=== PATIENT | male | born 1940 | race Caucasian/White ===

== ENCOUNTER → 2017-10-01 08:02 | Outpatient (CLI) | payer MEDICARE, OTHER, SELFPAY ==
[2017-10-01 10:07] LABS: Hematocrit 43.1 % (40-54); Hemoglobin 14.3 g/dl (13.0-16.5); Mean Corp Hgb Conc 33.2 g/gl (32-36); Mean Corpuscular Hgb 30.2 pg (27.0-32.0); Mean Corpuscular Volume 91.1 fL (80-94); Mean Platelet Vol. 10.5 fl (6.2-12.0); Platelet Count 207 K/mm3 (150-450); RBC Distribution Width CV 13.4 % (11.6-14.6); RBC Distribution Width SD 43.9 fl (35.1-43.9); Red Blood Count 4.73 M/mm3 (4.6-6.2); White Blood Count 3.9 K/mm3 (4.4-11.0)
[2017-10-01 10:09] LABS: Scan Indicated on CBC? Y/N NO
[2017-10-01 10:32] LABS: Anion Gap 8 (5-15); BUN 12 mg/dL (7-18); BUN/Creat Ratio 12.7 RATIO (10-20); Chloride 110 mmol/L (98-107); Cholesterol 112 mg/dL (200); Creatinine, Serum 0.94 mg/dL (0.70-1.30); EST Glomerular Filtration Rate 82 mL/min (>60); Est Glom Filt Rate - Afr Amer 99 mL/min (>60); Glucose 97 mg/dL (74-106); High Density Lipoprotein 28 mg/dL; Sodium Level 144 mmol/L (136-145); Triglycerides 112 mg/dL; Very Low Density Lipoprotein 22 mg/dL (5-40)
== END ==
PROVIDERS: Family Provider Family Medicine; PCP Family Medicine; Visit Provider Family Medicine
DX: I10 Essential (primary) hypertension (principal); E78.00 Pure hypercholesterolemia, unspecified
CPT/HCPCS: 36415; 80048; 80061; 85027

== ENCOUNTER 2017-11-27 11:06 | Inpatient (IN) | payer MEDICARE, OTHER, SELFPAY ==
[2017-11-27] VITALS (9 sets, daily range): BP systolic 128–163; BP diastolic 58–75; PULSE 54–63; RESP 16–18; TEMP -7.7–36.8; O2SAT 92–98; BMI 31.2; BMI 30.5
--- NOTE | 2017-11-27 11:10 | NURSING ---
NO OLD EKGS
--- NOTE | 2017-11-27 11:24 | RAD_ITS ---
STUDY: X-RAY CHEST REASON FOR EXAM: Male, 77 years old. Chest pain TECHNIQUE: Single AP portable view of the chest. COMPARISON: 10/12/2013 FINDINGS: Cardiac monitoring leads overlie the chest. The lungs are clear and expanded. There is no demonstrated pleural abnormality. There is moderate cardiac enlargement. Postoperative changes are seen from prior coronary artery bypass graft. Normal mediastinum and yamile. Normal visualized pulmonary arteries. There is atherosclerotic calcification of the aortic arch with tortuosity. There are diffuse degenerative changes of the visualized thoracic spine. Normal visualized ribs, clavicles, and shoulders. There is no demonstrated abnormality of the visualized soft tissue structures of the upper abdomen. RAD/Chest 1 View (Portable) IMPRESSION: Moderate cardiomegaly. No focal consolidation in the lungs. Previous coronary artery bypass graft. Electronically Signed: Morales Allen DO at 12:05 EDT Tel , Service support ,
--- NOTE | 2017-11-27 11:24 | EKG12_ITS ---
Test Reason : CP Blood Pressure : / mmHG Vent. Rate : 061 BPM Atrial Rate : 061 BPM P-R Int : 206 ms QRS Dur : 114 ms QT Int : 416 ms P-R-T Axes : 006 -30 037 degrees QTc Int : 418 ms Normal sinus rhythm Left axis deviation Possible LAFB Abnormal ECG Confirmed by DIANA OVIEDO, MARIALUISA ([id number]), electronic news gathering editor GILBERTO CHESTER ([id number]) on 11/30/2017 12:55:18 PM Referred By: Confirmed By:MARIALUISA ORTIZ MD
[2017-11-27] MEDS: Aspirin 81 MG TAB.CHEW 324 MG PO (11:34)
[2017-11-27 11:36] LABS: Absolute Lymphocyte Count 0.89 X10^3/ul (0.83-4.51); Absolute Neutrophil Count 4.9 X10^3/uL (2.0-7.7); Basophil# 0.01 X10^3/uL; Basophil% 0.1 % (0-1); Eosinophil# 0.18 X10^3/uL; Eosinophils% 2.7 % (0-5); Hematocrit 45.8 % (40-54); Hemoglobin 15.1 g/dl (13.0-16.5); Lymphocyte # 0.89 X10^3/ul (4.0); Lymphocyte % 13.3 % (19-41); Mean Corpuscular Hgb 29.6 pg (27.0-32.0); Mean Corpuscular Volume 89.8 fL (80-94); Mean Platelet Vol. 9.9 fl (6.2-12.0); Monocyte# 0.72 X10^3/uL; Monocyte% 10.8 % (0-10); Neutrophil # 4.85 X10^3/uL (2.7-7.7); Neutrophil % 72.7 % (47-70); POSITIVE COUNT NO; POSITIVE DIFFERENTIAL NO; POSITIVE MORPHOLOGY NO; Platelet Count 240 K/mm3 (150-450); RBC Distribution Width CV 13.3 % (11.6-14.6); RBC Distribution Width SD 43.3 fl (35.1-43.9); White Blood Count 6.7 K/mm3 (4.4-11.0)
[2017-11-27] MEDS: Acetaminophen 500 MG Tablet 1000 MG PO (11:36)
[2017-11-27 11:54] LABS: Anion Gap 5 (5-15); BUN 17 mg/dL (7-18); BUN/Creat Ratio 14.2 RATIO (10-20); Calcium,Total 8.8 mg/dL (8.5-10.1); Chloride 103 mmol/L (98-107); EST Glomerular Filtration Rate 62 mL/min (>60); Est Glom Filt Rate - Afr Amer 75 mL/min (>60); Glucose 91 mg/dL (74-106); Potassium 4.2 mmol/L (3.5-5.1); Sodium Level 137 mmol/L (136-145)
--- NOTE | 2017-11-27 12:23 | NURSING ---
DR GRIJALVA FOR DR HO
--- NOTE | 2017-11-27 12:25 | HP.PCM_ITS ---
Problem List (1) Hyperlipidemia Status: Chronic Qualifiers: Hyperlipidemia type: unspecified Qualified Code(s): E78.5 - Hyperlipidemia , unspecified (2) Hypertension Status: Chronic Qualifiers: Hypertension type: essential hypertension Qualified Code(s): I10 - Essential (primary) hypertension (3) Atherosclerotic heart disease of [place] coronary artery without angina pectoris Status: Chronic Qualifiers: [place] vs. transplanted heart: [place] heart Qualified Code(s): I25.10 - Atherosclerotic heart disease of [place] coronary artery without angina pectoris (4) Left ventricular hypertrophy Status: Chronic (5) Carotid stenosis, asymptomatic Status: Chronic (6) Chest pain Status: Acute Qualifiers: Chest pain type: unspecified Qualified Code(s): R07.9 - Chest pain, unspecified History of Present Illness Date of Admission: 11/27/17 Chief Complaint: Chest pain - today The patient is a 77 year old M with PMHx of CAD s/p CABG in 2003, hypertension, hyperlipidemia, who follows with Dr. Leyva and has a stress test every 3 years. He comes in with complains of indigestion that feels like what he had in 2003. He had a similar presentation last Winter in [place] and work-up was apparently normal. He was exercising on his exercise bike and was 10 mins into the exercise when he had feeling of indigestion that came up to his throat. He denies dizziness, nausea, vomiting, SOB, orthopnea, PND. Vitals in the ED was stable. Labs are unremarkable. EKG shows no acute ST-T changes. His last stress test was in 2016. 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) Left ventricular hypertrophy (Chronic) Carotid stenosis, asymptomatic (Chronic) Medical History: Medical History (Last Reviewed 10/22/17 @ 15:57 by Joe Leyva MD) Hyperlipidemia (Chronic) E78.5 Hypertension (Chronic) I10 Old myocardial infarction (Chronic) I25.2 Atherosclerotic heart disease of [place] coronary artery without angina pectoris (Chronic) I25.10 Carotid bruit (Chronic) R09.89 Left ventricular hypertrophy (Chronic) I51.7 Carotid stenosis, asymptomatic (Chronic) I65.29 Fatigue R53.83 Shortness of breath R06.02 Allergies atorvastatin [From Lipitor] Adverse Reaction (Severe, Verified 11/27/17 11:14) Severe Myalgias simvastatin Adverse Reaction (Severe, Verified 11/27/17 11:14) Myalgias tamsulosin [From Flomax] Adverse Reaction (Severe, Verified 11/27/17 11:14) Dizziness, Lightheaded Home Medications: Ambulatory Orders Medication Instructions Recorded amlodipine 10 mg tablet 10 mg PO QHS 07/29/17 aspirin 81 mg tablet,delayed 81 mg PO QHS tab 07/29/17 release carvedilol 12.5 mg tablet 12.5 mg PO BID 07/29/17 omeprazole magnesium 20 mg 20 mg PO QDAY 07/29/17 tablet,delayed release rosuvastatin 20 mg tablet 20 mg PO QDAY 07/29/17 dorzolamide 2 % eye drops 1 drp OPHTHALMIC BID ml 10/22/17 hydrocortisone acetate 25 mg 25 mg RC BID 10/22/17 rectal suppository latanoprost 0.005 % eye drops 1 drp OPHTHALMIC QPM 10/22/17 multivitamin tablet 1 tab PO QAM 10/22/17 testosterone 1.62 % (20.25 mg/1.25 1 packet TOPICAL QDAY g 10/22/17 gram) transdermal gel packet Surgical History: Surgical History (Last Reviewed 10/22/17 @ 15:57 by Joe Leyva MD) Presence of aortocoronary bypass graft (Chronic) Z95.1 CABG in situ-left internal thoracic artery bypass LAD, SVG to 1st diagonal branch of LAD, PDA of RCA & sequential SVG to 2nd marginal branch of CXF & posterolateral branch of RCA 02/10; Surgical History: coronary bypass surgery Psychiatric History: No pertinent psych hx Lives: Spouse/ Significant Other Smoking Status: Former smoker Tobacco Use: Non-smoker Alcohol: Occasional - beer Drugs: None - *Family History Maternal Family History: Family History (Last Reviewed 10/22/17 @ 15:57 by Joe Leyva MD) Other CVA (cerebral vascular accident) History Items: - - Rheumatoid arthritis Paternal Family History: Family History (Last Reviewed 10/22/17 @ 15:57 by Joe Leyva MD) Other CVA (cerebral vascular accident) History Items: Heart Disease Review of Systems Constitutional: Denies: Anorexia, Chills, Fever, Malaise, Weakness, Weight Change Eyes: Denies: Blurred vision, Cataracts, Conjunctivae Inflammation, Pain, Redness HEENT: Denies: Difficulty Hearing, Difficulty Swallowing, Head Aches, Hearing Changes, Sinus Congestion, Sinus Drainage, Sore Throat Cardiovascular: Denies: Chest Pain, Claudication, Edema, Orthopnea, Palpitations , Paroxysmal Noc. Dyspnea Respiratory: Denies: Cough, Hemoptysis, Shortness of breath at rest, Shortness of breath upon exertion, Sputum production Gastrointestinal: Denies: Abdominal Pain, Hematemesis, Hematochezia, Nausea, Vomiting Genitourinary: Denies: Dysuria, Frequency Musculoskeletal: Denies: Joint Pain, Joint Tenderness Skin: Denies: Rash, Wounds Neurological: Denies: Numbness, Tingling, Focal weakness Psychiatric: Denies: Anxiety, Depression, Homicidal Ideations, Suicidal Ideations Hematologic/ Lymphatic: Denies: Easy Bruising, Easy Bleeding VTE Information - Inpt Only VTE Present on Admission: No VTE Pharm Prophylaxis ordered?: Yes Patient Problems: Active and Suspected Problems (Last Reviewed 10/22/17 @ 15:57 by Joe Leyva MD ) Chest pain (Acute) - Physical Exam General: Alert, Oriented x3, Cooperative, No apparent distress HEENT: Atraumatic, PERRLA, EOMI, Normocephalic Oral: Moist Mucosa Neck: Supple, No JVD, Negative Carotid Bruits Lungs: Clear to auscultation, Normal air movement Cardiovascular: Regular rate, Regular Rhythm, Normal S1, Normal S2, No murmurs Abdomen: Bowel Sounds Present, Soft, Non Tender, Non-Distended, No Hepato- splenomegaly Extremities: No edema Skin: No rashes Musculoskeletal: No Tenderness to Palpation of Joints or Extremities Lymphatic: No Cervical, Supraclavicular, or Inguinal Adenopathy Neurological: Cranial nerves II-XII grossly intact, Neuro grossly intact Psych/Mental Status: Normal Affect, Appropriate Vital Signs Temp Pulse Resp BP Pulse Ox 97.8 F 61 18 163/75 H 98 11/27/17 11:08 11/27/17 11:08 11/27/17 11:08 11/27/17 11:08 11/27/17 11:08 Oxygen Flow Rate (L/min) 2 Oxygen Delivery Method Nasal Cannula Weight: 90.5 kg Body Mass Index (BMI) 31.2 Laboratory Tests Past 24 Hrs 11/27/17 11/27/17 11:25 11:25 WBC 6.7 RBC 5.10 Hgb 15.1 Hct 45.8 MCV 89.8 MCH 29.6 MCHC 33.0 RDW 13.3 RDW Differential 43.3 Plt Count 240 MPV 9.9 Immature Gran % (Auto) 0.400 Neut % (Auto) 72.7 H Lymph % (Auto) 13.3 L [place] % (Auto) 10.8 H Eos % (Auto) 2.7 Baso % (Auto) 0.1 Absolute Neuts (auto) 4.9 Absolute Lymphs (auto) 0.89 Total Counted Not Reportable Sodium 137 Potassium 4.2 Chloride 103 Carbon Dioxide 29.0 Anion Gap 5 BUN 17 Creatinine 1.20 Estim Creat Clear Calc 48.20 Est GFR (MDRD) Af Amer 75 Est GFR (MDRD) Non-Af 62 BUN/Creatinine Ratio 14.2 Glucose 91 Calcium 8.8 Troponin I < 0.015 Assessment/Plan All Active Problems (Last Reviewed 10/22/17 @ 15:57 by Joe Leyva MD) Chest pain (Acute) 77 year old M with PMHx of CAD s/p CABG in 2003, hypertension, hyperlipidemia, comes in which complains of chest pain, described as indigestion, substernal, radiating to his neck. 1. Chest pain, atypical, concerning for angina, h/o CAD s/p CABG, worse with exercise, will need to r/o ACS Plan: Admit to PCU, monitor on telemetry, aspirin, nitro prn, continue on carvedilol, trend troponins 2. Hypertension, controlled, continue on amlodipine and carvedilol. 3. Hyperlipidemia, on Crestor 4. GERD, on omeprazole 5. DVT PPx - Lovenox Code Visit OBSV E&M: 09358 Initial observation care L3
--- NOTE | 2017-11-27 12:30 | NURSING ---
PCU BRYANT HO/RUDI
--- NOTE | 2017-11-27 12:40 | ED.DCSUM_ITS ---
- ER Visit Summary Date of Service: 11/27/17 Chief Complaint: Chest pain History of Present Illness: The patient is a 77 M who states that in 2003 he had an episode of indigestion which eventually led to him having a 5 vessel bypass surgery. Patient states he had been doing well until today. He does regular exercise either on a bike or treadmill. Given the rainy weather today he was on the treadmill when he developed that same indigestion feeling radiating to both of his jaws. He states that on the way to the hospital he felt like he may go out but eventually he got to the hospital and now feels better. He states he sees Dr. Leyva for cardiology and has a stress test approximately every 3 years. He states that his last stress test he believes was 2 years ago. He is on a baby aspirin a day. He does note he did have an episode of indigestion similar to this last winter while in [place] and he went to the hospital and had a negative cardiac enzyme test and opted to go home and not to be stressed. Physical Examination: Afebrile vital signs are stable Gen: Well-nourished well-developed Head: Normocephalic atraumatic Eyes: Perrl EOMI ENT: TMs clear no rhinorrhea moist mucous membranes Neck: Supple no lymphadenopathy no JVD nontender CVS: Regular rate rhythm no murmurs normal S1-S2 Respiratory: No distress clear to auscultation bilaterally chest nontender Abdomen: Soft nontender nondistended normal bowel sounds no masses Back: Nontender Extremity: Nontender no edema Skin: Normal color no rash Neuro: alert orientated ?3 CN II-XII intact normal strength sensation reflexes gait cerebellar Psych: Normal affect normal mood Test Results: Chest x-ray showed cardiomegaly. EKG sinus rhythm at a rate of 61. CBC and chemistries were negative. Initial troponin less than 0.015. ( This is not even a 1 hour troponin) Emergency Department Course and Treatment: Patient received full strength aspirin. He refused nitroglycerin stating that he is virtually symptom free. I spoke with Dr. Chaves as well as Dr. Mcnamara and plan is admission. Impression: 1. Chest pain This note was generated with Vionic dictation software. It may contain incorrect words, spelling, and punctuation that were not noted in review of the chart prior to signing ED Disposition - Plan for ED Patient: Chief Complaint: Chest Pain Referrals: Mamadou Genao MD [Primary Care Provider] -
--- NOTE | 2017-11-27 12:43 | NURSING ---
Buster notified patient may transfer to PCU.
--- NOTE | 2017-11-27 13:29 | EKG12_ITS ---
Test Reason : CP Blood Pressure : / mmHG Vent. Rate : 055 BPM Atrial Rate : 055 BPM P-R Int : 206 ms QRS Dur : 128 ms QT Int : 444 ms P-R-T Axes : 047 -29 015 degrees QTc Int : 424 ms Sinus bradycardia \ Leftward axis Poor R wave progression Left ventricular hypertrophy with QRS widening Abnormal ECG Confirmed by DIANA OVIEDO, MARIALUISA ([id number]), script editor GILBERTO CHESTER ([id number]) on 11/30/2017 2:30:59 PM Referred By: Confirmed By:MARIALUISA ORTIZ MD
[2017-11-27] MEDS: Psyllium 1 PACKET 2 PACKET PO (20:52)
[2017-11-27] MEDS: Dorzolamide 2% 10ml Bottle 1 DRP OPHTHALMIC (20:52)
[2017-11-27] MEDS: Carvedilol 12.5 MG Tablet PO (20:52)
[2017-11-27] MEDS: Latanoprost 0.005% 1 Bottle 1 DRP OPHTHALMIC (20:53)
[2017-11-28] VITALS (11 sets, daily range): BP systolic 112–143; BP diastolic 50–71; PULSE 59–68; RESP 14–16; TEMP 36.4–36.9; O2SAT 92–98
[2017-11-28 07:06] LABS: Anion Gap 8 (5-15); BUN 14 mg/dL (7-18); BUN/Creat Ratio 15.8 RATIO (10-20); Calcium,Total 8.7 mg/dL (8.5-10.1); Chloride 106 mmol/L (98-107); Cholesterol 111 mg/dL (200); Creatinine, Serum 0.89 mg/dL (0.70-1.30); EST Glomerular Filtration Rate 88 mL/min (>60); Est Glom Filt Rate - Afr Amer 107 mL/min (>60); Estimated Creatinine Clearance 64.99 ml/min; Glucose 93 mg/dL (74-106); High Density Lipoprotein 27 mg/dL; Potassium 3.8 mmol/L (3.5-5.1); Sodium Level 142 mmol/L (136-145); Triglycerides 184 mg/dL; Very Low Density Lipoprotein 37 mg/dL (5-40)
[2017-11-28] MEDS: Carvedilol 12.5 MG Tablet PO ×2 (08:39→20:06)
[2017-11-28] MEDS: Multivitamins,Therapeutic Tablet 1 TABLET PO (08:39)
[2017-11-28] MEDS: Rosuvastatin 20 MG Tablet PO (08:40)
[2017-11-28] MEDS: amLODIPine 10 MG Tablet PO (08:40)
[2017-11-28] MEDS: Dorzolamide 2% 10ml Bottle 1 DRP OPHTHALMIC ×2 (08:41→20:06)
[2017-11-28] MEDS: Pantoprazole Sodium 20 MG Tablet PO (08:41)
[2017-11-28] MEDS: Hydrocortisone 25 MG Suppository RECTAL (08:44)
--- NOTE | 2017-11-28 10:34 | PCM.CONS.C ---
Problem List (1) Chest pain Status: Acute Qualifiers: Chest pain type: unspecified Qualified Code(s): R07.9 - Chest pain, unspecified (2) Hyperlipidemia Status: Chronic Qualifiers: Hyperlipidemia type: unspecified Qualified Code(s): E78.5 - Hyperlipidemia, unspecified (3) Hypertension Status: Chronic Qualifiers: Hypertension type: essential hypertension Qualified Code(s): I10 - Essential (primary) hypertension (4) Old myocardial infarction Status: Chronic (5) Atherosclerotic heart disease of [place] coronary artery without angina pectoris Status: Chronic Qualifiers: [place] vs. transplanted heart: [place] heart Qualified Code(s): I25.10 - Atherosclerotic heart disease of [place] coronary artery without angina pectoris (6) Presence of aortocoronary bypass graft Status: Chronic Comment: CABG in situ-left internal thoracic artery bypass LAD, SVG to 1st diagonal branch of LAD, PDA of RCA & sequential SVG to 2nd marginal branch of CXF & posterolateral branch of RCA 02/10; (7) Left ventricular hypertrophy Status: Chronic Reason for Consult Date of Consultation: 11/28/17 Reason for Consultation: Recurrent chest pain, coronary artery disease status post bypass surgery, hypertension, hypercholesterolemia, History of Present Illness: The patient is a 77 year old M, patient of Dr. Leyva's, with a history of hypertension, hypercholesterolemia, nondiabetic, quit smoking at age 27, who presented in 2003 with indigestion while he was golfing. At that time his symptoms were described as chest heaviness in the middle of his chest described as a pressure as well and unrelieved with Mylanta. He sought medical attention at [facility] where he met Dr. Leyva. The patient had a left heart catheterization and was referred for multivessel bypass surgery. At that time he apparently had a three-vessel CABG the specifics of which I need to get out of the computer. He has never had a heart catheterization since that time. In 2006 the patient required hip replacement surgery and underwent this successfully. His last stress test was around 2 years ago which was felt to be negative. Patient spends several months per year down in [place] and had an episode of his recurrent indigestion, and did not undergo a repeat stress test. Patient was biking quite heavily the other day, and exercise on a treadmill regularly and was doing so yesterday while it was raining outside. He developed 6 out of 10 chest pressure radiating to his neck and jaw, similar to his previous indigestion which was his presenting symptom in 2003. When his symptoms did not relieve with rest he sought medical attention in the emergency room. He underwent a EKG which demonstrated normal sinus rhythm/sinus bradycardia, LVH by voltage. He did not receive a sublingual nitroglycerin, and his symptoms abated in the emergency room. He was admitted and ruled out for myocardial infarction with troponins negative ?3. His telemetry has been negative thus far overnight. He has had no further indigestion or chest pain. As a side note, the patient has very delicate internal hemorrhoids, and has frequent lower GI bleeding. With his 4 baby aspirins yesterday he had significant blood after his bowel movement this morning. He apparently has had cauterization with Dr. Spencer in the distant past. Dual antiplatelet therapy may be somewhat problematic. Past Medical History Allergies/Adverse Reactions: Allergies atorvastatin [From Lipitor] Adverse Reaction (Severe, Verified 11/27/17 11:14) Severe Myalgias simvastatin Adverse Reaction (Severe, Verified 11/27/17 11:14) Myalgias tamsulosin [From Flomax] Adverse Reaction (Severe, Verified 11/27/17 11:14) Dizziness, Lightheaded Home Medications: Ambulatory Orders Medication Instructions Recorded amlodipine 10 mg tablet 10 mg PO QHS 07/29/17 aspirin 81 mg tablet,delayed 81 mg PO QHS tab 07/29/17 release carvedilol 12.5 mg tablet 12.5 mg PO BID 07/29/17 omeprazole magnesium 20 mg 20 mg PO QDAY 07/29/17 tablet,delayed release rosuvastatin 20 mg tablet 20 mg PO QDAY 07/29/17 dorzolamide 2 % eye drops 1 drp OPHTHALMIC BID ml 10/22/17 hydrocortisone acetate 25 mg 25 mg RC BID 10/22/17 rectal suppository latanoprost 0.005 % eye drops 1 drp OPHTHALMIC QPM 10/22/17 multivitamin tablet 1 tab PO QAM 10/22/17 testosterone 1.62 % (20.25 mg/1.25 1 packet TOPICAL QDAY g 10/22/17 gram) transdermal gel packet Psyllium Husk (with Sugar) 6.8 gm PO QHS 11/27/17 [Metamucil Packet] Past Medical History (Chronic Problems): Chronic Problems (Last Reviewed 10/22/17 @ 15:57 by Joe Leyva MD) Hyperlipidemia (Chronic) Hypertension (Chronic) 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 (Chronic) Carotid bruit (Chronic) Presence of aortocoronary bypass graft (Chronic) CABG in situ-left internal thoracic artery bypass LAD, SVG to 1st diagonal branch of LAD, PDA of RCA & sequential SVG to 2nd marginal branch of CXF & posterolateral branch of RCA 02/10; 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) Left ventricular hypertrophy (Chronic) Carotid stenosis, asymptomatic (Chronic) Surgical History: coronary bypass surgery Psychiatric History: No pertinent psych hx - *Family History Maternal Family History: Family History (Last Reviewed 10/22/17 @ 15:57 by Joe Leyva MD) Other CVA (cerebral vascular accident) History Items: - - Rheumatoid arthritis Paternal Family History: Family History (Last Reviewed 10/22/17 @ 15:57 by Joe Leyva MD) Other CVA (cerebral vascular accident) History Items: Heart Disease Lives: Spouse/ Significant Other Smoking Status: Former smoker Tobacco Use: Non-smoker Alcohol: Occasional - beer Drugs: None Review of Systems - Review of Systems General: Denies: Fever, Night Sweats, Fatigue Cardiovascular: Reports: Chest Discomfort, Chest Discomfort with Exertion. Denies: Shortness of Breath, Orthopnea, PND, Peripheral Edema, Palpitations, Lightheadedness, Dizziness, Near Syncope, Syncope Respiratory: Denies: Cough, Sputum Production, Hemoptysis Gastrointestinal: Denies: Hematemesis, Hematochezia, Melena Genitourinary: Denies: Dysuria, Hematuria Skin: Denies: Rash Subjectve: Patient sitting in a chair, no acute distress. Objective: Vital Signs Temp Pulse Resp BP Pulse Ox 98.5 F 64 16 136/60 H 96 11/28/17 08:32 11/28/17 08:32 11/28/17 08:32 11/28/17 08:32 11/28/17 08:32 Oxygen Flow Rate (L/min) 2 Oxygen Delivery Method Room Air Weight: 194 lb 14.218 oz Body Mass Index (BMI) 30.5 Intake and Output for Last 24 Hours 11/26/17 11/27/17 11/28/17 23:59 23:59 23:59 Intake Total 240 / 240 Balance 240 / 240 General: Awake, Alert, Oriented x 3 HEENT: PERRL, EOMI, Sclera Non Icteric Neck: Supple, Good ROM, No Lymph Node Enlargement Lungs: Clear to auscultation Cardiovascular: Regular Rhythm, Normal S1, Normal S2, No Murmurs, No Rubs, No Gallops Vascular: No Carotid Bruits, Normal Femoral Pulses, Normal Radial Pulses, Normal Dorsalis Pedal Pulse, Normal Posterior Tibial Pulses Abdomen: Bowel Sounds Present, Soft, Non Tender, No HSM, No Organomegaly Extremities: No Cyanosis, No Clubbing, No edema Neurological: No Focal Motor or Sensory Deficit 11/27/17 15:10: Troponin I < 0.015 11/27/17 18:15: Troponin I < 0.015 11/28/17 06:04: Sodium 142, Potassium 3.8, Chloride 106, Carbon Dioxide 28.0, Anion Gap 8, BUN 14, Creatinine 0.89, Est GFR (MDRD) Af Amer 107, Est GFR (MDRD) Non-Af 88, BUN/Creatinine Ratio 15.8, Glucose 93, Calcium 8.7, Triglycerides 184, Cholesterol 111, LDL Cholesterol 47, VLDL Cholesterol 37, HDL Cholesterol 27 L Rhythm: Telemetry negative. EKG: As above ECHO: Pending Stress Test: Pending Cardiac Cath: PCI: CT Surgery: Holter monitor: EPS: PPM: CXR: Chest CT Scan: Assessment/Plan 1. Coronary artery disease: The patient presents with recurrent indigestion type midsternal chest pressure, radiating to his jaw and neck, similar to his initial presentation in 2003 prior to his bypass surgery. Patient has been on baby aspirin since then but is unable to tolerate higher doses due to lower GI bleeding and hemorrhoids which have been problematic over the years. His EKG shows no dynamic changes, his troponins are negative ?3, and I recommended that he continue baby aspirin, undergo a 2D echo with Doppler tomorrow morning, as well as a treadmill echocardiogram to assess for possible ischemia. 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 Patient quit smoking at age 27, and he is compliant with his medications. If the patient's stress echocardiogram is abnormal for ischemia either by symptoms, or wall motion and normalities, he will require a diagnostic coronary angiogram. The challenge will be as if he needs an angioplasty given his internal hemorrhoids and frequent bleeding, which may make dual antiplatelet therapy somewhat problematic. Patient may require a trial of dual antiplatelet therapy or at the very least a bare-metal stent to avoid long-term dual antiplatelet therapy. At some point he will require reassessment by his GI physician for possible hemorrhoidal cauterization if this is possible. 2. I have explained to the patient at length that we are unable to do a stress test today, and given his recurrent symptoms, and previous presentation in [place] which did not undergo a stress test, given the age of his grafts, I am very hesitant to send him home. Although he is frustrated with this outcome he is agreed to stay. 3. Hyperlipidemia: Recommend obtaining a fasting lipid profile. He is currently on Crestor. His LDL should be less than 70. 4. Thank you very much for the opportunity to participate in the cardiac care of your patient. Consultation time took place between 930 and 10 AM. Code Visit Inpatient E&M: 14120 Init Hosp L2
--- NOTE | 2017-11-28 10:43 | CON.PCM_ITS ---
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 transplanted heart: [place] heart Qualified Code(s): I25.10 - Atherosclerotic heart disease of [place] coronary artery without angina pectoris (6) Presence of aortocoronary bypass graft Status: Chronic Comment: CABG in situ-left internal thoracic artery bypass LAD , SVG to 1st diagonal branch of LAD, PDA of RCA & sequential SVG to 2nd marginal branch of CXF & posterolateral branch of RCA 02/10; (7) Left ventricular hypertrophy Status: Chronic Reason for Consult Date of Consultation: 11/28/17 Reason for Consultation: Recurrent chest pain, coronary artery disease status post bypass surgery, hypertension, hypercholesterolemia, History of Present Illness: The patient is a 77 year old M, patient of Dr. Leyva's, with a history of hypertension, hypercholesterolemia, nondiabetic, quit smoking at age 27, who presented in 2003 with indigestion while he was golfing. At that time his symptoms were described as chest heaviness in the middle of his chest described as a pressure as well and unrelieved with Mylanta. He sought medical attention at [facility] where he met Dr. Leyva. The patient had a left heart catheterization and was referred for multivessel bypass surgery. At that time he apparently had a three-vessel CABG the specifics of which I need to get out of the computer. He has never had a heart catheterization since that time. In 2006 the patient required hip replacement surgery and underwent this successfully. His last stress test was around 2 years ago which was felt to be negative. Patient spends several months per year down in [place] and had an episode of his recurrent indigestion, and did not undergo a repeat stress test. Patient was biking quite heavily the other day, and exercise on a treadmill regularly and was doing so yesterday while it was raining outside. He developed 6 out of 10 chest pressure radiating to his neck and jaw, similar to his previous indigestion which was his presenting symptom in 2003. When his symptoms did not relieve with rest he sought medical attention in the emergency room. He underwent a EKG which demonstrated normal sinus rhythm/sinus bradycardia, LVH by voltage. He did not receive a sublingual nitroglycerin, and his symptoms abated in the emergency room. He was admitted and ruled out for myocardial infarction with troponins negative ?3. His telemetry has been negative thus far overnight. He has had no further indigestion or chest pain. As a side note, the patient has very delicate internal hemorrhoids, and has frequent lower GI bleeding. With his 4 baby aspirins yesterday he had significant blood after his bowel movement this morning. He apparently has had cauterization with Dr. Spencer in the distant past. Dual antiplatelet therapy may be somewhat problematic. Past Medical History Allergies/Adverse Reactions: Allergies atorvastatin [From Lipitor] Adverse Reaction (Severe, Verified 11/27/17 11:14) Severe Myalgias simvastatin Adverse Reaction (Severe, Verified 11/27/17 11:14) Myalgias tamsulosin [From Flomax] Adverse Reaction (Severe, Verified 11/27/17 11:14) Dizziness, Lightheaded Home Medications: Ambulatory Orders Medication Instructions Recorded amlodipine 10 mg tablet 10 mg PO QHS 07/29/17 aspirin 81 mg tablet,delayed 81 mg PO QHS tab 07/29/17 release carvedilol 12.5 mg tablet 12.5 mg PO BID 07/29/17 omeprazole magnesium 20 mg 20 mg PO QDAY 07/29/17 tablet,delayed release rosuvastatin 20 mg tablet 20 mg PO QDAY 07/29/17 dorzolamide 2 % eye drops 1 drp OPHTHALMIC BID ml 10/22/17 hydrocortisone acetate 25 mg 25 mg RC BID 10/22/17 rectal suppository latanoprost 0.005 % eye drops 1 drp OPHTHALMIC QPM 10/22/17 multivitamin tablet 1 tab PO QAM 10/22/17 testosterone 1.62 % (20.25 mg/1.25 1 packet TOPICAL QDAY g 10/22/17 gram) transdermal gel packet Psyllium Husk (with Sugar) 6.8 gm PO QHS 11/27/17 [Metamucil Packet] Past Medical History (Chronic Problems): Chronic Problems (Last Reviewed 10/22/17 @ 15:57 by Joe Leyva MD) Hyperlipidemia (Chronic) Hypertension (Chronic) Old myocardial infarction (Chronic) Atherosclerotic heart disease of [place] coronary artery without angina pectoris (Chronic) Carotid bruit (Chronic) Presence of aortocoronary bypass graft (Chronic) CABG in situ-left internal thoracic artery bypass LAD, SVG to 1st diagonal branch of LAD, PDA of RCA & sequential SVG to 2nd marginal branch of CXF & posterolateral branch of RCA 02/10; 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) Left ventricular hypertrophy (Chronic) Carotid stenosis, asymptomatic (Chronic) Surgical History: coronary bypass surgery Psychiatric History: No pertinent psych hx - *Family History Maternal Family History: Family History (Last Reviewed 10/22/17 @ 15:57 by Joe Leyva MD) Other CVA (cerebral vascular accident) History Items: - - Rheumatoid arthritis Paternal Family History: Family History (Last Reviewed 10/22/17 @ 15:57 by Joe Leyva MD) Other CVA (cerebral vascular accident) History Items: Heart Disease Lives: Spouse/ Significant Other Smoking Status: Former smoker Tobacco Use: Non-smoker Alcohol: Occasional - beer Drugs: None Review of Systems - Review of Systems General: Denies: Fever, Night Sweats, Fatigue Cardiovascular: Reports: Chest Discomfort, Chest Discomfort with Exertion. Denies: Shortness of Breath, Orthopnea, PND, Peripheral Edema, Palpitations, Lightheadedness, Dizziness, Near Syncope, Syncope Respiratory: Denies: Cough, Sputum Production, Hemoptysis Gastrointestinal: Denies: Hematemesis, Hematochezia, Melena Genitourinary: Denies: Dysuria, Hematuria Skin: Denies: Rash Subjectve: Patient sitting in a chair, no acute distress. Objective: Vital Signs Temp Pulse Resp BP Pulse Ox 98.5 F 64 16 136/60 H 96 11/28/17 08:32 11/28/17 08:32 11/28/17 08:32 11/28/17 08:32 11/28/17 08:32 Oxygen Flow Rate (L/min) 2 Oxygen Delivery Method Room Air Weight: 194 lb 14.218 oz Body Mass Index (BMI) 30.5 Intake and Output for Last 24 Hours 11/26/17 11/27/17 11/28/17 23:59 23:59 23:59 Intake Total 240 / 240 Balance 240 / 240 General: Awake, Alert, Oriented x 3 HEENT: PERRL, EOMI, Sclera Non Icteric Neck: Supple, Good ROM, No Lymph Node Enlargement Lungs: Clear to auscultation Cardiovascular: Regular Rhythm, Normal S1, Normal S2, No Murmurs, No Rubs, No Gallops Vascular: No Carotid Bruits, Normal Femoral Pulses, Normal Radial Pulses, Normal Dorsalis Pedal Pulse, Normal Posterior Tibial Pulses Abdomen: Bowel Sounds Present, Soft, Non Tender, No HSM, No Organomegaly Extremities: No Cyanosis, No Clubbing, No edema Neurological: No Focal Motor or Sensory Deficit 11/27/17 15:10: Troponin I < 0.015 11/27/17 18:15: Troponin I < 0.015 11/28/17 06:04: Sodium 142, Potassium 3.8, Chloride 106, Carbon Dioxide 28.0, Anion Gap 8, BUN 14, Creatinine 0.89, Est GFR (MDRD) Af Amer 107, Est GFR (MDRD ) Non-Af 88, BUN/Creatinine Ratio 15.8, Glucose 93, Calcium 8.7, Triglycerides 184, Cholesterol 111, LDL Cholesterol 47, VLDL Cholesterol 37, HDL Cholesterol 27 L Rhythm: Telemetry negative. EKG: As above ECHO: Pending Stress Test: Pending Cardiac Cath: PCI: CT Surgery: Holter monitor: EPS: PPM: CXR: Chest CT Scan: Assessment/Plan 1. Coronary artery disease: The patient presents with recurrent indigestion type midsternal chest pressure, radiating to his jaw and neck, similar to his initial presentation in 2003 prior to his bypass surgery. Patient has been on baby aspirin since then but is unable to tolerate higher doses due to lower GI bleeding and hemorrhoids which have been problematic over the years. His EKG shows no dynamic changes, his troponins are negative ?3, and I recommended that he continue baby aspirin, undergo a 2D echo with Doppler tomorrow morning, as well as a treadmill echocardiogram to assess for possible ischemia. 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 Patient quit smoking at age 27, and he is compliant with his medications. If the patient's stress echocardiogram is abnormal for ischemia either by symptoms, or wall motion and normalities, he will require a diagnostic coronary angiogram. The challenge will be as if he needs an angioplasty given his internal hemorrhoids and frequent bleeding, which may make dual antiplatelet therapy somewhat problematic. Patient may require a trial of dual antiplatelet therapy or at the very least a bare-metal stent to avoid long-term dual antiplatelet therapy. At some point he will require reassessment by his GI physician for possible hemorrhoidal cauterization if this is possible. 2. I have explained to the patient at length that we are unable to do a stress test today, and given his recurrent symptoms, and previous presentation in [place] which did not undergo a stress test, given the age of his grafts, I am very hesitant to send him home. Although he is frustrated with this outcome he is agreed to stay. 3. Hyperlipidemia: Recommend obtaining a fasting lipid profile. He is currently on Crestor. His LDL should be less than 70. 4. Thank you very much for the opportunity to participate in the cardiac care of your patient. Consultation time took place between 930 and 10 AM. Code Visit Inpatient E&M: 19252 Init Hosp L2
--- NOTE | 2017-11-28 11:21 | PCM.PN.HOSP ---
Patient Problems: Active and Suspected Problems (Last Reviewed 10/22/17 @ 15:57 by Joe Leyva MD) Chest pain (Acute) Subjective: Patient was seen and examined. No acute events overnight. Denies any more chest pain. Vitals have been stable. Troponins have been negative. Objective: Physical Exam General: Alert, Oriented x3, Cooperative, No apparent distress HEENT: Atraumatic, PERRLA, EOMI, Normocephalic Oral: Moist Mucosa Neck: Supple, No JVD, Negative Carotid Bruits Lungs: Clear to auscultation, Normal air movement Cardiovascular: Regular rate, Regular Rhythm, Normal S1, Normal S2, No murmurs Abdomen: Bowel Sounds Present, Soft, Non Tender, Non-Distended, No Hepato-splenomegaly Extremities: No edema Skin: No rashes Musculoskeletal: No Tenderness to Palpation of Joints or Extremities Lymphatic: No Cervical, Supraclavicular, or Inguinal Adenopathy Neurological: Cranial nerves II-XII grossly intact, Neuro grossly intact Psych/Mental Status: Normal Affect, Appropriate Vitals/I&O's: Vital Signs Temp Pulse Resp BP Pulse Ox 98.5 F 64 16 136/60 H 96 11/28/17 08:32 11/28/17 08:32 11/28/17 08:32 11/28/17 08:32 11/28/17 08:32 Oxygen Flow Rate (L/min) 2 Oxygen Delivery Method Room Air Weight: 88.4 kg Body Mass Index (BMI) 30.5 Intake and Output for Last 24 Hours 11/26/17 11/27/17 11/28/17 23:59 23:59 23:59 Intake Total 240 / 240 Balance 240 / 240 Laboratory Results 11/27/17 15:10: Troponin I < 0.015 11/27/17 18:15: Troponin I < 0.015 11/28/17 06:04: Sodium 142, Potassium 3.8, Chloride 106, Carbon Dioxide 28.0, Anion Gap 8, BUN 14, Creatinine 0.89, Estim Creat Clear Calc 64.99, Est GFR (MDRD) Af Amer 107, Est GFR (MDRD) Non-Af 88, BUN/Creatinine Ratio 15.8, Glucose 93, Calcium 8.7, Triglycerides 184, Cholesterol 111, LDL Cholesterol 47, VLDL Cholesterol 37, HDL Cholesterol 27 L Current Medications Amlodipine Besylate (Norvasc) 10 mg PO DAILY [facility] Last Admin: 11/28/17 08:40 Dose: 10 mg Aspirin (Ecotrin) 81 mg PO DAILY@0800 [facility] Last Admin: 11/28/17 08:38 Dose: Not Given Carvedilol (Coreg) 12.5 mg PO BID [facility] Last Admin: 11/28/17 08:39 Dose: 12.5 mg Dorzolamide HCl (Trusopt) 1 drop OPHTHALMIC BID [facility] Last Admin: 11/28/17 08:41 Dose: 1 drop Hydrocortisone Acetate (Anusol Hc) 25 mg RECTAL BID [facility] Last Admin: 11/28/17 08:44 Dose: 25 mg Latanoprost (Xalatan Opthalmic) 1 drop OPHTHALMIC QPM [facility] Last Admin: 11/27/17 20:53 Dose: 1 drop Magnesium Hydroxide (Milk Of Magnesia) 30 ml PO DAILY PRN PRN Reason: Constipation Multivitamins (Multivitamin) 1 tablet PO DAILY@0800 [facility] Last Admin: 11/28/17 08:39 Dose: 1 tablet Pantoprazole Sodium (Protonix) 20 mg PO DAILY [facility] Last Admin: 11/28/17 08:41 Dose: 20 mg Psyllium Hydrophilic Mucilloid (Metamucil) 2 packet PO QHS [facility] Last Admin: 11/27/17 20:52 Dose: 2 packet Rosuvastatin Calcium (Crestor) 20 mg PO DAILY [facility] Last Admin: 11/28/17 08:40 Dose: 20 mg Sodium Chloride () 5 - 30 ml IV UD PRN PRN Reason: SALINE FLUSH Medical Necessity - Tobacco Use Smoking Status: Former smoker Tobacco Use: Non-smoker Assessment/Plan All Active Problems (Last Reviewed 10/22/17 @ 15:57 by Joe Leyva MD) Chest pain (Acute) 77 year old M with PMHx of CAD s/p CABG in 2003, hypertension, hyperlipidemia, comes in which complains of chest pain, described as indigestion, substernal, radiating to his neck. 1. Chest pain, atypical, concerning for angina, h/o CAD s/p CABG, no events on telemetry, troponins are negative, on aspirin, nitro prn, continue on carvedilol. 2. Hypertension, controlled, continue on amlodipine and carvedilol. 3. Hyperlipidemia, on Crestor 4. GERD, on omeprazole 5. DVT PPx - Lovenox Code Visit OBSV E&M: 24273 Subsequent observation care L3
[2017-11-28] MEDS: Psyllium 1 PACKET 2 PACKET PO (20:04)
[2017-11-28] MEDS: Latanoprost 0.005% 1 Bottle 1 DRP OPHTHALMIC (20:07)
[2017-11-29] VITALS (12 sets, daily range): BP systolic 103–138; BP diastolic 45–64; PULSE 55–73; RESP 14–18; TEMP 36.7–36.9; O2SAT 93–97
--- NOTE | 2017-11-29 05:00 | EKG12_ITS ---
Test Reason : AM EKG Blood Pressure : / mmHG Vent. Rate : 065 BPM Atrial Rate : 065 BPM P-R Int : 234 ms QRS Dur : 118 ms QT Int : 430 ms P-R-T Axes : 033 -34 024 degrees QTc Int : 447 ms Sinus rhythm with 1st degree A-V block Left axis deviation Left ventricular hypertrophy with QRS widening Inferior infarct , age undetermined , cannot be excluded Abnormal ECG Confirmed by DIANA OVIEDO, MARIALUISA ([id number]), news editor GILBERTO CHESTER ([id number]) on 11/30/2017 2:17:40 PM Referred By: WERNER Confirmed By:MARIALUISA ORTIZ MD
[2017-11-29 05:10] LABS: Hemoglobin 14.2 g/dl (13.0-16.5); Mean Corpuscular Hgb 29.8 pg (27.0-32.0); Mean Corpuscular Volume 90.3 fL (80-94); Mean Platelet Vol. 10.1 fl (6.2-12.0); Platelet Count 191 K/mm3 (150-450); RBC Distribution Width CV 13.2 % (11.6-14.6); RBC Distribution Width SD 43.2 fl (35.1-43.9); Red Blood Count 4.76 M/mm3 (4.6-6.2); White Blood Count 5.3 K/mm3 (4.4-11.0)
[2017-11-29 05:14] LABS: International Normalized Ratio 1.1; Prothrombin Time (Protime)PT. 14.3 SECONDS (11.7-14.9)
[2017-11-29 05:15] LABS: Partial Thromboplast Time 25.7 Seconds (24.1-36.2); Scan Indicated on CBC? Y/N NO
[2017-11-29 05:25] LABS: Anion Gap 10 (5-15); BUN 14 mg/dL (7-18); BUN/Creat Ratio 14.4 RATIO (10-20); Calcium,Total 8.6 mg/dL (8.5-10.1); Chloride 107 mmol/L (98-107); Creatinine, Serum 0.97 mg/dL (0.70-1.30); EST Glomerular Filtration Rate 79 mL/min (>60); Est Glom Filt Rate - Afr Amer 96 mL/min (>60); Estimated Creatinine Clearance 59.63 ml/min; Glucose 95 mg/dL (74-106); Potassium 3.8 mmol/L (3.5-5.1); Sodium Level 143 mmol/L (136-145)
[2017-11-29] MEDS: Aspirin E.C. 81 MG Tablet PO (06:44)
--- NOTE | 2017-11-29 07:00 | STEWCON_ITS ---
Reason For Study: S/P CABG Stress Results Protocol: Michael Protocol Maximum Predicted HR: 143 bpm Target HR: 122 bpm% Max imum Predicted HR: 91 % DurationHeart Rate Stage (mm:ss) (bpm) BPCom ment BASELINE 60 136/70 3CC DEFINITY STAGE 1 3:00 10 0 158/70 STAGE 2 3:00 11 8 180/82 STAGE 3 1:01 13 0 / 2CC DEFINITY RECOVERY 73 160/72 Stress Duration: 7:01 mm:ss Maximum Stress HR: 130 bpm Baseline Echocardiogram Findings Moderate global left ventricular systolic dysfunction. The estimated ejection fraction is 45 %. Stress Echo Wall motion Data Resting WMIntermediate WMStress WM Resting Wall Motion Posterior-Basal: Severely hypokinetic. Infero-Basal: Severely Hypokinetic. Mid-Posterior: Severely Hypokinetic. EKG Data The baseline ECG demonstrates normal sinus rhythm with at rate of _ beats per minute. The patient exercised according to the regular Michael protocol for a total duration of 7:01. The maximum heart rate attained was 131 beats per minute. This was 91% of maximum predicted heart rate. The patient exercised into stage 3 of the Michael protocol. During stress, there were no ST or T wave changes noted to suggest ischemia. No clinical angina was noted. Interpretation Summary The study was technically difficult. Contrast injection was performed. Moderate global left ventricular systolic dysfunction. The estimated baseline ejection fraction is 45 %. Normal, adequate, treadmill echocardiogram. Negative for ischemia by EKG criteria. Appropriate blood pressure response to exercise. Average exercise capacity for age. Rare PVC during exercise. One ventricular triplet during exercise. Patient had baseline moderate to severe inferior lateral hypokinesis which did not appreciably improve during exercise. All other llamas appear to contract normally during exercise. Decreased sensitivity due to poor echo windows requiring Definity agent. Test terminated due to dyspnea and attainment of target heart rate. Final LVEF of 55%. Ordering Physician: Mario Chaves Referring Physician: Mario Chaves MD Performed By: Floresita Le, TED, RVT
[2017-11-29] MEDS: 0.9% NaCl Peripheral Flush Adult/Peds IV (09:17)
[2017-11-29] MEDS: Carvedilol 12.5 MG Tablet PO ×2 (09:51→20:07)
[2017-11-29] MEDS: Dorzolamide 2% 10ml Bottle 1 DRP OPHTHALMIC ×2 (09:51→20:06)
[2017-11-29] MEDS: Multivitamins,Therapeutic Tablet 1 TABLET PO (09:51)
[2017-11-29] MEDS: Pantoprazole Sodium 20 MG Tablet PO (09:52)
[2017-11-29] MEDS: amLODIPine 10 MG Tablet PO (09:52)
[2017-11-29] MEDS: Rosuvastatin 20 MG Tablet PO (09:55)
[2017-11-29] MEDS: Hydrocortisone 25 MG Suppository RECTAL ×2 (11:08→20:07)
[2017-11-29] MEDS: Clopidogrel Bisulfate 300 MG Tablet PO (12:58)
--- NOTE | 2017-11-29 13:10 | PN.CARD_ITS ---
Subjectve: Patient doing well this morning. No further chest pain. Telemetry negative. Patient underwent walking stress test this morning had no anginal symptoms but has baseline inferior posterior hypokinesis with an overall ejection fraction around 45%. Patient had a ventricular triplet during recovery. No anginal symptoms. Objective: Vital Signs Temp Pulse Resp BP Pulse Ox 98.3 F 55 L 18 128/62 H 93 11/29/17 07:40 11/29/17 11:17 11/29/17 07:40 11/29/17 07:40 11/29/17 11:00 Oxygen Flow Rate (L/min) 2 Oxygen Delivery Method Room Air Weight: 194 lb 14.218 oz Body Mass Index (BMI) 30.5 Intake and Output for Last 24 Hours 11/27/17 11/28/17 11/29/17 23:59 23:59 23:59 Intake Total 240 / 240 1040 / 1040 240 / 240 Balance 240 / 240 1040 / 1040 240 / 240 General: Awake, Alert, Oriented x 3 HEENT: PERRL, EOMI, Sclera Non Icteric Neck: Supple, Good ROM, No Lymph Node Enlargement Lungs: Clear to auscultation Cardiovascular: Regular Rhythm, Normal S1, Normal S2, No Murmurs, No Rubs, No Gallops Vascular: No Carotid Bruits, Normal Femoral Pulses, Normal Radial Pulses, Normal Dorsalis Pedal Pulse, Normal Posterior Tibial Pulses Abdomen: Bowel Sounds Present, Soft, Non Tender, No HSM, No Organomegaly Extremities: No Cyanosis, No Clubbing, No edema Neurological: No Focal Motor or Sensory Deficit 11/29/17 04:48: WBC 5.3, RBC 4.76, Hgb 14.2, Hct 43.0, MCV 90.3, MCH 29.8, MCHC 33.0, RDW 13.2, RDW Differential 43.2, Plt Count 191, MPV 10.1 11/29/17 04:48: PT 14.3, INR 1.1, APTT 25.7 11/29/17 04:48: Sodium 143, Potassium 3.8, Chloride 107, Carbon Dioxide 26.0, Anion Gap 10, BUN 14, Creatinine 0.97, Est GFR (MDRD) Af Amer 96, Est GFR (MDRD ) Non-Af 79, BUN/Creatinine Ratio 14.4, Glucose 95, Calcium 8.6 Rhythm: EKG: ECHO: Stress Test: Cardiac Cath: PCI: CT Surgery: Holter monitor: EPS: PPM: CXR: Chest CT Scan: Medical Necessity - Tobacco Use Smoking Status: Former smoker Tobacco Use: Non-smoker Assessment/Plan 1. Coronary artery disease: The patient presents with recurrent indigestion type midsternal chest pressure, radiating to his jaw and neck, similar to his initial presentation in 2003 prior to his bypass surgery. Patient has been on baby aspirin since then but is unable to tolerate higher doses due to lower GI bleeding and hemorrhoids which have been problematic over the years. His EKG shows no dynamic changes, his troponins are negative ?3, and I recommended that he continue baby aspirin, undergo a 2D echo with Doppler tomorrow morning. Patient quit smoking at age 27, and he is compliant with his medications. Patient underwent a stress echocardiogram today in which he went about 8 minutes , had no anginal symptoms but has baseline inferior posterior hypokinesis and all llamas contracted normally otherwise. Nonetheless the patient has had 2 episodes of chest pain as well as ventricular ectopy. I have asked the patient to consider repeat catheterization in order to have peace of mind that his bypass grafts and vessels are patent and that he can enjoy his 6 month vacation in [place] this upcoming January. Patient agreed that this is reasonable, and we will proceed with catheterization tomorrow morning. We will load the patient with 300 mg of Plavix ?1 now followed by 75 mg a day. If the patient has a lesion that can be staged I would hold off on intervention or perhaps invoked bare-metal stenting given his history of lower GI bleeding due to his hemorrhoids. The challenge will be as if he needs an angioplasty given his internal hemorrhoids and frequent bleeding, which may make dual antiplatelet therapy somewhat problematic. Patient may require a trial of dual antiplatelet therapy or at the very least a bare-metal stent to avoid long-term dual antiplatelet therapy. At some point he will require reassessment by his GI physician for possible hemorrhoidal cauterization if this is possible. 2. Discussed with patient and his . Patient agrees to proceed with left heart catheterization and possible intervention if indicated. 3. Hyperlipidemia: Recommend obtaining a fasting lipid profile. He is currently on Crestor. His LDL should be less than 70. 4. Thank you very much for the opportunity to participate in the cardiac care of your patient. Code Visit Inpatient E&M: 72200 Subs Hosp L2
--- NOTE | 2017-11-29 15:29 | PCM.PN.HOSP ---
Patient Problems: Active and Suspected Problems (Last Reviewed 10/22/17 @ 15:57 by Joe Leyva MD) Chest pain (Acute) Subjective: Patient was seen and examined. Denies any new complaints. Had a stress echo done today that showed relates global left systolic dysfunction, EF 45%. Denies any dizziness or palpitations. Discussed with cardiology, will be going for cardiac cath. Objective: Physical Exam General: Alert, Oriented x3, Cooperative, No apparent distress HEENT: Atraumatic, PERRLA, EOMI, Normocephalic Oral: Moist Mucosa Neck: Supple, No JVD, Negative Carotid Bruits Lungs: Clear to auscultation, Normal air movement Cardiovascular: Regular rate, Regular Rhythm, Normal S1, Normal S2, No murmurs Abdomen: Bowel Sounds Present, Soft, Non Tender, Non-Distended, No Hepato-splenomegaly Extremities: No edema Skin: No rashes Musculoskeletal: No Tenderness to Palpation of Joints or Extremities Lymphatic: No Cervical, Supraclavicular, or Inguinal Adenopathy Neurological: Cranial nerves II-XII grossly intact, Neuro grossly intact Psych/Mental Status: Normal Affect, Appropriate Vitals/I&O's: Vital Signs Temp Pulse Resp BP Pulse Ox 98.0 F 55 L 16 133/45 H 97 11/29/17 14:38 11/29/17 14:38 11/29/17 14:38 11/29/17 14:38 11/29/17 14:38 Oxygen Delivery Method Room Air Current Medications Amlodipine Besylate (Norvasc) 10 mg PO DAILY [facility] Last Admin: 11/29/17 09:52 Dose: 10 mg Aspirin (Ecotrin) 81 mg PO DAILY@0800 [facility] Last Admin: 11/29/17 06:44 Dose: 81 mg Carvedilol (Coreg) 12.5 mg PO BID [facility] Last Admin: 11/29/17 09:51 Dose: 12.5 mg Clopidogrel Bisulfate (Plavix) 75 mg PO DAILY [facility] Diphenhydramine HCl (Benadryl) 50 mg PO X1 ONE Stop: 11/30/17 05:01 Dorzolamide HCl (Trusopt) 1 drop OPHTHALMIC BID [facility] Last Admin: 11/29/17 09:51 Dose: 1 drop Hydrocortisone Acetate (Anusol Hc) 25 mg RECTAL BID [facility] Last Admin: 11/29/17 11:08 Dose: 25 mg Sodium Chloride () 1,000 mls @ 0 mls/hr IV .Q0M ROBERT PRN Reason: KVO Latanoprost (Xalatan Opthalmic) 1 drop OPHTHALMIC QPM [facility] Last Admin: 11/28/17 20:07 Dose: 1 drop Magnesium Hydroxide (Milk Of Magnesia) 30 ml PO DAILY PRN PRN Reason: Constipation Multivitamins (Multivitamin) 1 tablet PO DAILY@0800 [facility] Last Admin: 11/29/17 09:51 Dose: 1 tablet Pantoprazole Sodium (Protonix) 20 mg PO DAILY [facility] Last Admin: 11/29/17 09:52 Dose: 20 mg Psyllium Hydrophilic Mucilloid (Metamucil) 2 packet PO QHS [facility] Last Admin: 11/28/17 20:04 Dose: 2 packet Rosuvastatin Calcium (Crestor) 20 mg PO DAILY [facility] Last Admin: 11/29/17 09:55 Dose: 20 mg Sodium Chloride () 5 - 30 ml IV UD PRN PRN Reason: SALINE FLUSH Last Admin: 11/29/17 09:17 Dose: 10 ml Medical Necessity - Tobacco Use Smoking Status: Former smoker Tobacco Use: Non-smoker Assessment/Plan All Active Problems (Last Reviewed 10/22/17 @ 15:57 by Joe Leyva MD) Chest pain (Acute) 77 year old M with PMHx of CAD s/p CABG in 2003, hypertension, hyperlipidemia, comes in which complains of chest pain, described as indigestion, substernal, radiating to his neck. 1. Chest pain, atypical, concerning for angina, h/o CAD s/p CABG, and stress echo that showed moderate decreased LV systolic dysfunction, patient going for cardiac cath tomorrow, further management by cardiology 2. Hypertension, controlled, continue on amlodipine and carvedilol. 3. Hyperlipidemia, on Crestor 4. GERD, on omeprazole 5. DVT PPx - Lovenox Code Visit Inpatient E&M: [id number] [facility] Hosp L2
--- NOTE | 2017-11-29 15:32 | PN_ITS ---
Patient Problems: Active and Suspected Problems (Last Reviewed 10/22/17 @ 15:57 by Joe Leyva MD ) Chest pain (Acute) Subjective: Patient was seen and examined. Denies any new complaints. Had a stress echo done today that showed relates global left systolic dysfunction, EF 45%. Denies any dizziness or palpitations. Discussed with cardiology, will be going for cardiac cath. Objective: Physical Exam General: Alert, Oriented x3, Cooperative, No apparent distress HEENT: Atraumatic, PERRLA, EOMI, Normocephalic Oral: Moist Mucosa Neck: Supple, No JVD, Negative Carotid Bruits Lungs: Clear to auscultation, Normal air movement Cardiovascular: Regular rate, Regular Rhythm, Normal S1, Normal S2, No murmurs Abdomen: Bowel Sounds Present, Soft, Non Tender, Non-Distended, No Hepato- splenomegaly Extremities: No edema Skin: No rashes Musculoskeletal: No Tenderness to Palpation of Joints or Extremities Lymphatic: No Cervical, Supraclavicular, or Inguinal Adenopathy Neurological: Cranial nerves II-XII grossly intact, Neuro grossly intact Psych/Mental Status: Normal Affect, Appropriate Vitals/I&O's: Vital Signs Temp Pulse Resp BP Pulse Ox 98.0 F 55 L 16 133/45 H 97 11/29/17 14:38 11/29/17 14:38 11/29/17 14:38 11/29/17 14:38 11/29/17 14:38 Oxygen Delivery Method Room Air Current Medications Amlodipine Besylate (Norvasc) [address] [facility] Last Admin: 11/29/17 09:52 Dose: 10 mg Aspirin (Ecotrin) 81 mg PO DAILY@0800 [facility] Last Admin: 11/29/17 06:44 Dose: 81 mg Carvedilol (Coreg) 12.[address] [facility] Last Admin: 11/29/17 09:51 Dose: 12.5 mg Clopidogrel Bisulfate (Plavix) [address] [facility] Diphenhydramine HCl (Benadryl) 50 mg PO X1 ONE Stop: 11/30/17 05:01 Dorzolamide HCl (Trusopt) [address] [facility] Last Admin: 11/29/17 09:51 Dose: 1 drop Hydrocortisone Acetate (Anusol Hc) [address] [facility] Last Admin: 11/29/17 11:08 Dose: 25 mg Sodium Chloride () 1,000 mls @ 0 mls/hr IV .Q0M ROBERT PRN Reason: KVO Latanoprost (Xalatan Opthalmic) [address] [facility] Last Admin: 11/28/17 20:07 Dose: 1 drop Magnesium Hydroxide (Milk Of Magnesia) 30 ml PO DAILY PRN PRN Reason: Constipation Multivitamins (Multivitamin) 1 tablet PO DAILY@0800 [facility] Last Admin: 11/29/17 09:51 Dose: 1 tablet Pantoprazole Sodium (Protonix) [address] [facility] Last Admin: 11/29/17 09:52 Dose: 20 mg Psyllium Hydrophilic Mucilloid (Metamucil) [address] [facility] Last Admin: 11/28/17 20:04 Dose: 2 packet Rosuvastatin Calcium (Crestor) [address] [facility] Last Admin: 11/29/17 09:55 Dose: 20 mg Sodium Chloride () 5 - 30 ml IV UD PRN PRN Reason: SALINE FLUSH Last Admin: 11/29/17 09:17 Dose: 10 ml Medical Necessity - Tobacco Use Smoking Status: Former smoker Tobacco Use: Non-smoker Assessment/Plan All Active Problems (Last Reviewed 10/22/17 @ 15:57 by Joe Leyva MD) Chest pain (Acute) 77 year old M with PMHx of CAD s/p CABG in 2003, hypertension, hyperlipidemia, comes in which complains of chest pain, described as indigestion, substernal, radiating to his neck. 1. Chest pain, atypical, concerning for angina, h/o CAD s/p CABG, and stress echo that showed moderate decreased LV systolic dysfunction, patient going for cardiac cath tomorrow, further management by cardiology 2. Hypertension, controlled, continue on amlodipine and carvedilol. 3. Hyperlipidemia, on Crestor 4. GERD, on omeprazole 5. DVT PPx - Lovenox Code Visit Inpatient E&M: [id number] [facility] [place] Hosp L2
[2017-11-29] MEDS: Latanoprost 0.005% 1 Bottle 1 DRP OPHTHALMIC (20:06)
[2017-11-29] MEDS: Psyllium 1 PACKET 2 PACKET PO (20:07)
[2017-11-30] VITALS (14 sets, daily range): BP systolic 114–148; BP diastolic 45–103; PULSE 52–64; RESP 15–26; TEMP 36.7–36.8; O2SAT 93–98
[2017-11-30] MEDS: Carvedilol 12.5 MG Tablet PO (05:37)
[2017-11-30] MEDS: amLODIPine 10 MG Tablet PO (05:37)
[2017-11-30] MEDS: Clopidogrel Bisulfate 75 MG Tablet PO (05:37)
[2017-11-30] MEDS: Aspirin E.C. 81 MG Tablet PO (05:37)
[2017-11-30] MEDS: 0.9% NaCl Peripheral Flush Adult/Peds IV (05:46)
[2017-11-30] MEDS: 0.9% Normal Saline 1,000 ML 15 ML IV (05:46)
--- NOTE | 2017-11-30 05:55 | EKG12_ITS ---
Test Reason : AM EKG Blood Pressure : / mmHG Vent. Rate : 057 BPM Atrial Rate : 057 BPM P-R Int : 246 ms QRS Dur : 122 ms QT Int : 452 ms P-R-T Axes : 025 -33 031 degrees QTc Int : 439 ms Sinus bradycardia with 1st degree A-V block Left axis deviation Inferior infarct , age undetermined Abnormal ECG When compared with ECG of 29-NOV-2017 05:00, MANUAL COMPARISON REQUIRED, DATA IS UNCONFIRMED Confirmed by KALEB OLIVIA ([id number]), news assignment editor GILBERTO CHESTER ([id number]) on 12/02/2017 12:38:03 PM Referred By: RUDI Confirmed By:KALEB OLIVIA
[2017-11-30 06:12] LABS: Bacteria 0 SEEN /hpf (None Seen); Mucous, Urine 0 SEEN /hpf (<or=2+); Red Blood Cells-Urine 0 SEEN /hpf (0-5); White Blood Cells 0 SEEN /hpf (0-5)
[2017-11-30 06:17] LABS: Absolute Lymphocyte Count 0.77 X10^3/ul (0.83-4.51); Absolute Neutrophil Count 3.4 X10^3/uL (2.0-7.7); Basophil# 0.01 X10^3/uL; Basophil% 0.2 % (0-1); Eosinophil# 0.28 X10^3/uL; Eosinophils% 5.6 % (0-5); Hematocrit 43.8 % (40-54); Hemoglobin 14.4 g/dl (13.0-16.5); Lymphocyte # 0.77 X10^3/ul (4.0); Lymphocyte % 15.5 % (19-41); Mean Corp Hgb Conc 32.9 g/gl (32-36); Mean Corpuscular Hgb 29.5 pg (27.0-32.0); Mean Corpuscular Volume 89.8 fL (80-94); Mean Platelet Vol. 10.2 fl (6.2-12.0); Monocyte# 0.54 X10^3/uL; Monocyte% 10.9 % (0-10); Neutrophil # 3.36 X10^3/uL (2.7-7.7); Neutrophil % 67.6 % (47-70); Platelet Count 193 K/mm3 (150-450); RBC Distribution Width CV 13.2 % (11.6-14.6); RBC Distribution Width SD 42.8 fl (35.1-43.9); Red Blood Count 4.88 M/mm3 (4.6-6.2)
[2017-11-30 06:21] LABS: POSITIVE COUNT NO; POSITIVE DIFFERENTIAL NO; POSITIVE MORPHOLOGY NO
[2017-11-30 06:34] LABS: Color, Urine Yellow (Yellow); Glucose, Dipstick Normal (Normal); Ketone-Dipstick Negative (Negative); Leukocyte Esterase-Dipstick Negative /ul (Negative); Nitrite-Dipstick Negative (Negative); Occult Blood-Urine Negative /ul (Negative); Protein-Dipstick Negative (Negative); Urine Bilirubin Dipstick Negative (Negative); Urine Clarity Sl. Cloudy (Clear); Urine Urobilinogen Normal (Normal)
[2017-11-30 06:36] LABS: Partial Thromboplast Time 24.4 Seconds (24.1-36.2); Prothrombin Time (Protime)PT. 13.6 SECONDS (11.7-14.9)
[2017-11-30 06:41] LABS: Anion Gap 5 (5-15); BUN 13 mg/dL (7-18); BUN/Creat Ratio 13.6 RATIO (10-20); Calcium,Total 8.9 mg/dL (8.5-10.1); Chloride 109 mmol/L (98-107); Creatinine, Serum 0.96 mg/dL (0.70-1.30); EST Glomerular Filtration Rate 81 mL/min (>60); Est Glom Filt Rate - Afr Amer 98 mL/min (>60); Estimated Creatinine Clearance 60.25 ml/min; Glucose 94 mg/dL (74-106); Potassium 3.9 mmol/L (3.5-5.1); Sodium Level 140 mmol/L (136-145)
[2017-11-30 06:42] LABS: Squamous Epithelial Cells - UA 0-5 SEEN /hpf (0-5)
[2017-11-30] MEDS: DiphenhydrAMINE 25 MG Capsule 50 MG PO (08:03)
--- NOTE | 2017-11-30 08:11 | NURSING ---
Called report to brine room laborer RN
--- NOTE | 2017-11-30 09:28 | CL.D_ITS ---
Patient Name: PHILL BHAT Study Date: 11/30/2017 Performing: Mario Chaves MD Ht: 66.92 inches 170 cm : 1940 Wt: 194.01 lbs 88 kg Age: 77 Gender: male BSA: 1.99 PROCEDURE(S) PERFORMED DY45-IEH/COR/LV/CABG CLINICAL PROFILE AND INDICATIONS Indications: ACS > 24 hrs, New Onset Angina <= 2 months, Stable Known CAD Heart Failure: None Stress/Imaging Stress Echocardiogram: Yes Result: IndeterminantStress Echocardiogram: Indetermina nt Angina Classification Anginal Classification w/in 2 Weeks: CCS II CAD Presentations: Unstable angina. Comorbidities/Risk Factors: Hypertension Dyslipidemia Prior CABG CONCLUSIONS Triple vessel CAD of the LAD, DIAG, LCX, RCA Normal LV size, wall motion,and systolic function Patent JEWELL to LAD Patent SVG to DIAG Patent sequential SVG to OM and LPL with mild non-obstructive disease at 1st anastamotic site. No in dication for PCI at this time. Patent SVG to PDA. RECOMMENDATIONS D/c plavix, cont medical management. F/u with Dr Leyva. D/w Dr Mcnamara. D/c home today. DESCRIPTION OF PROCEDURE The patient arrived to the procedure lab. The risks and benefits of the procedure as well as a full d escription of our services here and current unavailability of surgical backup were fully explained to the patient and/or their significant other prior to the catheterization. The Timeout was completed, verifying the correct patient and procedure. The patient's procedural site was prepped and draped in the usual fashion. Local anesthetic was given subcutaneously to right groin region with Lidocaine 2%. Using a modified Seldinger technique, arterial access was obtained via the right femoral artery, a 4 Fr sheath was inserted Left Coronary Artery selective angiography was performed in multiple views us ing a 4 Fr. JL5 catheter. Right Coronary Artery selective angiography was then performed in multiple views using a 4 Fr. 3DRC catheter. Saphenous Vein graft to the DIAG 1 selective angiography was perfo rmed in multiple views using a 4 Fr. 3DRC catheter. Saphenous Vein graft to the OM 1 selective angiog sophie was performed in multiple views using a 4 Fr. 3DRC catheter. Saphenous Vein graft to the LPDA s elective angiography was performed in multiple views using a 4 Fr. 3DRC catheter. Left internal mamma ry artery graft to the LAD selective angiography was performed in multiple views using a 4 Fr. 3DRC c atheter. Saphenous Vein graft to the RCA selective angiography was performed in multiple views using a 4 Fr. AR MOD 2 catheter. Left Ventriculography was performed in ARIAS projection using a 4 Fr. Pigtai l catheter. LV to AO pullback pressures were then recorded.The arterial sheath was pulled and manual compression applied until hemostasis is achieved. CORONARY ANGIOGRAPHY DOMINANCE: Co- Dominant LEFT HEART ASSESSMENT Left Ventricular Ejection Fraction: by LV Gram 65 % Normal LV wall motion Normal Left Ventricular systolic function Normal Left Ventricular End Diastolic Pressure LEFT MAIN: No significant disease noted LEFT ANTERIOR DECENDING ARTERY: PROX LAD: 75 % Stenosis CIRCUMFLEX ARTERY: is occluded RIGHT CORONARY ARTERY: MID RCA: Moderate calcification, 75 % Stenosis DISTAL RCA: Mild calcification, 75 % Stenosis RT PDA: Ostial - is occluded GRAFTS: JEWELL graft to the LAD is patent Saphenous Vein graft to the 1st Diagonal is patent Saphenous Vein graft to the RPDA is patent COMPLICATIONS No Complications PROCEDURE MEDICATIONS Versed 1 mg IV Oxygen: 2 L/min via nasal cannula SUMMARY OF HEMODYNAMIC DATA Time AIR REST ECG 08:22:50 AO 160/60 (94) SA 09:00:10 LV 143/-11, 9 09:12:47 LV 142/-12, 15 09:12:54 LVp 143/-17, 14 09:12:59 AOp 141/48 (82) 09:13:04 Signed By Mario Chaves MD On 11/30/2017 09:27:50 Mario Chaves MD
[2017-11-30] MEDS: Multivitamins,Therapeutic Tablet 1 TABLET PO (10:21)
[2017-11-30] MEDS: Pantoprazole Sodium 20 MG Tablet PO (10:21)
[2017-11-30] MEDS: Dorzolamide 2% 10ml Bottle 1 DRP OPHTHALMIC (10:21)
[2017-11-30] MEDS: Rosuvastatin 20 MG Tablet PO (10:25)
--- NOTE | 2017-11-30 11:39 | CASEMGMT ---
Face to Face with patient for initial transition planning/care coordination assessment. [place] introduced self and role at [facility], pt voices understanding and consents to assessment at this time. Pt is sitting up in bed in no distress at this time. Pt is A/O x4 at this time and answers all questions appropriately at this time. Care providers, pharmacy, and demographics verified. See attached link. Pt voices no further concerns/needs at this time. Advised pt to ask for CM if any further questions/concerns/needs arise, voices understanding. PLAN: [place]
--- NOTE | 2017-11-30 11:55 | DCINST_ITS ---
- Discharge Diagnoses Current Active Problems: Current Active and Chronic Problems (Last Reviewed 10/22/17 @ 15:57 by Joe Leyva MD) Chest pain (Acute) Reason(s) for Visit for Discharge Instructions: Chest pain You will use the following diet at home:: Cardiac Your food should be the consistency of: Regular Your liquids should be the consistency of: Regular/Thin Discharge Activity: Return to Normal Activity Allergies/Adverse Reactions: Allergies atorvastatin [From Lipitor] Adverse Reaction (Severe, Verified 11/27/17 11:14) Severe Myalgias simvastatin Adverse Reaction (Severe, Verified 11/27/17 11:14) Myalgias tamsulosin [From Flomax] Adverse Reaction (Severe, Verified 11/27/17 11:14) Dizziness, Lightheaded Medications to take at Discharge amlodipine 10 mg tablet 10 mg PO QHS 07/29/17 aspirin 81 mg tablet,delayed release 81 mg PO QHS tab 07/29/17 carvedilol 12.5 mg tablet 12.5 mg PO BID 07/29/17 omeprazole magnesium 20 mg tablet,delayed release 20 mg PO QDAY 07/29/17 rosuvastatin 20 mg tablet 20 mg PO QDAY 07/29/17 dorzolamide 2 % eye drops 1 drp OPHTHALMIC BID ml 10/22/17 hydrocortisone acetate 25 mg rectal suppository 25 mg RC BID 10/22/17 latanoprost 0.005 % eye drops 1 drp OPHTHALMIC QPM 10/22/17 multivitamin tablet 1 tab PO QAM 10/22/17 testosterone 1.62 % (20.25 mg/1.25 gram) transdermal gel packet 1 packet TOPICAL QDAY g 10/22/17 Psyllium Husk (with Sugar) [Metamucil Packet] 6.8 gm PO QHS 11/27/17 Primary Care Physician: Mamadou Genao MD [Primary Care Provider] - Please follow up with your Primary Care Physician in: within 2 weeks Test Results: Test results from this visit will be discussed in further detail at your follow- up appointment, if applicable. Please Follow Up With: Joe Leyva MD When: as scheduled Proposed Discharge Date: 11/30/17
--- NOTE | 2017-11-30 11:55 | DS.PCM_ITS ---
Discharge Date and Diagnosis Date of Admission: 11/27/17 Date of Discharge: 11/30/17 - Primary Discharge Diagnosis Active and Suspected Problems (Last Reviewed 10/22/17 @ 15:57 by Joe Leyva MD ) Chest pain (Acute) - Secondary Discharge Diagnosis Chronic Problems (Last Reviewed 10/22/17 @ 15:57 by Joe Leyva MD) Hyperlipidemia (Chronic) Hypertension (Chronic) Old myocardial infarction (Chronic) Atherosclerotic heart disease of [place] coronary artery without angina pectoris (Chronic) Carotid bruit (Chronic) Presence of aortocoronary bypass graft (Chronic) CABG in situ-left internal thoracic artery bypass LAD, SVG to 1st diagonal branch of LAD, PDA of RCA & sequential SVG to 2nd marginal branch of CXF & posterolateral branch of RCA 02/10; 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 No focal consolidation in the lungs. Previous coronary artery bypass graft. Electronically Signed: Morales Allen DO at 12:05 EDT Tel , Service support , Cardiology Operations: None Procedures: Cardiac catheterization, Stress test Summary of Care Provided: 77 year old M with PMHx of CAD s/p CABG in 2003, hypertension, hyperlipidemia, comes in which complains of chest pain, described as indigestion, substernal, radiating to his neck. Patient's admitting EKG was unremarkable. His troponins were negative. He was seen by grinder watch parts, underwent stress ECHO that showed moderate decreased LV systolic dysfunction. He subsequently underwent a cardiac cath which showed open grafts, unchanged changes to his old anatomy. Plavix was discontinued because patient had some bleeding after been loaded with aspirin on admission. Will follow up with his primary cardiology in 2 weeks. His PPIs were increased to twice daily for 1 month. Discharge Activity: Return to Normal Activity Home Medications: Medications to take at Discharge amlodipine 10 mg tablet 10 mg PO QHS 07/29/17 aspirin 81 mg tablet,delayed release 81 mg PO QHS tab 07/29/17 carvedilol 12.5 mg tablet 12.5 mg PO BID 07/29/17 rosuvastatin 20 mg tablet 20 mg PO QDAY 07/29/17 dorzolamide 2 % eye drops 1 drp OPHTHALMIC BID ml 10/22/17 hydrocortisone acetate 25 mg rectal suppository 25 mg RC BID 10/22/17 latanoprost 0.005 % eye drops 1 drp OPHTHALMIC QPM 10/22/17 multivitamin tablet 1 tab PO QAM 10/22/17 testosterone 1.62 % (20.25 mg/1.25 gram) transdermal gel packet 1 packet TOPICAL QDAY g 10/22/17 Psyllium Husk (with Sugar) [Metamucil Packet] 6.8 gm PO QHS 11/27/17 Omeprazole Magnesium [Prilosec Otc] 20 mg PO BID #60 tablet. 11/30/17 Following Prescrptions Were Given to Patient: Omeprazole Magnesium [Prilosec Otc] 20 mg PO BID #60 tablet. Primary Care Physician: Mamadou Genao MD [Primary Care Provider] - Please follow up with your Primary Care Physician in: within 2 weeks Please Follow Up With: Joe Leyva MD When: as scheduled Disposition: Home Minutes spent on discharge:: 40 Patient Condition:: Stable Medical Necessity - Tobacco Use Smoking Status: Former smoker Tobacco Use: Non-smoker Meaningful Use Info Meaningful Use Diagnoses (Choose all that apply): None applicable
[2017-11-30] MEDS: Hydrocortisone 25 MG Suppository RECTAL (13:22)
--- NOTE | 2017-11-30 13:33 | NURSING ---
Bedrest complete, walked patient in hallway, tolerated well, dressing c/d/i, teaching completed
== END 2017-11-30 13:50 | disposition home or self-care (01) | DRG 287 ==
LOC: ED 12:15 → PCU 12:47
PROVIDERS: Internal Medicine Cardiovascular Disease; Admitting Provider Internal Medicine; Emergency Provider Emergency Medicine; Family Provider Family Medicine; PCP Family Medicine; Visit Provider Internal Medicine
DX: R07.9 Chest pain, unspecified (principal); E78.5 Hyperlipidemia, unspecified; I10 Essential (primary) hypertension; R09.89 Other specified symptoms and signs involving the circulatory and respiratory systems; I25.10 Atherosclerotic heart disease of native coronary artery without angina pectoris; K21.9 Gastro-esophageal reflux disease without esophagitis; Z95.1 Presence of aortocoronary bypass graft; I25.2 Old myocardial infarction; Z79.82 Long term (current) use of aspirin; Z87.891 Personal history of nicotine dependence; Z82.3 Family history of stroke
CPT/HCPCS: 36415; 71045; 80048; 80061; 81001; 84484; 85025; 85027; 85610; 85730; 93005; 93017; 93350; 93459; 99285; J7030; Q9957; A4216; C1769; C1894; C8928; Q9967

== ENCOUNTER → 2018-10-19 08:04 | Outpatient (CLI) | payer MEDICARE, OTHER, SELFPAY ==
[2018-10-19 10:30] LABS: Cholesterol 121 mg/dL (200); High Density Lipoprotein 33 mg/dL; PSA,Total - Annual Screen 0.57 ng/mL (0.00-4.00); Triglycerides 124 mg/dL; Very Low Density Lipoprotein 25 mg/dL (5-40)
== END ==
PROVIDERS: Family Medicine; Family Provider Family Medicine; PCP Family Medicine; Referring Provider Family Medicine; Visit Provider Family Medicine
DX: E29.1 Testicular hypofunction (principal); Z12.5 Encounter for screening for malignant neoplasm of prostate; E78.00 Pure hypercholesterolemia, unspecified
CPT/HCPCS: 36415; 80061; 84153; 84403; G0103

== ENCOUNTER → 2018-10-25 | Outpatient (CLI) | payer MEDICARE, OTHER, SELFPAY ==
[2018-10-25 12:38] LABS: Absolute Lymphocyte Count 0.93 X10^3/ul (0.83-4.51); Absolute Neutrophil Count 3.8 X10^3/uL (2.0-7.7); Basophil# 0.04 X10^3/uL; Basophil% 0.7 % (0-1); Eosinophil# 0.36 X10^3/uL; Eosinophils% 6.5 % (0-5); Hematocrit 39.2 % (40-54); Hemoglobin 12.5 g/dl (13.0-16.5); Lymphocyte # 0.93 X10^3/ul (4.0); Lymphocyte % 16.8 % (19-41); Mean Corp Hgb Conc 31.9 g/gl (32-36); Mean Corpuscular Hgb 27.6 pg (27.0-32.0); Mean Corpuscular Volume 86.5 fL (80-94); Mean Platelet Vol. 10.3 fl (6.2-12.0); Monocyte# 0.41 X10^3/uL; Monocyte% 7.4 % (0-10); Neutrophil # 3.78 X10^3/uL (2.7-7.7); Neutrophil % 68.4 % (47-70); Platelet Count 238 K/mm3 (150-450); RBC Distribution Width CV 14.8 % (11.6-14.6); RBC Distribution Width SD 46.6 fl (35.1-43.9); Red Blood Count 4.53 M/mm3 (4.6-6.2); White Blood Count 5.5 K/mm3 (4.4-11.0)
[2018-10-25 12:45] LABS: POSITIVE COUNT NO; POSITIVE DIFFERENTIAL NO; POSITIVE MORPHOLOGY NO
[2018-10-25 12:48] LABS: Anion Gap 7 (5-15); BUN 16 mg/dL (7-18); BUN/Creat Ratio 17.1 RATIO (10-20); Calcium,Total 8.9 mg/dL (8.5-10.1); Chloride 107 mmol/L (98-107); Creatinine, Serum 0.94 mg/dL (0.70-1.30); EST Glomerular Filtration Rate 83 mL/min (>60); Est Glom Filt Rate - Afr Amer 100 mL/min (>60); Glucose 81 mg/dL (74-106); Potassium 4.1 mmol/L (3.5-5.1); Sodium Level 139 mmol/L (136-145)
== END | disposition home or self-care (01) ==
PROVIDERS: Family Provider Family Medicine; PCP Family Medicine; Referring Provider Family Medicine; Visit Provider Family Medicine
DX: R53.83 Other fatigue (principal)
CPT/HCPCS: 36415; 80048; 84443; 85025

== ENCOUNTER → 2019-10-26 08:06 | Outpatient (CLI) | payer MEDICARE, OTHER, SELFPAY ==
[2019-10-25 12:49] VITALS: BMI 31.3
[2019-10-26 10:11] LABS: Absolute Neutrophil Count 2.5 X10^3/uL (2.0-7.7); Basophil# 0.05 X10^3/uL; Basophil% 1.2 % (0-1); Eosinophil# 0.25 X10^3/uL; Hematocrit 40.3 % (40-54); Hemoglobin 12.6 g/dL (13.0-16.5); Mean Corp Hgb Conc 31.3 g/dL (32-36); Mean Corpuscular Hgb 29.1 pg (27.0-32.0); Mean Corpuscular Volume 93.1 fL (80-94); Mean Platelet Vol. 10.5 fl (6.2-12.0); Monocyte# 0.36 X10^3/uL; Monocyte% 8.7 % (0-10); NRBC Flagged by Analyzer 0 % (0-5); Neutrophil # 2.49 X10^3/uL (2.7-7.7); Neutrophil % 59.9 % (47-70); Platelet Count 235 K/mm3 (150-450); RBC Distribution Width SD 46.7 fl (35.1-43.9); Red Blood Count 4.33 M/mm3 (4.6-6.2); White Blood Count 4.2 K/mm3 (4.4-11.0)
[2019-10-26 10:27] LABS: ALB/GLOB Ratio 0.8 RATIO (0.9-2.4); AST(SGOT) 20 U/L (15-37); Alanine Aminotransfer ALT/SGPT 21 U/L (16-61); Albumin, Serum 3.3 g/dL (3.2-5.0); Alkaline Phosphatase 80 U/L (45-117); Anion Gap 6 (5-15); BUN 13 mg/dL (7-18); Calcium,Total 9.3 mg/dL (8.5-10.1); Chloride 107 mmol/L (98-107); Cholesterol 117 mg/dL (200); EST Glomerular Filtration Rate 77 mL/min (>60); Est Glom Filt Rate - Afr Amer 93 mL/min (>60); Globulin 4.3 g/dL (2.2-4.2); Glucose 100 mg/dL (74-106); High Density Lipoprotein 29 mg/dL; Potassium 4.4 mmol/L (3.5-5.1); Protein, Total 7.6 g/dL (6.4-8.2); Sodium Level 142 mmol/L (136-145); Triglycerides 109 mg/dL; Very Low Density Lipoprotein 22 mg/dL (5-40)
== END ==
PROVIDERS: PCP Family Medicine; Referring Provider Family Medicine; Visit Provider Family Medicine
DX: I10 Essential (primary) hypertension (principal); E78.00 Pure hypercholesterolemia, unspecified
CPT/HCPCS: 36415; 80053; 80061; 85025

== ENCOUNTER → 2019-10-31 10:49 | Outpatient (CLI) | payer MEDICARE, OTHER, SELFPAY ==
[2019-10-25 12:49] VITALS: BMI 31.3
[2019-10-31 13:30] LABS: Vitamin B12 540 pg/mL (211-911)
[2019-10-31 13:47] LABS: Ferritin 26 ng/mL (26-388); Iron Binding Capacity,Total 416 ug/dL (250-450)
== END ==
PROVIDERS: PCP Family Medicine; Referring Provider Family Medicine; Visit Provider Family Medicine
DX: D64.9 Anemia, unspecified (principal)
CPT/HCPCS: 36415; 82607; 82728; 82746; 83550

== ENCOUNTER → 2020-01-12 08:27 | Outpatient (CLI) | payer MEDICARE, OTHER, SELFPAY ==
[2019-10-25 12:49] VITALS: BMI 31.3
[2020-01-12 10:13] LABS: Absolute Lymphocyte Count 0.87 X10^3/uL (0.83-4.51); Absolute Neutrophil Count 2.7 X10^3/uL (2.0-7.7); Basophil# 0.04 X10^3/uL; Basophil% 0.9 % (0-1); Eosinophil# 0.27 X10^3/uL; Eosinophils% 6.3 % (0-5); Hematocrit 40.9 % (40-54); Hemoglobin 12.9 g/dL (13.0-16.5); Lymphocyte # 0.87 X10^3/ul (4.0); Lymphocyte % 20.4 % (19-41); Mean Corp Hgb Conc 31.5 g/dL (32-36); Mean Corpuscular Hgb 29.5 pg (27.0-32.0); Mean Corpuscular Volume 93.4 fL (80-94); Mean Platelet Vol. 10.1 fl (6.2-12.0); Monocyte# 0.41 X10^3/uL; Monocyte% 9.6 % (0-10); NRBC Flagged by Analyzer 0 % (0-5); Neutrophil # 2.66 X10^3/uL (2.7-7.7); Neutrophil % 62.6 % (47-70); Platelet Count 219 K/mm3 (150-450); RBC Distribution Width SD 44.5 fl (35.1-43.9); Red Blood Count 4.38 M/mm3 (4.6-6.2); White Blood Count 4.3 K/mm3 (4.4-11.0)
[2020-01-12 10:56] LABS: Anion Gap 5 (5-15); BUN 12 mg/dL (7-18); BUN/Creat Ratio 11.4 RATIO (10-20); Calcium,Total 9.2 mg/dL (8.5-10.1); Chloride 106 mmol/L (98-107); Creatinine, Serum 1.05 mg/dL (0.70-1.30); EST Glomerular Filtration Rate 72 mL/min (>60); Est Glom Filt Rate - Afr Amer 87 mL/min (>60); Glucose 75 mg/dL (74-106); Sodium Level 140 mmol/L (136-145); Thyroid Stim Hormone (TSH) 3.92 uIU/mL (0.358-3.74)
== END ==
PROVIDERS: PCP Family Medicine; Referring Provider Family Medicine; Visit Provider Family Medicine
DX: D64.9 Anemia, unspecified (principal); I10 Essential (primary) hypertension; R23.2 Flushing
CPT/HCPCS: 36415; 80048; 84443; 85025

== ENCOUNTER → 2020-10-01 08:10 | Outpatient (CLI) | payer MEDICARE, OTHER, SELFPAY ==
[2019-10-25 12:49] VITALS: BMI 31.3
[2020-10-01 10:17] LABS: Absolute Lymphocyte Count 0.98 X10^3/uL (0.83-4.51); Absolute Neutrophil Count 5.6 X10^3/uL (2.0-7.7); Basophil# 0.03 X10^3/uL; Basophil% 0.4 % (0-1); Eosinophil# 0.22 X10^3/uL; Hematocrit 39.2 % (40-54); Hemoglobin 12.5 g/dL (13.0-16.5); Lymphocyte # 0.98 X10^3/ul (0.83-4.51); Lymphocyte % 13.2 % (19-41); Mean Corp Hgb Conc 31.9 g/dL (32-36); Mean Corpuscular Hgb 28.9 pg (27.0-32.0); Mean Corpuscular Volume 90.5 fL (80-94); Mean Platelet Vol. 10.4 fl (6.2-12.0); Monocyte# 0.61 X10^3/uL; Monocyte% 8.2 % (0-10); NRBC Flagged by Analyzer 0 % (0-5); Neutrophil # 5.57 X10^3/uL (2.7-7.7); Neutrophil % 74.9 % (47-70); Platelet Count 215 K/mm3 (150-450); RBC Distribution Width CV 13.2 % (11.6-14.6); RBC Distribution Width SD 43.4 fl (35.1-43.9); Red Blood Count 4.33 M/mm3 (4.6-6.2); White Blood Count 7.4 K/mm3 (4.4-11.0)
[2020-10-01 10:31] LABS: ALB/GLOB Ratio 0.6 RATIO (0.9-2.4); AST(SGOT) 20 U/L (15-37); Alanine Aminotransfer ALT/SGPT 17 U/L (16-61); Albumin, Serum 3.3 g/dL (3.2-5.0); Alkaline Phosphatase 81 U/L (45-117); Anion Gap 3 (5-15); BUN 15 mg/dL (7-18); Calcium,Total 9.4 mg/dL (8.5-10.1); Chloride 105 mmol/L (98-107); Cholesterol 116 mg/dL (200); Creatinine, Serum 1.15 mg/dL (0.70-1.30); EST Glomerular Filtration Rate 65 mL/min (>60); Est Glom Filt Rate - Afr Amer 79 mL/min (>60); Globulin 5.1 g/dL (2.2-4.2); Glucose 103 mg/dL (74-106); High Density Lipoprotein 33 mg/dL; Potassium 3.6 mmol/L (3.5-5.1); Protein, Total 8.4 g/dL (6.4-8.2); Sodium Level 138 mmol/L (136-145); Triglycerides 120 mg/dL; Very Low Density Lipoprotein 24 mg/dL (5-40)
[2020-10-08 14:08] LABS: PROEL- A/G Ratio 0.9 (0.7-1.7); PROEL- Albumin 3.8 g/dL (2.9-4.4); PROEL- Alpha-1 Globulin 0.3 g/dL (0.0-0.4); PROEL- Alpha-2 Globulin 0.8 g/dL (0.4-1.0); PROEL- Beta Globulin 0.9 g/dL (0.7-1.3); PROEL- Gamma Globulin 2.2 g/dL (0.4-1.8); PROEL- Globulin, Total 4.2 g/dL (2.2-3.9)
== END ==
PROVIDERS: PCP Family Medicine; Referring Provider Family Medicine; Visit Provider Family Medicine
DX: R77.1 Abnormality of globulin (principal); E29.1 Testicular hypofunction; I10 Essential (primary) hypertension
CPT/HCPCS: 36415; 80053; 80061; 84165; 84403; 85025

== ENCOUNTER → 2020-10-25 10:47 | Outpatient (CLI) | payer MEDICARE, OTHER, SELFPAY ==
[2020-10-18 08:27] VITALS: BMI 31.3
--- NOTE | 2020-10-25 10:53 | ECHOD_ITS ---
Reason For Study: DYSPNEA/SOB Procedure This was a 2D Doppler, Color Flow transthoracic echocardiogram. Exam performed in department. Left Ventricle Normal LV size. Moderate concentric left ventricular hypertrophy. Left ventricular systolic function is normal. The estimated ejection fraction is 55 %. Stage 2 diastolic dysfunction. No regional wall motion abnormalities noted. Right Ventricle Normal RV size. Normal systolic function. Atria The left atrium is mildly enlarged. Normal right atrium. Mitral Valve There is mild mitral annular calcification. Mild (1+) mitral valve insufficiency. Tricuspid Valve Normal tricuspid valve. Mild tricuspid valve insufficiency. Pulmonary artery systolic pressure is 30 mmHg. Aortic Valve Trisinus/trileaflet aortic valve. Mild focal aortic valve calcification. Mild (1+) aortic valve insufficiency. Pulmonic Valve Normal pulmonic valve. Great Vessels Normal aortic root. The pulmonary artery is normal size. Normal inferior vena cava. Pericardium/Pleural No pericardial effusion. MMode/2D Measurements & Calculations LVIDd: 6.3 cm IVSd: 1.4 cm Ao root diam: 3.0 cm LVIDs: 4.1 cm LVPWd: 1.4 cm RVDd: 4.4 cm FS: 35.3 % LAV(MOD-bp): 89.6 ml LA A4 area: 24.1 cm2 LA dimension(2D): 3.8 cm LAV(MOD-bp) Indexed: 44.3 ml/m2 LAV(MOD-sp2): 75.4 ml LAV(MOD-sp4): 86.5 ml RA A4 area: 18.4 cm2 Time Measurements MV dec time: 0.20 sec Doppler Measurements & Calculations MV E max koby: 87.8 cm/sec Lat Peak E' Koby: 11.1 cm/sec Med Peak E' Koby: 6.5 cm/sec MV A max koby: 55.5 cm/sec E/E' lat: 7.9 E/E' med: 13.5 MV E/A: 1.6 Ao V2 max: 144.6 cm/sec LV V1 max: 75.4 cm/sec PA V2 max: 133.4 cm/sec Ao max P.4 mmHg LV V1 max P.3 mmHg TR max koby: 256.1 cm/sec TR max P.2 mmHg ECHO/Echo Complete Interpretation Summary Normal LV size. Moderate concentric left ventricular hypertrophy. Left ventricular systolic function is normal. The estimated ejection fraction is 55 %. Stage 2 diastolic dysfunction. The left atrium is mildly enlarged. Ordering Physician: Autumn^Joe^^^ Referring Physician: Mamadou Duffy Performed By: Mechelle Khanna, PASTORCS, RVT
== END ==
PROVIDERS: PCP Family Medicine; Referring Provider Internal Medicine Cardiovascular Disease; Visit Provider Internal Medicine Cardiovascular Disease
DX: I25.10 Atherosclerotic heart disease of native coronary artery without angina pectoris (principal)
CPT/HCPCS: 93306

== ENCOUNTER → 2021-01-07 10:54 | Outpatient (CLI) | payer MEDICARE, OTHER, SELFPAY ==
--- NOTE | 2021-01-07 10:55 | CDU_ITS ---
Reason For Study: Moderate stenosis of carotid artery Rt. Velocities/BP Lt. Velocities/BP Prox CCA 81.2/8.2 cm/sec. Prox CCA 111.9/7.9 cm/sec. Mid CCA 76/6.9 cm/sec. Mid CCA 86.3/7.8 cm/sec. Dist CCA 79.9/6.9 cm/sec. Dist CCA 59.3/9 cm/sec. Prox ICA 53.2/6 cm/sec. Prox ICA 136.7/9.4 cm/sec. Mid ICA 69.2/6.9 cm/sec. Mid ICA 123.5/7.2 cm/sec. Dist ICA 101/9.7 cm/sec. Dist ICA 101.6/16 cm/sec. Rt. ICA/CCA = 1.26. Lt. ICA/CCA = 1.58. Prox ECA 90.4 cm/sec. Prox ECA 108.2 cm/sec. Rt. Vert. 73.6/7.9 cm/sec. Lt. Vert. 84/5 cm/sec. Right Extracranial There is heterogeneous, smooth atherosclerotic plaque noted in the right common carotid artery. There is heterogeneous, irregular atherosclerotic plaque noted in the right internal carotid artery. There is intimal thickening but no significant atherosclerotic plaque noted in the right external carotid artery. Antegrade flow is noted in the right vertebral artery. Left Extracranial There is homogeneous, smooth atherosclerotic plaque noted in the left common carotid artery. There is heterogeneous, irregular atherosclerotic plaque noted in the left internal carotid artery. There is heterogeneous, irregular atherosclerotic plaque noted in the left external carotid artery. Antegrade flow is noted in the left vertebral artery. Procedure Carotid Duplex 72071. This is a Carotid Duplex examination using B-mode, color flow and specral Doppler. Exam performed in department. VL/Carotid Duplex Ultrasound Interpretation Summary Mild (<50%) stenosis right extracranial internal carotid. Moderate (50-69%) tessie nosis left extracranial internal carotid. Flow within the vertebral arteries is antegrade bilaterally. Ordering Physician: Laura Martinez Referring Physician: Mamadou Duffy Performed By: Linda Melgoza RVT
== END ==
PROVIDERS: PCP Family Medicine; Referring Provider Nurse Practitioner Gerontology; Visit Provider Nurse Practitioner Gerontology
DX: R09.89 Other specified symptoms and signs involving the circulatory and respiratory systems (principal); I65.29 Occlusion and stenosis of unspecified carotid artery
CPT/HCPCS: 93880

== ENCOUNTER → 2021-10-08 | Outpatient (CLI) | payer MEDICARE, OTHER, SELFPAY ==
[2021-10-08 11:13] LABS: Bacteria 0 SEEN /hpf (None Seen); Mucous, Urine 0 SEEN /hpf (<or=2+); Red Blood Cells-Urine 0 SEEN /hpf (0-5); Squamous Epithelial Cells - UA 0 SEEN /hpf (0-5); White Blood Cells 0 SEEN /hpf (0-5)
[2021-10-08 12:19] LABS: Absolute Lymphocyte Count 1.05 X10^3/uL (0.83-4.51); Absolute Neutrophil Count 3.2 X10^3/uL (2.0-7.7); Basophil# 0.04 X10^3/uL; Basophil% 0.8 % (0-1); Hematocrit 37.1 % (40-54); Hemoglobin 12.1 g/dL (13.0-16.5); Lymphocyte # 1.05 X10^3/ul (0.83-4.51); Lymphocyte % 20.8 % (19-41); Mean Corp Hgb Conc 32.6 g/dL (32-36); Mean Corpuscular Hgb 29.7 pg (27.0-32.0); Mean Corpuscular Volume 91.2 fL (80-94); Mean Platelet Vol. 9.9 fl (6.2-12.0); Monocyte# 0.58 X10^3/uL; Monocyte% 11.5 % (0-10); NRBC Flagged by Analyzer 0.4 % (0-5); Neutrophil # 3.17 X10^3/uL (2.7-7.7); Neutrophil % 62.5 % (47-70); Platelet Count 256 K/mm3 (150-450); RBC Distribution Width CV 13.2 % (11.6-14.6); RBC Distribution Width SD 43.7 fl (35.1-43.9); Red Blood Count 4.07 M/mm3 (4.6-6.2); White Blood Count 5.1 K/mm3 (4.4-11.0)
[2021-10-08 12:22] LABS: Color, Urine Yellow (Yellow); Glucose, Dipstick Normal (Normal); Ketone-Dipstick Negative (Negative); Leukocyte Esterase-Dipstick Negative /ul (Negative); Nitrite-Dipstick Negative (Negative); Occult Blood-Urine Negative /ul (Negative); Protein-Dipstick Negative (Negative); Urine Bilirubin Dipstick Negative (Negative); Urine Clarity Sl. Cloudy (Clear); Urine Urobilinogen Normal (Normal)
[2021-10-08 12:50] LABS: Hemoglobin A1c 6.1 % (3.8-5.6)
[2021-10-08 12:56] LABS: Vitamin B12 318 pg/mL (211-911)
[2021-10-08 13:17] LABS: ALB/GLOB Ratio 0.7 RATIO (0.9-2.4); AST(SGOT) 27 U/L (15-37); Alanine Aminotransfer ALT/SGPT 25 U/L (16-61); Albumin, Serum 3.3 g/dL (3.2-5.0); Alkaline Phosphatase 75 U/L (45-117); Anion Gap 9 (5-15); BUN 23 mg/dL (7-18); Chloride 102 mmol/L (98-107); Cholesterol 114 mg/dL (200); Creatinine, Serum 1.15 mg/dL (0.70-1.30); EST Glomerular Filtration Rate 65 mL/min (>60); Est Glom Filt Rate - Afr Amer 78 mL/min (>60); Ferritin 36 ng/mL (26-388); Globulin 4.5 g/dL (2.2-4.2); Glucose 96 mg/dL (74-106); High Density Lipoprotein 29 mg/dL; Iron 196 ug/dL (65-175); Iron Binding Capacity,Total 356 ug/dL (250-450); Potassium 3.3 mmol/L (3.5-5.1); Protein, Total 7.8 g/dL (6.4-8.2); Sodium Level 138 mmol/L (136-145); T4 Free Direct 0.91 ng/dL (0.76-1.46); Thyroid Stim Hormone (TSH) 2.03 uIU/mL (0.358-3.74); Triglycerides 172 mg/dL; Very Low Density Lipoprotein 34 mg/dL (5-40)
[2021-10-14 20:16] LABS: Anti-Thyroglobulin AB 100.7 IU/mL (0.0-0.9); Thyroglobulin RIA 11 ng/mL (.); Thyroid Peroxidase AB < 8 IU/mL (0-34)
== END | disposition home or self-care (01) ==
LOC: MFPLAB 11:06
PROVIDERS: PCP Family Medicine; Visit Provider Family Medicine
DX: I10 Essential (primary) hypertension (principal); D64.9 Anemia, unspecified; R79.89 Other specified abnormal findings of blood chemistry; R73.09 Other abnormal glucose
CPT/HCPCS: 80053; 80061; 81001; 82607; 82728; 82746; 83036; 83540; 83550; 84432; 84439; 84443; 85025; 86376; 86800

== ENCOUNTER → 2021-10-15 | Outpatient (CLI) | payer MEDICARE, OTHER, SELFPAY ==
[2021-10-15 10:26] LABS: Potassium 3.7 mmol/L (3.5-5.1)
== END | disposition home or self-care (01) ==
LOC: MFPLAB 08:04
PROVIDERS: PCP Family Medicine; Referring Provider Family Medicine; Visit Provider Family Medicine
DX: D64.9 Anemia, unspecified (principal)
CPT/HCPCS: 36415; 84132

== ENCOUNTER → 2021-11-04 | Outpatient (CLI) | payer MEDICARE, OTHER, SELFPAY ==
--- NOTE | 2021-11-04 09:43 | CDU_ITS ---
Reason For Study: CAD Rt. Velocities/BP Lt. Velocities/BP Prox CCA 90.4/8.2 cm/sec. Prox CCA 103.9/5.6 cm/sec. Mid CCA 89.1/6.9 cm/sec. Mid CCA 115.6/9.7 cm/sec. Dist CCA 96.9/8.2 cm/sec. Dist CCA 80.5/9.1 cm/sec. Prox ICA 78.3/9.1 cm/sec. Prox ICA 135.7/9.7 cm/sec. Mid ICA 81.6/9.1 cm/sec. Mid ICA 135.7/15.2 cm/sec. Dist ICA 98.1/10.2 cm/sec. Dist ICA 96.2/10.4 cm/sec. Rt. ICA/CCA = 1.1. Lt. ICA/CCA = 1.2. Prox ECA 115.2 cm/sec. Prox ECA 148.5 cm/sec. Rt. Vert. 65.2/10.2 cm/sec. Lt. Vert. 68.4/8.0 cm/sec. Right Extracranial There is heterogeneous, smooth atherosclerotic plaque noted in the right common carotid artery. There is heterogeneous, irregular atherosclerotic plaque noted in the right internal carotid artery. There is homogeneous, smooth atherosclerotic plaque noted in the right external carotid artery. Antegrade flow is noted in the right vertebral artery. Left Extracranial There is homogeneous, smooth atherosclerotic plaque noted in the left common carotid artery. There is heterogeneous, irregular atherosclerotic plaque noted in the left internal carotid artery. There is heterogeneous, irregular atherosclerotic plaque noted in the left external carotid artery. Antegrade flow is noted in the left vertebral artery. Procedure Carotid Duplex 86502. This is a Carotid Duplex examination using B-mode, color flow and specral Doppler. The exam was diagnostic. Exam performed in department. VL/Carotid Duplex Ultrasound Interpretation Summary Mild (<50%) stenosis right extracranial internal carotid. Mild (<50%) stenosis left extracranial internal carotid. Flow within the vertebral arteries is antegrade bilaterally. Ordering Physician: Mamadou Martini Performed By: Yonatan Luna RVT
== END | disposition home or self-care (01) ==
LOC: CVS 09:41
PROVIDERS: PCP Family Medicine; Referring Provider Family Medicine; Visit Provider Family Medicine
DX: I25.10 Atherosclerotic heart disease of native coronary artery without angina pectoris (principal); I65.23 Occlusion and stenosis of bilateral carotid arteries
CPT/HCPCS: 93880

== ENCOUNTER → 2021-11-19 | Outpatient (CLI) | payer MEDICARE, OTHER, SELFPAY | END | disposition home or self-care (01) | LOC: LABSPEC 11-20 08:29 | PROVIDERS: PCP Family Medicine; Visit Provider Family Medicine | DX: U07.1 COVID-19 (principal); B34.9 Viral infection, unspecified | CPT/HCPCS: 87635; U0003; U0005 ==

== ENCOUNTER → 2022-10-08 | Outpatient (CLI) | payer MEDICARE, OTHER, SELFPAY ==
[2022-10-08 10:47] LABS: Basophil# 0.04 X10^3/uL; Eosinophil# 0.43 X10^3/uL; Eosinophils% 11.1 % (0-5); Hematocrit 36.6 % (40-54); Hemoglobin 11.8 g/dL (13.0-16.5); Lymphocyte % 25.7 % (19-41); Mean Corp Hgb Conc 32.2 g/dL (32-36); Mean Corpuscular Hgb 29.3 pg (27.0-32.0); Mean Corpuscular Volume 90.8 fL (80-94); Mean Platelet Vol. 9.9 fl (6.2-12.0); Monocyte# 0.43 X10^3/uL; Monocyte% 11.1 % (0-10); NRBC Flagged by Analyzer 0 % (0-5); Neutrophil # 1.99 X10^3/uL (2.7-7.7); Neutrophil % 51.1 % (47-70); Platelet Count 255 K/mm3 (150-450); RBC Distribution Width CV 13.4 % (11.6-14.6); RBC Distribution Width SD 44.2 fl (35.1-43.9); Red Blood Count 4.03 M/mm3 (4.6-6.2); White Blood Count 3.9 K/mm3 (4.4-11.0)
[2022-10-08 11:06] LABS: Hemoglobin A1c 6.3 % (3.8-5.6)
[2022-10-08 11:22] LABS: ALB/GLOB Ratio 0.8 RATIO (0.9-2.4); AST(SGOT) 26 U/L (15-37); Alanine Aminotransfer ALT/SGPT 21 U/L (16-61); Albumin, Serum 3.5 g/dL (3.2-5.0); Alkaline Phosphatase 73 U/L (45-117); Anion Gap 8 (5-15); BUN 21 mg/dL (7-18); BUN/Creat Ratio 21.2 RATIO (10-20); Calcium,Total 9.3 mg/dL (8.5-10.1); Chloride 105 mmol/L (98-107); Cholesterol 98 mg/dL (200); Creatinine, Serum 0.99 mg/dL (0.70-1.30); EST Glomerular Filtration Rate 77 mL/min (>60); Est Glom Filt Rate - Afr Amer 93 mL/min (>60); Globulin 4.6 g/dL (2.2-4.2); Glucose 103 mg/dL (74-106); High Density Lipoprotein 27 mg/dL; Potassium 3.9 mmol/L (3.5-5.1); Protein, Total 8.1 g/dL (6.4-8.2); Sodium Level 139 mmol/L (136-145); T4 Free Direct 0.97 ng/dL (0.76-1.46); Thyroid Stim Hormone (TSH) 2.79 uIU/mL (0.358-3.74); Triglycerides 148 mg/dL; Very Low Density Lipoprotein 30 mg/dL (5-40)
== END | disposition home or self-care (01) ==
LOC: MFPLAB 08:13
PROVIDERS: PCP Family Medicine; Visit Provider Family Medicine
DX: E78.00 Pure hypercholesterolemia, unspecified (principal); E03.9 Hypothyroidism, unspecified; R73.09 Other abnormal glucose
CPT/HCPCS: 36415; 80053; 80061; 83036; 84439; 84443; 85025

== ENCOUNTER → 2022-11-02 | Outpatient (CLI) | payer MEDICARE, OTHER, SELFPAY ==
--- NOTE | 2022-11-02 07:47 | RAD_ITS ---
STUDY: X-RAY - ESOPHAGUS (BARIUM SWALLOW) WITH FLUOROSCOPY REASON FOR EXAM: Male, 82 years old. 2 year history of dysphagia. TECHNIQUE: 16 view(s) of the esophagus were obtained following swallowing of barium. FLUOROSCOPY TIME (if supplied): (42 seconds) minutes/seconds. 21.25 mGy COMPARISON: None. FINDINGS: There is no demonstrated esophageal foreign body. There is no demonstrated stricture or mucosal abnormality. There is evidence of a large sliding hiatal hernia. No evidence of gastroesophageal reflux. The patient ingested a 12 mm tablet of barium without any difficulty. There is atherosclerotic tortuosity of the aortic arch and descending thoracic aorta. Normal visualized pulmonary parenchyma. Normal visualized osseous structures of the thorax. RAD/Esophagus Dual Contrast IMPRESSION: Large sliding hiatal hernia without gastroesophageal reflux. Electronically Signed: Johnie Reed MD at 8:38 EDT ,
== END | disposition home or self-care (01) ==
LOC: RAD 07:41
PROVIDERS: PCP Family Medicine; Referring Provider Family Medicine; Visit Provider Family Medicine
DX: R13.10 Dysphagia, unspecified (principal)
CPT/HCPCS: 74221

== ENCOUNTER → 2022-11-23 | Outpatient (CLI) | payer MEDICARE, OTHER, SELFPAY ==
--- NOTE | 2022-11-23 14:27 | ECHOD_ITS ---
Reason For Study: OLD MT Procedure This was a 2D Doppler, Color Flow transthoracic echocardiogram. Exam performed in department. Left Ventricle Normal LV size. Left ventricular systolic function is normal. The estimated ejection fraction is 55 %. No regional wall motion abnormalities noted. Right Ventricle Normal RV size. Normal systolic function. Atria The left atrium is mildly enlarged. Normal right atrium. Mitral Valve There is mild to moderate mitral annular calcification. Mild (1+) eccentric mitral valve insufficiency. Tricuspid Valve Normal tricuspid valve. Aortic Valve Trisinus/trileaflet aortic valve. Mild focal aortic valve calcification. Mild (1+) eccentric aortic valve insufficiency. Pulmonic Valve Normal pulmonic valve. Great Vessels Normal aortic root. The pulmonary artery is normal size. Normal inferior vena cava. Pericardium/Pleural No pericardial effusion. MMode/2D Measurements & Calculations LVIDd: 5.9 cm IVSd: 1.4 cm Ao root diam: 3.4 cm LVIDs: 4.0 cm LVPWd: 1.4 cm RVDd: 3.8 cm FS: 33.1 % LAV(MOD-bp): 55.5 ml LVAd ap4: 37.0 cm2 SV(MOD-sp4): 71.1 ml LAV(MOD-bp) Indexed: 27.1 ml/m2 LVLd ap4: 8.3 cm LAV(MOD-sp2): 49.4 ml EDV(MOD-sp4): 130.7 ml LAV(MOD-sp4): 60.1 ml EDV(sp4-el): 140.1 ml LVAs ap4: 22.6 cm2 LVLs ap4: 7.1 cm ESV(MOD-sp4): 59.6 ml ESV(sp4-el): 60.7 ml EF(MOD-sp4): 54.4 % EF(sp4-el): 56.6 % SV(sp4-el): 79.4 ml LA A4 area: 21.5 cm2 LA dimension(2D): 4.5 cm RA A4 area: 17.2 cm2 Time Measurements MV dec time: 0.29 sec Doppler Measurements & Calculations MV E max koby: 81.0 cm/sec Lat Peak E' Koby: 12.7 cm/sec Med Peak E' Koby: 9.4 cm/sec MV A max koby: 61.8 cm/sec E/E' lat: 6.4 E/E' med: 8.6 MV E/A: 1.3 Ao V2 max: 192.5 cm/sec LV V1 max: 126.0 cm/sec PA V2 max: 113.0 cm/sec Ao max P.8 mmHg LV V1 max P.4 mmHg TR max koby: 309.0 cm/sec TR max P.2 mmHg ECHO/Echo Complete Interpretation Summary Normal LV size. Left ventricular systolic function is normal. The estimated ejection fraction is 55 %. Mild (1+) eccentric mitral valve insufficiency. Mild (1+) eccentric aortic valve insufficiency. The left atrium is mildly enlarged. Compared to previous study, the left ventricular systolic function is the same. . Ordering Physician: oJe Leyva Referring Physician: PREMA HATCH Performed By: Jena Canales RDCS
== END | disposition home or self-care (01) ==
LOC: CVS 13:28
PROVIDERS: PCP Family Medicine; Visit Provider Internal Medicine Cardiovascular Disease
DX: I25.2 Old myocardial infarction (principal)
CPT/HCPCS: 93306

== ENCOUNTER 2022-12-04 07:29 | Day surgery (SDC) | payer MEDICARE, OTHER, SELFPAY ==
--- NOTE | 2022-12-04 07:43 | HP.PCM_ITS ---
History and Physical Date of Admission: 12/04/22 Visit Reasons: Hiatal Hernia Chief Complaint: Chest Pain Allergies atorvastatin [From Lipitor] Adverse Reaction (Severe, Verified 11/12/22 08:09) Severe Myalgiassimvastatin Adverse Reaction (Severe, Verified 11/12/22 08:09) Myalgiastamsulosin [From Flomax] Adverse Reaction (Severe, Verified 11/12/22 08:09) Dizziness, Lightheaded Medications dorzolamide 2 % eye drops 1 drp ophthalmic (eye) BID eyes 10/22/17 [History Confirmed 11/12/22] latanoprost 0.005 % eye drops 1 drp ophthalmic (eye) QPM eyes 10/22/17 [History Confirmed 11/12/22] psyllium husk (with sugar) 3.4 gram oral powder packet 6.8 g PO QHS Stool softner 11/27/17 [History Confirmed 11/12/22] nitroglycerin 0.4 mg sublingual tablet 0.4 mg sublingual Q5-15M PRN chest pain #25 tabs 09/29/21 [Rx Confirmed 11/12/22] aspirin 81 mg tablet,delayed release (Adult Low Dose Aspirin) 81 mg PO Q OTHER DAY heart health 10/07/21 [History Confirmed 11/12/22] diphenhydramine HCl 25 mg tablet (Benadryl Allergy) 25 mg PO TID PRN 10/07/21 [History Confirmed 11/12/22] omega-3 fatty acids 1,000 mg capsule (Fish Oil Concentrate) 1,000 mg PO Q OTHER DAY 10/07/21 [History Confirmed 11/12/22] amlodipine 10 mg tablet 10 mg PO QHS Please mail to patient's [place] Address #90 tabs 02/06/22 [Rx Confirmed 11/12/22] carvedilol 12.5 mg tablet 12.5 mg PO BID Please mail to patient's [place] address #180 tabs 02/06/22 [Rx Confirmed 11/12/22] omeprazole magnesium 20 mg tablet,delayed release 20 mg PO DAILY reflux #90 tabs 02/06/22 [Rx Confirmed 11/12/22] hydrochlorothiazide 25 mg tablet 25 mg PO DAILY Please mail to [place] Address #90 tabs 03/17/22 [Rx Confirmed 11/12/22] rosuvastatin 20 mg tablet See Rx Instructions .Route .COMPLEX #90 tabs 05/20/22 [Rx Confirmed 11/12/22] losartan 50 mg tablet 50 mg PO DAILY #90 tabs 06/24/22 [Rx Confirmed 11/12/22] PFSH Medical History Atherosclerotic heart disease of [place] coronary artery without angina pectoris Carotid bruit Carotid stenosis, asymptomatic Cellulitis Diverticulitis Essential hypertension Hyperlipidemia Old inferior wall myocardial infarction PVD (peripheral vascular disease) Sepsis Surgical History H/O coronary artery bypass surgery (02/2004) History of hip replacement History of knee surgery History of left heart catheterization (04/02/18) Family History Other CVA (cerebral vascular accident) Social History Smoking Status: Former smoker how long ago did patient quit smokin alcohol intake: current alcohol intake frequency: a few times a week Alcohol type: beer and wine substance use type: does not use caffeine: Yes Type: coffee Number of servings: 1 HPI HPI HPI: He said about 5 years ago he [id number] gentleman is being referred by Dr Mamadou Martini for surgical consultation regarding gastroesophageal reflux disease and a hiatal hernia. Written compromise surgical consult recommendations will be returned to him. 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 Patient also has a history of coronary bypass grafting and chronic left lower extremity edema and chronic anemia.. Among his other medications he is on omeprazole and fish oil. Laboratory of October 08, 2022 demonstrates a white count of 3.9 with a Hgb 11.8,hematocrit 36.6 platelet count of 255,000. BUN 21 with a creatinine 0.99 and an estimated GFR of 77. On November 02, 2022 he had a contrast barium esophagram. I have personally reviewed those images. He has been found to have a large sliding hiatal hernia. 12 mm barium tablet passes easily. The patient states for at least 10 to 15 years he has had swallowing problems. When he starts to eat the first several swallows do not go down he has to use water. He has been on omeprazole therapy for at least 10 years. He states that after about the last colonoscopy I placed him on Metamucil which she takes nightly. There is some discussion between he and his as to whether he is having rectal bleeding. He denies it and states that he occasionally has some fecal incontinence. Hospitalized when he was in [place] with right lower extremity cellulitis that caused sepsis. He was treated in the hospital for 6 days and in addition he has an outpatient for at least 10 days with PICC line and IV antibiotics. He currently is denying any abdominal pain. He denies any previous abdominal surgery. He has never had an upper endoscopy. November 02, 2022 STUDY: X-RAY - ESOPHAGUS (BARIUM SWALLOW) WITH FLUOROSCOPY REASON FOR EXAM: Male, 82 years old. 2 year history of dysphagia. TECHNIQUE: 16 view(s) of the esophagus were obtained following swallowing of barium. FLUOROSCOPY TIME (if supplied): (42 seconds) minutes/seconds. 21.25 mGy COMPARISON: None. FINDINGS: There is no demonstrated esophageal foreign body. There is no demonstrated stricture or mucosal abnormality. There is evidence of a large sliding hiatal hernia. No evidence of gastroesophageal reflux. The patient ingested a 12 mm tablet of barium without any difficulty. There is atherosclerotic tortuosity of the aortic arch and descending thoracic aorta. Normal visualized pulmonary parenchyma. Normal visualized osseous structures of the thorax. RAD/Esophagus Dual Contrast IMPRESSION: Large sliding hiatal hernia without gastroesophageal reflux. Electronically Signed: Johnie Reed MD at 8:38 EDT , ROS General General: Yes weight change; No appetite, fatigue, colon cancer, breast cancer or weakness HEENT HEENT: Yes difficulty swallowing and eye surgery; No eye injury, swollen glands or hoarseness Endo Endocrine: No thyroid disease, diabetes mellitus, thyroid cancer, Hair loss, heat intolerance or cold intolerance Skin Skin: No rash or changing moles Breast Breast: No left breast lump, right breast lump, nipple discharge, breast pain, abnormal mammogram, abnormal US or breast enlargement Musc Musculoskeletal: No back problems, arthritis, rheumatoid arthritis, gout or joint pain Cardio Cardiovascular: Yes heart disease; No murmur, pacemaker, atrial fibrillation, high blood pressure, heart attack, heart stent, palpitations, shortness of breat with exertion or chest pain Psych Psychiatric: No depression, anxiety or hearing voices Resp Respiratory: No shortness of breath, No sleep apnea, Yes cough, No COPD, No asthma, No emphysema and No wheezing Gastro Gastrointestinal: No abdominal pain, No nausea or vomiting, No diarrhea, No constipation, Yes blood in stool, Yes acid reflux, No hemorrhoids, No ulcers, No gallbladder problem and No black,tarry stools Skyler Hematologic: No blood thinners, No blood disorders, No bleeding, No anemia and No blood clots Neuro Neurologic: No system reviewed and no additional complaints, except as documented, No as per HPI, No abnormal gait, No abnormal hearing, No abnormal movements, No abnormal speech, No behavioral changes, No burning sensations, No confusion, No convulsions, No disequilibrium, No dizziness, No localized weakness, No frequent falls, No headache(s), No lack of coordination, No loss of vision, No memory loss, No numbness, No other visual disturbances, No radicular pain, No restless legs, No sensory deficit, No syncope, No tingling, No tremor(s), No weakness and No other Exam Const General: cooperative, comfortable and no acute distress Nutritional Appearance: obese [facility] Head: normal to inspection Eyes General: appearance normal, both eyes and all related structures Neck Other: Cervical kyphosis noted Chest Other: Increased anterior posterior diameter. Diminishing height. Resp Effort & Inspection: normal respiratory effort Auscultation: clear to auscultation bilaterally Cardio Rate: regular rate Rhythm: regular rhythm Other: 2/6 systolic ejection murmur GI Inspection: normal to inspection Palpation: soft and no hepatosplenomegaly Skin Other: Chronic mild hyperpigmentation bilateral lower extremities Neuro General: patient alert, patient awake and patient oriented x3 Extrem Other: 2+ left lower extremity edema with 1+ right lower extremity edema Psych Appearance: grossly normal Assessment and Plan Assessment and Plan (1) Hiatal hernia: Status: Acute Plan: I recommended the patient esophagogastroduodenoscopy to measure the length esophagus and get biopsies if indicated in intraluminal viewing of the hiatal hernia. I have additionally discussed with him potential for future consideration for surgical repair albeit in an 82-year-old that does take some risk. His abdominal body habitus has his body weight in his abdomen. As noted he has had a previous history of coronary bypass surgery as well. At this point I do believe it is pertinent to proceed with the upper scope. Then pending those findings can determine whether manometry would be of need. He has had an opportunity to ask and have questions answered. I appreciate the opportunity assist with surgical care Because of the patient's monoclonal gammopathy he states that a year or so ago he had a total body scan at [facility] and he was told it was clear. We will try to get report and imaging regarding that particular study. Copy: Dr Mamadou Spencer M.D., F.A.C.S. I have examined the patient and the H&P has been reviewed. There are no clinical changes since date of exam. Aamir Spencer M.D., F.A.C.S.
[2022-12-04 08:03] VITALS: BP 137/56; PULSE 53; RESP 18; TEMP 36.5; O2SAT 96; BMI 31.7
[2022-12-04] MEDS: Lactated Ringers 1,000 ML 15 ML IV (08:06)
--- NOTE | 2022-12-04 08:45 | EGD_PTH ---
PATIENT: PHILL BHAT LOC: EN U#:[id number] AGE/SX: 82/M ROOM: RE12/04/[address]: Dr. Aamir Spencer MD : 1940 BED: DIS: 12/04/2022 SPEC #: [id number] RECD: 12/04/22 09:30 STATUS: IDALMIS GARBER #: [id number] ANABELLE: 12/04/22 08:[address]: Aamir Spencer DEPT: SURGICAL PATHOLOGY RECD BY: Mayra Mcguire ENTERED: 12/04/22 10:38 SP TYPE: EGD BIOPSY OT DR: Dr. Mamadou Martini MD Tissues: Gastric mucous membrane Procedures: Surgery Specimen Level IV HEADER OPERATION: EGD ([facility] – [place] biopsy PRE-OP DIAGNOSIS: Hiatal hernia TISSUE SUBMITTED: Antrum biopsy for histo and H. pylori MICROSCOPIC DIAGNOSIS Gastric antrum, biopsy: Mild chronic gastritis. See comment. AM:kana 12/07/2022 COMMENT The results of immunohistochemistry for Helicobacter pylori will be reported separately ([id number]). MICROSCOPIC DESCRIPTION Slides are reviewed. GROSS DESCRIPTION Received in fixative is one container labeled with the patient's name and designated antrum biopsy. The specimen consists of one irregular fragment of light proctor soft tissue that measures 0.6 x 0.3 x 0.1 cm. The specimen is totally submitted in one cassette. / SJ:kana 12/04/2022 TC:3 CPT: 58537
--- NOTE | 2022-12-04 08:45 | IMM_PTH ---
PATIENT: PHILL BHAT LOC: EN U#:[id number] AGE/SX: 82/M ROOM: RE12/04/[address]: Dr. Aamir Spencer MD : 1940 BED: DIS: 12/04/2022 SPEC #: [id number] RECD: 12/04/22 13:38 STATUS: IDALMIS REMario #: [id number] ANABELLE: 12/04/22 08:[address]: Aamir Spencer DEPT: IMMUNOHISTOCHEMISTRY RECD BY: Elizabeth Garica ENTERED: 12/04/22 13:38 SP TYPE: IMMUNO OTHR DR: Dr. Mamadou Martini MD Tissues: Stomach, NOS Procedures: H Pylori (initial) PHYSICIAN & INSTITUTION [place] [id number] SPECIMEN INFORMATION: Tissue Source: Antrum Clinical Info: Hiatal hernia Specimen Number: [id number] CPT code: 27719 METHODOLOGY: Deparaffinized sections of prefer/formalin-fixed tissue or PAP/DQ stained slides are incubated with monoclonal/polyclonal antibodies/oligonucleotide probes. Localization is made via biotin free immunoperoxidase method. Appropriate controls are performed and reacted as expected. Results on target cell population are indicated in the following table: RESULTS: ANTIBODY / CLONE RESULT H Pylori (polyclonal) negative These tests were developed and their performance characteristics determined by [facility]. They may not have been cleared or approved by the U.S. Food and Drug Administration. The FDA has determined that such clearance or approval is not necessary. The above immunohistochemical/dualISH markers are ordered and reviewed by the Pathologist. INTERPRETATION: Antrum, biopsy: Negative for Helicobacter pylori organisms. AM:kana 12/07/2022
--- NOTE | 2022-12-04 08:58 | OP.EGD_ITS ---
Patient Name: Jamar Carrillo Procedure Date: 12/04/2022 8:25 AM Date of : 1940 Age: 82 Procedure: Upper GI endoscopy Indications: Dysphagia Providers: Aamir Spencer MD Medicines: See the Anesthesia note for documentation of the administered medications Complications: No immediate complications. Procedure: Pre-Anesthesia Assessment: - Prior to the procedure, a History and Physical was performed, and patient medications and allergies were reviewed. The patient's tolerance of previous anesthesia was also reviewed. The risks and benefits of the procedure and the sedation options and risks were discussed with the patient. All questions were answered, and informed consent was obtained. Prior Anticoagulants: The patient has taken no previous anticoagulant or antiplatelet agents. ASA Grade Assessment: III - A patient with severe systemic disease. After reviewing the risks and benefits, the patient was deemed in satisfactory condition to undergo the procedure. After obtaining informed consent, the endoscope was passed under direct vision. Throughout the procedure, the patient's blood pressure, pulse, and oxygen saturations were monitored continuously. The Endoscope was introduced through the mouth, and advanced to the second part of duodenum. The upper GI endoscopy was somewhat difficult due to abnormal anatomy. The patient tolerated the procedure fairly well. Scope In: 8:42:15 AM Scope Out: 8:46:32 AM Total Procedure Duration Time 0 hours 4 minutes 17 seconds Findings: The proximal esophagus was mildly tortuous. A large hiatal hernia was present. The Z-line was regular and was found 35 cm from the incisors. Diffuse mildly erythematous mucosa without bleeding was found in the gastric antrum. Biopsies were taken with a cold forceps for histology. The examined duodenum was normal. Impression: - Tortuous esophagus. - Large hiatal hernia. - Z-line regular, 35 cm from the incisors. - Erythematous mucosa in the antrum. Biopsied. - Normal examined duodenum. Recommendation: - Discharge patient to home. - Resume previous diet. - Continue present medications. - Telephone my office for pathology results in 1 week. Patient had thick mucus that had to be repetitively aspirated. Very large hiatal hernia with estimated a third to half of the stomach in the chest. Foreshortened esophagus to 35 cm. Patient tolerated fairly well the upper endoscopy but it was certainly much more difficult than usual in part secondary to thick mucus and coughing. By history he has had this hiatal hernia for an extended period time. At this moment I do not believe that he would tolerate esophageal manometry and I believe that the repair would be considerable for him. Ongoing medical treatment recommended. Procedure Code(s): --- Professional --- 77880, Esophagogastroduodenoscopy, flexible, transoral; with biopsy, single or multiple Diagnosis Code(s): --- Professional --- Q39.9, Congenital malformation of esophagus, unspecified K44.9, Diaphragmatic hernia without obstruction or gangrene K31.89, Other diseases of stomach and duodenum R13.10, Dysphagia, unspecified CPT copyright 2017 [employer]. All rights reserved. The codes documented in this report are preliminary and upon outdoor pursuits instructor review may be revised to meet current compliance requirements. Aamir Spencer MD 12/04/2022 8:57:55 AM This report has been signed electronically. Number of Addenda: 0 Note Initiated On: 12/04/2022 8:25 AM
--- NOTE | 2022-12-04 08:59 | OP.CCLET_ITS ---
12/04/2022 Mamadou Martini [address] [place] [address] Re : Upper GI endoscopy procedure for [place] Gerardo Dear Dr. Martini This procedure was performed on Sunday, December 04, 2022. My impressions and recommendations are as follows: Impressions : - Tortuous esophagus. - Large hiatal hernia. - Z-line regular, 35 cm from the incisors. - Erythematous mucosa in the antrum. Biopsied. - Normal examined duodenum. Recommendations : - Discharge patient to home. - Resume previous diet. - Continue present medications. - Telephone my office for pathology results in 1 week. Patient had thick mucus that had to be repetitively aspirated. Very large hiatal hernia with estimated a third to half of the stomach in the chest. Foreshortened esophagus to 35 cm. Patient tolerated fairly well the upper endoscopy but it was certainly much more difficult than usual in part secondary to thick mucus and coughing. By history he has had this hiatal hernia for an extended period time. At this moment I do not believe that he would tolerate esophageal manometry and I believe that the repair would be considerable for him. Ongoing medical treatment recommended. My findings are described in the full procedure note, which is enclosed. If I can be of further assistance, please feel free to contact me at Doctor phone number(s): Work: . Sincerely, Aamir Spencer MD 12/04/2022 8:57:55 AM This report has been signed electronically.
[2022-12-04 09:00] VITALS: BP 113/54; BP 137/56; PULSE 60; RESP 16; TEMP 36.3; O2SAT 95
[2022-12-04 09:05] VITALS: BP 127/66; BP 137/56; PULSE 54; RESP 16; O2SAT 93
[2022-12-04 09:10] VITALS: BP 135/57; BP 137/56; PULSE 56; RESP 16; O2SAT 98
[2022-12-04 09:15] VITALS: BP 129/59; BP 137/56; PULSE 52; RESP 16; TEMP 36.3; O2SAT 97
[2022-12-04 09:40] VITALS: BP 137/56
== END 2022-12-04 09:45 | disposition home or self-care (01) ==
LOC: EN 07:30 → AC 07:32
PROVIDERS: PCP Family Medicine; Referring Provider Family Medicine; Visit Provider Surgery
PROC: 0DJ08ZZ Inspection of Upper Intestinal Tract, Via Natural or Artificial Opening Endoscopic (ICD-10-PCS; CPT 43235; principal; 2022-12-04 08:40)
DX: K44.9 Diaphragmatic hernia without obstruction or gangrene (principal); E78.5 Hyperlipidemia, unspecified; I10 Essential (primary) hypertension; R13.10 Dysphagia, unspecified; R07.9 Chest pain, unspecified; I25.10 Atherosclerotic heart disease of native coronary artery without angina pectoris; Z87.891 Personal history of nicotine dependence; D47.2 Monoclonal gammopathy; Q39.9 Congenital malformation of esophagus, unspecified; K31.89 Other diseases of stomach and duodenum; I25.2 Old myocardial infarction; Z95.1 Presence of aortocoronary bypass graft; K29.50 Unspecified chronic gastritis without bleeding
CPT/HCPCS: 43239; 88305; 88342; J7120; J2405

== ENCOUNTER → 2023-10-13 | Outpatient (CLI) | payer MEDICARE, OTHER, SELFPAY ==
[2023-10-13 08:28] LABS: Red Blood Cells-Urine 0 SEEN /hpf (0-5)
[2023-10-13 10:19] LABS: Color, Urine Yellow (Yellow); Glucose, Dipstick Normal (Normal); Ketone-Dipstick Negative (Negative); Leukocyte Esterase-Dipstick Negative /ul (Negative); Nitrite-Dipstick Negative (Negative); Occult Blood-Urine Negative /ul (Negative); Protein-Dipstick Negative (Negative); Specific Gravity, Urine 1.015 (1.002-1.030); Urine Bilirubin Dipstick Negative (Negative); Urine Clarity Clear (Clear); Urine Urobilinogen Normal (Normal)
[2023-10-13 10:39] LABS: Bacteria 1+ /hpf (None Seen); Hyaline Cast 10-25 SEEN /lpf (0-5); Mucous, Urine 1+ /hpf (<or=2+)
[2023-10-13 10:40] LABS: Squamous Epithelial Cells - UA 0-5 SEEN /hpf (0-5); White Blood Cells 0-5 SEEN /hpf (0-5)
[2023-10-13 10:54] LABS: ALB/GLOB Ratio 0.6 RATIO (0.9-2.4); AST(SGOT) 22 U/L (15-37); Alanine Aminotransfer ALT/SGPT 16 U/L (16-61); Albumin, Serum 3.2 g/dL (3.2-5.0); Alkaline Phosphatase 72 U/L (45-117); Anion Gap 7 (5-15); BUN 13 mg/dL (7-18); BUN/Creat Ratio 12.6 RATIO (10-20); Calcium,Total 9.4 mg/dL (8.5-10.1); Chloride 102 mmol/L (98-107); Cholesterol 91 mg/dL (200); Creatinine, Serum 1.03 mg/dL (0.70-1.30); EST Glomerular Filtration Rate 73 mL/min (>60); Est Glom Filt Rate - Afr Amer 89 mL/min (>60); Glucose 108 mg/dL (74-106); High Density Lipoprotein 27 mg/dL; Potassium 3.6 mmol/L (3.5-5.1); Protein, Total 8.2 g/dL (6.4-8.2); Sodium Level 136 mmol/L (136-145); T4 Free Direct 1.03 ng/dL (0.76-1.46); Thyroid Stim Hormone (TSH) 2.38 uIU/mL (0.358-3.74); Triglycerides 128 mg/dL; Very Low Density Lipoprotein 26 mg/dL (5-40)
[2023-10-13 11:57] LABS: Hemoglobin A1c 6.1 % (3.8-5.6)
== END | disposition home or self-care (01) ==
LOC: MFPLAB 08:26
PROVIDERS: PCP Family Medicine; Visit Provider Family Medicine
DX: R79.89 Other specified abnormal findings of blood chemistry (principal); I10 Essential (primary) hypertension; E78.00 Pure hypercholesterolemia, unspecified
CPT/HCPCS: 36415; 80053; 80061; 81001; 83036; 84439; 84443

== ENCOUNTER → 2024-01-12 | Outpatient (CLI) | payer MEDICARE, OTHER, SELFPAY ==
--- NOTE | 2024-01-12 12:49 | CT_ITS ---
STUDY: CT SOFT TISSUE NECK WITH CONTRAST REASON FOR EXAM: Male, 83 years old. R PAROTID MASS RADIATION DOSAGE (If Supplied By Facility): CTDIvol = ( 19.41 ) mGy, DLP = ( 593.70 ) mGycm TECHNIQUE: The patient was scanned in a multi-detector CT scanner. High resolution transaxial imaging was performed following intravenous administration of IV 100mL Isovue-300. Sagittal and coronal images were reconstructed. Individualized dose optimization techniques were used for this CT. COMPARISON: None. FINDINGS: 1.5 x 2.0 cm oval mass of soft tissue attenuation within the superficial lobe of the right parotid gland worrisome for tumor such as pleomorphic adenoma or a prominent lymph node. This is amenable to percutaneous biopsy. Normal left parotid gland. Normal bilateral supervisor liquid yeast spaces. Normal bilateral parapharyngeal spaces. Normal bilateral carotid spaces. Normal bilateral sublingual and submandibular glands and spaces. Normal visualized nasopharynx. Normal retropharyngeal space. Normal perivertebral space. Normal visualized bilateral faucial tonsils. The visualized tongue, tongue base and oropharynx are normal. The visualized cervical lymph nodes (levels I-) are within normal size limits, and maintain normal morphology. There is no demonstrated solid or cystic mass lesion. There is no abnormal contrast enhancement. Normal epiglottis, bilateral vallecula and hypopharynx. The pre-epiglottic and paraglottic adipose spaces are normal. Normal visualized bilateral piriform sinuses, aryepiglottic folds, vocal cords, and arytenoid-cricoid articulations. Normal subglottic trachea. Normal bilateral lobes of the thyroid gland. Normal visualized pulmonary apices. Normal visualized paranasal sinuses. Normal visualized cervical spine. Incompletely imaged 2 cm round dense mass within the left frontal lobe likely consistent with a meningioma. Correlation with CT and MRI of the head with contrast would be useful. CT/Soft Tissue Neck WITH Contrast IMPRESSION: 2 cm mass of the right parotid gland worrisome for pleomorphic adenoma or lymphadenopathy. 2 cm left frontal lobe mass and clinical correlation and CT or MRI of the head with contrast would be useful. Electronically Signed: Estiven Alba MD at 10:11 EDT ,
== END | disposition home or self-care (01) ==
LOC: CT 12:47
PROVIDERS: PCP Family Medicine; Referring Provider Otolaryngology; Visit Provider Otolaryngology
DX: D37.030 Neoplasm of uncertain behavior of the parotid salivary glands (principal)
CPT/HCPCS: 70491; Q9967

== ENCOUNTER → 2024-01-18 | Outpatient (CLI) | payer MEDICARE, OTHER, SELFPAY ==
[2024-01-12 17:58] LABS: CREATININE FINGERSTICK 1.1 mg/dL (0.70-1.30); EGFR FINGERSTICK > 60.0000 mL/min (>60)
--- NOTE | 2024-01-17 | ASPIG_PTH ---
PATIENT: PHILL BHAT LOC: [place] U#:[id number] AGE/SX: 83/M ROOM: RE01/18/[address]: Dr. John Suresh MD : 1940 BED: DIS: 01/18/2024 SPEC #: [id number] RECD: 01/18/24 10:23 STATUS: IDALMIS JCARLOS #: [id number] ANABELLE: 01/17/24 00:[address]: John Suresh DEPT: CYTOLOGY RECD BY: Lenin Vora ENTERED: 01/18/24 10:24 SP TYPE: ASP OUT OTHR DR: Dr. Mamadou Martini MD Tissues: Parotid gland, NOS Procedures: FNA Specimen Adequacy Special Stain Group II Surgery Specimen Level IV Cytology Other HEADER OPERATION: CT guided right parotid gland, fine needle aspiration PRE-OP DIAGNOSIS: Mass right parotid gland biopsy TISSUE SUBMITTED: 20 gauge with drainage DIAGNOSIS CYTOLOGY Right parotid gland fluid, fine needle aspiration (cytospin, cellblock and smears): Negative for malignant cells. See comment. mr 01/19/2024 COMMENT The specimen is evaluated at the time of biopsy by Dr. Ruiz. Immediate Evaluation = Paucicellular specimen negative for malignant cells. The specimen is paucicelluar and consists of rare clusters of benign oncocytic cells and ductal cells. Degenerated crystalline debris are also noted. Background inflammation is not seen. Re-biopsy/excision of the lesion is suggested, if clinically indicated. Case has been reviewed in consultation with Dr. Cerrato who concurs with the above diagnosis. IDC:AM CYTOLOGY STUDY Slides are reviewed. CYTOLOGY GROSS Received is 1 ml of red-cloudy fluid labeled with the patient's name and and designated per the requisition as Right parotid gland, FNA. Six smears are prepared at the time of FNA, 4 are submitted for immediate evaluation (diff quik stain), 2 are submitted for PAP staining and rest of the specimen is submitted for cytology preparation including cell block. 01/18/2024 TC: Cannot code CPT: 78197,77370,69304,43186
[2024-01-18] VITALS (11 sets, daily range): BP systolic 125–156; BP diastolic 39–48; PULSE 49–54; RESP 16–20; TEMP 36.1; O2SAT 93–97
--- NOTE | 2024-01-18 07:46 | CT_ITS ---
PROCEDURE: CT GUIDED biopsy of the right parotid gland. DATE: January 18, 2024. INDICATION: Male, 83 years old. Nodule in the right parotid gland. PHYSICIAN: Johnie Reed M.D. RADIATION DOSAGE (If Supplied By Facility): CTDIvol = ( 14.5 ) mGy, DLP = ( 296.45 ) mGycm. Individualized dose optimization techniques were utilized. PROCEDURE: The risks, benefits, and alternatives to the procedure were explained to the patient. The specific risk of hemorrhage requiring further treatment or intervention was detailed and accepted. Follow-up instructions were discussed with the patient as well. Written informed consent was obtained. The patient was brought into the CT suite and placed in the supine position. . An appropriate entry site was identified. The overlying skin was prepped and draped in the usual sterile fashion. 1% lidocaine was administered subcutaneously for local anesthesia. Conscious sedation was performed. The patient received 1 mg of Versed and 25 mcg of fentanyl intravenously. Conscious sedation was started at 9:08 AM and terminated at 9:24 AM. The patient was independently monitored by the department nurse. Under CT guidance, a total of 3 passes were performed utilizing 20-gauge core biopsy needle system The specimens were then placed in the appropriate fluid and transported to the laboratory for analysis. Hemostasis was obtained. The patient tolerated the procedure well without immediate complications. CT/Biopsy/Inj or Needle Placement IMPRESSION: Successful CT guided core biopsy of the right parotid mass, as described above. Conscious sedation was performed. The patient tolerated the procedure well. Electronically Signed: Johnie Reed MD at 10:09 EDT ,
[2024-01-18 07:48] LABS: Platelet Count 227 K/mm3 (150-450)
[2024-01-18 08:03] LABS: International Normalized Ratio 1.2; Prothrombin Time (Protime)PT. 14.8 SECONDS (11.7-14.9)
[2024-01-18 08:04] LABS: Partial Thromboplast Time 24.4 Seconds (24.1-36.2)
[2024-01-18] MEDS: 0.9% Normal Saline (250mL Bag) 250 ML 15 ML IV (09:05)
[2024-01-18] MEDS: Midazolam 2 MG/2 ML Syringe IV (09:05)
[2024-01-18] MEDS: fentaNYL 100 MCG/2 ML Ampul IV (09:09)
[2024-01-18] MEDS: Lidocaine 2% (20 ml mdv) 20 ML Vial INFILT (09:16)
== END | disposition home or self-care (01) ==
PROVIDERS: Nurse Practitioner Acute Care; PCP Family Medicine; Referring Provider Otolaryngology; Visit Provider Otolaryngology
DX: Z01.812 Encounter for preprocedural laboratory examination (principal); Z01.818 Encounter for other preprocedural examination; D37.030 Neoplasm of uncertain behavior of the parotid salivary glands
CPT/HCPCS: 42400; 36415; 77012; 85049; 85610; 85730; 88161; 88172; 88305; 88313; J7050

== ENCOUNTER → 2024-12-20 | Outpatient (CLI) | payer MEDICARE, OTHER, SELFPAY ==
--- OUTSIDE RECORDS SUMMARY | 2024-12-20 07:24 | XMS RPT_ITS | CCD ---
Author Organization [facility] Care Team Providers Care Still Cleaner Name Role Phone Dr. Prema Duffy Primary Care Provider [phone] Dr. Prema Duffy Referring Provider [phone] 60 Rey STORE LOSS PREVENTION MANAGER, STORE LOSS PREVENTION MANAGER-C Prema Jimenez Attending Provider Prema Martini Primary Care Provider [phone] Prema Martini Primary Care Provider [phone] Prema Martini Primary Care Provider [phone] Joe Leyva Unavailable Dr. Prema Martini Primary Care Provider Dr. Prema Martini Referring Provider Dr. Aamir Spencer Attending Provider Dr. Joe Leyva Attending Provider Juan MARKHAM, STORE LOSS PREVENTION MANAGER-C Laura Attending Provider Dr. Joe Leyva Referring Provider Dr. Aamir Spencer Other Provider Prema Martini MD Primary Care Provider Joe Leyva MD S Unavailable Prema Martini MD Primary Care Provider Prema Martini Primary Care Unavailable John Suresh Attending Unavailable John Suresh Referring Unavailable Prema Le NP Attending Unavailable Prema Martini Primary Care Unavailable Prema Martini Referring Unavailable Bakari Jackson Attending Unavailable Prema Martini Primary Care Unavailable Prema Martini Referring Unavailable Prema Martini Primary Care Unavailable Myke Painting Attending Unavailable Prema Martini Referring Unavailable Prema Martini Primary Care Unavailable Prema Martini Attending Unavailable Prema Martini Primary Care Unavailable John Suresh Attending Unavailable John Suresh Referring Unavailable SELF Referring Unavailable PREMA MARTINI Primary Care Unavailable PREMA MARTINI Primary Care Unavailable ALEXUS ZHANG Referring Unavailable PREMA MARTINI Primary Care Unavailable PREMA MARTINI Primary Care Unavailable ALEXUS ZHANG Referring Unavailable MAK MENDOZA Attending Unavailable Lianet OVIEDO, Dr. Prema Steen Primary Care Provider Dr. Prema Martini MD Referring Provider [phone] Prema Ramos Attending Provider Allergies Allergy Classification Reported Allergen(s) Allergy Type Date of Onset Reaction(s) Facility (8 sources) atorvastatin Drug Allergy 2 Severe Myalgias [facility] (8 sources) Simvastatin Drug Allergy 2 Myalgias [facility] (5 sources) tamsulosin Drug Allergy 2 Dizziness, Lightheaded [facility] (1 source) atorvastatin Drug Allergy 4 [facility] Repository (1 source) Simvastatin Drug Allergy 4 [facility] Medications Current Medications Medication Drug Class(es) Dates Sig (Normalized) Sig (Original) acetaminophen 500 mg oral tablet (4 sources) Start: 11-13-2022 take 1 tablet by mouth every six hours as needed for pain Acetaminophen (Pain Relief (Acetaminophen)) 500 mg tablet Active 500 mg PO EVERY 6 HOURS as needed for pain November 13, 2022 12:00am take [address] [facility] every eight hours as needed acetaminophen (TYLENOL EXTRA STRENGTH) 5 00 mg tablet Take 1,000 mg by mouth every 8 hours as needed. Active aspirin 81 mg oral tablet (20 sources) Platelet Aggregation Inhibitor, Nonsteroidal Anti-inflammatory Drug Start: 12-19-2024 take 1 tablet by mouth once daily Aspirin 81 mg tablet Active 81 mg PO daily December 19, 2024 12:00am Start: 07-29-2017 End: 11-13-2022 Aspirin (Adult Low Dose Aspi rin) 81 mg tablet,delayed release (DR/EC) Discontinued 81 mg PO every other day 0 October 07, 2021 11:27am November 13, 2022 1:17pm heart health Start: 07-28-2010 End: 01-29-2024 take 1 tablet by mouth once daily aspirin, enteric coated (ASPIRIN, ENTERIC COATED) 81 mg EC tablet Take 81 mg by mouth once daily. 07/28/2010 01/29/2024 Discontinued Comment on above: Take 81 mg by mouth once daily. carvedilol 12.5 mg oral tablet (20 sources) alpha-Adrenergic Terence, beta-Adrenergic Terence Start: 06-11-2020 End: 06-11-2020 take 1 tablet by mouth once at bedtime Carvedilol 12.5 mg tablet Discontinued 12.5 mg PO .COMPLEX 180 3 June 11, 2020 3:27pm June 11, 2020 5:13pm blood pressure 12.5 mg PO 2 tablets in the am and 1 at [place]; Start: 07-29-2017 End: 10-12-2024 take 1 tablet by mouth twice daily Carvedilol 12.5 mg tablet Active 12.5 mg PO TWICE A DAY 180 3 October 12, 2024 8:10am Comment on above: Take 12.5 mg by mout h twice daily with meals. celecoxib 200 mg oral capsule (9 sources) Nonsteroidal Anti-inflammatory Drug Start: 12-19-2024 take 1 capsule by mouth once daily as needed Celecoxib 200 mg capsule Active 200 mg PO daily as needed December 19, 2024 12:00am Start: 11-03-2018 End: 12-25-2020 take 1 capsule by mouth once daily as needed Celecoxib 200 mg capsule Discontinued 200 mg PO DAILY as needed November 03, 2018 12:00am December 25, 2020 3:16pm diphenhydrAMINE hydrochloride 25 mg oral tablet (20 sources) Histamine-1 Receptor Antagonist Start: 12-19-2024 take 1 tablet by mouth once daily Diphenhydramine Hcl (Benadryl Allergy) 25 mg tablet Active 25 mg PO DAILY December 19, 2024 2:00pm allergic symptoms Start: 10-07-2021 End: 12-19-2024 take 1 tablet by mouth three times daily as needed Diphenhydramine Hcl (Benadryl Allergy) 25 mg tablet Discontinued 25 mg PO THREE TIMES A DAY as needed for allergic symptoms October 07, 2021 12:00am December 19, 2024 2:08pm take [address] [facility] every six hours as needed diphenhydrAMINE (BENADRYL) 25 mg capsule Take 25 mg by mouth every 6 hours as needed. PRN Active Comment on above: Take 25 mg by mouth every 6 hours as needed. PRN dorzolamide 20 mg/ml ophthalmic solution (20 sources) Carbonic Anhydrase Inhibitor Start: 10-22-2017 Dorzolamide 2 % drops Active 1 NMA OPHTHALMIC TWICE A DAY October 22, 2017 12:00am eyes Start: 10-22-2017 take 1 drop(s) into the eye(s) twice daily dorzolamide (TRUSOPT) 2 % ophthalmic solution Use 1 Drop in eyes twice daily. 10/22/2017 Active Comment on above: Use 1 Drop in eyes t wice daily. dorzolamide 20 mg/ml / timolol 5 mg/ml ophthalmic solution (13 sources) Carbonic Anhydrase Inhibitor, beta-Adrenergic Terence Start : 10-05 take 1 drop(s) into the eye(s) twice daily dorzolamide-timolol (COSOPT) 22.3-6.8 mg/mL ophthalmic solution Use 1 Drop in eyes twice daily. 10/06/2011 Active Comment on above: Use 1 Drop in eyes t wice daily. doxycycline hyclate 100 mg oral tablet (2 sources) Tetracycline-class Drug Start : 01-10 End: 01-20 take 1 tablet by mouth twice daily doxycycline (VIBRA-TABS) 100 mg tablet Take 1 tablet by mouth twice daily for 10 days. 20 tablet 0 01/10/2022 01/20/2022 Active Comment on above: Take 1 tablet by [facility] twice daily for 10 days. ferrous gluconate 324 mg oral tablet (1 source) Start : 12-19 take 1 tablet by mouth once daily Ferrous Gluconate 324 mg (37.5 mg iron) tablet Active 324 mg PO daily December 19, 2024 12:00am fluticasone propionate 0.05 mg/actuat metered dose nasal spray (20 sources) Corticosteroid Start : 10-01 End: 01-28 take 2 spray(s) by mouth once daily fluticasone (FLONASE) 50 mcg/actuation nasal spray Use 2 Sprays in each nostril once daily. Rinse mouth after use. 1 Each 1 01/10/2022 Active Comment on above: Use 2 Sprays in each nostril once daily. Rinse mouth after use. hydroCHLOROthiazide 25 mg oral tablet (20 sources) Thiazide Diuretic Start : 06-11 End: 02-15 take 1 tablet by mouth once daily Hydrochlorothiazide 25 mg tablet Active 25 mg PO DAILY 90 3 February 16, 2024 7:59am take 2 tablets by mouth once smith ly hydroCHLOROthiazide (HYDRODIURIL, ESIDRIX) 12.5 mg tablet Take 25 mg by mouth once daily. Active Comment on above: Take 25 mg by mouth once daily. iv contrast (will be provided with radiology test) (1 source) Start: End: 023 inject 1 dose intravenously once iv contrast (will be provided with radiology test) Indications: Meningioma (HCC) MRI Brain Inject, intravenously, once for 1 dose.No IV access, insert saline lock prior to beginning of sedation, infusion, injection of imaging exam.Discontinue saline lock post exam. If Pt. has a central line or IVAD, may access for administration according to line specific nursing protocol.Once exam is complete flush line and de-access according to line specific nursing protocol in the MR contrast administration guidelines link 1 Each 0 10/27/2022 10/28/2022 Active Comment on above: MRI Brain Inject, in travenously, once for 1 dose.No IV access, insert saline lock prior to beginning of sedation, infusion, injection of imaging exam.Discontinue saline lock post exam. If Pt. has a central line or IVAD, may access for administration according to line specific nursing protocol.Once exam is complete flush line and de-access according to line specific nursing protocol in the MR contrast administration guidelines link latanoprost 0.05 mg/ml ophthalmic solution (20 sources) Prostaglandin Analog Start: 018 Latanoprost 0.005 % drops Active 1 NMA OPHTHALMIC EVERY EVENING October 22, 2017 12:00am eyes Start: 10-06-2011 take 1 drop(s) into the eye(s) once daily at bedtime latanoprost (XALATAN) 0.005 % ophthalmic solution Use 1 Drop in eyes daily at bedtime. 10/06/2011 Active Comment on above: Use 1 Drop in eyes d aily at bedtime. losartan potassium 50 mg oral tablet (20 sources) Angiotensin 2 Receptor Terence Start: 10-19-19 End: 04-11-20 take 1 tablet by mouth once daily Losartan 50 mg tablet Active 50 mg PO DAILY April 11, 2024 1:06pm Comment on above: Take 50 mg by mouth once daily. nitroglycerin 0.4 mg sublingual tablet (9 sources) Nitrate Vasodilator Start: 09-30-19 End: 11-18-19 Nitroglycerin 0.4 mg tablet, sublingual Active 0.4 mg SL every 5 to 15 minutes as needed for chest pain 01 08November 18, 2023 1:16pm do not exceed 3 doses per episode Start: 09-29-2021 Nitroglycerin Active 0.4 MG SL every 5 to 15 minutes September 29, 2021 12:00am do not exceed 3 doses per episode [place]-3 Fatty Acids (Fish Oil Concentrate) 1,000 mg capsule (17 sources) Start: 12-19-2024 take 1 capsule by mouth once daily [place]-3 Fatty Acids (Fish Oil Concentrate) 1,000 mg capsule Active 1000 mg PO daily December 19, 2024 2:01pm Start: 10-07-2021 End: 12-19-2024 take 1 capsule by mouth every other day [place]-3 Fatty Acids (Fish Oil Concentrate) 1,000 mg capsule Discontinued 1000 mg PO every other day October 07, 2021 11:28am December 19, 2024 2:08pm Start: 10-07-2021 take 1 capsule by [facility] every other day [place]-3 Fatty Acids (Fish Oil Concentrate) 1,000 mg capsule Active 1000 MG PO every other day October 07, 2021 11:28am Start: 12-25-2020 End: 10-07-2021 take 1 capsule by mouth once daily [place]-3 Fatty Acids (Fish Oil Concentrate) 1,000 mg capsule Discontinued 1000 MG PO DAILY December 25, 2020 3:14pm October 07, 2021 11:30am Start: 12-25-2020 End: 10-07-2021 take 1 capsule by mouth once daily [place]-3 Fatty Acids (Fish Oil Concentrate) 1,000 mg capsule Discontinued 1000 mg PO DAILY December 25, 2020 12:00am May 31st, 2022 11:30am Start: 12-25-2020 End: 10-07-2021 take 1 capsule by mouth once daily [place]-3 Fatty Acids (Fish Oil Concentrate) 1,000 mg capsule Discontinued 1000 MG PO DAILY December 25, 2020 12:00am October 07, 2021 11:30am Zwmup-6-UAF-EPA-Fish Oil 1,0 00 mg (120 mg-180 mg) cap (11 sources) Cesae-8-NRW-EPA- Fish Oil 1,000 mg (120 mg-180 mg) cap Take 2 g by mouth every 48 hours. Active Pohgs-1-KVR-EPA- Fish Oil 1,000 mg (120 mg-180 mg) cap Take 2 g by mouth every 48 hours. 0 Active Comment on above: Take 2 g by mouth ev gege 48 hours. omeprazole 20 mg delayed release oral capsule (20 sources) Proton Pump Inhibitor Start: 05-25-2023 End: 03-30-2024 take 1 capsule by mouth once daily Omeprazole 20 mg capsule,delayed release(DR/EC) Active 20 mg PO DAILY 90 March 30, 2024 4:01pm Please send to [facility] address on file Start: 11-30-2022 End: 05-25-2023 take 1 capsule by mouth every other day Omeprazole 20 mg capsule,delayed release(DR/EC) Discontinued 20 mg PO .QOD 45 April 06, 2023 11:40am May 25, 2023 11:15am Please send to [facility] address on file Start: 11-27-2022 End: 11-30-2022 take 1 capsule by mouth once daily for gastroesophageal reflux disease Omeprazole 20 mg capsule,delayed release(DR/EC) Discontinued 0 .ROUTE .COMPLEX 90 November 27, 2022 8:23am November 30, 2022 4:34pm TAKE 1 CAPSULE BY MOUTH DAILY FOR REFLUX Start: 10-25-2019 End: 11-27-2022 take 1 tablet by mouth once daily Omeprazole Magnesium 20 mg tablet,delayed release (DR/EC) Discontinued 20 mg PO DAILY 90 February 06, 2022 11:21am November 27, 2022 8:24am reflux Start: 11-30-2017 End: 10-25-2019 take 1 tablet by mouth twice daily Omeprazole Magnesiu m 20 mg tablet,delayed release (DR/EC) Discontinued 20 mg PO TWICE A DAY 60 0 November 30, 2017 12:25pm October 25, 2019 1:39pm reflux Start: 07-29-2017 End: 11-30-2017 take 1 tablet by mouth once daily Omeprazole Magnesium 20 mg tablet,delayed release (DR/EC) Discontinued 20 mg PO daily July 29, 2017 12:00am November 30, 2017 12:25pm reflux take 20 mg by mouth once daily O MEPRAZOLE ORAL Take 20 mg by mouth once daily. Active Comment on above: Take 20 mg by mouth once daily. prednisoLONE acetate 10 mg/ml ophthalmic suspension (13 sources) Corticosteroid Start: 10-20-2021 prednisoLONE acetate (PRED FORTE, ECONOPRED PLUS) 1 % ophthalmic suspension Use 1 drop in both eyes four times daily. 10/20/2021 Active Start: 10-20-2021 prednisoLONE a cetate (PRED FORTE, ECONOPRED PLUS) 1 % ophthalmic suspension 1 Drop four times daily. 10/20/2021 Active Comment on above: 1 Drop four times da marcell. Timolol Maleate (3 sources) beta-Adrenergic Terence Start: 11-13-2022 Timolol Maleate 0.5 % drops Active 1 NMA OPHTHALMIC TWICE A DAY November 13, 2022 12:00am Start: 11-13-2022 Timolol Maleat e Active 1 DRP OPHTHALMIC TWICE A DAY November 13, 2022 12:00am Completed/Discontinued Medications Medication Drug Class(es) Dates Sig (Normalized) Sig (Original) [id number] actuat albuterol 0.09 mg/actuat metered dose inhaler (6 sources) beta2-Adrenergic Agonist Start: 11-07-2016 End: 10-27-2022 take 2 puff(s) by inhalation every four hours as needed for wheezing albuterol HFA (VENTOLIN HFA) 90 mcg/actuation inhaler Indications: Viral URI with cough Inhale 2 Puffs as instructed every 4 hours as needed for Wheezing/Shortness of Breath. 1 Inhaler 0 11/07/2016 10/27/2022 Discontinued Comment on above: Inhale 2 Puffs as in structed every 4 hours as needed for Wheezing/Shortness of Breath. amLODIPine 10 mg oral tablet (20 sources) Dihydropyridine Calcium Channel Terence Start: 07-29-2017 End: 10-12-2024 take 1 tablet by mouth at bedtime Amlodipine 10 mg tablet Discontinued 10 mg PO AT BEDTIME 90 3 October 12, 2024 2:53pm October 12, 2024 3:27pm Comment on above: Take 10 mg by mouth once daily. benzonatate 100 mg oral capsule (5 sources) Non-narcotic Antitussive Start: 01-26-2023 End: 01-29-2024 take 1 capsule by mouth every eight hours as needed benzonatate (TESSALON PERLES) 100 mg capsule Take 1 capsule by mouth three times daily as needed for cough. 12 capsule 01/26/2023 01/29/2024 Discontinued dexamethasone 6 mg oral tablet (1 source) Corticosteroid Start: 12-30-2023 End: 01-18-2024 take 1 tablet by mouth once daily Dexamethasone 6 mg tablet Discontinued 6 mg PO DAILY 5 0 December 30, 2023 12:00am January 18, 2024 8:34am hydrocortisone acetate 25 mg rectal suppository (8 sources) Corticosteroid Start: 10-22-2017 End: 11-03-2018 Hydrocortisone Acetate 25 mg suppository Discontinued 25 mg RC TWICE A DAY October 22, 2017 12:00am November 03, 2018 3:57pm itching Metoprolol (6 sources) beta-Adrenergic Terence End: 10-27-2022 take 1 tablet by mouth once daily METOPROLOL SUCCINATE ORAL Take 1 tablet by mouth once daily. 0 10/27/2022 Discontinued take 1 tablet by mouth once cassie y METOPROLOL SUCCINATE ORAL Take 1 tablet by mouth once daily. 0 Active Comment on above: Take 1 tablet by hernando th once daily. Multivitamin preparation (7 sources) Start: 10-22-2017 End: 12-25-2020 take 1 tablet by mouth once daily in the morning Multivitamin Discontinued 1 TABLET PO EVERY MORNING October 22, 2017 3:27pm December 25, 2020 3:16pm Start: 10-22-2017 End: 12-25-2020 take 1 tablet by mouth once daily in the morning Multivitamin Discontinued 1 TABLET PO EVERY MORNING October 22, 2017 12:00am December 25, 2020 3:16pm Multivitamin tablet (1 source) Start: 10-22-2017 End: 12-25-2020 Multivitamin tablet Discontinued 1 {tbl} PO EVERY MORNING October 22, 2017 12:00am December 25, 2020 3:16pm supplement Pzuze-7-DIO-EPA-Fish Oil (FISH OIL) 1,000 mg (120 mg-180 mg) cap (2 sources) Uypow-1-ZCH-EPA- Fish Oil (FISH OIL) 1,000 mg (120 mg-180 mg) cap Take 2 g by mouth every 48 hours. 0 Active Comment on above: Take 2 g by mouth ev gege 48 hours. OTC PRODUCT (6 sources) End: 10-27-2022 OTC PRODUCT Tumeric, once daily 0 10/27/2022 Discontinued OTC PRODUCT Tume theo, once daily 0 Active Comment on above: Tumeric, once daily psyllium 3400 mg powder for oral suspension (8 sources) Start: 11-27-2017 End: 12-19-2024 Psyllium Husk (With Sugar) 3.4 GM powder in packet Discontinued 6.8 g PO AT BEDTIME November 27, 2017 12:00am December 19, 2024 2:03pm Stool softner Start: 11-27-2017 take 6.8 g by mouth at bedtime Psyllium Husk (With Sugar) Active 6.8 GM PO AT BEDTIME November 27, 2017 12:00am rosuvastatin calcium 20 mg oral tablet (20 sources) HMG-CoA Reductase Inhibitor Start: 07-29-2017 End: 12-19-2024 take 1 tablet by mouth once daily for hyperlipidemia Rosuvastatin 20 mg tablet Discontinued 20 mg PO DAILY 90 3 March 15, 2024 9:00am December 19, 2024 2:03pm for cholesterol take 20 mg by mouth once daily R OSUVASTATIN CALCIUM (CRESTOR ORAL) Take 20 mg by mouth once daily. Active Comment on above: Take 20 mg by mouth once daily. 1250 mg testosterone 0.0162 mg/mg topical gel (8 sources) Androgen Start: 10-22-2017 End: 11-03-2018 Testosterone (Androgel) 1.62 % (20.25 mg/1.25 gram) gel in packet Discontinued 1 NMA TOPICAL daily 0 October 22, 2017 12:00am November 03, 2018 3:56pm hormone Start: 10-22-2017 End: 11-03-2018 Testosterone (Androgel) 1.62 % (20.25 mg/1.25 gram) gel in packet Discontinued 1 PACKET TOPICAL daily October 22, 2017 12:00am November 03, 2018 3:56pm Iafyoit-Toat-Cvhfj-Oreg-Capr yl (7 sources) Start: 12-25-2020 End: 10-07-2021 Masmzjy-Pqgo-Kzrnn-Oreg-Capr yl Discontinued CAP PO December 25, 2020 3:17pm October 07, 2021 11:29am Start: 12-25-2020 End: 10-07-2021 Websxzk-Ekvw-Wwdio-Oreg-Capr yl Discontinued CAP PO December 25, 2020 12:00am October 07, 2021 11:29am Szkmzitw-Ylpf-Yybmk-Oreg-Cap ry 100 mg-150 mg- 50 mg-150 mg capsule (1 source) Start: 12-25-2020 End: 10-07-2021 Nnkegwrm-Kkgo-Xjvws-Oreg-Cap ry 100 mg-150 mg- 50 mg-150 mg capsule Discontinued NMA PO December 25, 2020 12:00am October 07, 2021 11:29am Problems Active Problems Problem Classification Problem Date Documented Da te Episodic/Chronic Abdominal hernia (5 sources) Hiatal hernia; Translations: [Diaphragmatic hernia without obstruction or gangrene] 11-12-2022 Episodic Coronary atherosclerosis and other heart disease (16 sources) Coronary atherosclerosis; Translations: [Atherosclerotic heart disease of [place] coronary artery without angina pectoris] 11-28-2017 Chronic Deficiency and other anemia (10 sources) Anemia; Translations: [Anemia, unspecified] 10-22-2020 Episodic Deficiency and other anemia (1 source) Anemia, unspecified; Translations: [Anemia, unspecified type] Onset: 12-08-2024 Episodic Diseases of mouth; excluding dental (2 sources) Disorder of salivary gland; Translations: [Other diseases of salivary glands] 11-24-2023 Episodic Disorders of lipid metabolism (14 sources) Hyperlipidemia; Translations: [Hyperlipidemia, unspecified] Chronic Diverticulosis and diverticulitis (13 sources) Diverticulosis of colon; Translations: [Diverticulosis of large intestine without perforation or abscess without bleeding] Onset: 03-12-2006 03-12-2006 Chronic Essential hypertension (14 sources) Essential hypertension; Translations: [Essential (primary) hypertension] Chronic Fever of unknown origin (1 source) Feeling feverish; Translations: [Fever, unspecified] 01-29-2024 Episodic Heart valve disorders (6 sources) Heart murmur; Translations: [Cardiac murmur, unspecified] 11-13-2022 Episodic Malaise and fatigue (1 source) Fatigue; Translations: [Other fatigue] 01-29-2024 Episodic Multiple myeloma (1 source) Multiple myeloma; Translations: [Multiple myeloma not having achieved remission] Chronic Neoplasms of unspecified nature or uncertain behavior (20 sources) Monoclonal gammopathy of uncertain significance; Translations: [Monoclonal gammopathy] Onset: 11-06-2020 11-06-2020 Chronic Neoplasms of unspecified nature or uncertain behavior (1 source) 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; 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] Onset: 02-01-2024 Episodic Nonspecific chest pain (8 sources) Chest pain; Translations: [Chest pain, unspecified] 10-17-2020 Episodic Occlusion or stenosis of precerebral arteries (8 sources) Carotid artery stenosis; Translations: [Occlusion and stenosis of unspecified carotid artery] 12-25-2020 Chronic Other and unspecified benign neoplasm (3 sources) Neoplasm of meninges; Translations: [Benign neoplasm of meninges, unspecified] Chronic Other circulatory disease (8 sources) Carotid bruit; Translations: [Other specified symptoms and signs involving the circulatory and respiratory systems] 10-17-2020 Episodic Other gastrointestinal disorders (3 sources) Dysphagia; Translations: [Dysphagia, unspecified] 11-12-2022 Episodic Other lower respiratory disease (1 source) Cough; Translations: [Acute cough] Episodic Peripheral and visceral atherosclerosis (8 sources) Peripheral vascular disease; Translations: [Peripheral vascular disease, unspecified] 10-24-2019 Chronic Viral infection (1 source) Disease caused by 2019-nCoV; Translations: [COVID-19] 12-30-2023 Episodic Past or Other Problems Problem Classification Problem Date Documented Da te Episodic/Chronic Coronary atherosclerosis and other heart disease (5 sources) Presence of aortocoronary bypass graft; Translations: [Aortocoronary bypass status] Onset: 02-08-2004 Episodic Gastrointestinal hemorrhage (13 sources) Hemorrhage of rectum and anus; Translations: [Hemorrhage of anus and rectum] Onset: 02-16-2006 02-16-2006 Episodic Hemorrhoids (13 sources) External hemorrhoids; Translations: [Residual hemorrhoidal skin tags] Onset: 03-12-2006 03-12-2006 Episodic Other screening for suspected conditions (not mental disorders or infectious disease) (1 source) Other specified abnormal findings of blood chemistry; Translations: [Other specified abnormal findings of blood chemistry] Onset: 10-19-2023 Episodic Results Test Name Value Interpretation Reference Range Facility B2 Microglob Ediel-ncon [id number] [Mass/Vol] 3.4 ug/mL High <3.1 [facility] Comment on above: Order Comment: Kristi arreola Type: BLOOD SPECIMEN Ordering Facility: [facility] Address: [address] [place] [address] Result Comment: Beta -2 Microglobulin test is performed using the [employer] immunoturbidimetric method. Results obtained with different methods or kits cannot be used interchangeably. Performed By: #### 2 [id number], 1952-1 #### [facility] CLIA [id number] [address] [place] [address] [place] CBC W Auto Differential pane l (Bld)on 12-08-2024 Basophils (Bld) [#/Vol] 0.04 10*3/uL Normal <0.11 [facility] Comment on above: Order Comment: Kristi arreola Type: BLOOD SPECIMEN Ordering Facility: [facility] Address: [address] [place] [address] Performed By: #### 5 [id number] #### [facility] CLIA [id number] [address] [place] [address] [place] Basophils/100 WBC (Bld) 0.9 % Normal [facility] Comment on above: Order Comment: Kristi arreola Type: BLOOD SPECIMEN Ordering Facility: [facility] Address: [address] [place] [address] Performed By: #### 5 7021-8 #### [facility] CLIA [id number] [address] [place] [address] [place] Differential cell count method Nom (Bld) Auto Normal [facility] Comment on above: Order Comment: Speci men Type: BLOOD SPECIMEN Ordering Facility: [facility] Address: [address] [place] [address] Performed By: #### 5 7021-8 #### [facility] CLIA [id number] [address] [place] [address] [place] Eosinophils (Bld) [#/Vol] 0.31 10*3/uL Normal <0.46 [facility] Comment on above: Order Comment: Speci men Type: BLOOD SPECIMEN Ordering Facility: [facility] Address: [address] [place] [address] Performed By: #### 5 7021-8 #### [facility] CLIA [id number] [address] [place] [address] [place] Eosinophils/100 WBC (Bld) 7.1 % Normal [facility] Comment on above: Order Comment: Speci men Type: BLOOD SPECIMEN Ordering Facility: [facility] Address: [address] [place] [address] Performed By: #### 5 7021-8 #### [facility] CLIA [id number] [address] [place] [address] [place] Erythrocyte distribution width (RBC) [Ratio] 14.6 % Normal 11.5-15.0 [facility] Comment on above: Order Comment: Speci men Type: BLOOD SPECIMEN Ordering Facility: [facility] Address: [address] [place] [address] Performed By: #### 5 7021-8 #### [facility] CLIA [id number] [address] [place] [address] [place] Hematocrit (Bld) [Volume fraction] 34.7 % Low 39.0-51.0 [facility] Comment on above: Order Comment: Speci men Type: BLOOD SPECIMEN Ordering Facility: [facility] Address: [address] [place] [address] Performed By: #### 5 7021-8 #### [facility] CLIA [id number] [address] [place] [address] [place] Hemoglobin (Bld) [Mass/Vol] 11.2 g/dL Low 13.0-17.0 [facility] Comment on above: Order Comment: Speci men Type: BLOOD SPECIMEN Ordering Facility: [facility] Address: [address] [place] [address] Performed By: #### 5 7021-8 #### [facility] CLIA [id number] [address] [place] [address] [place] Immature granulocytes (Bld) [#/Vol] 10*3/uL Normal <0.10 [facility] Comment on above: Order Comment: Speci men Type: BLOOD SPECIMEN Ordering Facility: [facility] Address: [address] [place] [address] Performed By: #### 5 7021-8 #### [facility] CLIA [id number] [address] [place] [address] [place] Immature granulocytes/100 WBC (Bld) 0.2 % Normal [facility] Comment on above: Order Comment: Speci men Type: BLOOD SPECIMEN Ordering Facility: [facility] Address: [address] [place] [address] Performed By: #### 5 7021-8 #### [id number] [address] [place] [address] [place] Lymphocytes (Bld) [#/Vol] 1.12 10*3/uL Normal 1.00-4.00 [facility] Comment on above: Order Comment: Speci men Type: BLOOD SPECIMEN Ordering Facility: [facility] Address: [address] [place] [address] Performed By: #### 5 7021-8 #### [facility] CLIA [id number] [address] [place] [address] [place] Lymphocytes/100 WBC (Bld) 25.6 % Normal [facility] Comment on above: Order Comment: Speci men Type: BLOOD SPECIMEN Ordering Facility: [facility] Address: [address] [place] [address] Performed By: #### 5 7021-8 #### [facility] CLIA [id number] [address] [place] [address] [place] MCH (RBC) [Entitic mass] 27.7 pg Normal 26.0-34.0 [facility] Comment on above: Order Comment: Speci men Type: BLOOD SPECIMEN Ordering Facility: [facility] Address: [address] [place] [address] Performed By: #### 5 7021-8 #### [facility] [id number] [address] [place] [address] [place] MCHC (RBC) [Mass/Vol] 32.3 g/dL Normal 30.5-36.0 [facility] Comment on above: Order Comment: Speci men Type: BLOOD SPECIMEN Ordering Facility: [facility] Address: [address] [place] [address] Performed By: #### 5 7021-8 #### [facility] [id number] [address] [place] [address] [place] MCV (RBC) [Entitic vol] 85.9 fL Normal 80.0-100.0 [facility] Comment on above: Order Comment: Speci men Type: BLOOD SPECIMEN Ordering Facility: [facility] Address: [address] [place] [address] Performed By: #### 5 7021-8 #### [facility] [id number] [address] [place] [address] [place] Monocytes (Bld) [#/Vol] 0.35 10*3/uL Normal <0.87 [facility] Comment on above: Order Comment: Speci men Type: BLOOD SPECIMEN Ordering Facility: [facility] Address: [address] [place] [address] Performed By: #### 5 7021-8 #### [facility] CLIA [id number] [address] [place] [address] [place] Monocytes/100 WBC (Bld) 8.0 % Normal [facility] Comment on above: Order Comment: Speci men Type: BLOOD SPECIMEN Ordering Facility: [facility] Address: [address] [place] [address] Performed By: #### 5 7021-8 #### [facility] CLIA [id number] [address] [place] [address] [place] Neutrophils (Bld) [#/Vol] 2.54 10*3/uL Normal 1.45-7.50 [facility] Comment on above: Order Comment: Speci men Type: BLOOD SPECIMEN Ordering Facility: [facility] Address: [address] [place] [address] Performed By: #### 5 7021-8 #### [facility] CLIA [id number] [address] [place] [address] [place] Neutrophils/100 WBC (Bld) 58.2 % Normal [facility] Comment on above: Order Comment: Speci men Type: BLOOD SPECIMEN Ordering Facility: [facility] Address: [address] [place] [address] Performed By: #### 5 7021-8 #### [facility] CLIA [id number] [address] [place] [address] [place] Nucleated RBC (Bld) [#/Vol] 10*3/uL Normal <0.01 [facility] Comment on above: Order Comment: Speci men Type: BLOOD SPECIMEN Ordering Facility: [facility] Address: [facility] [place] [address] Performed By: #### 5 7021-8 #### [facility] CLIA [id number] [address] [place] [address] [place] Nucleated RBC/100 WBC (Bld) [Ratio] 0.0 /100 WBC Normal [facility] Comment on above: Order Comment: Speci men Type: BLOOD SPECIMEN Ordering Facility: [facility] Address: [address] [place] [address] Performed By: #### 5 7021-8 #### [facility] CLIA [id number] [address] [place] [address] [place] Platelet mean volume (Bld) [Entitic vol] 9.5 fL Normal 9.0-12.7 [facility] Comment on above: Order Comment: Speci men Type: BLOOD SPECIMEN Ordering Facility: [facility] Address: [address] [place] [address] Performed By: #### 5 7021-8 #### [facility] CLIA [id number] [address] [place] [address] [place] Platelets (Bld) [#/Vol] 244 10*3/uL Normal 150-400 [facility] Comment on above: Order Comment: Speci men Type: BLOOD SPECIMEN Ordering Facility: [facility] Address: [address] [place] [address] Performed By: #### 5 7021-8 #### [facility] CLIA [id number] [address] [place] [address] [place] RBC (Bld) [#/Vol] 4.04 10*6/uL Low 4.20-6.00 [facility] Comment on above: Order Comment: Speci men Type: BLOOD SPECIMEN Ordering Facility: [facility] Address: [address] [place] [address] Performed By: #### 5 7021-8 #### [facility] CLIA [id number] [address] [place] [address] [place] WBC (Bld) [#/Vol] 4.37 10*3/uL Normal 3.70-11.00 [facility] Comment on above: Order Comment: Kristi arreola Type: BLOOD SPECIMEN Ordering Facility: [facility] Address: [address] [place] [address] Performed By: #### 5 7021-8 #### [facility] NORMA [id number] [address] [place] [id number] [place] [address] [facility] CNOVSPon 12-08-2024 CNOVSP Visit (SP) Office (H EMAWS) Barbara BHAT ([id number]) 1940 M Date Time Provider Department 12/08/24 2:50 PM MAK MENDOZA HEMAWS During your visit today, we recorded the following information about you: Temperature Pulse Blood pressure Weight 97.5 degrees 62/minute 122/63 88.5 kg Mak Mendoza DO 12/08/2024 3:07 PM Signed DIAGNOSIS: 1) Monoclonal gammopathy of unknown significant HPI: This is an 84-year-old gentleman who has history of chronic anemia, hypertension, hypercholesterolemia, ASCAD (CABG x5 in 2003) who presented to his primary care physician for routine follow-up visit for anemia. Despite his anemia, he had no increased fatigue, or shortness of breath. He was very active and still golfs couple times a week. He stay in [place] for winter and spring and come back to [place] from September to January. His only other complaint was chronic left knee pain secondary to arthritis and previous meniscus tear. Laboratory study revealed a mild normocytic normochromic anemia, and an increase M spike of 2 g/dL on his serum protein electrophoresis. He has normal calcium and normal renal function. OV 2023: He did not have brain MRI done when in [place] last winter--I believe that was ordered by Dr. Zhang based on the CT results from the summer 2021. I reordered it last year when I first assumed care of him. It did not get done until a week or 2 ago. His lab work was not drawn that day. I feel fine. Endorses some STM problems but not interfering with his usual activities at this time. Denies headache. Has chronic throat clearing. Previously saw ENT and was given a diagnosis of allergies to grass. Presents for ongoing hematologic management. Interim history: He offers no complaints today. Energy level doing fairly well. Enjoys golfing. Denies musculoskeletal pain. PMH, medications and allergies personally reviewed by me today. Any changes documented in appropriate section. PHYSICAL EXAM: Vitals: Blood pressure 122/63, pulse 62, temperature 36.4 ?C (97.5 ?F), temperature source Temporal, weight 88.5 kg (195 lb), SpO2 96%. Well-appearing and in no acute distress. EYES: Sclerae are anicteric bilaterally. LYMPHATIC: There is no palpable cervical, supraclavicular adenopathy. RESPIRATORY: Inspiratory breath sounds are of normal intensity in all martino. CARDIOVASCULAR: Rhythm is regular. ABDOMEN: The abdomen is nondistended. No splenomegaly or hepatomegaly. No tenderness. Extremities: Mild chronic swelling left lower extremity secondary to vein harvesting. SKIN: No jaundice. 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 -Some decline in overall hemoglobin level. - I reviewed his previous lab work with him. He had an abnormal light chain ratio and therefore bone marrow biopsy was indicated initially but he had declined. I readdress this issue again today and discussed that if there is no evidence of iron deficiency (MCV has been very slowly drifting lower) then I recommend bone marrow biopsy to be assured MGUS is the diagnosis and he does not have an underlying smoldering or evolving myeloma. He expressed an understanding and agreement with this plan. Plan: - Add iron studies today. - Follow-up with him next week once the results of all today's lab work have been resulted. Portions of this documentation were copied and pasted from my previous office visit note dated 11/24/2023 in order to provide a cohesive continuity of the history. The note has been reviewed and edited and updated as necessary. I spent a total of 25 minutes on the date of the service which included preparing to see the patient, [id number] patient care, completing clinical documentation, performing a medically appropriate examination, counseling and educating the patient/family/caregiver, ordering medications, tests, or procedures, communicating with other HCPs (not separately reported), and communicating results to the patient/family/caregiver. Mak Mendoza DO Referring Provider: ALEXUS ZHANG [[id number]] Allergies As of Date: 12/08/2024 (No Known Allergies) Date Reviewed: 12/08/2024 Reviewed by: Cecile Pinto Ma, MA - Fully Assessed Reason for Visit: Established Patient [175] Primary Visit Diagnosis:MGUS (monoclonal gammopathy of unknown significance) [D47.2] Other Visit Diagnosis:Anemia, unspecified type [D64.9] Order(s):IRON AND TIBC [SQIRON] Order #: [id number] FUTURE FERRITIN [SQFERR] Order #: [id number] FUTURE Follow-up and Disposition History for Encounter Date Provider Department Center 12/08/2024 [id number] MENDOZA HEMJADA [place] Prescriptions as of 12/08/2024 - acetaminophen (TYL (more content not included)... Normal [facility] Comprehensive metabolic 2000 panelon 12-08-2024 Albumin [Mass/Vol] 3.9 g/dL Normal 3.9-4.9 [facility] Comment on above: Order Comment: Kristi arreola Type: BLOOD SPECIMEN Ordering Facility: [facility] Address: [address] [place] [address] Performed By: #### 5 0190-8, 2276-4 #### [facility] CLIA [id number] [address] [place] [address] [place] #### 03119-9, 2532-0 #### [facility] CLIA [id number] [address] [place] [address] [place] ALP [Catalytic activity/Vol] 84 U/L Normal 38-113 [facility] Comment on above: Order Comment: Kristi arreola Type: BLOOD SPECIMEN Ordering Facility: [facility] Address: [address] [place] [address] Performed By: #### 5 0190-8, 2275-4 #### [facility] CLIA [id number] [address] [place] [address] [place] #### 77863-7, 2532-0 #### [facility] CLIA [id number] [address] [place] [address] [place] ALT [Catalytic activity/Vol] 8 U/L Low 10-54 [facility] Comment on above: Order Comment: Speci men Type: BLOOD SPECIMEN Ordering Facility: [facility] Address: [address] [place] [address] Performed By: #### 5 0190-8, 2275-4 #### [facility] CLIA [id number] [address] [place] [address] [place] #### 74802-9, 2532-0 #### [facility] CLIA [id number] [address] [place] [address] [place] Anion gap [Moles/Vol] 12 mmol/L Normal 8-15 [facility] Comment on above: Order Comment: Speci men Type: BLOOD SPECIMEN Ordering Facility: [facility] Address: [address] [place] [address] Performed By: #### 5 0190-8, 2275-4 #### [facility] CLIA [id number] [address] [place] [address] [place] #### 63318-3, 2532-0 #### [facility] CLIA [id number] [address] [place] [address] [place] AST [Catalytic activity/Vol] 15 U/L Normal 14-40 [facility] Comment on above: Order Comment: Speci men Type: BLOOD SPECIMEN Ordering Facility: [facility] Address: [address] [place] [address] Performed By: #### 5 0190-8, 2275-4 #### [facility] CLIA [id number] [address] [place] [address] [place] #### 12359-4, 2-0 #### [facility] CLIA [id number] [address] [place] [address] [place] Bilirubin [Mass/Vol] 0.7 mg/dL Normal 0.2-1.3 [facility] Comment on above: Order Comment: Speci men Type: BLOOD SPECIMEN Ordering Facility: [facility] Address: [facility] [place] [address] Performed By: #### 5 0190-8, 2275-4 #### [facility] CLIA [id number] [address] [place] [address] [place] #### 37487-3, 2-0 #### [facility] CLIA [id number] [address] [place] [address] [place] Calcium [Mass/Vol] 9.8 mg/dL Normal 8.5-10.2 [facility] Comment on above: Order Comment: Speci men Type: BLOOD SPECIMEN Ordering Facility: [facility] Address: [address] [place] [address] Performed By: #### 5 0190-8, 2275-4 #### [facility] CLIA [id number] [address] [place] [address] [place] #### 33317-6, 2-0 #### [facility] CLIA [id number] [address] [place] [address] [place] Chloride [Moles/Vol] 101 mmol/L Normal 98-107 [facility] Comment on above: Order Comment: Speci men Type: BLOOD SPECIMEN Ordering Facility: [facility] Address: [address] [place] [address] Performed By: #### 5 0190-8, 2275-4 #### [facility] CLIA [id number] [address] [place] [address] [place] #### 74912-6, 2532-0 #### [facility] CLIA [id number] [address] [place] [address] [place] CO2 [Moles/Vol] 25 mmol/L Normal 22-30 [facility] Comment on above: Order Comment: Speci men Type: BLOOD SPECIMEN Ordering Facility: [facility] Address: [facility] [place] [address] Performed By: #### 5 0190-8, 2275-4 #### [facility] CLIA [id number] [address] [place] [address] [place] #### 20466-7, 2532-0 #### [facility] CLIA [id number] [address] [place] [address] [place] Creatinine [Mass/Vol] 1.03 mg/dL Normal 0.73-1.22 [facility] Comment on above: Order Comment: Speci men Type: BLOOD SPECIMEN Ordering Facility: [facility] Address: [facility] [place] [address] Performed By: #### 5 0190-8, 2275-4 #### [facility] CLIA [id number] [address] [place] [address] [place] #### 20257-5, 2532-0 #### [facility] CLIA [id number] [address] [place] [address] [place] eGFRcr SerPlBld CKD-EPI 2020 72 mL/min/1.73m??? Normal >=60 [facility] Comment on above: Order Comment: Speci men Type: BLOOD SPECIMEN Ordering Facility: [facility] Address: [address] [place] [address] Result Comment: Yulia mated Glomerular Filtration Rate (eGFR) is calculated using the 2020 CKD-EPI creatinine equation. This equation utilizes serum creatinine, sex, and age as parameters. The creatinine assay has traceable calibration to isotope dilution-mass spectrometry. Refer to KDIGO guidelines for clinical interpretation. In patients with unstable renal function, e.g. those with acute kidney injury, the eGFR may not accurately reflect actual GFR. Performed By: #### 5 0190-8, 2275- #### [facility] CLIA [id number] [address] [place] [address] [facility] #### 98181-8, 2532-0 #### [facility] CLIA [id number] [address] [place] [address] [place] Glucose [Mass/Vol] 95 mg/dL Normal 74-99 [facility] Comment on above: Order Comment: Speci men Type: BLOOD SPECIMEN Ordering Facility: [facility] Address: [address] [place] [address] Result Comment: The [place] [employer] (ADA) provides guidance for cutoff values for fasting glucose and random glucose. The ADA defines fasting as no caloric intake for at least 8 hours. Fasting plasma glucose results between 100 to 125 mg/dL indicate increased risk for diabetes (prediabetes). Fasting plasma glucose results greater than or equal to 126 mg/dL meet the criteria for diagnosis of diabetes. In the absence of unequivocal hyperglycemia, results should be confirmed by repeat testing. In a patient with classic symptoms of hyperglycemia or hyperglycemic crisis, random plasma glucose results greater than or equal to 200 mg/dL meet the criteria for diagnosis of diabetes. Reference: Standards of Medical Care in Diabetes 2016, [place] [employer]. Diabetes Care. 2016.39(Suppl 1). Performed By: #### 5 0190-8, 2275- #### [facility] CLIA [id number] [address] [place] [address] [place] #### 46849-4, 2-0 #### [facility] CLIA [id number] [address] [place] [address] [place] Potassium [Moles/Vol] 4.1 mmol/L Normal 3.7-5.1 [facility] Comment on above: Order Comment: Speci men Type: BLOOD SPECIMEN Ordering Facility: [facility] Address: [address] [place] [address] Performed By: #### 5 0190-8, 2275-4 #### [facility] CLIA [id number] [address] [place] [address] [place] #### 31256-1, 2532-0 #### [facility] CLIA [id number] [address] [place] [address] [place] Protein [Mass/Vol] 8.1 g/dL High 6.3-8.0 [facility] Comment on above: Order Comment: Speci men Type: BLOOD SPECIMEN Ordering Facility: [facility] Address: [address] [place] [address] Performed By: #### 5 0190-8, 2275-4 #### [facility] CLIA [id number] [address] [place] [address] [place] #### 67727-9, 2532-0 #### [facility] CLIA [id number] [address] [place] [address] [place] Sodium [Moles/Vol] 138 mmol/L Normal 136-144 [facility] Comment on above: Order Comment: Speci men Type: BLOOD SPECIMEN Ordering Facility: [facility] Address: [address] [place] [address] Performed By: #### 5 0190-8, 2275-4 #### [facility] CLIA [id number] [address] [place] [address] [place] #### 92470-7, 2532-0 #### [facility] CLIA [id number] [address] [place] [address] [place] Urea nitrogen [Mass/Vol] 17 mg/dL Normal 9-24 [facility] Comment on above: Order Comment: Speci men Type: BLOOD SPECIMEN Ordering Facility: [facility] Address: [address] [place] [address] Performed By: #### 5 0190-8, 2276-4 #### [facility] CLIA [id number] [address] [place] [address] [place] #### 16476-5, 2532-0 #### [facility] CLIA [id number] [address] [place] [address] [place] Ferritin SerPl-mCncon 2024 Ferritin [Mass/Vol] 21.8 ng/mL Low 30.3-565.7 [facility] Comment on above: Order Comment: Speci men Type: BLOOD SPECIMEN Ordering Facility: [facility] Address: [address] [place] [address] Performed By: #### S ERPRADIPM #### [facility] CLIA [id number] [address] [place] [address] [place] IMMUNOFIXATION SCREEN, SERUM on 12-08-2024 INTERPRETATION (MPA) Atypical restricted bands are present in the IgG and lambda regions. Consistent with IgG lambda monoclonal gammopathy. Normal [facility] Comment on above: Order Comment: Speci men Type: BLOOD SPECIMEN Ordering Facility: [facility] Address: [address] [place] [address] Performed By: #### I FES #### [facility] CLIA [id number] [address] [place] [address] [place] MPA RESULT M protein is present. Abnormal No M p rotein is identified. [facility] Comment on above: Order Comment: Speci men Type: BLOOD SPECIMEN Ordering Facility: [facility] Address: [address] [place] [address] Performed By: #### I FESC #### [facility] CLIA [id number] [address] [place] [address] [facility] STAFF REVIEW (MPA) Reviewed by Dr. Cisco Goode MD Normal [facility] Comment on above: Order Comment: Speci men Type: BLOOD SPECIMEN Ordering Facility: [facility] Address: [address] [place] [address] Performed By: #### I FESC #### [facility] CLIA [id number] [address] [place] [address] [place] IMMUNOGLOBULINS,IGG,IGA,IGMo n 12-08-2024 IgA [Mass/Vol] 22 mg/dL Low 70-400 [facility] Comment on above: Order Comment: Speci men Type: BLOOD SPECIMEN Ordering Facility: [facility] Address: [address] [place] [address] Performed By: #### S ERIMM #### [facility] CLIA [id number] [address] [place] [address] [place] IgG [Mass/Vol] 2760 mg/dL High 700-1600 [facility] Comment on above: Order Comment: Speci men Type: BLOOD SPECIMEN Ordering Facility: [facility] Address: [address] [place] [address] Performed By: #### S ERIMM #### [facility] CLIA [id number] [address] [place], [place] [address] [place] IgM [Mass/Vol] 42 mg/dL Normal 40-230 [facility] Comment on above: Order Comment: Speci men Type: BLOOD SPECIMEN Ordering Facility: [facility] Address: [address] [place] [address] Performed By: #### S ERIMM #### [facility] CLIA [id number] [address] [place] [address] [place] Iron and Iron binding capaci ty panelon 12-08-2024 Interpretation and review of laboratory results Abnormal [facility] Iron [Mass/Vol] 47 ug/dL 41 - 186 ug/dL [facility] Iron binding capacity [Mass/Vol] 374 ug/dL 232 - 386 ug/dL [facility] Iron/TIBC [Molar ratio] 12.6 % Low 15.0 - 57.0 % [facility] Iron [Mass/Vol] 47 ug/dL Normal 41-186 [facility] Comment on above: Order Comment: Speci men Type: BLOOD SPECIMEN Ordering Facility: [facility] Address: [address] [place] [address] Performed By: #### S ERIMM #### [facility] CLIA [id number] [address] [place] [address] [place] Iron binding capacity [Mass/Vol] 374 ug/dL Normal 232-386 [facility] Comment on above: Order Comment: Speci men Type: BLOOD SPECIMEN Ordering Facility: [facility] Address: [address] [place] [address] Performed By: #### S ERIMM #### [facility] CLIA [id number] [address] [place] [address] [place] Iron/TIBC [Molar ratio] 12.6 % Low 15.0-57.0 [facility] Comment on above: Order Comment: Speci men Type: BLOOD SPECIMEN Ordering Facility: [facility] Address: [address] [place] [address] Performed By: #### S ERIMM #### [facility] CLIA [id number] [address] [place] [address] [place] KAPPA/VICTOR,FREE,SERon 2024 Immunoglobulin light chains.kappa.free (S) [Mass/Vol] 16.2 mg/L Normal 3.3-19.4 [facility] Comment on above: Order Comment: Speci men Type: BLOOD SPECIMEN Ordering Facility: [facility] Address: [address] [place] [address] Result Comment: Rare ly, increased serum free light chains levels may not be detected or accurately quantified due to prozone phenomenon or in high viscosity samples using this immunoturbidimetric assay. Correlation with other laboratory results and clinical findings is recommended. The [place] Free Light Chain was performed using the Binding Site Optilite immunoturbidimetric method. Result obtained with different assay methods or kits cannot be used interchangeably. Performed By: #### K LFRS #### [facility] CLIA [id number] [address] [place] [address] [place] Immunoglobulin light chains.kappa/Immunog lobulin light chains.lambda (S) [Mass ratio] 0.17 Low 0.26-1.65 [facility] Comment on above: Order Comment: Speci men Type: BLOOD SPECIMEN Ordering Facility: [facility] Address: [address] [place] [address] Performed By: #### K LFRS #### [facility] CLIA [id number] [address] [place] [address] [place] Immunoglobulin light chains.lambda.free [Mass/Vol] 97.2 mg/L High 5.7-26.3 [facility] Comment on above: Order Comment: Speci men Type: BLOOD SPECIMEN Ordering Facility: [facility] Address: [address] [place] [address] Result Comment: Rare ly, increased serum free light chains levels may not be detected or accurately quantified due to prozone phenomenon or in high viscosity samples using this immunoturbidimetric assay. Correlation with other laboratory results and clinical findings is recommended. The Lambda Free Light Chain was performed using the Binding Site Optilite immunoturbidimetric method. Result obtained with different assay methods or kits cannot be used interchangeably. Performed By: #### K LFRS #### [facility] CLIA [id number] [address] [place] [address] [place] LDH SerPl-cCncon 12-08-2024 LDH [Catalytic activity/Vol] 137 U/L Normal 135-225 [facility] Comment on above: Order Comment: Speci men Type: BLOOD SPECIMEN Ordering Facility: [facility] Address: [address] [place] [address] Performed By: #### 5 0190-8, 2276-4 #### [facility] CLIA [id number] [address] [place] [address] [place] #### 69672-2, 2532-0 #### [facility] CLIA [id number] [address] [place] [address] [place] PROTEIN ELECTROPHORESIS SERU M (P)on 12-08-2024 Albumin [Mass/Vol] 3.70 g/dL Normal 3.43-5.41 [facility] Comment on above: Order Comment: Speci men Type: BLOOD SPECIMEN Ordering Facility: [facility] Address: [address] [place] [address] Performed By: #### L [id number] #### [facility] CLIA [id number] [address] [place] [address] [place] Alpha 1 globulin Elph [Mass/Vol] 0.27 g/dL Normal 0.18-0.43 [facility] Comment on above: Order Comment: Speci men Type: BLOOD SPECIMEN Ordering Facility: [facility] Address: [address] [place] [address] Performed By: #### L [id number] #### [facility] CLIA [id number] [address] [place] [address] [place] Alpha 2 globulin Elph [Mass/Vol] 0.62 g/dL Normal 0.42-0.98 [facility] Comment on above: Order Comment: Speci men Type: BLOOD SPECIMEN Ordering Facility: [facility] Address: [address] [place] [address] Performed By: #### L [id number] #### [facility] CLIA [id number] [address] [place], [place] [id number] [place] Beta globulin Elph [Mass/Vol] 0.62 g/dL Normal 0.61-1.17 [facility] Comment on above: Order Comment: Speci men Type: BLOOD SPECIMEN Ordering Facility: [facility] Address: [address] [place] [address] Performed By: #### L [id number] #### [facility] CLIA [id number] [address] [place] [address] [place] Gamma globulin Elph [Mass/Vol] 2.49 g/dL High 0.53-1.51 [facility] Comment on above: Order Comment: Speci men Type: BLOOD SPECIMEN Ordering Facility: [facility] Address: [address] [place] [address] Performed By: #### L [id number] #### [facility] CLIA [id number] [address] [place] [address] [place] INTERPRETATION COMMENT FOR PROTEIN ELECTROPHORESIS See separate immunofixation report for characterization of monoclonal gammopathy. Normal [facility] Comment on above: Order Comment: Speci men Type: BLOOD SPECIMEN Ordering Facility: [facility] Address: [address] [place] [address] Performed By: #### L [id number] #### [facility] CLIA [id number] [address] [place] [address] [place] M-PROTEIN LOCATION Gamma Fraction 1 Normal [facility] Comment on above: Order Comment: Speci men Type: BLOOD SPECIMEN Ordering Facility: [facility] Address: [address] [place] [address] Performed By: #### L [id number] #### [facility] CLIA [id number] [address] [place] [address] [place] Protein Fractions [Interp] An M protein is identified on protein electrophoresis. Abnormal No definitive M protein is identified on protein electrophore sis. [facility] Comment on above: Order Comment: Speci men Type: BLOOD SPECIMEN Ordering Facility: [facility] Address: [address] [place] [address] Performed By: #### L [id number] #### [facility] CLIA [id number] [address] [place] [address] Protein.monoclonal Elph [Mass/Vol] 2.09 g/dL High <=0.00 [facility] Comment on above: Order Comment: Speci men Type: BLOOD SPECIMEN Ordering Facility: [facility] Address: [address] [place] [address] Performed By: #### L [id number] #### [facility] CLIA [id number] [address] [place] [address] SPE STAFF REVIEW Reviewed by Dr. Cisco Goode MD [facility] Comment on above: Order Comment: Speci men Type: BLOOD SPECIMEN Ordering Facility: [facility] Address: [address] [place] [address] Performed By: #### L [id number] #### [facility] CLIA [id number] [address] [place] [address] [place] Prot SerPl-mCncon 12-08-2024 Protein [Mass/Vol] 7.7 g/dL Normal 6.3-8.0 [facility] Comment on above: Order Comment: Speci men Type: BLOOD SPECIMEN Ordering Facility: [facility] Address: [address] [place] [address] Performed By: #### 2 885-2, 1951-05 #### [facility] CLIA [id number] [address] [place] [address] OF [place] CNOVon 01-29-2024 CNOV Office Visit (UCWSTR ) Barbara BHAT ([id number]) 1940 M Date Time Provider Department 01/29/24 2:30 PM JOHN ELLIS [facility] During your visit today, we recorded the following information about you: Temperature Pulse Respiration Blood pressure 97.6 degrees 72/minute 16/minute 138/80 Weight 90.2 kg John Ellis MD 01/29/2024 3:30 PM Signed Patient presents with: Fatigue: Fatigue and feels weak-woke up with symptoms HPI: Feeling off today. He had COVID illness 3 weeks ago. Positive symptoms: fatigue, feverish, some ear pressure, decreased appetite (only made cereal instead of making a sandwich for lunch), Negative symptoms: Cough, Shortness of breath, Chest tightness, Chest pain, palpitations, Sore throat, Sinus pressure, Nasal Congestion, Rhinorrhea, Body Aches, Malaise, Headache, Nausea, Vomiting, Diarrhea, pyrosis, dysuria, urinary frequency, hematuria, abdominal pain, back pain, change in leg edema, numbness, off balance, OTC: tylenol MEDICATIONS: Current Outpatient Medications Medication Sig fluticasone (FLONASE) 50 mcg/actuation nasal spray Use 2 Sprays in each nostril once daily. Rinse mouth after use. prednisoLONE acetate (PRED FORTE, ECONOPRED PLUS) 1 % ophthalmic suspension 1 Drop four times daily. losartan (COZAAR) 50 mg tablet Take 50 mg by mouth once daily. latanoprost (XALATAN) 0.005 % ophthalmic solution Use 1 Drop in eyes daily at bedtime. dorzolamide-timolol (COSOPT) 22.3-6.8 mg/mL ophthalmic solution Use 1 Drop in eyes twice daily. dorzolamide (TRUSOPT) 2 % ophthalmic solution Use 1 Drop in eyes twice daily. Faopm-4-NTY-EPA-Fish Oil 1,000 mg (120 mg-180 mg) cap Take 2 g by mouth every 48 hours. diphenhydrAMINE (BENADRYL) 25 mg capsule Take 25 mg by mouth every 6 hours as needed. PRN hydroCHLOROthiazide (HYDRODIURIL, ESIDRIX) 12.5 mg tablet Take 25 mg by mouth once daily. amlodipine besylate (NORVASC ORAL) Take 10 mg by mouth once daily. carvedilol (COREG) 12.5 mg tablet Take 12.5 mg by mouth twice daily with meals. ROSUVASTATIN CALCIUM (CRESTOR ORAL) Take 20 mg by mouth once daily. OMEPRAZOLE ORAL Take 20 mg by mouth once daily. No current facility-administered medications for this visit. ALLERGIES: ALLERGIES No Known Allergies VITALS: BP 138/80 Pulse 72 Temp 36.4 ?C (97.6 ?F) (Tympanic) Resp 16 Wt 90.2 kg (198 lb 13.7 oz) SpO2 97% BMI 31.15 kg/m? PHYSICAL EXAM: GEN: Pleasant, in no acute distress. HEENT: PERRL, EOMI, conjunctiva clear Ears: canals clear. TMs without erythema, bulge, or effusion Sinuses: non-tender frontal sinus, non-tender maxillary sinuses Throat: moist mucous membranes, no erythema, no exudate Neck: supple, no thyromegaly, no lymphadenopathy HEART: regular rate and rhythm, no murmurs LUNGS: clear to auscultation, no wheezes or crackles, no increased WOB BACK: Normal curvature of spine. No midline tenderness. No paraspinal tenderness. EXT: 1+ left leg edema (s/p vein harvest for CABG) NEURO: Alert and oriented to person, place, and time. Abundance of conversation. CN II-XII intact. Normal strength. Normal gait. No tremor. ASSESSMENT/PLAN: 1. Fatigue, unspecified type - ICD9: 780.79, ICD10: R53.83 (primary diagnosis) 2. Feels feverish - ICD9: 780.60, ICD10: R50.9 Benign exam and non-specific symptoms. May be early viral illness. Continue to monitor. Follow up in the ER with chest pain/burning, shortness of breath, dizziness, palpitations, or lethargy. John Ellis MD Referring Provider: SELF [200] Allergies As of Date: 01/29/2024 (No Known Allergies) Date Reviewed: 01/29/2024 Reviewed by: Maeve Houser LPN - Fully Assessed Reason for Visit: Fatigue [46] Cmt: Fatigue and feels weak-woke up with symptoms Primary Visit Diagnosis:Fatigue, unspecified type [R53.83] Other Visit Diagnosis:Feels feverish [R50.9] Prescriptions as of 01/29/2024 - fluticasone (FLONASE) 50 mcg/actuation nasal spray Use 2 Sprays in each nostril once daily. Rinse mouth after use. - prednisoLONE acetate (PRED FORTE, ECONOPRED PLUS) 1 % ophthalmic suspension 1 Drop four times daily. - losartan (COZAAR) 50 mg tablet Take 50 mg by mouth once daily. - latanoprost (XALATAN) 0.005 % ophthalmic solution Use 1 Drop in eyes daily at bedtime. - dorzolamide-timolol (COSOPT) 22.3-6.8 mg/mL ophthalmic solution Use 1 Drop in eyes twice daily. - dorzolamide (TRUSOPT) 2 % ophthalmic solution Use 1 Drop in eyes twice daily. - Qyqeg-7-ABI-EPA-Fish Oil 1,000 mg (120 mg-180 mg) cap Take 2 g by mouth every 48 hours. - diphenhydrAMINE (BENADRYL) 25 mg capsule Take 25 mg by mouth every 6 hours as needed. PRN - hydroCHLOROthiazide (HYDRODIURIL, ESIDRIX) 12.5 mg tablet Take 25 mg by mouth once daily. - amlodipine besylate (NORVASC ORAL) Take 10 mg by mouth once daily. - carvedilol (COREG) 12.5 mg tablet T (more content not included)... Normal [facility] Biopsy/Inj or Needle Placeme nton 01-18-2024 Biopsy/Inj or Needle Placement [facility] [address] [place] [address] [id number] Biopsy/Inj or Needle Placement MR#: [id number] Acct: [id number] Name: PHILL BHAT Rep #: [id number] : 1940 83 From: Johnie mohr MD PCP: Dr. Prema Martini MD Status: [facility] Study: Biopsy/Inj or Needle Placement Date of Exam: 0 01/18/24 Exam# [id number] Ordering Dr: John Suresh MD [id number] PROCEDURE: CT GUIDED biopsy of the right parotid gland. DATE: January 18, 2024. INDICATION: Male, 83 years old. Nodule in the right parotid gland. PHYSICIAN: Johnie Reed M.D. RADIATION DOSAGE (If Supplied By Facility): CTDIvol = ( 14.5 ) mGy, DLP = ( 296.45 ) mGycm. Individualized dose optimization techniques were utilized. PROCEDURE: The risks, benefits, and alternatives to the procedure were explained to the patient. The specific risk of hemorrhage requiring further treatment or intervention was detailed and accepted. Follow-up instructions were discussed with the patient as well. Written informed consent was obtained. The patient was brought into the CT suite and placed in the supine position. . An appropriate entry site was identified. The overlying skin was prepped and draped in the usual sterile fashion. 1% lidocaine was administered subcutaneously for local anesthesia. Conscious sedation was performed. The patient received 1 mg of Versed and 25 mcg of fentanyl intravenously. Conscious sedation was started at 9:08 AM and terminated at 9:24 AM. The patient was independently monitored by the department nurse. Under CT guidance, a total of 3 passes were performed utilizing 20-gauge core biopsy needle system The specimens were then placed in the appropriate fluid and transported to the laboratory for analysis. Hemostasis was obtained. The patient tolerated the procedure well without immediate complications. CT/Biopsy/Inj or Needle Placement IMPRESSION: Successful CT guided core biopsy of the right parotid mass, as described above. Conscious sedation was performed. The patient tolerated the procedure well. Electronically Signed: Johnie Reed MD at 10:09 EDT , CC: Dr. Prema Martini MD; Dr. John Suresh MD [employer] Supply Equipment Tender: Signed Normal [facility] Partial Thromboplast Timeon 01-18-2024 aPTT Coag (Bld) [Time] 24.4 s Normal 24.1-36.2 [facility] Comment on above: Performed By: #### L 300.4310, L100.1900, L300.3900 #### [facility] [address] [place], [address] Platelet Counton 01-18-2024 Platelets (Bld) [#/Vol] 227 10*3/uL Normal 150-450 [facility] Comment on above: Performed By: #### L 300.4310, L100.1900, L300.3900 #### [facility] [address] [place], [address] Prothrombin Time w/INRon INR Coag (PPP) [Relative time] 1.2 {INR} Normal [facility] Comment on above: Performed By: #### L 300.4310, L100.1900, L300.3900 #### [facility] [address] [place], [address] PT Coag (PPP) [Time] 14.8 s Normal 11.7-14.9 [facility] Comment on above: Performed By: #### L 300.4310, L100.1900, L300.3900 #### [facility] [address] [place], [address] Special Stain Group IIon Special Stain Group II Patient Age/Sex Location Account Attending Physician HOME,HOMER MAUDE Bates/M CT [id number] Dr. John Suresh MD Specimen: [id number] Received: 01/18/24 Status: IDALMIS Gann Num: [id number] Spec Type: ASP OUT Subm Dr: Dr. John Suresh MD HEADER OPERATION: CT guided right parotid gland, fine needle aspiration PRE-OP DIAGNOSIS: Mass right parotid gland biopsy TISSUE SUBMITTED: 20 gauge with drainage DIAGNOSIS CYTOLOGY Right parotid gland fluid, fine needle aspiration (cytospin, cellblock and smears): Negative for malignant cells. See comment. SJ.mr 01/19/2024 COMMENT The specimen is evaluated at the time of biopsy by Dr. Ruiz. Immediate Evaluation = Paucicellular specimen negative for malignant cells. The specimen is paucicelluar and consists of rare clusters of benign oncocytic cells and ductal cells. Degenerated crystalline debris are also noted. Background inflammation is not seen. Re-biopsy/excision of the lesion is suggested, if clinically indicated. Case has been reviewed in consultation with Dr. Cerrato who concurs with the above diagnosis. IDC:AM CYTOLOGY STUDY Slides are reviewed. CYTOLOGY GROSS Received is 1 ml of red-cloudy fluid labeled with the patient's name and and designated per the requisition as Right parotid gland, FNA. Six smears are prepared at the time of FNA, 4 are submitted for immediate evaluation (diff quik stain), 2 are submitted for PAP staining and rest of the specimen is submitted for cytology preparation including cell block. Mr 01/18/2024 TC: Cannot code CPT: 35291,[id number] Signed (signature on file) Dr. Ben Ruiz MD 01/19/24 1115 Normal [facility] Comment on above: Performed By: #### P SSII ####[facility] [id number] [place], [address] CREATININE FINGERSTICKon Creatinine [Mass/Vol] 1.1 mg/dL Normal 0.70-1.30 [facility] Comment on above: Performed By: #### L 9100.0200 #### [facility] [address] [place], [address] EGFR WB > 60.0000 Normal >60 [facility] Comment on above: Performed By: #### L 9100.0200 #### [facility] [address] [facility] [address] Soft Tissue Neck WITH Contra ston 01-12-2024 Soft Tissue Neck WITH Contrast [facility] [address] [place] [address] Soft Tissue Neck WITH Contrast MR#: [id number] Acct: [id number] Name: PHILL BHAT Rep #: [id number] : 1940 M 83 From: Estiven Alba MD PCP: Dr. Prema Martini MD Status: REG CLI Study: Soft Tissue Neck WITH Contrast Date of Exam: 0 01/12/24 Exam# [id number] Ordering Dr: John Suresh MD [id number] STUDY: CT SOFT TISSUE NECK WITH CONTRAST REASON FOR EXAM: Male, 83 years old. R PAROTID MASS RADIATION DOSAGE (If Supplied By Facility): CTDIvol = ( 19.41 ) mGy, DLP = ( 593.70 ) mGycm TECHNIQUE: The patient was scanned in a multi-detector CT scanner. High resolution transaxial imaging was performed following intravenous administration of IV 100mL Isovue-300. Sagittal and coronal images were reconstructed. Individualized dose optimization techniques were used for this CT. COMPARISON: None. FINDINGS: 1.5 x 2.0 cm oval mass of soft tissue attenuation within the superficial lobe of the right parotid gland worrisome for tumor such as pleomorphic adenoma or a prominent lymph node. This is amenable to percutaneous biopsy. Normal left parotid gland. Normal bilateral automotive drivability technician spaces. Normal bilateral parapharyngeal spaces. Normal bilateral carotid spaces. Normal bilateral sublingual and submandibular glands and spaces. Normal visualized nasopharynx. Normal retropharyngeal space. Normal perivertebral space. Normal visualized bilateral faucial tonsils. The visualized tongue, tongue base and oropharynx are normal. The visualized cervical lymph nodes (levels I-) are within normal size limits, and maintain normal morphology. There is no demonstrated solid or cystic mass lesion. There is no abnormal contrast enhancement. Normal epiglottis, bilateral vallecula and hypopharynx. The pre-epiglottic and paraglottic adipose spaces are normal. Normal visualized bilateral piriform sinuses, aryepiglottic folds, vocal cords, and arytenoid-cricoid articulations. Normal subglottic trachea. Normal bilateral lobes of the thyroid gland. Normal visualized pulmonary apices. Normal visualized paranasal sinuses. Normal visualized cervical spine. Incompletely imaged 2 cm round dense mass within the left frontal lobe likely consistent with a meningioma. Correlation with CT and MRI of the head with contrast would be useful. CT/Soft Tissue Neck WITH Contrast IMPRESSION: 2 cm mass of the right parotid gland worrisome for pleomorphic adenoma or lymphadenopathy. 2 cm left frontal lobe mass and clinical correlation and CT or MRI of the head with contrast would be useful. Electronically Signed: Estiven Alba MD at 10:11 EDT , CC: Dr. Prema Martini MD; Dr. John Suresh MD Production Supply Equipment Tender: Signed Normal [facility] Urgent Care Visit Reporton 0 01-11-2024 Urgent Care Visit Report [facility] [address], [address] [place] [id number] OFFICE VISIT Date of Service: 01/11/24 MR#: [id number] Acct: [id number] Name: PHILL BHAT Rep #: [id number] : 1940 Provider: VAL Garza Age/Sex: 83/M [place] [facility] [place]: Signed Intake Vital Signs 12/30/23 16:20 01/11/24 09:34 Height 5 ft 8 in 5 ft 7 in Weight: 195 lb 195 lb BMI 29.6 30.5 BP 136/56 H 128/86 H Blood Pressure Location Lt brachial Lt brachial Position Sitting Sitting Respiration 17 16 Pulse 54 L 63 Pulse Source NIBP Monitor Temp 98.4 F 99.5 F H Temp Source Temporal Temporal Pulse Oximetry (%) 99 98 Oxygen Delivery Method room air room air Intake Visit Reasons: REQUEST COVID TEST/UNK IF HAVING SX Chief Complaint: REQUESTED COVID TEST Patient Coordinator Required: No Accompanied by: Is patient in pain?: No Allergies atorvastatin (From Lipitor) Adverse Reaction (Severe, Verified 01/11/24 09:35) Severe Myalgias simvastatin Adverse Reaction (Severe, Verified 01/11/24 09:35) Myalgias Medications ???Medication ???Instructions ???Recorded ???Confirmed ???Type dorzolamide 2 % eye drops 1 drp ophthalmic (eye) BID eyes 10/22/17 01/11/24 History latanoprost 0.005 % eye drops 1 drp ophthalmic (eye) QPM eyes 10/22/17 01/11/24 History psyllium husk (with sugar) 3.4 6.8 g PO QHS Stool softner 11/27/17 01/11/24 History gram oral powder packet diphenhydramine HCl 25 mg tablet 25 mg PO TID PRN allergic symptoms 10/07/21 01/11/24 History (Benadryl Allergy) omega-3 fatty acids 1,000 mg 1,000 mg PO Q OTHER DAY 10/07/21 01/11/24 History capsule (Fish Oil Concentrate) acetaminophen 500 mg tablet (Pain 500 mg PO Q6H PRN pain 11/13/22 01/11/24 History Relief (acetaminophen)) timolol maleate 0.5 % eye drops 1 drp ophthalmic (eye) BID 11/13/22 01/11/24 History hydrochlorothiazide 25 mg tablet See Rx Instructions .Route 04/06/23 01/11/24 Rx .COMPLEX #90 tabs losartan 50 mg tablet 50 mg PO DAILY #90 tabs 05/17/23 01/11/24 Rx omeprazole 20 mg capsule,delayed 20 mg PO DAILY Please send to [place] 05/25/23 01/11/24 Rx release [facility] address on file #90 CAPSULES nitroglycerin 0.4 mg sublingual 0.4 mg sublingual Q5-15M PRN chest 11/18/23 01/11/24 Rx tablet pain #25 tabs rosuvastatin 20 mg tablet 20 mg PO DAILY #90 tabs 11/18/23 01/11/24 Rx amlodipine 10 mg tablet 10 mg PO QHS #90 TABLETS 11/25/23 01/11/24 Rx carvedilol 12.5 mg tablet 12.5 mg PO BID #180 TABLETS 11/25/23 01/11/24 Rx dexamethasone 6 mg tablet 6 mg PO DAILY #5 tabs 12/30/23 01/11/24 Rx Have you fallen in the past year?: No Nurse's Note: pt tested positive last week for covid.pt requested covid test today [facility] Medical History Wears glasses Alcohol use History of GI bleed Gastric reflux Glaucoma Former smoker Seasonal allergies History of stress test History of echocardiogram Cardiology follow-up encounter Dysphagia Diverticulitis Old inferior wall myocardial infarction PVD (peripheral vascular disease) Sepsis Essential hypertension Hyperlipidemia Atherosclerotic heart disease of [place] coronary artery without angina pectoris Carotid bruit Carotid stenosis, asymptomatic Surgical History History of cardiac catheterization History of tonsillectomy History of colonoscopy History of left heart catheterization (04/02/18) H/O coronary artery bypass surgery (02/2004) History of knee surgery History of hip replacement Family History Other CVA (cerebral vascular accident) Social History Smoking Status: Former smoker how long ago did patient quit smokin alcohol intake: current alcohol intake frequency: a few times a week Alcohol type: beer and wine substance use type: does not use caffeine: Yes Type: coffee Number of servings: 1 HPI HPI Chief Complaint: REQUESTED COVID TEST Details: PHILL BHAT, is a 83 M who presents to the office today for [facility] evaluation in the [facility] for follow-up after having been tested positive for COVID-19 on 12/30/2023, though asymptomatic now and would like to ensure his COVID-19 is clear before he does an outpatient procedure tomorrow. Patient notes no complaints of chest pain or shortness of breath or dyspnea on exertion. Several close contacts recently dx???d w/ similar URI complaints. No [id number] taken to assist. No other associated symptoms and no other alleviating/aggravating factors. ROS Const Constitutional: No other (As above) Exam Const General: cooperative, healthy appearing and no acute distress (more content not included)... Normal [facility] Urgent Care Visit Reporton 0 12-30-2023 Urgent Care Visit Report [facility] [address], [address] [place] [address] OFFICE VISIT Date of Service: 12/30/23 MR#: [id number] Acct: [id number] Name: PHILL BHAT Rep #: [id number] : 1940 Provider: VAL Erazo Age/Sex: 83/M [place] [facility] [facility] [place] Status: Signed Intake Vital Signs 11/18/23 12:56 12/30/23 16:20 Height 5 ft 7 in 5 ft 8 in Weight: 195 lb 195 lb BMI 30.5 29.6 BP 114/78 136/56 H Blood Pressure Location Lt brachial Lt brachial Position Sitting Sitting Respiration 16 17 Pulse 56 L 54 L Pulse Source Monitor NIBP Temp 98.4 F Temp Source Temporal Pulse Oximetry (%) 99 Oxygen Delivery Method room air Intake Visit Reasons: SORE THROAT Chief Complaint: sore throat Patient Coordinator Required: No Is patient in pain?: Yes Allergies atorvastatin (From Lipitor) Adverse Reaction (Severe, Verified 12/30/23 16:21) Severe Myalgias simvastatin Adverse Reaction (Severe, Verified 12/30/23 16:21) Myalgias Have you fallen in the past year?: No Nurse's Note: ST today, denies MOYA, BA, cough, congestion, fever. concern for covid [facility] Medical History Wears glasses Alcohol use History of GI bleed Gastric reflux Glaucoma Former smoker Seasonal allergies History of stress test History of echocardiogram Cardiology follow-up encounter Dysphagia Diverticulitis Old inferior wall myocardial infarction PVD (peripheral vascular disease) Sepsis Essential hypertension Hyperlipidemia Atherosclerotic heart disease of [place] coronary artery without angina pectoris Carotid bruit Carotid stenosis, asymptomatic Surgical History History of cardiac catheterization History of tonsillectomy History of colonoscopy History of left heart catheterization (04/02/18) H/O coronary artery bypass surgery (02/2004) History of knee surgery History of hip replacement Family History Other CVA (cerebral vascular accident) Social History Smoking Status: Former smoker how long ago did patient quit smokin alcohol intake: current alcohol intake frequency: a few times a week Alcohol type: beer and wine substance use type: does not use caffeine: Yes Type: coffee Number of servings: 1 HPI HPI Chief Complaint: sore throat Details: HOMER HOME, is a 83 M who presents to the office today for complaint of sore throat that started this morning. Patient states his sore throat has worsened slightly throughout the day however states it is not too big a deal. Patient states mostly wanting to make sure that he gets a test for COVID. He denies cough, shortness of breath difficult breathing. No fever, chills, sweats. No nausea, vomiting or diarrhea. No loss of taste or smell. No other associated symptoms or alleviating/aggravating factors. ROS Const Constitutional: No other (6 system ROS completed with pertinent findings in the HPI otherwise normal.) Exam Const General: cooperative and well developed HENMT Head: normal to inspection and atraumatic Ears: hearing grossly normal bilaterally Nose: nasal discharge clear Face and sinus: normal facial exam Mouth: oral mucosae normal Throat: abnormal tonsil bilaterally hypertrophy 1+ Resp Effort Inspection: normal respiratory effort and no audible wheezes Auscultation: Bilateral: Clear to Auscultation Cardio Rate: regular rate Rhythm: regular rhythm Neuro General: patient alert and CN's II-XI intact bilaterally Psych Appearance: grossly normal Mental Status: mental status grossly normal Results POC SARS AG POC SARS AG Positive Last Edit by Renetta Arceo on 12/30/23 16:29 Coding Level of Care Code Off vis,new,level 3 Diagnoses COVID-19 U07.1 Assessment and Plan Assessment and Plan (1) COVID-19: Status: Acute Plan: Decadron as prescribed today. Patient tested positive for COVID in the office today. Encouraged to get plenty of rest, drink lots of clear liquids, and use Tylenol or Ibuprofen (unless contraindicated) for fever and comfort. Patient also educated on other symptomatic management techniques. To be seen in 7-10 days if no improvement; sooner if worsening of symptoms. Patient advised of potential red flags and when appropriate to report to the ED. Patient verbalized understanding and agreement with all the above. Orders: Orders POC Rapid SARS Antigen Today Medications: New dexamethasone 6 mg PO DAILY 5 tabs 0RF Clinical Quality Measures Falls Risk Screening/Assistive Devices Have you fallen in the past year?: No 12/30/23 1743 Date ____ (more content not included)... Normal [facility] Cardiology Visit Reporton Cardiology Visit Report [facility] [address] [place] [address] OFFICE VISIT Date of Service: 11/18/23 MR#: [id number] Acct: [id number] Name: PHILL BHAT Rep #: [id number] : 1940 Provider: DESIREE quiroz Age/Sex: 83/M [place] [facility] [place] Status: Signed HPI HPI History of Present Illness Details: Barbara BHAT, is a 83 M who presents to the office today for a follow-up visit. He is a gentleman with a history of known coronary artery disease status post coronary bypass surgery in February 2004. He had a left internal mammary artery to the left anterior descending artery saphenous vein graft to the diagonal branch posterior descending artery and a saphenous vein graft to right coronary artery. In 2018, he underwent stress testing which demonstrated evidence of a previous lateral infarct there was a previous basal inferior infarct as well. There was no evidence of ischemia noted at 8.5 metabolic equivalents. He still underwent a cardiac catheterization which demonstrated patency of all the grafts. He denies chest, arm, jaw, or neck discomfort. He states a couple episodes of palpitations that improve with rest. He denies bilateral lower extremity edema. He denies claudication. He denies shortness of breath with activity, shortness of breath at rest, orthopnea, or PND. He denies chronic cough. He denies significant, sudden weight gain. He denies lightheadedness, dizziness, near-syncope, or syncope. He denies blood in urine, blood in stool, or epistaxis. He denies fever with chills. He denies myalgia. He denies fatigue. His exercise level has remained stable. He states GERD symptoms that improves with Aspirin. This occurs rarely. Intake Vital Signs 11/13/22 12:45 12/04/22 08:03 11/18/23 12:56 Height 5 ft 7 in 5 ft 7 in 5 ft 7 in Weight: 195 lb BMI 30.5 BP 114/78 Blood Pressure Location Lt brachial Position Sitting Respiration 16 Pulse 56 L Pulse Source Monitor Intake Visit Reasons: 1 Y FU Patient Coordinator Required: No Is patient in pain?: No Allergies atorvastatin (From Lipitor) Adverse Reaction (Severe, Verified 11/18/23 13:02) Severe Myalgias simvastatin Adverse Reaction (Severe, Verified 11/18/23 13:02) Myalgias Medications ???Medication ???Instructions ???Recorded ???Confirmed ???Type dorzolamide 2 % eye drops 1 drp ophthalmic (eye) BID eyes 10/22/17 11/18/23 History latanoprost 0.005 % eye drops 1 drp ophthalmic (eye) QPM eyes 10/22/17 11/18/23 History psyllium husk (with sugar) 3.4 6.8 g PO QHS Stool softner 11/27/17 11/18/23 History gram oral powder packet diphenhydramine HCl 25 mg tablet 25 mg PO TID PRN allergic symptoms 10/07/21 11/18/23 History (Benadryl Allergy) omega-3 fatty acids 1,000 mg 1,000 mg PO Q OTHER DAY 10/07/21 11/18/23 History capsule (Fish Oil Concentrate) acetaminophen 500 mg tablet (Pain 500 mg PO Q6H PRN pain 11/13/22 11/18/23 History Relief (acetaminophen)) timolol maleate 0.5 % eye drops 1 drp ophthalmic (eye) BID 11/13/22 11/18/23 History carvedilol 12.5 mg tablet 12.5 mg PO BID Please mail to 12/24/22 11/18/23 Rx patient's [place] address #180 tabs hydrochlorothiazide 25 mg tablet See Rx Instructions .Route 04/06/23 11/18/23 Rx .COMPLEX #90 tabs losartan 50 mg tablet 50 mg PO DAILY #90 tabs 05/17/23 11/18/23 Rx omeprazole 20 mg capsule,delayed 20 mg PO DAILY Please send to [place] 05/25/23 11/18/23 Rx release [facility] address on file #90 CAPSULES amlodipine 10 mg tablet 10 mg PO DAILY #90 tabs 11/18/23 11/18/23 Rx nitroglycerin 0.4 mg sublingual 0.4 mg sublingual Q5-15M PRN chest 11/18/23 11/18/23 Rx tablet pain #25 tabs rosuvastatin 20 mg tablet 20 mg PO DAILY #90 tabs 11/18/23 11/18/23 Rx Have you fallen in the past year?: No PFSH Medical History Wears glasses Alcohol use History of GI bleed Gastric reflux Glaucoma Former smoker Seasonal allergies History of stress test History of echocardiogram Cardiology follow-up encounter Dysphagia Diverticulitis Old inferior wall myocardial infarction PVD (peripheral vascular disease) Sepsis Essential hypertension Hyperlipidemia Atherosclerotic heart disease of [place] coronary artery without angina pectoris Carotid bruit Carotid stenosis, asymptomatic Surgical History History of cardiac catheterization History of tonsillectomy History of colonoscopy History of left heart catheterization (04/02/18) H/O coronary artery bypass surgery (02/2004) History of knee surgery History of hip replacement Family History Other CVA (cerebral vascular accident) Social History (Reviewed 11/17 (more content not included)... Normal [facility] MR Brain WO and W contrast I Von 11-18-2023 IMPRESSION: 2.2 cm left anterior superior frontal convexity meningioma. This is stable to minimally increased from 2021, with interval differences possibly technical in nature. Associated mild local mass effect with mild vasogenic edema in the underlying left frontal lobe. No midline shift. Chronic microvascular ischemic changes, chronic infarcts, and generalized volume loss. 2 cm cystic lesion with internal fluid levels in the superficial right parotid gland, increased from 2021. 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 Recommend ENT consultation. Production Supply Equipment Tender: DONTE Transcribe Date/Time: Nov 18 2023 1:57P Dictated by : LANETTE CASON MD This examination was interpreted and the report reviewed and electronically signed by: LANETTE CASON MD on Nov 18 2023 2:15PM [facility] DIVISION OF RADIOLOGY * * *Final Report* * * DATE OF EXAM: Nov 18 2023 11:52AM [facility] 0295 - MRI BRAIN WO/W IVCON / PROCEDURE REASON: Meningioma (HCC) * * * * Physician Interpretation * * * * EXAMINATION: MRI BRAIN WO/W IVCON CLINICAL HISTORY: Meningioma (HCC) Concern for left frontal convexity meningioma on prior imaging. TECHNIQUE: Routine brain MRI protocol without and with contrast including diffusion images. MQ: MRBWOW_2 Contrast: 20 mL Dotarem IV COMPARISON: CT 11/26/2021.. RESULT: Acute Change: There is no evidence of restricted diffusion to suggest an acute infarct. Hemorrhage: No acute intracranial hemorrhage. Small chronic microhemorrhage in the right anterior frontal lobe and left temporal lobe. Mass Lesion/ Mass Effect: Left anterior frontal convexity extra-axial dural based homogeneously enhancing mass with partial calcification, measuring approximately 1.8 x 2.2 x 1.8 cm in oblique transaxial and craniocaudal dimensions, most compatible with meningioma. This appears similar to perhaps minimally increased in size, previously measuring 1.5 x 2.1 cm in the axial plane, however differences may be technical in nature. Overlying calvarial hyperostosis. Mild mass effect with indentation of the adjacent left frontal lobe and adjacent parenchymal vasogenic edema which appears grossly similar in extent within constraints of technical differences. No midline shift. Chronic Change: Scattered patchy areas of increased T2 and FLAIR signal are present in the supratentorial white matter which is a nonspecific finding but likely represents mild chronic microvascular ischemia. 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 Parenchyma: There is moderate generalized parenchymal volume loss. Ventricles: Ventriculomegaly corresponds to the degree of parenchymal volume loss. Skull Base: Hypothalamic and pituitary region are grossly normal. Craniocervical junction is normal. No significant marrow replacement process. Vasculature: Major intracranial arterial structures, and dural venous sinuses show typical flow void, suggesting patency by spin echo criteria. Other: Bilateral maxillary sinus retention cyst and mild mucosal thickening. Moderate mucosal thickening the anterior ethmoid air cells and otherwise scattered mild paranasal sinus mucosal thickening. Mastoid air cells are essentially clear. Cystic lesion with internal fluid levels and multilobulated appearance in the right parotid gland, measuring approximately 1.5 x 2.0 cm in maximum oblique transaxial dimensions. This previously measured 1.2 x 1.9 cm. Bilateral ocular lens replacements. DIVISION OF RADIOLOGY Provider, [facility] - 11/18/2023 * * *Final Report* * * DATE OF EXAM: Nov 18 2023 11:52AM [facility] 0295 - MRI BRAIN WO/W IVCON / PROCEDURE REASON: Meningioma (HCC) * * * * Physician Interpretation * * * * EXAMINATION: MRI BRAIN WO/W IVCON CLINICAL HISTORY: Meningioma (HCC) Concern for left frontal convexity meningioma on prior imaging. TECHNIQUE: Routine brain MRI protocol without and with contrast including diffusion images. MQ: MRBWOW_2 Contrast: 20 mL Dotarem IV COMPARISON: CT 11/26/2021.. RESULT: Acute Change: There is no evidence of restricted diffusion to suggest an acute infarct. Hemorrhage: No acute intracranial hemorrhage. Small chronic microhemorrhage in the right anterior frontal lobe and left temporal lobe. Mass Lesion/ Mass Effect: Left anterior frontal convexity extra-axial dural based homogeneously enhancing mass with partial calcification, measuring approximately 1.8 x 2.2 x 1.8 cm in oblique transaxial and craniocaudal dimensions, most compatible with meningioma. This appears similar to perhaps minimally increased in size, previously measuring 1.5 x 2.1 cm in the axial plane, however differences may be technical in nature. Overlying calvarial hyperostosis. Mild mass effect with indentation of the adjacent left frontal lobe and adjacent parenchymal vasogenic edema which appears grossly similar in extent within constraints of technical differences. No midline shift. Chronic Change: Scattered patchy areas of increased T2 and FLAIR signal are present in the supratentorial white matter which is a nonspecific finding but likely represents mild chronic microvascular ischemia. 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 Parenchyma: There is moderate generalized parenchymal volume loss. Ventricles: Ventriculomegaly corresponds to the degree of parenchymal volume loss. Skull Base: Hypothalamic and pituitary region are grossly normal. Craniocervical junction is normal. No significant marrow replacement process. Vasculature: Major intracranial arterial structures, and dural venous sinuses show typical flow void, suggesting patency by spin echo criteria. Other: Bilateral maxillary sinus retention cyst and mild mucosal thickening. Moderate mucosal thickening the anterior ethmoid air cells and otherwise scattered mild paranasal sinus mucosal thickening. Mastoid air cells are essentially clear. Cystic lesion with internal fluid levels and multilobulated appearance in the right parotid gland, measuring approximately 1.5 x 2.0 cm in maximum oblique transaxial dimensions. This previously measured 1.2 x 1.9 cm. Bilateral ocular lens replacements. IMPRESSION IMPRESSION: 2.2 cm left anterior superior frontal convexity meningioma. This is stable to minimally increased from 2021, with interval differences possibly technical in nature. Associated mild local mass effect with mild vasogenic edema in the underlying left frontal lobe. No midline shift. Chronic microvascular ischemic changes, chronic infarcts, and generalized volume loss. 2 cm cystic lesion with internal fluid levels in the superficial right parotid gland, increased from 2021. 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 Recommend ENT consultation. Production Supply Equipment Tender: DONTE Transcribe Date/Time: Nov 18 2023 1:57P Dictated by : LANETTE CASON MD This examination was interpreted and the report reviewed and electronically signed by: LANETTE CASON MD on Nov 18 2023 2:15PM EST [facility] Radiology Study observation (narrative) [facility] MR Brain WO and W contrast I VOrdered By: [facility] Provider on 11-18-2023 [facility] Comprehensive Metabolic Prof ilon 10-13-2023 Albumin [Mass/Vol] 3.2 g/dL Normal 3.2-5.0 [facility] Comment on above: Order Comment: Order Date: 10/12/23Order Info: [id number] - CMPOrder Info: [id number] - LIPIDOrder Info: [id number] - TSHOrder Info: [id number] - T4F Performed By: #### L [id number], L501.9520, L500.4100, L506.0400, L500.4050, L400.0001 ####[facility] [address] [place], [address] Albumin/Globulin [Mass ratio] 0.6 {ratio} Low 0.9-2.4 [facility] Comment on above: Order Comment: Order Date: 10/12/23Order Info: [id number] - CMPOrder Info: [id number] - LIPIDOrder Info: [id number] - TSHOrder Info: [id number] - T4F Performed By: #### L 501.9985, L501.9520, L500.4100, L506.0400, L500.4050, L400.0001 ####[facility] [address] [place], [address] ALK P 72 U/L Normal 45-117 [facility] Comment on above: Order Comment: Order Date: 10/12/23Order Info: [id number] - CMPOrder Info: [id number] - LIPIDOrder Info: [id number] - TSHOrder Info: [id number] - T4F Performed By: #### L 501.9985, L501.9520, L500.4100, L506.0400, L500.4050, L400.0001 ####[facility] [address] [place], [address] ALT [Catalytic activity/Vol] 16 U/L Normal 16-61 [facility] Comment on above: Order Comment: Order Date: 10/12/23Order Info: [id number] - CMPOrder Info: [id number] - LIPIDOrder Info: 6-3 - TSHOrder Info: [id number] - T4F Performed By: #### L [id number], L501.9520, L500.4100, L506.0400, L500.4050, L400.0001 ####[facility] [address] [place], [address] AST [Catalytic activity/Vol] 22 U/L Normal 15-37 [facility] Comment on above: Order Comment: Order Date: 10/12/23Order Info: [id number] - CMPOrder Info: [id number] - LIPIDOrder Info: 6-3 - TSHOrder Info: [id number] - T4F Performed By: #### L [id number], L501.9520, L500.4100, L506.0400, L500.4050, L400.0001 ####[facility] [address] [place], [address] Bilirubin [Mass/Vol] 0.30 mg/dL Normal 0.20-1.00 [facility] Comment on above: Order Comment: Order Date: 10/12/23Order Info: [id number] - CMPOrder Info: [id number] - LIPIDOrder Info: [id number] - TSHOrder Info: [id number] - T4F Result Comment: For patients on eltrombopag therapy, use of Dimension Peytona TBIL is not recommended. Performed By: #### L 501.9985, L501.9520, L500.4100, L506.0400, L500.4050, L400.0001 ####[facility] [facility] [address] [place], [address] BUN/CRE 12.6 RATIO Normal 10-20 [facility] Comment on above: Order Comment: Order Date: 10/12/23Order Info: [id number] - CMPOrder Info: [id number] - LIPIDOrder Info: [id number] - TSHOrder Info: [id number] - T4F Performed By: #### L 501.9985, L501.9520, L500.4100, L506.0400, L500.4050, L400.0001 ####[facility] [address] [place], [address] CA,Total 9.4 mg/dL Normal 8.5-10.1 [facility] Comment on above: Order Comment: Order Date: 10/12/23Order Info: [id number] - CMPOrder Info: [id number] - LIPIDOrder Info: 63 - TSHOrder Info: [id number] - T4F Performed By: #### L 501.9985, L501.9520, L500.4100, L506.0400, L500.4050, L400.0001 ####[facility] [address] [place], [address] Chloride [Moles/Vol] 102 mmol/L Normal 98-107 [facility] Comment on above: Order Comment: Order Date: 10/12/23Order Info: [id number] - CMPOrder Info: [id number] - LIPIDOrder Info: 63 - TSHOrder Info: [id number] - T4F Performed By: #### L 501.9985, [id number], L500.4100, L506.0400, L500.4050, L400.0001 ####[facility] [address] [place], [address] CO2 [Moles/Vol] 27.0 mmol/L Normal 21.0-32.0 [facility] Comment on above: Order Comment: Order Date: 10/12/23Order Info: [id number] - CMPOrder Info: [id number] - LIPIDOrder Info: [id number] - TSHOrder Info: [id number] - T4F Performed By: #### L 501.9985, [id number], L500.4100, L506.0400, L500.4050, L400.0001 ####[facility] [address] [place], [address] Creatinine [Mass/Vol] 1.03 mg/dL Normal 0.70-1.30 [facility] Comment on above: Order Comment: Order Date: 10/12/23Order Info: [id number] - CMPOrder Info: [id number] - LIPIDOrder Info: 63 - TSHOrder Info: [id number] - T4F Result Comment: The validity of the calculated GFR GFRAA in patients over 70 years has not been determined. Clinical correlation is essential. Performed By: #### L 501.9985, L501.9520, L500.4100, L506.0400, L500.4050, L400.0001 ####[facility] [address] [place], [address] EST GFR - AA 89 mL/min Normal >60 [facility] Comment on above: Order Comment: Order Date: 10/12/23Order Info: [id number] - CMPOrder Info: [id number] - LIPIDOrder Info: [id number] - TSHOrder Info: [id number] - T4F Result Comment: Afri can Guatemalan GFR Calc Performed By: #### L [id number], [id number], L500.4100, L506.0400, L500.4050, L400.0001 ####[facility] [address] [place], [address] GAP 7 Normal 5-15 [facility] Comment on above: Order Comment: Order Date: 10/12/23Order Info: [id number] - CMPOrder Info: [id number] - LIPIDOrder Info: 3 - TSHOrder Info: 7 - T4F Performed By: #### L 501.9985, [id number], L500.4100, L506.0400, L500.4050, L400.0001 ####[facility] [address] [place], [address] GFR/1.73 sq M.predicted among non-blacks MDRD (S/P/Bld) [Vol rate/Area] 73 mL/min/{1.73_m2} Normal >60 [facility] Comment on above: Order Comment: Order Date: 10/12/23Order Info: [id number] - CMPOrder Info: - LIPIDOrder Info: [id number] - TSHOrder Info: 7 - T4F Result Comment: Non- GFR Calc Performed By: #### L 501.9985, [id number], L500.4100, L506.0400, L500.4050, L400.0001 ####[facility] [address] [place], [place], [phone] Globulin (S) [Mass/Vol] 5.0 g/dL High 2.2-4.2 [facility] Comment on above: Order Comment: Order Date: 10/12/23Order Info: [id number] - CMPOrder Info: - LIPIDOrder Info: [id number] - TSHOrder Info: 7 - T4F Performed By: #### L 501.9985, L501.9520, L500.4100, L506.0400, L500.4050, L400.0001 ####[facility] [address] [place], [address] Glucose [Mass/Vol] 108 mg/dL High 74-106 [facility] Comment on above: Order Comment: Order Date: 10/12/23Order Info: [id number] - CMPOrder Info: - LIPIDOrder Info: [id number] - TSHOrder Info: [id number] - T4F Result Comment: Fast ing Glucose result from 100 to 125 mg/dL suggests IMPAIRED HOMEOSTASIS per A.D.A. criteria. Performed By: #### L 501.9985, L501.9520, L500.4100, L506.0400, L500.4050, L400.0001 ####[facility] [address] [place], [address] Potassium [Moles/Vol] 3.6 mmol/L Normal 3.5-5.1 [facility] Comment on above: Order Comment: Order Date: 10/12/23Order Info: [id number] - CMPOrder Info: [id number] - LIPIDOrder Info: [id number] - TSHOrder Info: [id number] - T4F Performed By: #### L 501.9985, [id number], L500.4100, L506.0400, L500.4050, L400.0001 ####[facility] [address] [place], [address] Sodium [Moles/Vol] 136 mmol/L Normal 136-145 [facility] Comment on above: Order Comment: Order Date: 10/12/23Order Info: [id number] - CMPOrder Info: [id number] - LIPIDOrder Info: [id number] - TSHOrder Info: [id number] - T4F Performed By: #### L 501.9985, L501.9520, L500.4100, L506.0400, L500.4050, L400.0001 ####[facility] [address] [place], [address] T PROT 8.2 g/dL Normal 6.4-8.2 [facility] Comment on above: Order Comment: Order Date: 10/12/23Order Info: [id number] - CMPOrder Info: [id number] - LIPIDOrder Info: [id number] - TSHOrder Info: 7 - T4F Performed By: #### L 501.9985, L501.9520, L500.4100, L506.0400, L500.4050, L400.0001 ####[facility] [address] [place], [place], [address] Urea nitrogen [Mass/Vol] 13 mg/dL Normal 7-18 [facility] Comment on above: Order Comment: Order Date: 10/12/23Order Info: [id number] - CMPOrder Info: [id number] - LIPIDOrder Info: [id number] - TSHOrder Info: 7 - T4F Performed By: #### L 501.9985, L501.9520, L500.4100, L506.0400, L500.4050, L400.0001 ####[facility] [address] [place], [place], [id number] Hemoglobin A1con 10-13-2023 HbA1c (Bld) [Mass fraction] 6.1 % High 3.8-5.6 [facility] Comment on above: Order Comment: Order Date: 10/12/23Order Info: [id number] - A1C Result Comment: Norm al < 5.7 % Prediabetic 5.7 - 6.4 % Diabetic >or= 6.5 % Please note range changes. Performed By: #### L 501.9985, L501.9520, L500.4100, L506.0400, L500.4050, L400.0001 ####[facility] [address] [place], [place], [id number] Lipid Profileon 10-13-2023 Cholesterol [Mass/Vol] 91 mg/dL Normal 200 [facility] Comment on above: Order Comment: Order Date: 10/12/23Order Info: [id number] - CMPOrder Info: [id number] - LIPIDOrder Info: [id number] - TSHOrder Info: 7 - T4F Result Comment: <200 mg/dL Desirable 200-240 mg/dL Borderline >240 mg/dL High Risk Performed By: #### L 501.9985, L501.9520, L500.4100, L506.0400, L500.4050, L400.0001 ####[facility] [address] [place], [address] Cholesterol in HDL [Mass/Vol] 27 mg/dL Low [facility] Comment on above: Order Comment: Order Date: 10/12/23Order Info: [id number] - CMPOrder Info: [id number] - LIPIDOrder Info: 3 - TSHOrder Info: 7 - T4F Result Comment: The drugs N-Acetylcysteine and Metamizole may falsely depress this assay. Reference Range HDL <40 mg/dL Low HDL Cholesterol HDL >or= 60 mg/dL High HDL Cholesterol Performed By: #### L 501.9985, L501.9520, L500.4100, L506.0400, L500.4050, L400.0001 ####[facility] [address] [place], [address] Cholesterol in LDL [Mass/Vol] 38 mg/dL Normal 0-130 [facility] Comment on above: Order Comment: Order Date: 10/12/23Order Info: [id number] - CMPOrder Info: [id number] - LIPIDOrder Info: [id number] - TSHOrder Info: 7 - T4F Performed By: #### L 501.9985, L501.9520, L500.4100, L506.0400, L500.4050, L400.0001 ####[facility] [address] [place], [address] Cholesterol in VLDL [Mass/Vol] 26 mg/dL Normal 5-40 [facility] Comment on above: Order Comment: Order Date: 10/12/23Order Info: [id number] - CMPOrder Info: [id number] - LIPIDOrder Info: [id number] - TSHOrder Info: 7 - T4F Performed By: #### L 501.9985, L501.9520, L500.4100, L506.0400, L500.4050, L400.0001 ####[facility] [address] [place], [address] Triglyceride [Mass/Vol] 128 mg/dL Normal [facility] Comment on above: Order Comment: Order Date: 10/12/23Order Info: [id number] - CMPOrder Info: [id number] - LIPIDOrder Info: 3 - TSHOrder Info: 7 - T4F Result Comment: The drugs N-Acetylcysteine and Metamizole may falsely depress this assay. Serum Triglycerides Reference Interval Normal <150 mg/dL Borderline high 150 - 199 mg/dL High 200 - 499 mg/dL Very High > or = 500 mg/dL Performed By: #### L 501.9985, L501.9520, L500.4100, L506.0400, L500.4050, L400.0001 ####[facility] [address] [place], [place], [id number] T4 Free Directon 10-13-2023 T4 FREE DIRECT 1.03 ng/dL Normal 0.76-1.46 [facility] Comment on above: Order Comment: Order Date: 10/12/23Order Info: [id number] - CMPOrder Info: - LIPIDOrder Info: 3 - TSHOrder Info: 7 - T4F Performed By: #### L 501.9985, L501.9520, L500.4100, L506.0400, L500.4050, L400.0001 ####[facility] [address] [place], [place], [id number] Thyroid Stim Hormone (TSH)on 10-13-2023 TSH 2.38 uIU/mL Normal 0.358-3.74 [facility] Comment on above: Order Comment: Order Date: 10/12/23Order Info: [id number] - CMPOrder Info: [id number] - LIPIDOrder Info: 3 - TSHOrder Info: 7 - T4F Performed By: #### L 501.9985, L501.9520, L500.4100, L506.0400, L500.4050, L400.0001 ####[facility] [address] [place], [place], [address] Urinalysis, Completeon 10-12 EPI,SQUAMOUS 0-5 SEEN Normal 0-5 [facility] Comment on above: Order Comment: Order Date: 10/12/23 Order Info: [id number] [facility] DIRECTOR SOFTWARE TO SPECIFY Performed By: #### L 501.9985, L501.9520, L500.4100, L506.0400, L500.4050, L400.0001 #### [facility] [address] [place], [place], [address] WBC 0-5 SEEN Normal 0-5 [facility] Comment on above: Order Comment: Order Date: 10/12/23 Order Info: [id number] [facility] DIRECTOR SOFTWARE TO SPECIFY Performed By: #### L 501.9985, L501.9520, L500.4100, L506.0400, L500.4050, L400.0001 #### [facility] [place], [place], [address] BACTERIA 1+ /hpf Normal None Seen [facility] Comment on above: Order Comment: Order Date: 10/12/23 Order Info: [id number] [facility] DIRECTOR SOFTWARE TO SPECIFY Performed By: #### L 501.9985, L501.9520, L500.4100, L506.0400, L500.4050, L400.0001 #### [facility] [address] [place], [address] CAST,HYALINE 10-25 SEEN Normal 0-5 [facility] Comment on above: Order Comment: Order Date: 10/12/23 Order Info: [id number] DIRECTOR SOFTWARE TO SPECIFY Performed By: #### L 501.9985, L501.9520, L500.4100, L506.0400, L500.4050, L400.0001 #### [facility] [address] [place], [place], [address] Mucus Ql (Urine sed) 1+ /hpf Normal [facility] Comment on above: Order Comment: Order Date: 10/12/23 Order Info: [id number] - [facility] DIRECTOR SOFTWARE TO SPECIFY Performed By: #### L 501.9985, L501.9520, L500.4100, L506.0400, L500.4050, L400.0001 #### [facility] [address] [place], [address] RBC 0 SEEN Normal 0-5 [facility] Comment on above: Order Comment: Order Date: 10/12/23 Order Info: [id number] - [facility] DIRECTOR SOFTWARE TO SPECIFY Performed By: #### L 501.9985, L501.9520, L500.4100, L506.0400, L500.4050, L400.0001 #### [facility] [address] [place], [address] Absolute lymphocyte countOrd ered By: Dr. Martini on 10-08-2022 Lymphocytes Auto (Unsp spec) [#/Vol] 1.00 10*3/uL 0.83-4.51 [facility] Basophil percentageOrdered B y: Dr. Martini on 10-08-2022 Basophils/100 WBC (Bld) 1.0 % 0-1 [facility] Bilirubin [Mass/Vol] 0.40 mg/dL 0.20-1.00 [facility] Comment on above: For patients on eltr ombopag therapy, use of Dimension Peytona TBIL is not recommended. Chloride [Moles/Vol] 105 mmol/L 98-107 [facility] Cholesterol [Mass/Vol] 98 mg/dL <200 [facility] Comment on above: <200 mg/dL Desirable 200-240 mg/dL Borderline >240 mg/dL High Risk Eosinophils/100 WBC (Bld) 11.1 % 0-5 [facility] Glucose [Mass/Vol] 103 mg/dL 74-106 [facility] Comment on above: Fasting Glucose resu lt from 100 to 125 mg/dL suggests IMPAIRED HOMEOSTASIS per A.D.A. criteria. Neutrophils (Bld) [#/Vol] 2.0 10*3/uL 2.0-7.7 [facility] Neutrophils/100 WBC (Bld) 51.1 % 47-70 [facility] Potassium [Moles/Vol] 3.9 mmol/L 3.5-5.1 [facility] Protein [Mass/Vol] 8.1 g/dL 6.4-8.2 [facility] Sodium [Moles/Vol] 139 mmol/L 136-145 [facility] Triglyceride [Mass/Vol] 148 mg/dL <199 [facility] Comment on above: The drugs N-Acetylcy steine and Metamizole may falsely depress this assay.Serum Triglycerides Reference Interval Normal <150 mg/dL Borderline high 150 - 199 mg/dL High 200 - 499 mg/dL Very High > or = 500 mg/dL WBC (Bld) [#/Vol] 3.9 10*3/uL 4.4-11.0 [facility] Blood erythrocytes count (nu mber/volume)Ordered By: Dr. Martini on 10-08-2022 RBC (Bld) [#/Vol] 4.03 10*6/uL 4.6-6.2 [facility] Blood hemoglobin measurement (mass/volume)Ordered By: Dr. Martini on 10-08-2022 Hemoglobin (Bld) [Mass/Vol] 11.8 g/dL 13.0-16.5 [facility] Blood lymphocytes/100 leukoc ytesOrdered By: Dr. Martini on 10-08-2022 Lymphocytes/100 WBC (Bld) 25.7 % 19-41 [facility] Blood monocytes/100 leukocyt esOrdered By: Dr. Martini on 10-08-2022 Monocytes/100 WBC (Bld) 11.1 % 0-10 [facility] Blood platelet mean volumeOr dered By: Dr. Martini on 10-08-2022 Platelet mean volume (Bld) [Entitic vol] 9.9 fL 6.2-12.0 [facility] Determination of erythrocyte mean corpuscular volume (MCV)Ordered By: Dr. Martini on 10-08-2022 MCV (RBC) [Entitic vol] 90.8 fL 80-94 [facility] Hematocrit Auto (Bld) [Volum e fraction]Ordered By: Dr. Martini on 10-08-2022 Hematocrit (Bld) [Volume fraction] 36.6 % 40-54 [facility] - Chemistry and C hemistry - challengeOrdered By: Dr. Martini on 10-08-2022 ALP [Catalytic activity/Vol] 73 U/L 45-117 [facility] ALT [Catalytic activity/Vol] 21 U/L 16-61 [facility] CO2 [Moles/Vol] 26.0 mmol/L 21.0-32.0 [facility] Free T4 [Mass/Vol] 0.97 ng/dL 0.76-1.46 [facility] Globulin (S) [Mass/Vol] 4.6 g/dL 2.2-4.2 [facility] Urea nitrogen/Creatinine [Mass ratio] 21.2 mg/mg 10-20 [facility] - Hematology and Cell countsOrdered By: Dr. Martini on 10-08-2022 Erythrocyte distribution width (RBC) [Entitic vol] 44.2 fL 35.1-43.9 [facility] Erythrocyte distribution width (RBC) [Ratio] 13.4 % 11.6-14.6 [facility] Immature granulocytes/100 WBC (Bld) 0.000 % 0.0-0.9 [facility] Comment on above: IG% - Immature Granu locytes (promyelocytes, myelocytes and metamyelocytes) > 1% indicates that a LEFT SHIFT is Present. MCH (RBC) [Entitic mass] 29.3 pg 27.0-32.0 [facility] Nucleated RBC/100 WBC (Bld) [Ratio] 0 % 0-5 [facility] MCHC Auto (RBC) [Mass/Vol]Or dered By: Dr. Martini on 10-08-2022 MCHC (RBC) [Mass/Vol] 32.2 g/dL 32-36 [facility] No Panel InformationOrdered By: Dr. Martini on 10-08-2022 Estimated GFR (MDRD) Amer 93 mL/min >60 [facility] Comment on above: GFR Calc Estimated GFR (MDRD) Non-Af Amer 77 mL/min >60 [facility] Comment on above: Non- GFR Calc Thyroid Stimulating Hormone (TSH) 2.79 uIU/mL 0.358-3.74 [facility] Platelets bldOrdered By: Dr. Martini on 10-08-2022 Platelets (Bld) [#/Vol] 255 10*3/uL 150-450 [facility] Serum or plasma albumin clare urement (mass/volume)Ordered By: Dr. Martini on 10-08-2022 Albumin [Mass/Vol] 3.5 g/dL 3.2-5.0 [facility] Serum or plasma albumin/glob ulin mass ratioOrdered By: Dr. Martini on 10-08-2022 Albumin/Globulin [Mass ratio] 0.8 {ratio} 0.9-2.4 [facility] Serum or plasma calcium clare urement (mass/volume)Ordered By: Dr. Martini on 10-08-2022 Calcium [Mass/Vol] 9.3 mg/dL 8.5-10.1 [facility] Serum or plasma cholesterol in HDL measurement (mass/volume)Ordered By: Dr. Martini on 10-08-2022 Cholesterol in HDL [Mass/Vol] 27 mg/dL >40 [facility] Comment on above: The drugs N-Acetylcy steine and Metamizole may falsely depress this assay. Reference Range HDL <40 mg/dL Low HDL Cholesterol HDL >or= 60 mg/dL High HDL Cholesterol Serum or plasma cholesterol in VLDL measurement (mass/volume)Ordered By: Dr. Martini on 10-08-2022 Cholesterol in VLDL [Mass/Vol] 30 mg/dL 5-40 [facility] Serum or plasma creatinine m easurement (mass/volume)Ordered By: Dr. Martini on 10-08-2022 Creatinine [Mass/Vol] 0.99 mg/dL 0.70-1.30 [facility] Comment on above: The validity of the calculated GFR & GFRAA in patients over 70 years has not been determined. Clinical correlation is essential. Serum or plasma low density lipoprotein (LDL) cholesterol measurement (mass/volume)Ordered By: Dr. Martini on 10-08-2022 Cholesterol in LDL [Mass/Vol] 41 mg/dL 0-130 [facility] Serum or plasma urea nitroge n measurement (mass/volume)Ordered By: Dr. Martini on 10-08-2022 Urea nitrogen [Mass/Vol] 21 mg/dL 7-18 [facility] Thin prep Papanicolaou smear with manual screeningOrdered By: Dr. Martini on 10-08-2022 Thin prep Papanicolaou smear with manual screening 26 U/L 15-37 [facility] Thin prep Papanicolaou smear with manual screening 8 5-15 [facility] Whole blood hemoglobin A1c/t otal hemoglobin ratio (mass fraction)Ordered By: Dr. Martini on 10-08-2022 HbA1c (Bld) [Mass fraction] 6.3 % 3.8-5.6 [facility] Comment on above: Normal < 5.7 % Predi abetic 5.7 - 6.4 % Diabetic >or= 6.5 % Please note range changes. CT WB SKULL TO KNEE WO IVCON on 11-26-2021 CT WB SKULL TO KNEE WO IVCON * * *Final Report* * * DATE OF EXAM: Nov 26 2021 11:29AM [facility] 2096 - CT WB SKULL TO KNEE WO IVCON / PROCEDURE REASON: Multiple myeloma not having achieved remission (HCC) * * * * Physician Interpretation * * * * WHOLE BODY CT WITHOUT CONTRAST Clinical Statement: Multiple myeloma not having achieved remission. Negative bone survey last year. Comparison: Bone survey 10/25/2020. TECHNIQUE: Transaxial images were obtained from the skull to the knees without contrast. Coronal and sagittal reconstructions were performed. FINDINGS: Lytic lesions: None. Bone mineralization: Mild generalized osseous demineralization/osteopenia . Axial skeleton: Multilevel degenerative disc disease throughout the cervical, thoracic and lumbar spine. There are no vertebral body compression deformities. Normal alignment. 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 Chest wall: The sternum is intact with postsurgical changes of sternotomy noted. The bilateral ribs are intact. Pelvis: Status post right hip arthroplasty. Moderate to severe joint space narrowing at the left hip posteriorly. Appendicular skeleton: Degenerative changes of both knees. Left knee bipartite patella noted. Degenerative changes at the shoulders, hands and wrists. Other: 2 cm hyperdense and partially calcified round lesion along the inner table of the left calvarium, over the high left frontal lobe, probably a partially calcified meningioma. Moderate mucosal thickening within the maxillary sinuses, left greater than right. Postsurgical changes of CABG surgery with extensive coronary artery calcifications. There is calcification the mitral annulus. Large sliding-type hiatal hernia. Clear lungs. No pleural or pericardial effusions. There are scattered liver cysts in addition to subcentimeter hypodensities which are too small to characterize. Colonic diverticulosis without diverticulitis. IMPRESSION: 1. No lytic bone lesions. 2. Partially calcified 2 cm left frontal intracranial lesion, probably a partially calcified meningioma. Follow-up with brain MRI is recommended for further evaluation. 3. Large sliding-type hiatal hernia. 4. Incidental findings as above. 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 CT WHOLE BODY SKULL TO KNEE WO IVCONon 11-26-2021 [facility] - Microbiology an d Antimicrobial susceptibilityon 11-19-2021 SARS-CoV-2 (COVID-19) RNA SILVESTRE+probe Ql (Unsp spec) Detected Not Detect [facility] Work Phone: Comment on above: Normal Reference Ran ge: Not DetectedMethod:(RT-PCR) real-time reverse transcriptase PCRLuminex ELIZABET Instrument*The Food and Drug Administration (FDA) has issued an Emergency Use Authorization (EAU) for the ELIZABET SARS-CoV-2 Assay for the rapid detection of the virus that causes COVID-19. This test has been validated, but the FDAs independent review of this validation is pending.*Negative results do not preclude infection and should not be used as the sole basis for treatment or patient management. Optimum specimen types and timing for peak viral levels during infections caused by SARS-CoV-2 have not been determined. Collection of multiple specimens from the same patient may be necessary to detect the virus. The possibility of a false negative result should be considered if the patient has clinical presentation or has had recent exposure. Basophil percentageon 2021 Potassium [Moles/Vol] 3.7 mmol/L 3.5-5.1 [facility] Work Phone: Absolute lymphocyte counton 10-08-2021 Lymphocytes Auto (Unsp spec) [#/Vol] 1.05 10*3/uL 0.83-4.51 [facility] Work Phone: Basophil percentageon 2021 Basophil percentage 0 SEEN /hpf 0-5 [facility] Work Phone: Basophils/100 WBC (Bld) 0.8 % 0-1 [facility] Work Phone: Bilirubin [Mass/Vol] 0.50 mg/dL 0.20-1.00 [facility] Work Phone: Comment on above: For patients on eltr ombopag therapy, use of Dimension Peytona TBIL is not recommended. Chloride [Moles/Vol] 102 mmol/L 98-107 [facility] Work Phone: Cholesterol [Mass/Vol] 114 mg/dL <200 [facility] Work Phone: Comment on above: <200 mg/dL Desirable 200-240 mg/dL Borderline >240 mg/dL High Risk Eosinophils/100 WBC (Bld) 4.0 % 0-5 [facility] Work Phone: Glucose [Mass/Vol] 96 mg/dL 74-106 [facility] Work Phone: Neutrophils (Bld) [#/Vol] 3.2 10*3/uL 2.0-7.7 [facility] Work Phone: Neutrophils/100 WBC (Bld) 62.5 % 47-70 [facility] Work Phone: Potassium [Moles/Vol] 3.3 mmol/L 3.5-5.1 [facility] Work Phone: Protein [Mass/Vol] 7.8 g/dL 6.4-8.2 [facility] Work Phone: [phone] Sodium [Moles/Vol] 138 mmol/L 136-145 [facility] Work Phone: Triglyceride [Mass/Vol] 172 mg/dL <199 [facility] Work Phone: Comment on above: The drugs N-Acetylcy steine and Metamizole may falsely depress this assay.Serum Triglycerides Reference Interval Normal <150 mg/dL Borderline high 150 - 199 mg/dL High 200 - 499 mg/dL Very High > or = 500 mg/dL WBC (Bld) [#/Vol] 5.1 10*3/uL 4.4-11.0 [facility] Work Phone: Bilirubin Test strip Ql (U)o n 10-08-2021 Bilirubin Ql (U) Negative Negative [facility] Work Phone: Blood erythrocytes count (nu mber/volume)on 10-08-2021 RBC (Bld) [#/Vol] 4.07 10*6/uL 4.6-6.2 [facility] Work Phone: Blood hemoglobin measurement (mass/volume)on 10-08-2021 Hemoglobin (Bld) [Mass/Vol] 12.1 g/dL 13.0-16.5 [facility] Work Phone: Blood lymphocytes/100 leukoc yteson 10-08-2021 Lymphocytes/100 WBC (Bld) 20.8 % 19-41 [facility] Work Phone: Blood monocytes/100 leukocyt eson 10-08-2021 Monocytes/100 WBC (Bld) 11.5 % 0-10 [facility] Work Phone: Blood platelet mean volumeon 10-08-2021 Platelet mean volume (Bld) [Entitic vol] 9.9 fL 6.2-12.0 [facility] Work Phone: Determination of erythrocyte mean corpuscular volume (MCV)on 10-08-2021 MCV (RBC) [Entitic vol] 91.2 fL 80-94 [facility] Work Phone: Hematocrit Auto (Bld) [Volum e fraction]on 10-08-2021 Hematocrit (Bld) [Volume fraction] 37.1 % 40-54 [facility] Work Phone: Iron measurement (mass/mass) on 10-08-2021 Iron (Unsp spec) [Mass/Mass] 196 ug/dL 65-175 [facility] Work Phone: Ketones Test strip Ql (U)on 10-08-2021 Ketones Ql (U) Negative Negative [facility] Work Phone: Laboratory - Chemistry and C hemistry - challengeon 10-08-2021 ALP [Catalytic activity/Vol] 75 U/L 45-117 [facility] Work Phone: ALT [Catalytic activity/Vol] 25 U/L 16-61 [facility] Work Phone: CO2 [Moles/Vol] 27.0 mmol/L 21.0-32.0 [facility] Work Phone: Cobalamin (Vitamin B12) [Mass/Vol] 318 pg/mL 211-911 [facility] Work Phone: Free T4 [Mass/Vol] 0.91 ng/dL 0.76-1.46 [facility] Work Phone: Globulin (S) [Mass/Vol] 4.5 g/dL 2.2-4.2 [facility] Work Phone: Urea nitrogen/Creatinine [Mass ratio] 20.0 mg/mg 10-20 [facility] Work Phone: Laboratory - Hematology and Cell countson 10-08-2021 Erythrocyte distribution width (RBC) [Entitic vol] 43.7 fL 35.1-43.9 [facility] Work Phone: Erythrocyte distribution width (RBC) [Ratio] 13.2 % 11.6-14.6 [facility] Work Phone: Immature granulocytes/100 WBC (Bld) 0.400 % 0.0-0.9 [facility] Work Phone: Comment on above: IG% - Immature Granu locytes (promyelocytes, myelocytes and metamyelocytes) > 1% indicates that a LEFT SHIFT is Present. MCH (RBC) [Entitic mass] 29.7 pg 27.0-32.0 [facility] Work Phone: Nucleated RBC/100 WBC (Bld) [Ratio] 0.4 % 0-5 [facility] Work Phone: MCHC Auto (RBC) [Mass/Vol]on 10-08-2021 MCHC (RBC) [Mass/Vol] 32.6 g/dL 32-36 [facility] Work Phone: Mucus LM Ql (Urine sed)on Mucus Ql (Urine sed) 0 SEEN /hpf [facility] Work Phone: Nitrite Test strip Ql (U)on 10-08-2021 Nitrite Ql (U) Negative Negative [facility] Work Phone: No Panel Informationon 10-08 Thyroglobulin Antibody 100.7 IU/mL 0.0-0.9 [facility] Work Phone: Comment on above: Thyroglobulin Antibo dy measured by José Luis CoulterMethodology Estimated GFR (MDRD) Amer 78 mL/min >60 [facility] Work Phone: Comment on above: GFR Calc Estimated GFR (MDRD) Non-Af Amer 65 mL/min >60 [facility] Work Phone: Comment on above: Non- GFR Calc Thyroid Stimulating Hormone (TSH) 2.03 uIU/mL 0.358-3.74 [facility] Work Phone: Total Iron Binding Capacity 356 ug/dL 250-450 [facility] Work Phone: Platelets bldon 10-08-2021 Platelets (Bld) [#/Vol] 256 10*3/uL 150-450 [facility] Work Phone: Protein Test strip Ql (U)on 10-08-2021 Protein Ql (U) Negative Negative [facility] Work Phone: Serum or plasma albumin clare urement (mass/volume)on 10-08-2021 Albumin [Mass/Vol] 3.3 g/dL 3.2-5.0 [facility] Work Phone: Serum or plasma albumin/glob ulin mass ratioon 10-08-2021 Albumin/Globulin [Mass ratio] 0.7 {ratio} 0.9-2.4 [facility] Work Phone: Serum or plasma calcium clare urement (mass/volume)on 10-08-2021 Calcium [Mass/Vol] 9.0 mg/dL 8.5-10.1 [facility] Work Phone: Serum or plasma cholesterol in HDL measurement (mass/volume)on 10-08-2021 Cholesterol in HDL [Mass/Vol] 29 mg/dL >40 [facility] Work Phone: Comment on above: The drugs N-Acetylcy steine and Metamizole may falsely depress this assay. Reference Range HDL <40 mg/dL Low HDL Cholesterol HDL >or= 60 mg/dL High HDL Cholesterol Serum or plasma cholesterol in VLDL measurement (mass/volume)on 10-08-2021 Cholesterol in VLDL [Mass/Vol] 34 mg/dL 5-40 [facility] Work Phone: Serum or plasma creatinine m easurement (mass/volume)on 10-08-2021 Creatinine [Mass/Vol] 1.15 mg/dL 0.70-1.30 [facility] Work Phone: Comment on above: The validity of the calculated GFR & GFRAA in patients over 70 years has not been determined. Clinical correlation is essential. Serum or plasma ferritin astrid surement (mass/volume)on 10-08-2021 Ferritin [Mass/Vol] 36 ng/mL 26-388 [facility] Work Phone: Serum or plasma folate measu rement (mass/volume)on 10-08-2021 Folate [Mass/Vol] 17.60 ng/mL 3.1-55.4 [facility] Work Phone: Serum or plasma low density lipoprotein (LDL) cholesterol measurement (mass/volume)on 10-08-2021 Cholesterol in LDL [Mass/Vol] 51 mg/dL 0-130 [facility] Work Phone: Serum or plasma thyroperoxid ase antibody assay (units/volume)on 10-08-2021 TPO Ab Qn [IU]/mL 0-34 [facility] Work Phone: Comment on above: Performed at: [facility] [place], [place] [id number] Director: Jay Bradley PhD, Phone: [phone] at: [facility] [employer] [id number] [place], [place] [id number] Director: Garrison Reilly MD, Phone: [phone] Serum or plasma urea nitroge n measurement (mass/volume)on 10-08-2021 Urea nitrogen [Mass/Vol] 23 mg/dL 7-18 [facility] Work Phone: Squamous epithelial cells de tection in urine sediment by light microscopyon 10-08-2021 Epithelial cells.squamous LM Ql (Urine sed) 0 SEEN /hpf 0-5 [facility] Work Phone: Thin prep Papanicolaou smear with manual screeningon 10-08-2021 Thin prep Papanicolaou smear with manual screening 27 U/L 15-37 [facility] Work Phone: Thin prep Papanicolaou smear with manual screening 9 5-15 [facility] Work Phone: Thyroglobulin measurement by radioimmunoassay (ZE)on 10-08-2021 Thyroglobulin Ab ZE Qn (S) 11 ng/mL . [facility] Work Phone: Comment on above: This test was develo ped and its performance characteristicsdetermined by [employer]. It has not been cleared or approvedby the Food and Drug Administration.Reference Range:Pubertal Childrenand Adults: <40According to the National Academy of Clinical Biochemistry,the reference interval for Thyroglobulin (TG) should berelated to euthyroid patients and not for patients whounderwent thyroidectomy. TG reference intervals for thesepatients depend on the residual mass of the thyroid tissueleft after surgery. Establishing a post-operative baselineis recommended. The assay quantitation limit is 2.0 ng/mL. Urine blood detectionon RBC Ql (U) Negative Negative [facility] Work Phone: RBC Ql (U) 0 SEEN /hpf 0-5 [facility] Work Phone: Urine clarityon 10-08-2021 Clarity (U) Sl. Cloudy Clear [facility] Work Phone: Urine color determinationon 10-08-2021 Color (U) Yellow Yellow [facility] Work Phone: Urine glucose detectionon Glucose Ql (U) Normal mg/dl Normal [facility] Work Phone: Urine leukocyte esterase det ection by dipstickon 10-08-2021 Leukocyte esterase Test strip Ql (U) Negative Negative [facility] Work Phone: Urine pHon 10-08-2021 pH (U) 5.0 [pH] 5.0 - 8.0 [facility] Work Phone: Urine sediment bacteria coun t by microscopy (number/high power field)on 10-08-2021 Bacteria LM.HPF (Urine sed) [#/Area] 0 /[HPF] None Seen [facility] Work Phone: Urine specific gravity measu rementon 10-08-2021 Specific gravity (U) [Rel density] 1.020 1.002-1.030 [facility] Work Phone: Urobilinogen Auto test strip Ql (U)on 10-08-2021 Urobilinogen Ql (U) Normal mg/dl Normal [facility] Work Phone: Whole blood hemoglobin A1c/t otal hemoglobin ratio (mass fraction)on 10-08-2021 HbA1c (Bld) [Mass fraction] 6.1 % 3.8-5.6 [facility] Work Phone: Comment on above: Normal < 5.7 % Predi abetic 5.7 - 6.4 % Diabetic >or= 6.5 % Please note range changes. Vital Signs Date Time Vital Sign Value Performing Clinician Facility 12-19-2024 14:09-0400 Body height 171.[address] Prema Martini MD Work Phone: [facility] 12-19-2024 14:09-0400 Body mass index (BMI) [Ratio] 30.4 kg/m2 Dr. Prema Martini MD Work Phone: [facility] 12-19-2024 14:09-0400 Body weight 89.[address] Prema Martini MD Work Phone: [facility] 12-19-2024 14:09-0400 Diastolic blood pressure 67 mm[Hg] Dr. Prema Martini MD Work Phone: [facility] 12-19-2024 14:09-0400 Heart rate 54 /min Dr. Prema Martini MD Work Phone: [facility] 12-19-2024 14:09-0400 Respiratory rate 16 /min Dr. Prema Martini MD Work Phone: [facility] 12-19-2024 14:09-0400 Systolic blood pressure 138 mm[Hg] Dr. Prema Martini MD Work Phone: [facility] 12-08-2024 14:17-0400 Body mass index (BMI) [Ratio] 30.54 kg/m2 Mak Masci DO Work Phone: [facility] 12-08-2024 14:17-0400 Body temperature 97.5 [degF] Mak Masci DO Work Phone: [facility] 12-08-2024 14:17-0400 Body weight 88.45 kg Mak Masci DO Work Phone: [facility] 12-08-2024 14:17-0400 Diastolic blood pressure 63 mm[Hg] Mak Masci DO Work Phone: [facility] 12-08-2024 14:17-0400 Heart rate 62 /min Mak Masci DO Work Phone: [facility] 12-08-2024 14:17-0400 SaO2% (BldA) [Mass fraction] 96 % Mak Masci DO Work Phone: [facility] 12-08-2024 14:17-0400 Systolic blood pressure 122 mm[Hg] Mak Mendoza DO Work Phone: [facility] 01-29-2024 14:27-0400 Body mass index (BMI) [Ratio] 31.15 kg/m2 John Ellis MD Work Phone: [facility] 01-29-2024 14:27-0400 Body temperature 97.59 [degF] John Ellis MD Work Phone: [facility] 01-29-2024 14:27-0400 Body weight 90.2 kg John Ellis MD Work Phone: [facility] 01-29-2024 14:27-0400 Diastolic blood pressure 80 mm[Hg] John Ellis MD Work Phone: [facility] 01-29-2024 14:27-0400 Heart rate 72 /min John Ellis MD Work Phone: [facility] 01-29-2024 14:27-0400 Respiratory rate 16 /min John Ellis MD Work Phone: [facility] 01-29-2024 14:27-0400 SaO2% (BldA) [Mass fraction] 97 % John Ellis MD Work Phone: [facility] 01-29-2024 14:27-0400 Systolic blood pressure 138 mm[Hg] John Ellis MD Work Phone: [facility] 11-24-2023 08:49-0400 Body mass index (BMI) [Ratio] 31.56 kg/m2 Mak Bentoni DO Work Phone: [facility] 11-24-2023 08:49-0400 Body temperature 97.7 [degF] Mak Bentoni DO Work Phone: [facility] 11-24-2023 08:49-0400 Body weight 91.4 kg Mak Bentoni DO Work Phone: [facility] 11-24-2023 08:49-0400 Diastolic blood pressure 66 mm[Hg] Mak Bentoni DO Work Phone: [facility] 11-24-2023 08:49-0400 Heart rate 50 /min Mak Mendoza DO Work Phone: [facility] 11-24-2023 08:49-0400 SaO2% (BldA) [Mass fraction] 100 % Mak Mendoza DO Work Phone: [facility] 11-24-2023 08:49-0400 Systolic blood pressure 155 mm[Hg] aMk Mendoza DO Work Phone: [facility] 12-04-2022 09:15-0400 Body temperature 97.3 [degF] Dr. Prema Martini Work Phone: [facility] 12-04-2022 09:15-0400 Diastolic blood pressure 59 mm[Hg] Dr. Prema Martini Work Phone: [facility] 12-04-2022 09:15-0400 Heart rate 52 /min Dr. Prema Martini Work Phone: [facility] 12-04-2022 09:15-0400 Respiratory rate 16 /min Dr. Prema Martini Work Phone: [facility] 12-04-2022 09:15-0400 SaO2% (BldA) [Mass fraction] 97 % Dr. Prema Martini Work Phone: [facility] 12-04-2022 09:15-0400 Systolic blood pressure 129 mm[Hg] Dr. Prema Martini Work Phone: [facility] 12-04-2022 08:03-0400 Body height 170.[address] Prema Martini Work Phone: [facility] 12-04-2022 08:03-0400 Body mass index (BMI) [Ratio] 31.7 kg/m2 Dr. Prema Martini Work Phone: [facility] 12-04-2022 08:03-0400 Body weight [address] Prema Martini Work Phone: [facility] 11-13-2022 12:45-0400 Body height 170.[address] Prema Martini Work Phone: [facility] 11-13-2022 12:45-0400 Body mass index (BMI) [Ratio] 32.2 kg/m2 Dr. Prema Martini Work Phone: [facility] 11-13-2022 12:45-0400 Body weight 93.[address] Prema Martini Work Phone: [facility] 11-13-2022 12:45-0400 Diastolic blood pressure 51 mm[Hg] Dr. Prema Martini Work Phone: [facility] 11-13-2022 12:45-0400 Heart rate 76 /min Dr. Prema Martini Work Phone: [facility] 11-13-2022 12:45-0400 Respiratory rate 18 /min Dr. Prema Martini Work Phone: [facility] 11-13-2022 12:45-0400 Systolic blood pressure 113 mm[Hg] Dr. Prema Martini Work Phone: [facility] 11-12-2022 08:08-0400 Body mass index (BMI) [Ratio] 32.4 kg/m2 Dr. Prema Martini Work Phone: [facility] 11-12-2022 08:08-0400 Body weight 93.[address] Prema Martini Work Phone: [facility] 11-12-2022 08:08-0400 Diastolic blood pressure 67 mm[Hg] Dr. Prema Martini Work Phone: [facility] 11-12-2022 08:08-0400 Heart rate 56 /min Dr. Prema Martini Work Phone: [facility] 11-12-2022 08:08-0400 Respiratory rate 18 /min Dr. Prema Martini Work Phone: [facility] 11-12-2022 08:08-0400 SaO2% (BldA) [Mass fraction] 99 % Dr. Prema Martini Work Phone: [facility] 11-12-2022 08:08-0400 Systolic blood pressure 155 mm[Hg] Dr. Prema Martini Work Phone: [facility] 10-27-2022 11:09-0400 Body height 170.2 cm Mak Masci DO Work Phone: [facility] 10-27-2022 11:09-0400 Body temperature 97.81 [degF] Mak Masci DO Work Phone: [facility] 10-27-2022 11:090400 Body weight 93.21 kg Mak Masci DO Work Phone: [facility] 10-27-2022 11:09-0400 Diastolic blood pressure 63 mm[Hg] Mak Masci DO Work Phone: [facility] 10-27-2022 11:09-0400 Heart rate 58 /min Mak Masci DO Work Phone: [facility] 10-27-2022 11:09-0400 Respiratory rate 18 /min Mak Masci DO Work Phone: [facility] 10-27-2022 11:09-0400 SaO2% (BldA) [Mass fraction] 97 % Mak Masci DO Work Phone: [facility] 10-27-2022 11:09-0400 Systolic blood pressure 156 mm[Hg] Mak Masci DO Work Phone: [facility] 01-10-2022 14:02-0400 Body temperature 97.59 [degF] Kimberlee Dunn BINDING CUTTER.HEADER SET UP OPERATOR Work Phone: [facility] 01-10-2022 14:02-0400 Body weight 91.17 kg Kimberlee Dunn APRN.HEADER SET UP OPERATOR Work Phone: [facility] 01-10-2022 14:02-0400 Diastolic blood pressure 58 mm[Hg] Kimberlee Dunn APRN.HEADER SET UP OPERATOR Work Phone: [facility] 01-10-2022 14:02-0400 Heart rate 56 /min Kimberlee thad BINDING CUTTER.HEADER SET UP OPERATOR Work Phone: [facility] 01-10-2022 14:02-0400 Respiratory rate 20 /min Kimberlee thad BINDING CUTTER.HEADER SET UP OPERATOR Work Phone: [facility] 01-10-2022 14:02-0400 SaO2% (BldA) [Mass fraction] 97 % Kimberlee BINDING CUTTER.HEADER SET UP OPERATOR Work Phone: [facility] 01-10-2022 14:02-0400 Systolic blood pressure 138 mm[Hg] Kimberlee BINDING CUTTER.HEADER SET UP OPERATOR Work Phone: [facility] 10-07-2021 11:25-0400 Body height 170.[address] Prema Duffy Work Phone: [facility] Work Phone: 10-07-2021 11:25-0400 Body mass index (BMI) [Ratio] 31.6 kg/m2 Dr. Prema Duffy Work Phone: [facility] Work Phone: 10-07-2021 11:25-0400 Body weight 91.[address] Prema Duffy Work Phone: [facility] Work Phone: 10-07-2021 11:25-0400 Diastolic blood pressure 52 mm[Hg] Dr. Prema Duffy Work Phone: [facility] Work Phone: 10-07-2021 11:25-0400 Heart rate 60 /min Dr. Prema Duffy Work Phone: [facility] Work Phone: 10-07-2021 11:25-0400 Respiratory rate 16 /min Dr. Prema Duffy Work Phone: [facility] Work Phone: 10-07-2021 11:25-0400 Systolic blood pressure 111 mm[Hg] Dr. Prema Duffy Work Phone: [facility] Work Phone: 10-07-2021 11:25-0400 Body height 170.[address] Prema Duffy Work Phone: [facility] Work Phone: 10-07-2021 11:25-0400 Body mass index (BMI) [Ratio] 31.6 kg/m2 Dr. Prema Duffy Work Phone: [facility] Work Phone: 10-07-2021 11:25-0400 Body weight 91.[address] Prema Duffy Work Phone: [facility] Work Phone: 10-07-2021 11:25-0400 Diastolic blood pressure 52 mm[Hg] Dr. Prema Duffy Work Phone: [facility] Work Phone: 10-07-2021 11:25-0400 Heart rate 60 /min Dr. Prema Duffy Work Phone: [facility] Work Phone: 10-07-2021 11:25-0400 Respiratory rate 16 /min Dr. Prema Duffy Work Phone: [facility] Work Phone: 10-07-2021 11:25-0400 Systolic blood pressure 111 mm[Hg] Dr. Prema Duffy Work Phone: [facility] Work Phone: Encounters Encounter Date Encounter Type Care Provider Facility Start: 12-19-2024 End: 12-19-[address] Prema Martini MD Work Phone: -[facility] Start: 12-19-2024 End: 12-19-2024 Patient encounter procedure Prema RAMÍREZ -[facility] Work Phone: Start: 12-08-2024 End: 12-08-2024 Patient encounter procedure Mak Mendoza DO Work Phone: Hematology/Oncology Start: 12-08-2024 End: 12-08-2024 ambulatory Mak Mendoza DO Work Phone: Hematology/Oncology Comment on above: MGUS (monoclonal korina mopathy of unknown significance) (Primary Dx); Anemia, unspecified type Start: 12-05-2024 ambulatory PREMA MARTINI Facilit y:[facility] Start: 02-07-2024 Encounter for preprocedural laboratory examination John Suresh [facility] Start: 01-29-2024 End: 01-29-2024 ambulatory SELF Facility:[facility] Start: 01-29-2024 End: 01-29-2024 Patient encounter procedure John Ellis MD Work Phone: [facility] Comment on above: Fatigue, unspecified type (Primary Dx); Feels feverish Start: 01-18-2024 End: 01-18-2024 ambulatory Prema Martini Facility:[facility] Start: 01-11-2024 End: 01-12-2024 ambulatory Prema Martini Facility:[facility] Start: 12-30-2023 End: 12-30-2023 ambulatory Bakari NEAL [place] [place]: 12-02-2023 Telephone encounter Mak hare DO Work Phone: Hematology/Oncology Comment on above: Results Start: 11-24-2023 Telephone encounter Mak hare DO Work Phone: Hematology/Oncology Comment on above: AVS 11/24/23 Start: 11-24-2023 End: 11-24-2023 ambulatory Mak Mendoza DO Work Phone: Hematology/Oncology Comment on above: MGUS (monoclonal korina mopathy of unknown significance) (Primary Dx); Meningioma (HCC); Parotid nodule Start: 11-24-2023 End: 11-24-2023 Patient encounter procedure Mak Mendoza DO Work Phone: Hematology/Oncology Start: 11-18-2023 End: 11-18-2023 ambulatory Prema Le NP [place] [place]: 11-18-2023 End: 11-18-2023 Subsequent hospital visit by physician [employer] [facility] (I-Stat/1.5t) Work Phone: Radiology Comment on above: Meningioma (HCC) [D3 2.9] Start: 10-13-2023 End: 10-13-2023 ambulatory Prema Martini Facility:[facility] Start: 12-04-2022 Non-patient / Non-visit Dr. Varsha Martini Work Phone: [facility] Start: 12-04-2022 End: 12-04-2022 Admission to same day surgery center Dr. Prema Martini Work Phone: [facility]Endoscopy Work Phone: Start: 12-04-2022 End: 12-04-[address] Prema Martini Work Phone: [facility] Work Phone: Start: 11-25-2022 Non-patient / Non-visit Dr. Varsha Martini Work Phone: [facility] Work Phone: Start: 11-23-2022 Non-patient / Non-visit Dr. Varsha Martini Work Phone: [facility] Start: 11-23-2022 End: 11-23-[address] Prema Martini Work Phone: [facility] Work Phone: Start: 11-23-2022 End: 11-23-[address] Prema Martini Work Phone: [facility]Cardi[facility]cul[facility] Work Phone: Start: 11-13-2022 End: 11-13-[address] Prema Martini Work Phone: [facility] Work Phone: Start: 11-12-2022 End: 11-12-[address] Prema Martini Work Phone: [facility] Work Phone: Start: 11-02-2022 End: 11-02-2022 ambulatory [facility] Work Phone: Start: 11-02-2022 End: 11-02-2022 Patient encounter procedure [facility]-Radiology, [facility] Work Phone: Start: 10-27-2022 Telephone encounter Mak hare DO Work Phone: Hematology/Oncology Comment on above: Appointment Start: 10-27-2022 End: 10-27-2022 ambulatory Mak Mendoza DO Work Phone: Hematology/Oncology Comment on above: MGUS (monoclonal korina mopathy of unknown significance) (Primary Dx); Anemia, unspecified type; Meningioma (HCC) Start: 10-27-2022 End: 10-27-2022 Patient encounter procedure Mak Mendoza DO Work Phone: [facility] Start: 10-08-2022 End: 10-08-2022 ambulatory [facility] Work Phone: Start: 10-08-2022 End: 10-08-2022 Patient encounter procedure [facility] Start: 06-03-2022 Telephone encounter Mak hare DO Work Phone: Hematology/Oncology Comment on above: Patient Update Start: 01-11-2022 Telephone encounter Caitlin gore BINDING CUTTER.HEADER SET UP OPERATOR Work Phone: [facility] Comment on above: Results Start: 01-10-2022 End: 01-10-2022 Patient encounter procedure Kimberlee Dunn BINDING CUTTER.HEADER SET UP OPERATOR Work Phone: [facility] Comment on above: Acute cough (Primary Dx) Start: 12-01-2021 Telephone encounter Alexus Zhang MD Work Phone: Hematology/Oncology Comment on above: Orders Start: 11-26-2021 End: 11-26-2021 Subsequent hospital visit by physician [facility] Work Phone: Radiology CT Scan Comment on above: Multiple myeloma not having achieved remission (HCC) [C90.00] Start: 11-19-2021 End: 11-19-[address] Prema Duffy Work Phone: [facility]-Laboratory, Specimen Start: 11-04-2021 End: 11-04-[address] Prema Duffy Work Phone: [facility] Start: 10-15-2021 End: 10-15-[address] Prema Duffy Work Phone: [facility] Start: 10-08-2021 End: 10-08-[address] Prema Duffy Work Phone: [facility] Start: 10-07-2021 End: 10-07-[address] Prema Duffy Work Phone: [facility] Procedures Date Procedure Procedure Detail Performing Clinician Start: 11-18-2023 Mri brain brain stem w/o w/contrast material Mak Mendoza DO Work Phone: Start: 12-04-[address] 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 Comment on above: CABG x 5: JEWELL-LAD, SVG-D1, SVG-RPDA, Se quential SVG-OM2 and LPLB 02/2004 Plan of Treatment Date Care Activity Detail Author Start: 12-09-2027 Diabetes Screening Diabetes Screen[facility] Start: 11-23-2026 Diabetes Screening Diabetes Screenin [facility] Start: 12-07-2025 End: 12-07-2025 ambulatory 12/07/2025 9:40 AM EDT Visit (SP) Office Hematology/Oncology [address] [place] [id number] Mak Mendoza DO [address] [place] [id number] 1YR/LABS 11/30* Hematology/Oncology Comment on above: 1YR/LABS 11/30* Start: 11-30-2025 End: 11-30-2025 ambulatory 11/30/2025 7:00 AM EDT Results Only [facility] [address] [place] [id number] CBC/CMP/Myeloma labs [facility] Comment on above: CBC/CMP/Myeloma labs Start: 10-20-2025 DIABETES SCREEN DIABETES SCREEN [facility] Start: 10-20-2025 Diabetes Screening Diabetes Screenin g [facility] Start: 01-08-2025 Influenza vaccination Influenza Vacc ine (#1) [facility] Start: 12-08-2024 End: 03-09-2025 Ferritin [Mass/volume] in Serum or Plasma [facility] Work Phone: Comment on above: Expected: 12/08/2024 , Expires: 03/09/2025 Start: 11-07-2024 DIABETES SCREEN DIABETES SCREEN [facility] Start: 05-10-2024 Advance Directive Discussion Advance Directive Discussion [facility] Start: 01-09-2024 Covid-19 Vaccine () Covid-19 Vaccine () [facility] Start: 01-09-2024 Influenza vaccination Influenza Vacc ine (#1) [facility] Start: 11-24-2023 End: 11-24-2023 ambulatory [facility] Comment on above: MYELOMA LABS* 1YR OV/MRI 11/17* Start: 05-10-2023 Advance Directive Discussion Advance Directive Discussion [facility] Start: 05-10-2023 Behavioral Health Screening Behavioral Health Screening [facility] Start: 01-08-2023 Covid-19 Vaccine (3 - 2023-24 season) Covid-19 Vaccine (2022- season) [facility] Start: 01-08-2023 Influenza vaccination [facility] Start: 12-04-[address] [facility] Start: 05-10-2022 ADVANCE DIRECTIVE DISCUSSION ADVANCE DIRECTIVE DISCUSSION [facility] Start: 05-10-2022 DEPRESSION ASSESSMENT DEPRESSION ASS ESSMENT [facility] Start: 01-10-2022 End: 01-24-2022 Influenza virus A and B RNA and SARS-CoV-2 (COVID-19) N gene panel - Respiratory specimen by SILVESTRE with probe detection COVID WITH FLUA+B, ROUTINE Microbiology Routine Acute cough Expected: 01/10/2022, Expires: 01/24/2022 [facility] Work Phone: Comment on above: Expected: 01/10/2022 , Expires: 01/24/2022 Start: 01-08-2022 Influenza vaccination INFLUENZA (#1) [facility] Start: 05-10-2021 ADVANCE DIRECTIVE DISCUSSION ADVANCE DIRECTIVE DISCUSSION [facility] Start: 01-05-2021 COVID-19 VACCINE (3 - Booster for Moderna series) COVID-19 VACCINE (3 - Booster for Moderna series) [facility] Start: 09-30-2020 COVID-19 VACCINE (3 - Booster for Moderna series) COVID-19 VACCINE (3 - Booster for Moderna series) [facility] Start: 01-26-2015 RSV Vaccine (1 - 1-d ose 75+ series) RSV Vaccine (1 - 1-dose 75+ series) [facility] Start: 03-23-2007 Shingrix Vaccine (2 of 3) Shingrix Vaccine (2 of 3) [facility] Start: 01-26-2005 PNEUMOCOCCAL: 65+ (1 - PCV) PNEUMOCOCCAL: 65+ (1 - PCV) [facility] Start: 01-08-2005 Medicare Annual Well ness Visit Medicare Annual Wellness Visit [facility] Start: 2000 RSV Vaccine (1 - 1-d ose 60+ series) RSV Vaccine (1 - 1-dose 60+ series) [facility] Start: 01-26-1990 SHINGRIX VACCINE (1 of 2) SHINGRIX VACCINE (1 of 2) [facility] Start: 01-26-1959 Urine microalbumin profile [facility] Start: 01-26-1958 Anxiety Screening Anxiety Screening [facility] Start: 01-26-1958 Depression Screening Depression Scre ening [facility] Comprehensive metabo lic 2000 panel - Serum or Plasma [facility] Lipid 1996 panel - S mora or Plasma [facility] End: 11-26-2023 Mri brain brain stem w/o w/contrast material MRI BRAIN WO/W IVCON Radiology Routine Meningioma (HCC) 1 Occurrences starting 10/27/2022 until 11/26/2023 [facility] Work Phone: Comment on above: 1 Occurrences starti ng 10/27/2022 until 11/26/2023 Patient referral [facility] Work Phone: [facility] Immunizations Immunization Date Immunization Notes Care Provider Fa cility 08-05-2020 COVID-19 vaccine, fu ll dose (MODERNA) Ct 2 Work Phone: [facility] Work Phone: 07-08-2020 COVID-19 vaccine, fu ll dose (MODERNA) Ct 2 Work Phone: [facility] Work Phone: 01-12-2017 influenza virus vacc ine, unspecified formulation Mak Mendoza DO Work Phone: [facility] 01-08-[address] Prema Duffy Work Phone: [facility] 01-08-2017 pneumococcal polysaccharide vaccine, [address] Prema Duffy Work Phone: [facility] Payers Date Payer Category Payer Self-pay [id number] 2013 Private Health Insurance [facility] AARP SUPPLEMENT [id number] 2013-Present [phone] [address] [place] [address] Indemnity [id number] 2013 Private Health Insurance [id number] 2012 Unknown [id number] 2005 Medicare MEDICARE MEDICAR E A AND B [id number] 2005-Present [phone] [address] [address] [place] [address] Medicare [id number] 2005 Medicare [id number] 2005 Medicare [id number] Unknown [id number] Unknown [id number] Unknown [id number] Unknown [id number] Unknown [id number] Unknown [id number] Social History Date Type Detail Facility Start: 10-07-2021 End: 11-30-2022 Tobacco smoking status NHIS Unknown if ever smoked [facility] Start: 11-28-2017 Occasional [facility] Start: 11-28-2017 None [facility] Start: 11-28-2017 Spouse/ Significant Oth er [facility] Start: 11-30-2017 Non-smoker [facility] Start: 1940 Sex Assigned At Male [facility] Start: 11-07-2016 End: 01-18-2024 Tobacco smoking status NHIS Ex-smoker [facility] Start: 05-10-1955 End: 05-10-1967 History of tobacco use Current smoker [facility] Start: 05-10-1955 End: 05-10-1967 History of tobacco use Cigarette Smoker [facility] Start: 11-07-2016 End: 06-03-2022 Cigarettes smoked current (pack per day) - Reported 1 [facility] Start: 11-07-2016 End: 01-29-2024 Tobacco use and exposure Smokeless tobacco non-user [facility] Start: 11-14-2021 End: 12-08-2024 Alcohol intake Current drinker of alcohol (finding) [facility] Start: 10-22-2020 History SDOH Alcohol Comment occassionally [facility] Start: 1940 Sex Assigned At Not on file [facility] Start: 11-16-2021 End: 01-10-2022 Exposure to SARS-CoV-2 (event) Not sure [facility] Start: 06-03-2022 End: 01-26-2023 Tobacco use panel [facility] National Score (1-100), lower number is lower risk 66 [facility] Goals Date Patient Goal Desired Activity /State Mental Status Date Assessment Result Facility 12-04-2022 Cognitive function Voice/Name [facility] Work Phone: Clinical Notes 02-08-2004 to 12-08-2024 Mak Mendoza DO - 12/08/2024 2:50 PM EDTMJohn Mercado MD - 01/29/2024 2:37 PM EDTTelephone Encounter - Keshia Vieira - 12/03/2023 10:03 AM Mak Mcconnell DO - 11/24/2023 9:08 AM EDT Note Date & Type Note Facility 12-08-2024 History of Presen t illness Narrative DIAGNOSIS: 1) Monoclonal gammopathy of unknown significant HPI: This is an 84-year-old gentleman who has history of chronic anemia, hypertension, hypercholesterolemia, ASCAD (CABG x5 in 2003) who presented to his primary care physician for routine follow-up visit for anemia. Despite his anemia, he had no increased fatigue, or shortness of breath. He was very active and still golfs couple times a week. He stay in [place] for winter and spring and come back to [place] from September to January. His only other complaint was chronic left knee pain secondary to arthritis and previous meniscus tear. Laboratory study revealed a mild normocytic normochromic anemia, and an increase M spike of 2 g/dL on his serum protein electrophoresis. He has normal calcium and normal renal function. OV 2023: He did not have brain MRI done when in [place] last winter--I believe that was ordered by Dr. Zhang based on the CT results from the summer 2021. I reordered it last year when I first assumed care of him. It did not get done until a week or 2 ago. His lab work was not drawn that day. I feel fine. Endorses some STM problems but not interfering with his usual activities at this time. Denies headache. Has chronic throat clearing. Previously saw ENT and was given a diagnosis of allergies to grass. Presents for ongoing hematologic management. Interim history: He offers no complaints today. Energy level doing fairly well. Enjoys golfing. Denies musculoskeletal pain. PMH, medications and allergies personally reviewed by me today. Any changes documented in appropriate section. PHYSICAL EXAM: Vitals: Blood pressure 122/63, pulse 62, temperature 36.4 C (97.5 F), temperature source Temporal, weight 88.5 kg (195 lb), SpO2 96%. Well-appearing and in no acute distress. EYES: Sclerae are anicteric bilaterally. LYMPHATIC: There is no palpable cervical, supraclavicular adenopathy. RESPIRATORY: Inspiratory breath sounds are of normal intensity in all martino. CARDIOVASCULAR: Rhythm is regular. ABDOMEN: The abdomen is nondistended. No splenomegaly or hepatomegaly. No tenderness. Extremities: Mild chronic swelling left lower extremity secondary to vein harvesting. SKIN: No jaundice. ASSESSMENT/PLAN: (D47.2) MGUS (monoclonal gammopathy of unknown significance) (primary encounter diagnosis) (D64.9) Anemia, unspecified type Nighat: -Previous low risk IgG lambda (< 3 gm/dl & 24-hour urine M protein < 200 mg/24-hours) MGUS. -Some decline in overall hemoglobin level. - I reviewed his previous lab work with him. He had an abnormal light chain ratio and therefore bone marrow biopsy was indicated initially but he had declined. I readdress this issue again today and discussed that if there is no evidence of iron deficiency (MCV has been very slowly drifting lower) then I recommend bone marrow biopsy to be assured MGUS is the diagnosis and he does not have an underlying smoldering or evolving myeloma. He expressed an understanding and agreement with this plan. Plan: - Add iron studies today. - Follow-up with him next week once the results of all today's lab work have been resulted. Portions of this documentation were copied and pasted from my previous office visit note dated 11/24/2023 in order to provide a cohesive continuity of the history. The note has been reviewed and edited and updated as necessary. I spent a total of 25 minutes on the date of the service which included preparing to see the patient, [id number] patient care, completing clinical documentation, performing a medically appropriate examination, counseling and educating the patient/family/caregiver, ordering medications, tests, or procedures, communicating with other HCPs (not separately reported), and communicating results to the patient/family/caregiver. Mak Mendoza DO documented in this encounter [facility] 12-08-2024 Note HNO ID: [id number] Author: MAK MENDOZA DO Service: ? Author Type: Physician Type: Progress Notes Filed: 12/08/2024 15:07 Note Text: DIAGNOSIS: 1) Monoclonal gammopathy of unknown significant HPI: This is an 84-year-old gentleman who has history of chronic anemia, hypertension, hypercholesterolemia, ASCAD (CABG x5 in 2003) who presented to his primary care physician for routine follow-up visit for anemia. Despite his anemia, he had no increased fatigue, or shortness of breath. He was very active and still golfs couple times a week. He stay in [place] for winter and spring and come back to [place] from September to January. His only other complaint was chronic left knee pain secondary to arthritis and previous meniscus tear. Laboratory study revealed a mild normocytic normochromic anemia, and an increase M spike of 2 g/dL on his serum protein electrophoresis. He has normal calcium and normal renal function. OV 2023: He did not have brain MRI done when in [place] last winter--I believe that was ordered by Dr. Zhang based on the CT results from the summer 2021. I reordered it last year when I first assumed care of him. It did not get done until a week or 2 ago. His lab work was not drawn that day. I feel fine. Endorses some STM problems but not interfering with his usual activities at this time. Denies headache. Has chronic throat clearing. Previously saw ENT and was given a diagnosis of allergies to grass. Presents for ongoing hematologic management. Interim history: He offers no complaints today. Energy level doing fairly well. Enjoys golfing. Denies musculoskeletal pain. PMH, medications and allergies personally reviewed by me today. Any changes documented in appropriate section. PHYSICAL EXAM: Vitals: Blood pressure 122/63, pulse 62, temperature 36.4 ?C (97.5 ?F), temperature source Temporal, weight 88.5 kg (195 lb), SpO2 96%. Well-appearing and in no acute distress. EYES: Sclerae are anicteric bilaterally. LYMPHATIC: There is no palpable cervical, supraclavicular adenopathy. RESPIRATORY: Inspiratory breath sounds are of normal intensity in all martino. CARDIOVASCULAR: Rhythm is regular. ABDOMEN: The abdomen is nondistended. No splenomegaly or hepatomegaly. No tenderness. Extremities: Mild chronic swelling left lower extremity secondary to vein harvesting. SKIN: No jaundice. 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 -Some decline in overall hemoglobin level. - I reviewed his previous lab work with him. He had an abnormal light chain ratio and therefore bone marrow biopsy was indicated initially but he had declined. I readdress this issue again today and discussed that if there is no evidence of iron deficiency (MCV has been very slowly drifting lower) then I recommend bone marrow biopsy to be assured MGUS is the diagnosis and he does not have an underlying smoldering or evolving myeloma. He expressed an understanding and agreement with this plan. Plan: - Add iron studies today. - Follow-up with him next week once the results of all today's lab work have been resulted. Portions of this documentation were copied and pasted from my previous office visit note dated 11/24/2023 in order to provide a cohesive continuity of the history. The note has been reviewed and edited and updated as necessary. I spent a total of 25 minutes on the date of the service which included preparing to see the patient, [id number] patient care, completing clinical documentation, performing a medically appropriate examination, counseling and educating the patient/family/caregiver, ordering medications, tests, or procedures, communicating with other HCPs (not separately reported), and communicating results to the patient/family/caregiver. Mak Mendoza, [facility] 01-29-2024 Note HNO ID: [id number] Author: JOHN ELLIS MD Service: ? Author Type: Physician Type: Progress Notes Filed: 01/29/2024 15:30 Note Text: Patient presents with: Fatigue: Fatigue and feels weak-woke up with symptoms HPI: Feeling off today. He had COVID illness 3 weeks ago. Positive symptoms: fatigue, feverish, some ear pressure, decreased appetite (only made cereal instead of making a sandwich for lunch), Negative symptoms: Cough, Shortness of breath, Chest tightness, Chest pain, palpitations, Sore throat, Sinus pressure, Nasal Congestion, Rhinorrhea, Body Aches, Malaise, Headache, Nausea, Vomiting, Diarrhea, pyrosis, dysuria, urinary frequency, hematuria, abdominal pain, back pain, change in leg edema, numbness, off balance, OTC: tylenol MEDICATIONS: Current Outpatient Medications Medication Sig fluticasone (FLONASE) 50 mcg/actuation nasal spray Use 2 Sprays in each nostril once daily. Rinse mouth after use. prednisoLONE acetate (PRED FORTE, ECONOPRED PLUS) 1 % ophthalmic suspension 1 Drop four times daily. losartan (COZAAR) 50 mg tablet Take 50 mg by mouth once daily. latanoprost (XALATAN) 0.005 % ophthalmic solution Use 1 Drop in eyes daily at bedtime. dorzolamide-timolol (COSOPT) 22.3-6.8 mg/mL ophthalmic solution Use 1 Drop in eyes twice daily. dorzolamide (TRUSOPT) 2 % ophthalmic solution Use 1 Drop in eyes twice daily. Ykyxg-8-JNU-EPA-Fish Oil 1,000 mg (120 mg-180 mg) cap Take 2 g by mouth every 48 hours. diphenhydrAMINE (BENADRYL) 25 mg capsule Take 25 mg by mouth every 6 hours as needed. PRN hydroCHLOROthiazide (HYDRODIURIL, ESIDRIX) 12.5 mg tablet Take 25 mg by mouth once daily. amlodipine besylate (NORVASC ORAL) Take 10 mg by mouth once daily. carvedilol (COREG) 12.5 mg tablet Take 12.5 mg by mouth twice daily with meals. ROSUVASTATIN CALCIUM (CRESTOR ORAL) Take 20 mg by mouth once daily. OMEPRAZOLE ORAL Take 20 mg by mouth once daily. No current facility-administered medications for this visit. ALLERGIES: ALLERGIES No Known Allergies VITALS: BP 138/80 Pulse 72 Temp 36.4 ?C (97.6 ?F) (Tympanic) Resp 16 Wt 90.2 kg (198 lb 13.7 oz) SpO2 97% BMI 31.15 kg/m? PHYSICAL EXAM: GEN: Pleasant, in no acute distress. HEENT: PERRL, EOMI, conjunctiva clear Ears: canals clear. TMs without erythema, bulge, or effusion Sinuses: non-tender frontal sinus, non-tender maxillary sinuses Throat: moist mucous membranes, no erythema, no exudate Neck: supple, no thyromegaly, no lymphadenopathy HEART: regular rate and rhythm, no murmurs LUNGS: clear to auscultation, no wheezes or crackles, no increased WOB BACK: Normal curvature of spine. No midline tenderness. No paraspinal tenderness. EXT: 1+ left leg edema (s/p vein harvest for CABG) NEURO: Alert and oriented to person, place, and time. Abundance of conversation. CN II-XII intact. Normal strength. Normal gait. No tremor. ASSESSMENT/PLAN: 1. Fatigue, unspecified type - ICD9: 780.79, ICD10: R53.83 (primary diagnosis) 2. Feels feverish - ICD9: 780.60, ICD10: R50.9 Benign exam and non-specific symptoms. May be early viral illness. Continue to monitor. Follow up in the ER with chest pain/burning, shortness of breath, dizziness, palpitations, or lethargy. John Ellis MD [facility] 01-29-2024 History of Presen t illness Narrative Patient presents with: Fatigue: Fatigue and feels weak-woke up with symptoms HPI: Feeling off today. He had COVID illness 3 weeks ago. Positive symptoms: fatigue, feverish, some ear pressure, decreased appetite (only made cereal instead of making a sandwich for lunch), Negative symptoms: Cough, Shortness of breath, Chest tightness, Chest pain, palpitations, Sore throat, Sinus pressure, Nasal Congestion, Rhinorrhea, Body Aches, Malaise, Headache, Nausea, Vomiting, Diarrhea, pyrosis, dysuria, urinary frequency, hematuria, abdominal pain, back pain, change in leg edema, numbness, off balance, OTC: tylenol MEDICATIONS: Current Outpatient Medications Medication Sig fluticasone (FLONASE) 50 mcg/actuation nasal spray Use 2 Sprays in each nostril once daily. Rinse mouth after use. prednisoLONE acetate (PRED FORTE, ECONOPRED PLUS) 1 % ophthalmic suspension 1 Drop four times daily. losartan (COZAAR) 50 mg tablet Take 50 mg by mouth once daily. latanoprost (XALATAN) 0.005 % ophthalmic solution Use 1 Drop in eyes daily at bedtime. dorzolamide-timolol (COSOPT) 22.3-6.8 mg/mL ophthalmic solution Use 1 Drop in eyes twice daily. dorzolamide (TRUSOPT) 2 % ophthalmic solution Use 1 Drop in eyes twice daily. Dnctc-1-WGF-EPA-Fish Oil 1,000 mg (120 mg-180 mg) cap Take 2 g by mouth every 48 hours. diphenhydrAMINE (BENADRYL) 25 mg capsule Take 25 mg by mouth every 6 hours as needed. PRN hydroCHLOROthiazide (HYDRODIURIL, ESIDRIX) 12.5 mg tablet Take 25 mg by mouth once daily. amlodipine besylate (NORVASC ORAL) Take 10 mg by mouth once daily. carvedilol (COREG) 12.5 mg tablet Take 12.5 mg by mouth twice daily with meals. ROSUVASTATIN CALCIUM (CRESTOR ORAL) Take 20 mg by mouth once daily. OMEPRAZOLE ORAL Take 20 mg by mouth once daily. No current facility-administered medications for this visit. ALLERGIES: ALLERGIES No Known Allergies VITALS: BP 138/80 Pulse 72 Temp 36.4 C (97.6 F) (Tympanic) Resp 16 Wt 90.2 kg (198 lb 13.7 oz) SpO2 97% BMI 31.15 kg/m PHYSICAL EXAM: GEN: Pleasant, in no acute distress. HEENT: PERRL, EOMI, conjunctiva clear Ears: canals clear. TMs without erythema, bulge, or effusion Sinuses: non-tender frontal sinus, non-tender maxillary sinuses Throat: moist mucous membranes, no erythema, no exudate Neck: supple, no thyromegaly, no lymphadenopathy HEART: regular rate and rhythm, no murmurs LUNGS: clear to auscultation, no wheezes or crackles, no increased WOB BACK: Normal curvature of spine. No midline tenderness. No paraspinal tenderness. EXT: 1+ left leg edema (s/p vein harvest for CABG) NEURO: Alert and oriented to person, place, and time. Abundance of conversation. CN II-XII intact. Normal strength. Normal gait. No tremor. ASSESSMENT/PLAN: 1. Fatigue, unspecified type - ICD9: 780.79, ICD10: R53.83 (primary diagnosis) 2. Feels feverish - ICD9: 780.60, ICD10: R50.9 Benign exam and non-specific symptoms. May be early viral illness. Continue to monitor. Follow up in the ER with chest pain/burning, shortness of breath, dizziness, palpitations, or lethargy. John Ellis MD documented in this encounter [facility] 12-03-2023 Telephone encounter Note Recall letter entered for August 08 [facility] Work Phone: 12-03-2023 Miscellaneous Notes Recall letter entered for August 08 Message left on identified voicemail labs are stable F/U in 1 year. Our PSS will reach out to him in several months to get scheduled. Brittany Metzger LPN Labs stable. CBC/CMP/Myeloma labs (no urine) then OV in about a year. Mak Mendoza DO documented in this encounter [facility] 12-03-2023 Telephone encounter Note Message left on identified voicemail labs are stable F/U in 1 year. Our PSS will reach out to him in several months to get scheduled. Brittany Metzger LPN [facility] 12-02-2023 Telephone encounter Note Labs stable. CBC/CMP/Myeloma labs (no urine) then OV in about a year. Mak Mendoza DO [facility] Work Phone: 11-29-2023 Telephone encounter Note Used [facility] to schedule within [facility] and it refers the patient to call [facility] to schedule. Faxed referral to [facility]. Fax confirmation scanned into [employer]. Mitzy Landrum [facility] 11-29-2023 Miscellaneous Notes Used [facility] to schedule within [facility] and it refers the patient to call [facility] to schedule. Faxed referral to [facility]. Fax confirmation scanned into [employer]. Mitzy Landrum He made it very clear to me he was not going outside a [place] to see neurology or neurosurgery so what ever appointment can be had we will have to do. Mak Mendoza DO Are you comfortable with pt waiting until September? Rosa Arroyo LPN First available consult for [facility] isn't until September 2024. Please advise as patient doesn't want to travel outside of [place]. Mitzy Landrum Check out comments: Consult neurology Dr. Esquivel or [facility] physician - DR. ESQUIVEL HAS NO OPENINGS FOR THE REST OF THE YEAR Consult ENT does not want Dr. Suresh SR - FAXED AND SCANNED INTO [employer] documented in this encounter [facility] 11-29-2023 Telephone encounter Note He made it very clear to me he was not going outside a [facility] to see neurology or neurosurgery so what ever appointment can be had we will have to do. Mak Mendoza DO [facility] Work Phone: 11-29-2023 Telephone encounter Note Are you comfortable with pt waiting until September? Rosa Arroyo LPN [facility] 11-29-2023 Telephone encounter Note First available consult for [facility] isn't until September 2024. Please advise as patient doesn't want to travel outside of [place]. Mitzy Landrum [facility] 11-24-2023 Telephone encounter Note Check out comments: Consult neurology Dr. Esquivel or [facility] physician - DR. ESQUIVEL HAS NO OPENINGS FOR THE REST OF THE YEAR Consult ENT does not want Dr. Suresh SR - FAXED AND SCANNED INTO [employer] [facility] 11-24-2023 History of Presen t illness Narrative DIAGNOSIS: 1) Monoclonal gammopathy of unknown significant HPI: This is an 83-year-old gentleman who has history of chronic anemia, hypertension, hypercholesterolemia, ASCAD (CABG x5 in 2003) who presented to his primary care physician for routine follow-up visit for anemia. Despite his anemia, he had no increased fatigue, or shortness of breath. He was very active and still golfs couple times a week. He stay in [place] for winter and spring and come back to [place] from September to January. His only other complaint was chronic left knee pain secondary to arthritis and previous meniscus tear. Laboratory study revealed a mild normocytic normochromic anemia, and an increase M spike of 2 g/dL on his serum protein electrophoresis. He has normal calcium and normal renal function. Interim history: He did not have brain MRI done when in [place] last winter--I believe that was ordered by Dr. Zhang based on the CT results from the summer 2021. I reordered it last year when I first assumed care of him. It did not get done until a week or 2 ago. His lab work was not drawn that day. I feel fine. Endorses some STM problems but not interfering with his usual activities at this time. Denies headache. Has chronic throat clearing. Previously saw ENT and was given a diagnosis of allergies to grass. PMH, medications and allergies personally reviewed by me today. Any changes documented in appropriate section. PHYSICAL EXAM: Vitals: Blood pressure 155/66, pulse (!) 50, temperature 36.5 C (97.7 F), temperature source Temporal, weight 91.4 kg (201 lb 8 oz), SpO2 100%. Well-appearing and in no acute distress. EYES: Sclerae are anicteric bilaterally. LYMPHATIC: There is no palpable cervical, supraclavicular adenopathy. RESPIRATORY: Inspiratory breath sounds are of normal intensity in all martino. CARDIOVASCULAR: Rhythm is regular. ABDOMEN: The abdomen is nondistended. No splenomegaly or hepatomegaly. No tenderness. Extremities: Mild chronic swelling left lower extremity secondary to vein harvesting. SKIN: No jaundice. 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 No focal motor weakness. LABORATORY DATA: Component Latest Ref Rng & Units 10/22/2020 11/07/2021 10/20/2022 WBC 3.70 - 11.00 k/uL 4.70 3.91 6.04 RBC 4.20 - 6.00 m/uL 4.36 3.91 (L) 4.17 (L) Hemoglobin 13.0 - 17.0 g/dL 12.8 (L) 11.7 (L) 12.2 (L) Hematocrit 39.0 - 51.0 % 38.5 (L) 35.4 (L) 37.5 (L) MCV 80.0 - 100.0 fL 88.3 90.5 89.9 MCH 26.0 - 34.0 pg 29.4 29.9 29.3 MCHC 30.5 - 36.0 g/dL 33.2 33.1 32.5 RDW-CV 11.5 - 15.0 % 13.2 13.0 13.6 Platelet Count 150 - 400 k/uL 239 212 243 MPV 9.0 - 12.7 fL 9.8 9.8 9.6 Neut% % 64.5 59.2 69.6 Abs Neut (ANC) 1.45 - 7.50 k/uL 3.03 2.32 4.21 Lymph% % 23.2 23.3 15.6 Abs Lymph 1.00 - 4.00 k/uL 1.09 0.91 (L) 0.94 (L) [place]% % 7.4 11.3 6.5 Abs [place] <0.87 k/uL 0.35 0.44 0.39 Eosin% % 4.5 5.4 7.6 Abs Eosin <0.46 k/uL 0.21 0.21 0.46 (H) Baso% % 0.4 0.8 0.5 Abs Baso <0.11 k/uL <0.03 0.03 0.03 Immature Gran % % 0.0 0.2 IMMATURE GRANS (ABS) <0.10 k/uL <0.03 <0.03 NRBC /100 WBC 0.0 0.0 Absolute nRBC <0.01 k/uL <0.01 <0.01 <0.01 DTYPE Auto Auto Nucleated Reds 0 /100 WBC 0.0 Diff Type Auto Diff Protein, Total 6.3 - 8.0 g/dL 8.0 Albumin 3.9 - 4.9 g/dL 4.2 Calcium 8.5 - 10.2 mg/dL 9.7 Bilirubin, Total 0.2 - 1.3 mg/dL 0.6 Alkaline Phosphatase 38 - 113 U/L 76 AST 14 - 40 U/L 18 ALT 10 - 54 U/L 10 Glucose 74 - 99 mg/dL 88 BUN 9 - 24 mg/dL 12 Creatinine 0.73 - 1.22 mg/dL 0.95 Sodium 136 - 144 mmol/L 136 Potassium 3.7 - 5.1 mmol/L 4.0 Chloride 97 - 105 mmol/L 99 CO2 22 - 30 mmol/L 28 Anion Gap 9 - 18 mmol/L 9 eGFR >=60 mL/min/1.73m 80 LD 135 - 225 U/L 146 B2 Microglobulin <3.1 mg/L 2.6 Component Latest Ref Rng & Units 10/22/2020 11/07/2021 10/20/2022 Protein, Total 6.3 - 8.0 g/dL 7.5 Albumin 3.43 - 5.41 g/dL 3.58 3.58 3.96 Alpha 1 Globulin 0.18 - 0.43 g/dL 0.22 0.18 0.28 Alpha 2 Globulin 0.42 - 0.98 g/dL 0.68 0.60 0.67 Beta Globulin 0.61 - 1.17 g/dL 0.81 (L) 0.78 (L) 0.63 Gamma Globulin 0.53 - 1.51 g/dL 2.22 (H) 1.87 (H) 2.25 (H) Interpretation (Prot Electro) No definitive M protein is identified on protein electrophoresis. SEE COMMENT An M protein is identified on protein electrophoresis. (A) An M protein is identified on protein electrophoresis. (A) M-Protein Location Gamma fraction Gamma Fraction 1 Gamma Fraction 1 M-Protein Concentration <=0.00 g/dL 1.85 (H) 1.52 (H) 1.95 (H) SPE Staff Review Reviewed by Yesy Gonzalez MD ([id number]) Reviewed by Yesy Gonzalez MD Reviewed by Raoul Hidalgo MD, Ph.D ([id number]) Interpretation Comment for Protein Electrophoresis See separate immunofixation report for characterization of monoclonal gammopathy. See separate immunofixation report for characterization of monoclonal gammopathy. IMAGING: MRI Brain 11/18/2023: IMPRESSION: 2.2 cm left anterior superior frontal convexity meningioma. This is stable to minimally increased from 2021, with interval differences possibly technical in nature. Associated mild local mass effect with mild vasogenic edema in the underlying left frontal lobe. No midline shift. Chronic microvascular ischemic changes, chronic infarcts, and generalized volume loss. 2 cm cystic lesion with internal fluid levels in the superficial right parotid gland, increased from 2021. 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 Recommend ENT consultation. Production Supply Equipment Tender: DONTE Transcribe Date/Time: Nov 18 2023 1:57P Dictated by : LANETTE CASON MD This examination was interpreted and the report reviewed and electronically signed by: LANETTE CASON MD on Nov 18 2023 2:15PM EST Results-Findings * * *Final Report* * * DATE OF EXAM: Nov 18 2023 11:52AM [facility] 0295 - MRI BRAIN WO/W IVCON / PROCEDURE REASON: Meningioma (HCC) * * * * Physician Interpretation * * * * EXAMINATION: MRI BRAIN WO/W IVCON CLINICAL HISTORY: Meningioma (HCC) Concern for left frontal convexity meningioma on prior imaging. TECHNIQUE: Routine brain MRI protocol without and with contrast including diffusion images. MQ: [id number] Contrast: 20 mL Dotarem IV COMPARISON: CT 11/26/2021.. RESULT: Acute Change: There is no evidence of restricted diffusion to suggest an acute infarct. Hemorrhage: No acute intracranial hemorrhage. Small chronic microhemorrhage in the right anterior frontal lobe and left temporal lobe. Mass Lesion/ Mass Effect: Left anterior frontal convexity extra-axial dural based homogeneously enhancing mass with partial calcification, measuring approximately 1.8 x 2.2 x 1.8 cm in oblique transaxial and craniocaudal dimensions, most compatible with meningioma. This appears similar to perhaps minimally increased in size, previously measuring 1.5 x 2.1 cm in the axial plane, however differences may be technical in nature. Overlying calvarial hyperostosis. Mild mass effect with indentation of the adjacent left frontal lobe and adjacent parenchymal vasogenic edema which appears grossly similar in extent within constraints of technical differences. No midline shift. Chronic Change: Scattered patchy areas of increased T2 and FLAIR signal are present in the supratentorial white matter which is a nonspecific finding but likely represents mild chronic microvascular ischemia. 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 Parenchyma: There is moderate generalized parenchymal volume loss. Ventricles: Ventriculomegaly corresponds to the degree of parenchymal volume loss. Skull Base: Hypothalamic and pituitary region are grossly normal. Craniocervical junction is normal. No significant marrow replacement process. Vasculature: Major intracranial arterial structures, and dural venous sinuses show typical flow void, suggesting patency by spin echo criteria. Other: Bilateral maxillary sinus retention cyst and mild mucosal thickening. Moderate mucosal thickening the anterior ethmoid air cells and otherwise scattered mild paranasal sinus mucosal thickening. Mastoid air cells are essentially clear. Cystic lesion with internal fluid levels and multilobulated appearance in the right parotid gland, measuring approximately 1.5 x 2.0 cm in maximum oblique transaxial dimensions. This previously measured 1.2 x 1.9 cm. Bilateral ocular lens replacements. ASSESSMENT/PLAN: (D47.2) MGUS (monoclonal gammopathy of unknown significance) (primary encounter diagnosis) Nighat: -Previous low risk IgG lambda (< 3 gm/dl & 24-hour urine M protein < 200 mg/24-hours) MGUS. -Stable mild anemia. -Didn't have labs when here for MRI. -Drawn today. Plan: -Will follow up with him once results available. (D64.9) Anemia, unspecified type Assessment: -Chronic, longstanding mild anemia. -Occasional rectal bleeding attributed previously to diverticular bleeding. He has had colonoscopy within the last 3 years. He has not taken aspirin for concern of exacerbating bleeding. Plan: -Continue monitoring counts. (D32.9) Meningioma (HCC) Assessment: -Incidental finding on whole-body CT scan done 11/2021. -He didn't get MRI last year as ordered--Reviewed results of current MRI. Mild vasogenic edema. -Endorses mild STM issues. -Reviewed in detail with him. He adamantly declines to see neurosurgery since that I would entail travel outside [place]. He is willing to see neurology here in town. I explained to him that the meningioma could be causing some of his STM problems given its location. Again however he declined neurosurgery referral. Plan: -Referral to neurology. Parotid gland cystic lesion. Assessment: -Asymptomatic and not appreciated on exam. -Recommended ENT referral. He is willing. Plan: -Referral to [facility]. -We will have the images sent ahead of time. Portions of this documentation were copied and pasted from previous office visit notes in order to provide a cohesive continuity of the history. The note has been reviewed and edited and updated as necessary. I spent a total of 25 minutes on the date of the service which included preparing to see the patient, [id number] patient care, completing clinical documentation, obtaining and/or reviewing separately obtained history, performing a medically appropriate examination, counseling and educating the patient/family/caregiver, ordering medications, tests, or procedures, communicating with other HCPs (not separately reported), and communicating results to the patient/family/caregiver. Mak Mendoza DO documented in this encounter [facility] 11-18-2023 History of Presen t illness Narrative Radiology Service Progress Note DATE OF SERVICE: November 18, 2023 TIME: 11:31 AM PATIENT IDENTITY VERIFICATION COMPLETED USING TWO (2) STANDARD IDENTIFIERS: Name and Date of confirmed by patient verbally. FALL SCREENING: Has the patient had 2 falls in the last year or 1 fall with injury or currently using an Ambulatory Assistive Device (Walker, Cane, Wheelchair, Crutches, etc.)? No PATIENT GENDER DATA: Male PATIENT RELEVANT IMPLANT DATA REVIEWED: Yes PATIENT PRESENTS WITH AN IMPLANTABLE OR ATTACHED HVAC MECHANICAL ENGINEER: No ALLERGIES: Reviewed and unchanged CONTRAST ALLERGY: NO. EXAM: MRI - CONTRAST TYPE: GROUP II PERIPHERAL IV DATA: Ambulatory: A peripheral IV was started in the Right antecubital site with a Angio cath: 22 gauge. RADIOLOGY DEPARTMENT: MR; Exam(s) Completed: Head: Routine Brain SIGNATURE: RT Fiordaliza(R) PATIENT NAME: Barbara Bhat DATE: November 18, 2023 TIME: 11:31 AM documented in this encounter [facility] 12-04-2022 History and physical note Note Date/Time December 04, 2022 7:44am [facility] Medical Records Department [address] [place] [address] History & Physical Exam 12/04/2243 MR#: [id number] Acct: [id number] Name: PHILL BHAT Rep #:[id number] : 1940 82 From: Aamir Spencer MD PCP: Dr. Prema Martini MD Status: [facility] Location: [place] [address] History and Physical Date of Admission: 12/04/22 Visit Reasons: Hiatal Hernia Chief Complaint: Chest Pain Allergies atorvastatin [From Lipitor] Adverse Reaction (Severe, Verified 11/12/22 08:09) Severe Myalgiassimvastatin Adverse Reaction (Severe, Verified 11/12/22 08:09) Myalgiastamsulosin [From Flomax] Adverse Reaction (Severe, Verified 11/12/22 08:09) Dizziness, Lightheaded Medications dorzolamide 2 % eye drops 1 drp ophthalmic (eye) BID eyes 10/22/17 [History Confirmed 11/12/22] latanoprost 0.005 % eye drops 1 drp ophthalmic (eye) QPM eyes 10/22/17 [History Confirmed 11/12/22] psyllium husk (with sugar) 3.4 gram oral powder packet 6.8 g PO QHS Stool softner 11/27/17 [History Confirmed 11/12/22] nitroglycerin 0.4 mg sublingual tablet 0.4 mg sublingual Q5-15M PRN chest pain #25 tabs 09/29/21 [Rx Confirmed 11/12/22] aspirin 81 mg tablet,delayed release (Adult Low Dose Aspirin) 81 mg PO Q OTHER DAY heart health 10/07/21 [History Confirmed 11/12/22] diphenhydramine HCl 25 mg tablet (Benadryl Allergy) 25 mg PO TID PRN 10/07/21 [History Confirmed 11/12/22] omega-3 fatty acids 1,000 mg capsule (Fish Oil Concentrate) 1,000 mg PO Q OTHER DAY 10/07/21 [History Confirmed 11/12/22] amlodipine 10 mg tablet 10 mg PO QHS Please mail to patient's [place] Address #90 tabs 02/06/22 [Rx Confirmed 11/12/22] carvedilol 12.5 mg tablet 12.5 mg PO BID Please mail to patient's [place] address #180 tabs 02/06/22 [Rx Confirmed 11/12/22] omeprazole magnesium 20 mg tablet,delayed release 20 mg PO DAILY reflux #90 tabs02/06/22 [Rx Confirmed 11/12/22] hydrochlorothiazide 25 mg tablet 25 mg PO DAILY Please mail to [place] Address #90 tabs 03/17/22 [Rx Confirmed 11/12/22] rosuvastatin 20 mg tablet See Rx Instructions .Route .COMPLEX #90 tabs 05/20/22 [Rx Confirmed 11/12/22] losartan 50 mg tablet 50 mg PO DAILY #90 tabs 06/24/22 [Rx Confirmed 11/12/22] PFSH Medical History Atherosclerotic heart disease of [place] coronary artery without angina pectoris Carotid bruit Carotid stenosis, asymptomatic Cellulitis Diverticulitis Essential hypertension Hyperlipidemia Old inferior wall myocardial infarction PVD (peripheral vascular disease) Sepsis Surgical History H/O coronary artery bypass surgery (02/2004) History of hip replacement History of knee surgery History of left heart catheterization (04/02/18) Family History Other CVA (cerebral vascular accident) Social History Smoking Status: Former smoker how long ago did patient quit smokin alcohol intake: current alcohol intake frequency: a few times a week Alcohol type: beer and wine substance use type: does not use caffeine: Yes Type: coffee Number of servings: 1 HPI HPI HPI: He said about 5 years ago he [id number] gentleman is being referred by Dr Prema Martini for surgical consultation regarding gastroesophageal reflux disease and a hiatal hernia. Written compromise surgical consult recommendations will be returned to him. 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 Patient also has a history of coronary bypass grafting and chronic left lower extremity edema and chronic anemia.. Among his other medications he is on omeprazole and fish oil. Laboratory of October 08, 2022 demonstrates a white count of 3.9 with a Hgb 11.8,hematocrit 36.6 platelet countof 255,000. BUN 21 with a creatinine 0.99 and an estimated GFR of 77. On November 02, 2022 he had a contrast barium esophagram. I have personally reviewed those images. He has been found to have a large sliding hiatal hernia. 12 mm barium tablet passes easily. The patient states for at least 10 to 15 years he has had swallowing problems. When he starts to eat the first several swallows do not go down he has to use water. He has been on omeprazole therapy for at least 10 years. He states thatafter about the last colonoscopy I placed him on Metamucil which she takes nightly. There is some discussion between he and his as to whether he is having rectal bleeding. He denies it and states that he occasionally has some fecal incontinence. Hospitalized when he was in [place] with right lower extremity cellulitis that caused sepsis. He was treated in the hospital for 6 days and in addition he hasan outpatient for at least 10 days with PICC line and IV antibiotics. He currently is denying any abdominal pain. He denies any previous abdominal surgery. He has never had an upper endoscopy. November 02, 2022 STUDY: X-RAY - ESOPHAGUS (BARIUM SWALLOW) WITH FLUOROSCOPY REASON FOR EXAM: Male, 82 years old. 2 year history of dysphagia. TECHNIQUE: 16 view(s) of the esophagus were obtained following swallowing of barium. FLUOROSCOPY TIME (if supplied): (42 seconds) minutes/seconds. 21.25 mGy COMPARISON: None. FINDINGS: There is no demonstrated esophageal foreign body. There is no demonstrated stricture or mucosal abnormality. There is evidence of a large sliding hiatal hernia. No evidence of gastroesophageal reflux. The patient ingested a 12 mm tablet of barium without any difficulty. There is atherosclerotic tortuosity of the aortic arch and descending thoracic aorta. Normal visualized pulmonary parenchyma. Normal visualized osseous structures of the thorax. RAD/Esophagus Dual Contrast IMPRESSION: Large sliding hiatal hernia without gastroesophageal reflux. Electronically Signed: Johnie Reed MD at 8:38 EDT , ROS General General: Yes weight change; No appetite, fatigue, colon cancer, breast cancer or weakness HEENT HEENT: Yes difficulty swallowing and eye surgery; No eye injury, swollen glands or hoarseness Endo Endocrine: No thyroid disease, diabetes mellitus, thyroid cancer, Hair loss, heat intolerance or cold intolerance Skin Skin: No rash or changing moles Breast Breast: No left breast lump, right breast lump, nipple discharge, breast pain, abnormal mammogram, abnormal US or breast enlargement Musc Musculoskeletal: No back problems, arthritis, rheumatoid arthritis, gout or joint pain Cardio Cardiovascular: Yes heart disease; No murmur, pacemaker, atrial fibrillation, high blood pressure, heart attack, heart stent, palpitations, shortness of breat with exertion or chest pain Psych Psychiatric: No depression, anxiety or hearing voices Resp Respiratory: No shortness of breath, No sleep apnea, Yes cough, No COPD, No asthma, No emphysema and No wheezing Gastro Gastrointestinal: No abdominal pain, No nausea or vomiting, No diarrhea, No constipation, Yes blood in stool, Yes acid reflux, No hemorrhoids, No ulcers, Nogallbladder problem and No black,tarry stools Skyler Hematologic: No blood thinners, No blood disorders, No bleeding, No anemia and No blood clots Neuro Neurologic: No system reviewed and no additional complaints, except as documented, No as per HPI, No abnormal gait, No abnormal hearing, No abnormal movements, No abnormal speech, No behavioral changes, No burning sensations, No confusion, No convulsions, No disequilibrium, No dizziness, No localized weakness, No frequent falls, No headache(s), No lack of coordination, No loss ofvision, No memory loss, No numbness, No other visual disturbances, No radicular pain, No restless legs, No sensory deficit, No syncope, No tingling, No tremor(s), No weakness and No other Exam Const General: cooperative, comfortable and no acute distress Nutritional Appearance: obese HENMT Head: normal to inspection Eyes General: appearance normal, both eyes and all related structures Neck Other: Cervical kyphosis noted Chest Other: Increased anterior posterior diameter. Diminishing height. Resp Effort & Inspection: normal respiratory effort Auscultation: clear to auscultation bilaterally Cardio Rate: regular rate Rhythm: regular rhythm Other: 2/6 systolic ejection murmur GI Inspection: normal to inspection Palpation: soft and no hepatosplenomegaly Skin Other: Chronic mild hyperpigmentation bilateral lower extremities Neuro General: patient alert, patient awake and patient oriented x3 Extrem Other: 2+ left lower extremity edema with 1+ right lower extremity edema Psych Appearance: grossly normal Assessment and Plan Assessment and Plan (1) Hiatal hernia: Status: Acute Plan: I recommended the patient esophagogastroduodenoscopy to measure the length esophagus and get biopsies if indicated in intraluminal viewing of the hiatal hernia. I have additionally discussed with him potential for future consideration for surgical repair albeit in an 82-year-old that does take some risk. His abdominal body habitus has his body weight in his abdomen. As noted he has had a previous history of coronary bypass surgery as well. At this point I do believe it is pertinent to proceed with the upper scope. Then pending those findings can determine whether manometry would be of need. He has had an opportunity to ask and have questions answered. I appreciate the opportunity assist with surgical care Because of the patient's monoclonal gammopathy he states that a year or so ago he had a total body scan at [place] and he was told it was clear. We will tryto get report and imaging regarding that particular study. Copy: Dr Prema Spencer M.D., F.A.C.S. I have examined the patient and the H&P has been reviewed. There are no clinicalchanges since date of exam. Aamir Spencer M.D., F.A.C.S. 12/04/22 0743 <Electronically signed by Aamir Spencer MD> Cosigner Signature (if applicable): CC: Dr. Prema Martini MD; Dr. Aamir Spencer MD~ Signed [facility] Work Phone: [phone]) 300-643107-28-2023 Procedure [facility] 12-04-2022 Procedure [facility]07-25-2023 Miscellaneous Notes* Telephone Encounter - Keshia Vieira - 12/01/2022 12:13 PM EDT Patient scheduled MRI with imaging. Recall letter entered for lab and office visit. * Telephone Encounter - Tina Hwang - 11/30/2022 10:43 AM EDT 1st attempt: No ring, right to VM LM * Telephone Encounter - Crystal Womack - 10/27/2022 12:20 PM EDT MRI Brain when able. CBC/CMP/Myeloma labs then OV in about a year. 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 I went to schedule his brain mri and he told me that he is only here 4 months out of the year (september-jan). He said he has things planned for the time that he is here in [place] but wasn't sure when. I told the patient we could call him in about a month to see what he was thinking. He made a few comments about being too busy to get the test done. I voiced understanding to patient. I will postpone this message one month. After message pops back up please contact patient to schedule Brain Mri and labs and OV. Crystal documented in this encounterMain [facility]06-20-[facility]23 History of Present illness Narrative* Mak Mendoza DO - 10/27/2022 11:40 AM EDT DIAGNOSIS: 1) Monoclonal gammopathy of unknown significant HPI: This is an 82-year-old gentleman who has history of chronic anemia, hypertension, hypercholesterolemia, ASCAD (CABG x5 in 2003) who presented to his primary care physician for routine follow-up visit for anemia. Despite his anemia, he had no increased fatigue, or shortness of breath. He was very active and still golfs couple times a week. He stay in [place] for winter and spring and come back to [place] from September to January. His only other complaint was chronic left knee pain secondary to arthritis and previous meniscus tear. Laboratory study revealed a mild normocytic normochromic anemia, and an increase M spike of 2 g/dL on his serum protein electrophoresis. He has normal calcium and normal renal function. Interim history: He did not have brain MRI done in [place] this past winter. Having pain in metatarsals b/l when walking or playing golf. Denies neuropathy. He denies headaches. Occasional blood in stools attributed to diverticular bleeding. Has had this symptom for about 25 years. Bleeding will occur with certain foods--particularly peanut M&Ms. Last C-scope was about 2 years ago. Was told by Dr. Fitch no need for follow up due to age. Not taking ASA currently due to bleeding. PMH, medications and allergies personally reviewed by me today. Any changes documented in appropriate section. PHYSICAL EXAM: Vitals: Blood pressure 156/63, pulse (!) 58, temperature 36.6 C (97.8 F), temperature source Tympanic, resp. rate 18, height 170.2 cm (5' 7), weight 93.2 kg (205 lb 8 oz), SpO2 97 %. Well-appearing and in no acute distress. EYES: Sclerae are anicteric bilaterally. LYMPHATIC: There is no palpable cervical, supraclavicular adenopathy. RESPIRATORY: Inspiratory breath sounds are of normal intensity in all martino. CARDIOVASCULAR: Rhythm is regular. ABDOMEN: The abdomen is nondistended. No splenomegaly or hepatomegaly. No tenderness. Extremities: Mild chronic swelling left lower extremity secondary to vein harvesting. SKIN: No jaundice. 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 No focal motor weakness. LABORATORY DATA: Component Latest Ref Rng & Units 10/22/2020 11/07/2021 10/20/2022 WBC 3.70 - 11.00 k/uL 4.70 3.91 6.04 RBC 4.20 - 6.00 m/uL 4.36 3.91 (L) 4.17 (L) Hemoglobin 13.0 - 17.0 g/dL 12.8 (L) 11.7 (L) 12.2 (L) Hematocrit 39.0 - 51.0 % 38.5 (L) 35.4 (L) 37.5 (L) MCV 80.0 - 100.0 fL 88.3 90.5 89.9 MCH 26.0 - 34.0 pg 29.4 29.9 29.3 MCHC 30.5 - 36.0 g/dL 33.2 33.1 32.5 RDW-CV 11.5 - 15.0 % 13.2 13.0 13.6 Platelet Count 150 - 400 k/uL 239 212 243 MPV 9.0 - 12.7 fL 9.8 9.8 9.6 Neut% % 64.5 59.2 69.6 Abs Neut (ANC) 1.45 - 7.50 k/uL 3.03 2.32 4.21 Lymph% % 23.2 23.3 15.6 Abs Lymph 1.00 - 4.00 k/uL 1.09 0.91 (L) 0.94 (L) [place]% % 7.4 11.3 6.5 Abs [place] <0.87 k/uL 0.35 0.44 0.39 Eosin% % 4.5 5.4 7.6 Abs Eosin <0.46 k/uL 0.21 0.21 0.46 (H) Baso% % 0.4 0.8 0.5 Abs Baso <0.11 k/uL <0.03 0.03 0.03 Immature Gran % % 0.0 0.2 IMMATURE GRANS (ABS) <0.10 k/uL <0.03 <0.03 NRBC /100 WBC 0.0 0.0 Absolute nRBC <0.01 k/uL <0.01 <0.01 <0.01 DTYPE Auto Auto Nucleated Reds 0 /100 WBC 0.0 Diff Type Auto Diff Protein, Total 6.3 - 8.0 g/dL 8.0 Albumin 3.9 - 4.9 g/dL 4.2 Calcium 8.5 - 10.2 mg/dL 9.7 Bilirubin, Total 0.2 - 1.3 mg/dL 0.6 Alkaline Phosphatase 38 - 113 U/L 76 AST 14 - 40 U/L 18 ALT 10 - 54 U/L 10 Glucose 74 - 99 mg/dL 88 BUN 9 - 24 mg/dL 12 Creatinine 0.73 - 1.22 mg/dL 0.95 Sodium 136 - 144 mmol/L 136 Potassium 3.7 - 5.1 mmol/L 4.0 Chloride 97 - 105 mmol/L 99 CO2 22 - 30 mmol/L 28 Anion Gap 9 - 18 mmol/L 9 eGFR >=60 mL/min/1.73m 80 LD 135 - 225 U/L 146 B2 Microglobulin <3.1 mg/L 2.6 Component Latest Ref Rng & Units 10/22/2020 11/07/2021 10/20/2022 Protein, Total 6.3 - 8.0 g/dL 7.5 Albumin 3.43 - 5.41 g/dL 3.58 3.58 3.96 Alpha 1 Globulin 0.18 - 0.43 g/dL 0.22 0.18 0.28 Alpha 2 Globulin 0.42 - 0.98 g/dL 0.68 0.60 0.67 Beta Globulin 0.61 - 1.17 g/dL 0.81 (L) 0.78 (L) 0.63 Gamma Globulin 0.53 - 1.51 g/dL 2.22 (H) 1.87 (H) 2.25 (H) Interpretation (Prot Electro) No definitive M protein is identified on protein electrophoresis. SEECOMMENT An M protein is identified on protein electrophoresis. (A) An M protein is identified on protein electrophoresis. (A) M-Protein Location Gamma fraction Gamma Fraction 1 Gamma Fraction 1 M-Protein Concentration <=0.00 g/dL 1.85 (H) 1.52 (H) 1.95 (H) SPE Staff Review Reviewed by Yesy Gonzalez MD ([id number]) Reviewed by Yesy Gonzalez MD Reviewed byRaoul Hidalgo MD, Ph.D ([id number]) Interpretation Comment for Protein Electrophoresis See separate immunofixation report for characterization of monoclonal gammopathy. See separate immunofixation report for characterization of monoclonal gammopathy. 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 -Mild anemia over the last 2 years. -No hypercalcemia or renal dysfunction. -MP stable. Plan: -Reassess in a year. (D64.9) Anemia, unspecified type Assessment: -Chronic, longstanding mild anemia. -Occasional rectal bleeding attributed previously to diverticular bleeding. He has had colonoscopy within the last 2 years. He has not taken aspirin for concern of exacerbating bleeding. Plan: -Continue monitoring counts. -He will follow-up with his PCP. (D32.9) Meningioma (HCC) Assessment: -Incidental finding on whole-body CT scan done 11/2021. -Has not yet had MRI to verify diagnosis. Plan: -MRI brain when able. Portions of this documentation were copied and pasted from previous office visit notes in order to provide a cohesive continuity of the history. The note has been reviewed and edited and updated as necessary. I spent a total of 45 minutes on the date of the service which included preparing to see the patient, syed-am-edaj patient care, completing clinical documentation, obtaining and/or reviewing separately obtained history, performing a medically appropriate examination, counseling and educating the pat ient/family/caregiver, communicating with other HCPs (not separately reported), and communicating results to the patient/family/caregiver. Mak Mendoza DO documented in this encounterMain [facility] Center01-30-2023 Miscellaneous Notes* Telephone Encounter - Brittany Dang LPN - 06/08/2022 9:41 AM EST Left message on identified voicemail to contact office concerning where we stood on previous notation. Does Dr. Camp need office notes or does he want to speak with Dr. Mendoza? Brittany Dang LPN * Telephone Encounter - Fabby Sheldon - 06/03/2022 12:42 PM EST Patient called stating that his practitioner, Dr. Sanchez, in [place] is requesting to speak with a physician in the Hem/onc department about the patinet's current condition. He was informed that Dr. Zhang has retired. He states that he will notify Dr. Sanchez of the prison of Dr. Zhang and see if heis willing to speak with Dr. Mendoza instead. documented in this encounterMain Campus Medical Center09-04-2022 Miscellaneous Notes* Telephone Encounter - Shannon Stanley LPN - 01/11/2022 9:45 AM EDT Left detailed message on identifiable voicemail. * Telephone Encounter - Caitlin Serrano APRN.CNP - 01/11/2022 8:20 AM EDT Please reach out to patient and discuss following COVID 19 negative. Please continue treatment plan discussed at time of discharge. Follow up with primary care provider. documented in this encounterMain Campus Medical Center09-03-2022 History of Present illness Narrative* Kimberlee Dunn APRN.FEROZ - 01/10/2022 2:40 PM EDT Subjective HPI Maude presents today with one day hx of pnd, along with a productive cough,and nasal congestion.He is most concerned that his just recovered from pneumonia and he is considered he may also have pneumonia or covid He denies shortness of breath, states he is eating and drinking well, does not feel fatigued and isdoing his normal daily activities. Sick contacts in his home was his but improved He has not tried any home meds, but has used benadryl due to allergy symptoms this Weeks PAST MEDICAL HISTORY Diagnosis Date Hemorrhage of gastrointestinal tract, unspecified PAST SURGICAL HISTORY Procedure Laterality Date CABG (4) VEIN GRAFTS & ARTERIAL GRAFT(S) 2003 COLONOSCOPY FLX DX W/COLLJ SPEC WHEN PFRMD 03/12/2006 Diverticulosis and ext. hemorrhoids ALLERGIES Patient has no known allergies. MEDICATIONS prednisoLONE acetate (PRED FORTE, ECONOPRED PLUS) 1 % ophthalmic suspension 1 Drop four times daily. losartan (COZAAR) 50 mg tablet Take 50 mg by mouth once daily. latanoprost (XALATAN) 0.005 % ophthalmic solution Use 1 Drop in eyes daily at bedtime. dorzolamide-timolol (COSOPT) 22.3-6.8 mg/mL ophthalmic solution Use 1 Drop in eyes twice daily. dorzolamide (TRUSOPT) 2 % ophthalmic solution Use 1 Drop in eyes twice daily. Wpndt-1-ERA-EPA-Fish Oil 1,000 mg (120 mg-180 mg) cap Take 2 g by mouth every 48 hours. diphenhydrAMINE (BENADRYL) 25 mg capsule Take 25 mg by mouth every 6 hours as needed. PRN hydroCHLOROthiazide (HYDRODIURIL, ESIDRIX) 12.5 mg tablet Take 25 mg by mouth once daily. fluticasone (FLONASE) 50 mcg/actuation nasal spray Use 2 Sprays in each nostril once daily. Rinse mouth after use. amlodipine besylate (NORVASC ORAL) Take 10 mg by mouth once daily. carvedilol (COREG) 12.5 mg tablet Take 12.5 mg by mouth twice daily with meals. ROSUVASTATIN CALCIUM (CRESTOR ORAL) Take 20 mg by mouth once daily. OMEPRAZOLE ORAL Take 20 mg by mouth once daily. fluticasone (FLONASE) 50 mcg/actuation nasal spray Use 2 Sprays in each nostril once daily. Rinse mouth after use. doxycycline (VIBRA-TABS) 100 mg tablet Take 1 tablet by mouth twice daily for 10 days. aspirin, enteric coated (ASPIRIN, ENTERIC COATED) 81 mg EC tablet Take 81 mg by mouth once daily. (Patient not taking: Reported on 12/01/2021 ) OTC PRODUCT Tumeric, once daily (Patient not taking: Reported on 12/01/2021 ) METOPROLOL SUCCINATE ORAL Take 1 tablet by mouth once daily. (Patient not taking: Reported on 01/10/2022) albuterol HFA (VENTOLIN HFA) 90 mcg/actuation inhaler Inhale 2 Puffs as instructed every 4 hours asneeded for Wheezing/Shortness of Breath. (Patient not taking: Reported on 10/01/2020 ) No family history on file. Social History Tobacco Use Smoking status: Former Packs/day: 1.00 Years: 12.00 Pack years: 12.00 Types: Cigarettes Quit date: 05/10/1967 Years since quittin.7 Smokeless tobacco: Never Vaping Use Vaping Use: Never used Substance Use Topics Alcohol use: Yes Comment: occassionally Drug use: Never Review of Systems Constitutional: Negative for fever. HENT: Positive for congestion. Negative for ear discharge, ear pain, nosebleeds, sinus pain and sore throat. Pnd Eyes: Negative. Respiratory: Positive for cough. Negative for hemoptysis, sputum production, shortness of breath, wheezing and stridor. Cardiovascular: Negative. Gastrointestinal: Negative. Genitourinary: Negative. Musculoskeletal: Negative. Skin: Negative for rash. Neurological: Negative. Endo/Heme/Allergies: Negative. Psychiatric/Behavioral: Negative. Objective Physical Exam Constitutional: Appearance: Normal appearance. HENT: Head: Normocephalic. Right Ear: Tympanic membrane, ear canal and external ear normal. Left Ear: Tympanic membrane, ear canal and external ear normal. Nose: Nose normal. Mouth/Throat: Mouth: Mucous membranes are moist. Pharynx: Oropharynx is clear. Comments: Pnd noted Eyes: Pupils: Pupils are equal, round, and reactive to light. Cardiovascular: Rate and Rhythm: Normal rate and regular rhythm. Pulmonary: Effort: Pulmonary effort is normal. No respiratory distress. Breath sounds: Normal breath sounds. No stridor. No wheezing, rhonchi or rales. Chest: Chest wall: No tenderness. Abdominal: General: Abdomen is flat. Palpations: Abdomen is soft. Musculoskeletal: Cervical back: Normal range of motion and neck supple. Lymphadenopathy: Cervical: No cervical adenopathy. Skin: General: Skin is warm and dry. Neurological: General: No focal deficit present. Mental Status: He is alert and oriented to person, place, and time. Mental status is at baseline. ASSESSMENT/PLAN: 1. Acute cough - ICD9: 786.2, ICD10: R05.1 Flonase Covid testing today Increase fluids Rx not to be obtained unless fever or symptoms worsen Call or return if symptoms worsen - COVID WITH FLUA+B, ROUTINE Kimberlee Dunn APRN.FEROZ documented in this encounterMain Campus Medical Center07-25-2022 Miscellaneous Notes* Telephone Encounter - Rosa Arroyo LPN - 12/01/2021 4:15 PM EDT He will be in [place] and he will schedule that with his primary care physician in [place]. Alexus Zhang MD * Telephone Encounter - Rosa Arroyo LPN - 12/01/2021 3:24 PM EDT pended. Rosa Arroyo LPN * Telephone Encounter - Ramona Causey - 12/01/2021 2:38 PM EDT Per 's AVS from today: -Repeat CBC and myeloma labs OV in 1 year. ( Need MRI brain w / wo in 6 months for partially calcified meningioma in left frontal lobe ) Please file orders for MRI Brain, thank you. Ramona Gatohilary documented in this encounterMain Campus Medical Center10-01-2004 Evaluation note* Diagnosis Onset Date Resolution Status Essential hypertension chron ic Hyperlipidemia chronic H/O coronary artery bypass surgery February, resolved [facility] Work Phone: [phone]) 730-732910-01-2004 Evaluation note* Diagnosis Onset Date Resolution Status Hiatal hernia acute Murmur acute Essential hypertension chron ic Hyperlipidemia chronic H/O coronary artery bypass surgery February, resolved [facility] Work Phone: Evaluation note* Diagnosis Multiple myeloma not having achieved remission (HCC) Multiple myeloma, without mention of having achieved remission [facility]* Diagnosis Acute cough- Primary documented in this encounter [facility] noteNo assessment information availableWCrystal Clinic [facility] Work Phone: Evaluation note* Diagnosis 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 Monoclonal paraproteinemia Anemia, unspecified type Meningioma (HCC) Benign neoplasm of cerebral meninges [facility]* Diagnosis Meningioma (HCC) Benign neoplasm of cerebral meninges documented in this encounter [facility]* Diagnosis 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 Monoclonal paraproteinemia Meningioma (HCC) Benign neoplasm of cerebral meninges Parotid nodule Other specified diseases of the salivary glands documented in this encounter [facility]* Diagnosis Fatigue, unspecified type- Primary Feels feverish Fever, unspecified 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 Monoclonal paraproteinemia Anemia, unspecified type documented in this encounter [facility]* Diagnosis Onset Date Resolution Status Admit Date Essential hypertension chronic Au shira 2024 12:59pm Hyperlipidemia chronic December 12:59pm Murmur chronic December 19, 2 025 12:59pm H/O coronary artery bypass surgery February, resolved December 19 12:59pm [facility] Work Phone: Reason for referral (narrative)No reason for referral information availableBlSan Joaquin [facility] Work Phone: Chief Complaint and Reason for Visit Chief Complaint 6 M FU (WHEN BACK FR OM [place]) Reason for Visit Essential hypertensi on Hyperlipidemia H/O coronary artery bypass surgery Chief Complaint 6 M FU (WHEN BACK FR OM [place]) OCCLUSION & STENOSIS OF CAROTID ARTERY Reason for Visit Essential hypertensi on Hyperlipidemia H/O coronary artery bypass surgery Chief Complaint DYSPHAGIA Chief Complaint DYSPHAGIA Hiatal Hernia 1 Y FU OLD MYOCARDIAL INFARCTION Amb Documentation Reason for Visit Hiatal hernia Murmur Essential hypertension Hyperlipidemia H/O coronary artery bypass surgery Chief Complaint Admit Date 1 Y FU December 19, 2024 12 :59pm Reason for Visit Admit Date Essential hypertension December 19, 2024 12:59pm Hyperlipidemia December 19, 2024 12 :59pm Murmur December 19, 2024 12 :59pm H/O coronary artery bypass surgery Augus t 2024 12:59pm Advance Directives Advance Directive Response Recorded Date/ Time Living Will Yes November 30, 2017 11:39am Power of Forming Acid Dumper Yes November 30 8 11:39am Advance Directive Response Recorded Date/ Time Living Will Yes November 30, 2022 4:36pm Power of Forming Acid Dumper No November 30 4:36pm Reason for Referral Specialty Diagnoses / Procedures Referred By Justino t Referred To Contact CT IMAGING Diagnoses Multiple myeloma not having achieved remission (HCC) Procedures CT WHOLE BODY SKULL TO KNEE WO IVCON UNLISTED COMPUTED TOMOGRAPHY PROCEDURE Alexus Zhang MD [address] [place] [address] Ct Imaging Referral ID Status Reason Start Date Expiration Date V isits Requested Visits Authorized [id number] Closed Auto-Generate d Referral 11/14/2021 12/14/2022 1 1 Specialty Diagnoses / Procedures Referred By Contac t Referred To Contact MR IMAGING Diagnoses Meningioma (HCC) Procedures MRI BRAIN WO/W IVCON MRI BRAIN BRAIN STEM W/O W/CONTRAST MATERIAL Mak Mendoza, DO [address] [facility] [place] [address] Mr Imaging Referral ID Status Reason Start Date Expiration Date Visits Requested Visits Authorized [id number] Pending Review Auto-Generat ed Referral 10/27/2022 11/26/2023 1 1 Specialty Diagnoses / Procedures Referred By Contac t Referred To Contact MR IMAGING Diagnoses Meningioma (HCC) Procedures MRI BRAIN WO/W IVCON MRI BRAIN BRAIN STEM W/O W/CONTRAST MATERIAL Mak Mendoza, DO [address] [place] [address] [place] [id number] Referral ID Status Reason Start Date Expiration Date V isits Requested Visits Authorized [id number] Closed Auto-Generate d Referral 10/27/2022 11/26/2023 1 1 Specialty Diagnoses / Procedures Referred By Contac t Referred To Contact Ent - Otolaryngology Diagnoses Parotid nodule Procedures CONSULT TO ENT Mak Mendoza, DO [address] [place] [address] [address] Referral ID Status Reason Start Date Expiration Date Visits Requested Visits Authorized [id number] Ref Not Required PCP Requested Referral 11/24/2023 11/23/2024 1 1 Specialty Diagnoses / Procedures Referred By Contac t Referred To Contact Neurology Diagnoses Meningioma (HCC) Procedures CONSULT TO NEUROLOGY Mak Mendoza, DO [address] [facility] [address] [facility] [address] [place] [address] Referral ID Status Reason Start Date Expiration Date Visits Requested Visits Authorized [id number] Ref Not Required PCP Requested Referral 11/24/2023 11/23/2024 1 1 Summary Purpose Family History No Family History Records Found Health Concerns Infection Onset Date Last Indicated Resolved Time COVID-19 Rule-Out 01/10/2022 01/10/2022 01/11/2022 7:19 AM EDT Additional Source Comments Goals (unrecognized section and content) Goals may be documented in a n alternate sectionGoals may be documented in an alternate sectionGoals may be documented in an alternate sectionGoals may be documented in an alternate sectionGoals may be documented in an alternate sectionGoals may be documented in an alternate sectionGoals may be documented in an alternate section Source Comments (unrecognize d section and content) In the event this informatio n is protected by the Federal Confidentiality of Alcohol and Drug Abuse Patient Records regulations: The Federal rules restrict any use of the information to criminally investigate or prosecute any alcohol or drug abuse patient.[facility] Medical CenterIn the event this information is protected by the Federal Confidentiality of Alcohol and Drug Abuse Patient Records regulations: The Federal rules restrict any use of the information to criminally investigate or prosecute any alcohol or drug abuse patient.[facility] CenterIn the event this information is protected by the Federal Confidentiality of Alcohol and Drug Abuse Patient Records regulations: The Federal rules restrict any use of the information to criminally investigate or prosecute any alcohol or drug abuse patient.[facility] CenterIn the event this information is protected by the Federal Confidentiality of Alcohol and Drug Abuse Patient Records regulations: The Federal rules restrict any use of the information to criminally investigate or prosecute any alcohol or drug abuse patient.[facility] CenterIn the event this information is protected by the Federal Confidentiality of Alcohol and Drug Abuse Patient Records regulations: The Federal rules restrict any use of the information to criminally investigate or prosecute any alcohol or drug abuse patient.[facility] CenterIn the event this information is protected by the Federal Confidentiality of Alcohol and Drug Abuse Patient Records regulations: The Federal rules restrict any use of the information to criminally investigate or prosecute any alcohol or drug abuse patient.[facility] CenterIn the event this information is protected by the Federal Confidentiality of Alcohol and Drug Abuse Patient Records regulations: The Federal rules restrict any use of the information to criminally investigate or prosecute any alcohol or drug abuse patient.[facility] CenterIn the event this information is protected by the Federal Confidentiality of Alcohol and Drug Abuse Patient Records regulations: The Federal rules restrict any use of the information to criminally investigate or prosecute any alcohol or drug abuse patient.[facility] CenterIn the event this information is protected by the Federal Confidentiality of Alcohol and Drug Abuse Patient Records regulations: The Federal rules restrict any use of the information to criminally investigate or prosecute any alcohol or drug abuse patient.[facility] CenterIn the event this information is protected by the Federal Confidentiality of Alcohol and Drug Abuse Patient Records regulations: The Federal rules restrict any use of the information to criminally investigate or prosecute any alcohol or drug abuse patient.[facility] CenterIn the event this information is protected by the Federal Confidentiality of Alcohol and Drug Abuse Patient Records regulations: The Federal rules restrict any use of the information to criminally investigate or prosecute any alcohol or drug abuse patient.[facility] CenterIn the event this information is protected by the Federal Confidentiality of Alcohol and Drug Abuse Patient Records regulations: The Federal rules restrict any use of the information to criminally investigate or prosecute any alcohol or drug abuse patient.[facility] CenterIn the event this information is protected by the Federal Confidentiality of Alcohol and Drug Abuse Patient Records regulations: The Federal rules restrict any use of the information to criminally investigate or prosecute any alcohol or drug abuse patient.[facility] Reason for Visit (unrecogniz ed section and content) Specialty Diagnoses / Procedures Referred By Justino chacon Referred To Contact CT IMAGING Diagnoses Multiple myeloma not having achieved remission (HCC) Procedures CT WHOLE BODY SKULL TO KNEE WO IVCON UNLISTED COMPUTED TOMOGRAPHY PROCEDURE Alexus Zhang MD [address] [place] [address] Ct Imaging Referral ID Status Reason Start Date Expiration Date V isits Requested Visits Authorized [id number] Closed Auto-Generate d Referral 11/14/2021 12/14/2022 1 1 Reason Comments Orders Reason Comments Cough X 1 day Reason Comments Results Reason Comments Patient Update Reason Comments Established Patient Reason Comments Appointment Specialty Diagnoses / Procedures Referred By Justino t Referred To Contact MR IMAGING Diagnoses Meningioma (HCC) Procedures MRI BRAIN WO/W IVCON MRI BRAIN BRAIN STEM W/O W/CONTRAST MATERIAL Mak Mendoza, DO [address] [place] [address] [place] [id number] Referral ID Status Reason Start Date Expiration Date V isits Requested Visits Authorized [id number] Closed Auto-Generate d Referral 10/27/2022 11/26/2023 1 1 Reason Comments Established Patient Reason Comments AVS 11/24/23 Reason Comments Fatigue Fatigue and feels we ak-woke up with symptoms Reason Comments Established Patient Care Teams (unrecognized sec tion and content) Still Cleaner Relationship Specialty Start Date End Date Prema Martini [address] [facility] [address] [place] [address] PCP - General Family Practice 11/14/21 Still Cleaner Relationship Specialty Start Date End Date Prema Martini [address] [facility] [address] [place] [address] PCP - General Family Practice 11/14/21 Still Cleaner Relationship Specialty Start Date End Date Prema Martini [address] [facility] [address] [place] [address] PCP - General Family Practice 11/14/21 Still Cleaner Relationship Specialty Start Date End Date Prema Martini [address] [facility] [address] [place] [address] PCP - General Family Practice 11/14/21 Still Cleaner Relationship Specialty Start Date End Date Prema Martini [address] [facility] [address] [place] [address] PCP - General Family Medicine 11/14/21 Team Status: Active Member Role Status Dates Dr. Prema Genao MD Family Provider Active Dr. Prema Martini MD Primary Care Provider Active Team Status: Inactive Member Role Status Dates Dr. Prema Martini MD Primary Care Provider, Attend ing Provider Active Still Cleaner Relationship Specialty Start Date End Date Prema Martini [address] [facility] [address] [place], [place] [id number] PCP - General Family Medicine 11/14/21 Joe Leyva [address] [facility] [address] [place], [place] [id number] Cardiology 10/27/22 Team Status: Inactive Member Role Status Dates Dr. Prema Martini MD Primary Care Pr ovider, Attending Provider, Referring Provider Active Team Status: Inactive Member Role Status Dates Dr. Prema Martini MD Primary Care Provider, Referr ing Provider Active Dr. Joe Leyva MD Attending Provider Active Team Status: Inactive Member Role Status Dates Dr. Prema Martini MD Primary Care Provider, Referr ing Provider Active Dr. Aamir Spencer MD Attending Provider Active Team Status: Active Member Role Status Dates Dr. Prema Martini MD Primary Care Provider Active Dr. Joe Leyva MD Attending Provider Active Team Status: Active Member Role Status Dates Dr. Prema Martini MD Primary Care Provider Active Laura Martinez STORE LOSS PREVENTION MANAGER, STORE LOSS PREVENTION MANAGER-C Attending Provider Active Team Status: Inactive Member Role Status Dates Dr. Prema Martini MD Primary Care Provider Active Dr. Joe Leyva MD Attending Provider Active Team Status: Active Member Role Status Dates Dr. Prema Martini MD Primary Care Provider Active Dr. Joe Leyva MD Attending Provider, Referring Pro vider Active Team Status: Active Member Role Status Dates Dr. Prema Martini MD Primary Care Provider, Referr ing Provider Active Dr. Aamir Spencer MD Attending Provider, Other Prov ider Active Still Cleaner Relationship Specialty Start Date End Date Prema Martini MD [address] [facility] [address] [place], [place] [id number] PCP - General Family Medicine 11/14/21 Joe Leyva MD [address] [facility] [address] [place], [place] [address] Cardiology 10/27/22 Still Cleaner Relationship Specialty Start Date End Date Prema Martini MD [address] [facility] [address] [place] [address] PCP - General Family Medicine 11/14/21 Joe Leyva MD [address] [place] [address] Cardiology 10/27/22 Still Cleaner Relationship Specialty Start Date End Date Prema Martini MD [address] [facility] [address] [place] [address] PCP - General Family Medicine 11/14/21 Joe Leyva MD [address] [place] [address] Cardiology 10/27/22 Still Cleaner Relationship Specialty Start Date End Date Prema Martini MD [address] [facility] [address] [place] [address] PCP - General Family Medicine 11/14/21 Joe Leyva MD [address] [facility] [address] [place] [address] Cardiology 10/27/22 Still Cleaner Relationship Specialty Start Date End Date Prema Martini MD [address] [facility] [address] [place] [address] PCP - General Family Medicine 11/14/21 Joe Leyva MD [address] [place] [address] Cardiology 10/27/22 Still Cleaner Relationship Specialty Start Date End Date Prema Martini MD [address] [place] [address] [place], [place] [address] PCP - General Family Medicine 11/14/21 Joe Leyva MD [address] [place], [place] [address] Cardiology 10/27/22 Team Status: Active Member Role/Relationship Status Dates Dr. Prema Genao MD Family Provider Active Dr. Prema Martini MD Primary Care Provider Active Team Status: Inactive Member Role/Relationship Status Dates Dr. Prema Martini MD Primary Care Provider Active Start: December 19, 2024 End: December 19, 2024 Dr. Prema Martini MD Referring Provider Active Start: December 19, 2024 End: December 19, 2024 Prema Le NP, STORE LOSS PREVENTION MANAGER-C Attending Provider Active S tart: December 19, 2024 End: December 19, 2024 (unrecognized sect ion and content) No Status Records FoundNo Status Records FoundNo Status Records Found INFORMATION SOURCE (unrecogn ized section and content) DATE CREATED AUTHOR 11/28/2021 [facility] DATE CREATED AUTHOR AUTHOR'S ORGANIZ ATION 02/08/2024 [facility] DATE CREATED AUTHOR AUTHOR'S ORGANIZ ATION 12/13/2024 [facility] FOR RECORDS PERTAINING TO PATIENTS WHO ARE OR HAVE BEEN ENROLLED IN A CHEMICAL DEPENDENCY/SUBSTANCEABUSE PROGRAM, SOME INFORMATION MAY BE OMITTED. This clinical summary was aggregated from multiple sources. Caution should be exercised in using it in the provision of clinical care. This summary normalizes information from multiple sources, and as a consequence, information in this document may materially change the coding, format and clinical context of patient data. In addition, data may be omitted in some cases. CLINICAL DECISIONS SHOULD BE BASED ON THE PRIMARY CLINICAL RECORDS. [facility]. provides no warranty or guarantee of the accuracy or completeness of information in this document.
[2024-12-20 08:57] LABS: AST(SGOT) 18 U/L (<=37); Alanine Aminotransfer ALT/SGPT 14 U/L (<=46); Albumin, Serum 4.0 g/dL (3.4-4.8); Alkaline Phosphatase 68 U/L (40-129); Anion Gap 12 (5-15); BUN 17 mg/dL (4-19); BUN/Creat Ratio 16.2 RATIO (10-20); Calcium,Total 9.9 mg/dL (7.6-11.0); Carbon Dioxide 24.9 mmol/L (21.0-32.0); Chloride 100 mmol/L (98-108); Cholesterol 118 mg/dL (<=200); Globulin 4.2 g/dL (2.2-4.2); Glucose 112 mg/dL (70-99); Low Density Lipoprotein Calc. 53 mg/dL; Potassium 4.2 mmol/L (3.3-5.1); Triglycerides 167 mg/dL; Very Low Density Lipoprotein 33 mg/dL (5-40); cholesterol:hdl ratio screen 3.70
== END | disposition home or self-care (01) ==
PROVIDERS: PCP Family Medicine; Referring Provider Nurse Practitioner Family; Visit Provider Nurse Practitioner Family
DX: R01.1 Cardiac murmur, unspecified (principal); Z95.1 Presence of aortocoronary bypass graft; E78.5 Hyperlipidemia, unspecified; I10 Essential (primary) hypertension
CPT/HCPCS: 36415; 80053; 80061

== ENCOUNTER → 2024-12-26 | Outpatient (CLI) | payer MEDICARE, OTHER, SELFPAY ==
--- OUTSIDE RECORDS SUMMARY | 2024-12-26 08:06 | XMS RPT_ITS | CCD ---
Author Organization [facility] Care Team Providers Care Warp Dyeing Vat Tender Name Role Phone Dr. Prema Duffy Primary Care Provider [phone] Prema Duffy Referring Provider eRy SOUND EQUIPMENT MECHANIC, SOUND EQUIPMENT MECHANIC-C Prema Jimenez Attending Provider Prema Martini Primary Care Provider Prema Martini Primary Care Provider Prema Martini Primary Care Provider Joe Leyva Unavailable Dr. Prema Martini Primary Care Provider Dr. Prema Martini Referring Provider Dr. Aamir Spencer Attending Provider Dr. Joe Leyva Attending Provider Juan MARKHAM, RASHI-C Laura Attending Provider Dr. Joe Leyva Referring Provider Dr. Aamir Spencer Other Provider Prema Martini MD Primary Care Provider Joe Leyva MD S Unavailable Prema Martini MD Primary Care Provider Dr. Prema Martini MD Primary Care Provider Dr. Prema Martini MD Referring Provider Rey SOUND EQUIPMENT MECHANIC-CPrema Attending Provider John Suresh Attending Unavailable John Suresh Referring Unavailable Schinner, Prema E Primary Care Unavailable Myke Painting Attending Unavailable Schinner, Prema E Primary Care Unavailable Schinner, Prema E Referring Unavailable Schinner, Prema E Referring Unavailable Bakari Jackson Attending Unavailable Schinner, Prema E Primary Care Unavailable Schinner, Prema E Primary Care Unavailable Roof SOUND EQUIPMENT MECHANIC, Prema Jimenez Attending Unavailable Roof SOUND EQUIPMENT MECHANIC, Prema H Referring Unavailable Schinner, Prema E Primary Care Unavailable Roof SOUND EQUIPMENT MECHANIC, Prema H Attending Unavailable Mckayinner, Prema E Referring Unavailable John Suresh Attending Unavailable Kerwin, John Referring Unavailable Schinner, Prema E Primary Care Unavailable SELF Referring Unavailable SCHINNER, PREMA E Primary Care Unavailable SCHINNER, PREMA E Primary Care Unavailable ALEXUS ZHANG Referring Unavailable SCHINNER, PREMA Steen Primary Care Unavailable MAK MENDOZA Attending Unavailable AELXUS ZHANG Referring Unavailable SCHINNER, PREMA E Primary Care Unavailable Allergies Allergy Classification Reported Allergen(s) Allergy Type Date of Onset Reaction(s) Facility (8 sources) atorvastatin Drug Allergy [address] [facility] (8 sources) Simvastatin Drug Allergy [address] [facility] (5 sources) tamsulosin Drug Allergy [address] [facility] (1 source) atorvastatin Drug Allergy 4 [facility] (1 source) Simvastatin Drug Allergy 4 [facility] Medications Current Medications Medication Drug Class(es) Dates Sig (Normalized) Sig (Original) acetaminophen 500 mg oral tablet (5 sources) Start: 11-13-2022 take 1 tablet by mouth every six hours as needed for pain Acetaminophen (Pain Relief (Acetaminophen)) 500 mg tablet Active 500 mg PO EVERY 6 HOURS as needed for pain November 13, 2022 12:00am take 2 tablets by mo [facility] every eight hours as needed acetaminophen (TYLENOL [...] and 1 at hs per PCP in [place]; Start: 07-29-2017 End: 10-12-2024 take 1 tablet [...] 2024 2:08pm take 1 capsule by mo [facility] every six hours as needed diphenhydrAMINE (BENADRYL) 25 mg capsule Take 25 mg by mouth every 6 hours as needed. PRN Active Comment on above: Take 25 mg by mouth every 6 hours as needed. PRN dorzolamide 20 mg/ml ophthalmic solution (20 sources) Carbonic Anhydrase Inhibitor Start: 10-22-2017 take 1 drop(s) into the eye(s) twice daily dorzolamide (TRUSOPT) 2 % ophthalmic solution Use 1 Drop in eyes twice daily. 10/22/2017 Active Start: 10-22-2017 Dorzolamide 2 % drops Active 1 NMA OPHTHALMIC TWICE A DAY October 22, 2017 12:00am eyes Comment on above: Use 1 Drop in eyes t wice daily. dorzolamide 20 mg/ml / timolol 5 mg/ml ophthalmic solution (14 sources) Carbonic Anhydrase Inhibitor, beta-Adrenergic Terence Start [...] Comment on above: Take 1 tablet by [facility] twice daily for 10 days. ferrous gluconate [...] provided with radiology test) (1 source) Start: 023 End: 023 inject 1 dose intravenously once [...] mg tablet Active 50 mg PO DAILY 90 April 11, 2024 1:06pm Comment on above: [...] do not exceed 3 doses per episode Garland-3 Fatty Acids (Fish Oil Concentrate) 1,000 mg capsule (17 sources) Start: 12-19-2024 take 1 capsule by mouth once daily Garland-3 Fatty Acids (Fish Oil Concentrate) 1,000 mg capsule Active 1000 mg PO daily December 19, 2024 2:01pm Start: 10-07-2021 End: 12-19-2024 take 1 capsule by mouth every other day Garland-3 Fatty Acids (Fish Oil Concentrate) 1,000 mg capsule Discontinued 1000 mg PO every other day October 07, 2021 11:28am December 19, 2024 2:08pm Start: 10-07-2021 take 1 capsule by [facility] every other day Garland-3 Fatty Acids (Fish Oil Concentrate) 1,000 mg capsule Active 1000 MG PO every other day October 07, 2021 11:28am Start: 12-25-2020 End: 10-07-2021 take 1 capsule by mouth once daily Garland-3 Fatty Acids (Fish Oil Concentrate) 1,000 mg capsule Discontinued 1000 MG PO DAILY December 25, 2020 3:14pm October 07, 2021 11:30am Start: 12-25-2020 End: 10-07-2021 take 1 capsule by mouth once daily Garland-3 Fatty Acids (Fish Oil Concentrate) 1,000 mg capsule Discontinued 1000 mg PO DAILY December 25, 2020 12:00am October 07, 2021 11:30am Start: 12-25-2020 End: 10-07-2021 take 1 capsule by mouth once daily Garland-3 Fatty Acids (Fish Oil Concentrate) 1,000 mg capsule Discontinued 1000 MG PO DAILY December 25, 2020 12:00am October 07, 2021 11:30am Cugiq-0-BNQ-EPA-Fish Oil 1,0 00 mg (120 mg-180 mg) cap (12 sources) Gbzys-1-PNG-EPA- Fish Oil 1,000 mg (120 mg-180 mg) cap Take 2 g by mouth every 48 hours. Active Lqsmu-4-AYT-EPA- Fish Oil 1,000 mg (120 mg-180 mg) [...] March 30, 2024 4:01pm Please send to [facility] address on file Start: 11-30-2022 End: 05-25-2023 take 1 capsule by mouth every other day Omeprazole 20 mg capsule,delayed release(DR/EC) Discontinued 20 mg PO .QOD 45 April 06, 2023 11:40am May 25, 2023 11:15am Please send to [facility] address on file Start: 11-27-2022 End: [...] daily. prednisoLONE acetate 10 mg/ml ophthalmic suspension (14 sources) Corticosteroid Start: 10-20-2021 prednisoLONE acetate (PRED [...] Drug Class(es) Dates Sig (Normalized) Sig (Original) [id number] 200 actuat albuterol 0.09 mg/actuat metered dose [...] 2017 12:00am December 25, 2020 3:16pm supplement Bqoww-3-APD-EPA-Fish Oil (FISH OIL) 1,000 mg (120 mg-180 mg) cap (2 sources) Iuvbq-6-EVX-EPA- Fish Oil (FISH OIL) 1,000 mg (120 [...] 22, 2017 12:00am November 03, 2018 3:56pm Cilhrop-Iltx-Ptkcg-Oreg-Capr yl (7 sources) Start: 12-25-2020 End: 10-07-2021 Haitnpe-Twrs-Rtbuc-Oreg-Capr yl Discontinued CAP PO December 25, 2020 3:17pm October 07, 2021 11:29am Start: 12-25-2020 End: 10-07-2021 Ffrqsjo-Xwhl-Muzue-Oreg-Capr yl Discontinued CAP PO December 25, 2020 12:00am October 07, 2021 11:29am Xushiobi-Qqhg-Szzrp-Oreg-Cap ry 100 mg-150 mg- 50 mg-150 mg capsule (1 source) Start: 12-25-2020 End: 10-07-2021 Qemhplwo-Jpen-Kyuwb-Oreg-Cap ry 100 mg-150 mg- 50 mg-150 mg capsule Discontinued NMA PO December 25, 2020 12:00am October 07, 2021 11:29am Problems Active Problems Problem Classification Problem Date Documented Da te Episodic/Chronic Abdominal hernia (5 sources) Hiatal hernia; Translations: [Diaphragmatic hernia without obstruction or gangrene] 11-12-2022 Episodic Coronary atherosclerosis and other heart disease (16 sources) Coronary atherosclerosis; Translations: [Atherosclerotic heart disease of [place] coronary artery without angina pectoris] 11-28-2017 Chronic Coronary atherosclerosis and other heart disease (6 sources) Presence of aortocoronary bypass graft; Translations: [Aortocoronary bypass status] Onset: 02-08-2004 Episodic Deficiency and other anemia (10 sources) Anemia; Translations: [Anemia, unspecified] 10-22-2020 Episodic Deficiency and other anemia (1 source) Anemia, unspecified; Translations: [Anemia, unspecified type] Onset: 12-08-2024 Episodic Diseases of mouth; excluding dental (2 sources) Disorder of salivary gland; Translations: [Other diseases of salivary glands] 11-24-2023 Episodic Disorders of lipid metabolism (15 sources) Hyperlipidemia; Translations: [Hyperlipidemia, unspecified] Onset: 12-19-2024 Chronic Diverticulosis and diverticulitis (14 sources) Diverticulosis of colon; Translations: [Diverticulosis of large intestine without perforation or abscess without bleeding] Onset: 03-12-2006 03-12-2006 Chronic Essential hypertension (15 sources) Essential hypertension; Translations: [Essential (primary) hypertension] Onset: 12-19-2024 Chronic Fever of unknown origin (1 source) Feeling feverish; Translations: [Fever, unspecified] 01-29-2024 Episodic Heart valve disorders (7 sources) Heart murmur; Translations: [Cardiac murmur, unspecified] Onset: 12-19-2024 11-13-2022 Episodic Malaise and fatigue (1 source) Fatigue; Translations: [Other fatigue] 01-29-2024 Episodic Multiple myeloma (1 source) Multiple myeloma; Translations: [Multiple myeloma not having achieved remission] Chronic Neoplasms of unspecified nature or uncertain behavior (20 sources) Monoclonal gammopathy of uncertain significance; Translations: [Monoclonal gammopathy] Onset: 11-06-2020 11-06-2020 Chronic Nonspecific chest pain (8 sources) Chest pain; [...] Classification Problem Date Documented Da te Episodic/Chronic Gastrointestinal hemorrhage (14 sources) Hemorrhage of rectum and anus; Translations: [Hemorrhage of anus and rectum] Onset: 02-16-2006 02-16-2006 Episodic Hemorrhoids (14 sources) External hemorrhoids; Translations: [Residual hemorrhoidal skin tags] Onset: 03-12-2006 03-12-2006 Episodic Neoplasms of unspecified nature or uncertain behavior (1 source) 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 [address] [place], [address] Albumin/Globulin [Mass ratio] 1.0 {ratio} Normal 0.9-2.4 [facility] Comment on above: Performed By: #### L 500.4100, L500.4050 #### [facility] [address] [place], [address] ALK PHOS 68 U/L Normal 40-129 [facility] Comment on above: Performed By: #### L 500.4100, L500.4050 #### [facility] [address] [place], [address] ALT [Catalytic activity/Vol] 14 U/L Normal <=46 [facility] Comment on above: Performed By: #### L 500.4100, L500.4050 #### [facility] [address] [place], [address] AST [Catalytic activity/Vol] 18 U/L Normal <=37 [facility] Comment on above: Performed By: #### L 500.4100, L500.4050 #### [facility] [address] [place], [address] Bilirubin [Mass/Vol] 0.66 mg/dL Normal 0.00-1.30 [facility] Comment on above: Performed By: #### L 500.4100, L500.4050 #### [facility] [address] [place], [address] BUN/CRE 16.2 RATIO Normal 10-20 [facility] Comment on above: Performed By: #### L 500.4100, L500.4050 #### [facility] [address] [place], [address] Calcium [Mass/Vol] 9.9 mg/dL Normal 7.6-11.0 [facility] Comment on above: Performed By: #### L 500.4100, L500.4050 #### [facility] [address] [place], [address] Chloride [Moles/Vol] 100 mmol/L Normal 98-108 [facility] Comment on above: Performed By: #### L 500.4100, L500.4050 #### [facility] [address] [place], [address] CO2 [Moles/Vol] 24.9 mmol/L Normal 21.0-32.0 [facility] Comment on above: Performed By: #### L 500.4100, L500.4050 #### [facility] [address] [place], [address] Creatinine [Mass/Vol] 1.02 mg/dL Normal 0.70-1.20 [facility] Comment on above: Performed By: #### L 500.4100, L500.4050 #### [facility] [address] [place], [address] GAP 12 Normal 5-15 [facility] Comment on above: Performed By: #### L 500.4100, L500.4050 #### [facility] [address] [place], [address] GFR/1.73 sq M.predicted among non-blacks MDRD (S/P/Bld) [Vol rate/Area] 72 mL/min/{1.73_m2} Normal >60 [facility] Comment on above: Result Comment: mL/m in/1.73m2 CKD-EPI Creatinine Equation (2020) Performed By: #### L 500.4100, L500.4050 #### [facility] [address] [place], [address] Globulin (S) [Mass/Vol] 4.2 g/dL Normal 2.2-4.2 [facility] Comment on above: Performed By: #### L 500.4100, L500.4050 #### [facility] [address] [place], [address] Glucose [Mass/Vol] 112 mg/dL High 70-99 [facility] Comment on above: Performed By: #### L 500.4100, L500.4050 #### [facility] [address] [place], [address] Potassium [Moles/Vol] 4.2 mmol/L Normal 3.3-5.1 [facility] Comment on above: Performed By: #### L 500.4100, L500.4050 #### [facility] [address] [place], [address] Sodium [Moles/Vol] 137 mmol/L Normal 133-145 [facility] Comment on above: Performed By: #### L 500.4100, L500.4050 #### [facility] [address] [place], [address] T PROT 8.1 g/dL Normal 5.9-8.4 [facility] Comment on above: Performed By: #### L 500.4100, L500.4050 #### [facility] [address] [place], [address] Urea nitrogen [Mass/Vol] 17 mg/dL Normal 4-19 [facility] Comment on above: Performed By: #### L 500.4100, L500.4050 #### [facility] [address] [place], [address] Lipid Profileon 12-20-2024 CHOL:HDL 3.[address] [facility] Comment on above: Performed By: #### L 500.4100, L500.4050 #### [facility] [address] [place], [address] Cholesterol [Mass/Vol] 118 mg/dL Normal <=200 [facility] Comment on above: Result Comment: Chol esterol level, Desirable <200 mg/dL Borderline high cholesterol 200-239 mg/dL High cholesterol >=240 mg/dL Recommendations of the NCEP Adult Treatment Panel for the following risk-cutoff thresholds for the [place] population. Performed By: #### L 500.4100, L500.4050 #### [facility] [address] [place], [address] Cholesterol in HDL [Mass/Vol] 32 mg/dL Low [facility] Comment on above: Result Comment: Sadia onal Cholesterol Education Program (NCEP) guidelines: <40 mg/dL: Low HDL-cholesterol (major risk factor for CHD) >= 60 mg/dL: High HDL-cholesterol (negative risk factor for CHD) HDL-cholesterol is affected by a number of factors, e.g. smoking, exercise, hormones, sex and age. Performed By: #### L 500.4100, L500.4050 #### [facility] [address] [place], [address] Cholesterol in LDL [Mass/Vol] 53 mg/dL Normal [facility] Comment on above: Result Comment: Bord dxjhpd=293-145 mg/dL Higher Disk=329 mg/dL or greater Friedwald Equation for LDL-C Performed By: #### L 500.4100, L500.4050 #### [facility] [address] [place], [address] Cholesterol in VLDL [Mass/Vol] 33 mg/dL Normal 5-40 [facility] Comment on above: Performed By: #### L 500.4100, L500.4050 #### [facility] [address] [place], [address] Triglyceride [Mass/Vol] 167 mg/dL Normal [facility] Comment on above: Result Comment: The drugs N-Acetylcysteine and Metamizole may falsely depress this assay. Normal range: <150 mg/dL Borderline High: 150-199 mg/dL High: 200-499 mg/dL Very High: >500 mg/dL Performed By: #### L 500.4100, L500.4050 #### [facility] [address] [place], [address] Cardiology Visit Reporton Cardiology Visit Report [facility] [address] [place] [address] OFFICE VISIT Date of Service: 12/19/24 MR#: [id number] Acct: [id number] Name: PHILL BHAT Rep #: [id number] : 1940 Provider: DESIREE quiroz Age/Sex: 84/M Location[place] [facility] Status: Signed HPI HPI History of Present Illness Details: Barbara BHAT, is a 84 M who presents to the office today [...] Aspirin. This occurs rarely. Intake Vital Signs 01/18/24 08:34 12/19/24 14:09 Height 5 ft 7.5 in 5 ft 7.5 in Weight: 197 lb BMI 30.4 BP 138/67 H Blood Pressure Location Lt brachial Position Sitting Respiration 16 Pulse 54 L Pulse Source NIBP Intake Visit Reasons: 1 Y FU Maintenance Data Analyst Required: No Allergies atorvastatin (From Lipitor) Adverse Reaction (Severe, Verified 01/11/24 09:35) Severe Myalgias simvastatin Adverse Reaction (Severe, Verified 01/11/24 09:35) Myalgias Medications ???Medication ???Instructions ???Recorded ???Confirmed ???Type dorzolamide 2 % eye drops 1 drp ophthalmic (eye) BID eyes 12/19/24 History latanoprost 0.005 % eye drops 1 drp ophthalmic (eye) QPM eyes 12/19/24 History acetaminophen 500 mg tablet (Pain 500 mg PO Q6H PRN pain 11/13/22 0 12/19/24 History Relief (acetaminophen)) timolol maleate 0.5 % eye drops 1 drp ophthalmic (eye) BID 3 12/19/24 History nitroglycerin 0.4 mg sublingual 0.4 mg sublingual Q5-15M PRN chest 11/18/23 12/19/24 Rx tablet pain #25 tabs hydrochlorothiazide 25 mg tablet 25 mg PO DAILY #90 TABLETS 4 12/19/24 Rx omeprazole 20 mg capsule,delayed 20 mg PO DAILY Please send to [facility] 03/30/24 12/19/24 Rx release [facility] address on file #90 CAPSULES losartan 50 mg tablet 50 mg PO DAILY #90 TABLETS 4 12/19/24 Rx amlodipine 10 mg tablet 10 mg PO QHS #90 TABLETS 06/05/25 08/12/25 Rx carvedilol 12.5 mg tablet 12.5 mg PO BID #180 TABLETS 12/19/24 Rx aspirin 81 mg tablet 81 mg PO QDAY 12/19/24 12/19/24 Hi story celecoxib 200 mg capsule 200 mg PO QDAY PRN 12/19/24 History diphenhydramine HCl 25 mg tablet 25 mg PO DAILY allergic symptoms 0 12/19/24 12/19/24 History (Benadryl Allergy) ferrous gluconate 324 mg (37.5 mg 324 mg PO QDAY 12/19/24 12/19/24 History iron) tablet omega-3 fatty acids 1,000 mg 1,000 mg PO QDAY 12/19/24 12/19/24 History capsule (Fish Oil Concentrate) Ejection fraction %: 55 Have you fallen in the past year?: No PFSH Medical History Wears glasses Alcohol use History of GI bleed Gastric reflux Glaucoma Former smoker Seasonal allergies History of stress test History of echocardiogram Cardiology follow-up encounter Dysphagia Diverticulitis Old inferior wall myocardial infarction PVD (peripheral vascular disease) Sepsis Essential hypertension Hyperlipidemia Atherosclerotic heart disease of [place] coronary artery without angina pectoris Carotid bruit Carotid stenosis, asymptomatic Surgical History History of cardiac catheterization History of tonsillectomy History of colonoscopy History of left heart catheterization (04/02/18) H/O coronary artery bypass surgery (02/2004) History of knee surgery History of hip replacement Family History Other CVA (cerebral vascular accident) Social History ... Normal [facility] 12-12-2024 SUKHDEV Telephone (HEMJADA) Barbara BHAT ([id number]) 1940 M Date Time Provider Department 12/12/24 CHETANJeanetteMAK Dillan HEMAWS During your visit today, we recorded the following information about you: Mak Mendoza 12/12/2024 12:32 PM Signed Can let him know lab work indicates he has iron deficiency. Myeloma labs are stable. Please fax all recent lab work and this note to Dr. Martini. Recommend he start OTC ferrous sulfate 325 mg once daily. He should talk with Dr. Martini about an EGD and a colonoscopy. Recommend rechecking CBC with iron studies in 3 months. Mak Grimaldo DO Yeimi Mendoza Melanie, LPN 12/12/2024 12:56 PM Signed Message left for patient to contact office for results and medication instructions. A copy of the note below and all lab results was faxed to Dr. Martini. ZOYA Willis Melanie, LPN 12/13/2024 10:12 AM Signed Attempted to contact patient again; VM full, unable to leave another message. ZOYA Willis Melanie, LPN 12/18/2024 9:39 AM Signed Third attempt to contact patient to review results. Unable to leave a message, VM full. ZOYA Willis Melanie, LPN 12/20/2024 8:12 AM Signed Fourth attempt to contact patient. Call goes straight to voicemail and the box is so full, unable to leave a message. I will mail a copy of this note to the patient. Maude- please see the message below. Latoya Jade LPN Allergies As of Date: 12/12/2024 (No Known Allergies) Date Reviewed: 12/08/2024 Reviewed by: Cecile Pinto Ma, FORD - Fully Assessed Reason for Visit: Results [95] Prescriptions as of 12/20/2024 - acetaminophen (TYLENOL EXTRA STRENGTH) 500 mg tablet Take 1,000 mg by mouth every 8 hours as needed. - fluticasone (FLONASE) 50 mcg/actuation nasal spray Use 2 Sprays in each nostril once daily. Rinse mouth after use. - prednisoLONE acetate (PRED FORTE, ECONOPRED PLUS) 1 % ophthalmic suspension Use 1 drop in both eyes four times daily. - losartan (COZAAR) 50 mg tablet Take 50 mg by mouth once daily. - latanoprost (XALATAN) 0.005 % ophthalmic solution Use 1 Drop in eyes daily at bedtime. - dorzolamide-timolol (COSOPT) 22.3-6.8 mg/mL ophthalmic solution Use 1 Drop in eyes twice daily. - dorzolamide (TRUSOPT) 2 % ophthalmic solution Use 1 Drop in eyes twice daily. - Mnrzq-3-NZG-EPA-Fish Oil 1,000 mg (120 mg-180 mg) cap [...] daily. - carvedilol (COREG) 12.5 mg tablet Take 12.5 mg by mouth twice daily with meals. - ROSUVASTATIN CALCIUM (CRESTOR ORAL) Take 20 mg by mouth once daily. - OMEPRAZOLE ORAL Take 20 mg by mouth once daily. Problem List As Of Date 12/12/2024 Noted Resolved RECTAL BLEEDING (MELENA-578.1) [K62.5] 02/16/2006 HEMORRHOIDS EXTERNAL [K64.4] 03/12/2006 DIVERTICULOSIS COLON - NO HEMORRHAGE [K57.30] 03/12/2006 MGUS (monoclonal gammopathy of unknown signific*11/06/2020 Encounter Status:Closed by LATOYA JADE on 12/20/24 Normal [facility] B2 Microglob SerPl-mCncon Ooqi-9-Egyoaseoxekij [Mass/Vol] 3.4 ug/mL High <3.1 [facility] Comment on above: Order Comment: Speci men Type: BLOOD SPECIMEN Ordering Facility: [facility] Address: [address] [place] [address] Result Comment: Beta -2 Microglobulin test is performed using the [employer] immunoturbidimetric method. Results obtained with different methods or kits cannot be used interchangeably. Performed By: #### 1 952-1, 2885-2 #### [facility] CLIA [id number] [address] [place], [place] [address] [place] [address] [place] CBC W Auto Differential pane l (Bld)on 12-08-2024 Basophils (Bld) [#/Vol] 0.04 10*3/uL Normal <0.11 [facility] Comment on above: Order Comment: Speci men Type: BLOOD SPECIMEN Ordering Facility: [facility] Address: [address] [place] [address] Performed By: #### 5 7021-8 #### [facility] CLIA [id number] [address] [place] [address] [place] Basophils/100 WBC (Bld) 0.9 % Normal [facility] Comment on above: Order Comment: Speci men Type: BLOOD SPECIMEN Ordering Facility: [facility] Address: [address] [place] [address] Performed By: #### 5 7021-8 #### [facility] CLIA [id number] [address] [place] [address] [place] Differential cell count method Nom (Bld) Auto Normal [facility] Comment on above: Order Comment: Speci men Type: BLOOD SPECIMEN Ordering Facility: [facility] Address: [address] [place] [address] Performed By: #### 5 7021-8 #### [facility] CLIA [id number] [address] [place] [address] [place] Eosinophils (Bld) [#/Vol] 0.31 10*3/uL Normal <0.46 [facility] Comment on above: Order Comment: Speci men Type: BLOOD SPECIMEN Ordering Facility: [facility] Address: [address] [place] [address] Performed By: #### 5 7021-8 #### [facility] CLIA [id number] [address] [place] [address] [place] Eosinophils/100 WBC (Bld) 7.1 % Normal [facility] Comment on above: Order Comment: Speci men Type: BLOOD SPECIMEN Ordering Facility: [facility] Address: [address] [place] [address] Performed By: #### 5 7021-8 #### [facility] CLIA [id number] [address] [place] [address] [place] Erythrocyte distribution width (RBC) [Ratio] 14.6 % Normal 11.5-15.0 [facility] Comment on above: Order Comment: Speci men Type: BLOOD SPECIMEN Ordering Facility: [facility] Address: [address] [place] [address] Performed By: #### 5 7021-8 #### [facility] CLIA [id number] [address] [place] [address] [place] Hematocrit (Bld) [Volume fraction] 34.7 % Low 39.0-51.0 [facility] Comment on above: Order Comment: Speci men Type: BLOOD SPECIMEN Ordering Facility: [facility] Address: [address] [place] [address] Performed By: #### 5 7021-8 #### [facility] CLIA [id number] [address] [place] [address] [place] Hemoglobin (Bld) [Mass/Vol] 11.2 g/dL Low 13.0-17.0 [facility] Comment on above: Order Comment: Speci men Type: BLOOD SPECIMEN Ordering Facility: [facility] Address: [address] [place] [address] Performed By: #### 5 7021-8 #### [facility] CLIA [id number] [address] [place] [address] [place] Immature granulocytes (Bld) [#/Vol] 10*3/uL Normal <0.10 [facility] Comment on above: Order Comment: Speci men Type: BLOOD SPECIMEN Ordering Facility: [facility] Address: [address] [place] [address] Performed By: #### 5 7021-8 #### [facility] CLIA [id number] [address] [place] [address] [place] Immature granulocytes/100 WBC (Bld) 0.2 % Normal [facility] Comment on above: Order Comment: Speci men Type: BLOOD SPECIMEN Ordering Facility: [facility] Address: [address] [place] [address] Performed By: #### 5 7021-8 #### [facility] CLIA [id number] [address] [place] [address] [place] Lymphocytes (Bld) [#/Vol] 1.12 10*3/uL Normal 1.00-4.00 [facility] Comment on above: Order Comment: Speci men Type: BLOOD SPECIMEN Ordering Facility: [facility] Address: [address] [place] [address] Performed By: #### 5 7021-8 #### [facility] CLIA [id number] [address] [place] [address] [place] Lymphocytes/100 WBC (Bld) 25.6 % Normal [facility] Comment on above: Order Comment: Speci men Type: BLOOD SPECIMEN Ordering Facility: [facility] Address: [address] [place] [address] Performed By: #### 5 7021-8 #### [id number] [address] [place] [address] [place] MCH (RBC) [Entitic mass] 27.7 pg Normal 26.0-34.0 [facility] Comment on above: Order Comment: Speci men Type: BLOOD SPECIMEN Ordering Facility: [facility] Address: [address] [place] [address] Performed By: #### 5 7021-8 #### [facility] [id number] [address] [place] [address] [place] MCHC (RBC) [Mass/Vol] 32.3 g/dL Normal 30.5-36.0 [facility] Comment on above: Order Comment: Speci men Type: BLOOD SPECIMEN Ordering Facility: [facility] Address: [address] [place] [address] Performed By: #### 5 7021-8 #### [facility] CLIA [id number] [address] [place] [address] [place] MCV (RBC) [Entitic vol] 85.9 fL Normal 80.0-100.0 [facility] Comment on above: Order Comment: Speci men Type: BLOOD SPECIMEN Ordering Facility: [facility] Address: [address] [place] [address] Performed By: #### 5 7021-8 #### [facility] CLIA [id number] [address] [place] [address] [place] Monocytes (Bld) [#/Vol] 0.35 10*3/uL Normal <0.87 [facility] Comment on above: Order Comment: Speci men Type: BLOOD SPECIMEN Ordering Facility: [facility] Address: [address] [place] [address] Performed By: #### 5 7021-8 #### [facility] CLIA [id number] [address] [place] [address] [place] Monocytes/100 WBC (Bld) 8.0 % Normal [facility] Comment on above: Order Comment: Speci men Type: BLOOD SPECIMEN Ordering Facility: [facility] Address: [address] [place] [address] Performed By: #### 5 7021-8 #### [facility] CLIA [id number] [address] [place] [address] [place] Neutrophils (Bld) [#/Vol] 2.54 10*3/uL Normal 1.45-7.50 [facility] Comment on above: Order Comment: Speci men Type: BLOOD SPECIMEN Ordering Facility: [facility] Address: [address] [place] [address] Performed By: #### 5 7021-8 #### [facility] CLIA [id number] [address] [place] [address] [place] Neutrophils/100 WBC (Bld) 58.2 % Normal [facility] Comment on above: Order Comment: Speci men Type: BLOOD SPECIMEN Ordering Facility: [facility] Address: [address] [place] [address] Performed By: #### 5 7021-8 #### [facility] CLIA [id number] [address] [place] [address] [place] Nucleated RBC (Bld) [#/Vol] 10*3/uL Normal <0.01 [facility] Comment on above: Order Comment: Speci men Type: BLOOD SPECIMEN Ordering Facility: [facility] Address: [address] [place] [address] Performed By: #### 5 7021-8 #### [facility] CLIA [id number] [address] [place] [address] [place] Nucleated RBC/100 WBC (Bld) [Ratio] 0.0 /100 WBC Normal [facility] Comment on above: Order Comment: Speci men Type: BLOOD SPECIMEN Ordering Facility: [facility] Address: [address] [place] [address] Performed By: #### 5 7021-8 #### [facility] CLIA [id number] [address] [place] [address] [place] Platelet mean volume (Bld) [Entitic vol] 9.5 fL Normal 9.0-12.7 [facility] Comment on above: Order Comment: Speci men Type: BLOOD SPECIMEN Ordering Facility: [facility] Address: [address] [place] [address] Performed By: #### 5 7021-8 #### [facility] CLIA [id number] [address] [place] [address] [place] Platelets (Bld) [#/Vol] 244 10*3/uL Normal 150-400 [facility] Comment on above: Order Comment: Speci men Type: BLOOD SPECIMEN Ordering Facility: [facility] Address: [address] [place] [address] Performed By: #### 5 7021-8 #### [facility] CLIA [id number] [address] [place] [address] [place] RBC (Bld) [#/Vol] 4.04 10*6/uL Low 4.20-6.00 [facility] Comment on above: Order Comment: Speci men Type: BLOOD SPECIMEN Ordering Facility: [facility] Address: [address] [place] [address] Performed By: #### 5 7021-8 #### [facility] CLIA [id number] [address] [place] [address] [place] WBC (Bld) [#/Vol] 4.37 10*3/uL Normal 3.70-11.00 [facility] Comment on above: Order Comment: Speci men Type: BLOOD SPECIMEN Ordering Facility: [facility] Address: [address] [place] [address] Performed By: #### 5 7021-8 #### [facility] [id number] [address] [place] [address] [place] CNOVSPon 12-08-2024 CNOVSP Visit (SP) Office (Barbara ADAMSWS) Barbara BHAT ([id number]) 1940 M Date Time Provider Department 12/08/24 2:50 PM MAK MENDOZA KEREN During your visit today, we recorded the following information about you: Temperature Pulse Blood pressure Weight 97.5 degrees 62/minute 122/63 88.5 kg Reji Mak DillanDO 12/08/2024 3:07 PM Signed DIAGNOSIS: 1) Monoclonal [...] couple times a week. He stay in [place] for winter and spring and come back to [place] from September to January. His only other complaint was chronic left knee pain secondary to arthritis and previous meniscus tear. Laboratory study revealed a mild normocytic normochromic anemia, and an increase M spike of 2 g/dL on his serum protein electrophoresis. He has normal calcium and normal renal function. OV 2023: He did not have brain MRI done when in [place] last winter--I believe that was ordered by [...] which included preparing to see the patient, [id number] patient care, completing clinical documentation, performing a medically appropriate examination, counseling and educating the patient/family/caregiver, ordering medications, tests, or procedures, communicating with other HCPs (not separately reported), and communicating results to the patient/family/caregiver. 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 Normal [facility] Comprehensive metabolic 2000 panelon 12-08-2024 Albumin [Mass/Vol] 3.9 g/dL Normal 3.9-4.9 [facility] Comment on above: Order Comment: Speci men Type: BLOOD SPECIMEN Ordering Facility: [facility] Address: [address] [place] [address] Performed By: #### 2 4323-8, 2-0 #### [facility] CLIA [id number] [address] [place] [address] [place] #### 16056-4, 2275-4 #### [facility] CLIA [id number] [address] [place] [address] [place] ALP [Catalytic activity/Vol] 84 U/L Normal 38-113 [facility] Comment on above: Order Comment: Speci men Type: BLOOD SPECIMEN Ordering Facility: [facility] Address: [address] [place] [address] Performed By: #### 2 4323-8, 2531-0 #### [facility] CLIA [id number] [address] [place] [address] [place] #### 35684-5, 2275-4 #### [facility] CLIA [id number] [address] [place] [address] [place] ALT [Catalytic activity/Vol] 8 U/L Low 10-54 [facility] Comment on above: Order Comment: Speci men Type: BLOOD SPECIMEN Ordering Facility: [facility] Address: [address] [place] [address] Performed By: #### 2 4323-8, 2-0 #### [facility] CLIA [id number] [address] [place] [address] [place] #### 42140-5, 6-4 #### [facility] CLIA [id number] [address] [place] [address] [place] Anion gap [Moles/Vol] 12 mmol/L Normal 8-15 [facility] Comment on above: Order Comment: Speci men Type: BLOOD SPECIMEN Ordering Facility: [facility] Address: [address] [place] [address] Performed By: #### 2 4323-8, 2532-0 #### [facility] CLIA [id number] [address] [place] [address] [place] #### 25295-8, 2275-4 #### [facility] CLIA [id number] [address] [place] [address] [place] AST [Catalytic activity/Vol] 15 U/L Normal 14-40 [facility] Comment on above: Order Comment: Speci men Type: BLOOD SPECIMEN Ordering Facility: [facility] Address: [address] [place] [address] Performed By: #### 2 4323-8, 2532-0 #### [facility] CLIA [id number] [address] [place] [address] [place] #### 77694-3, 2275-4 #### [facility] CLIA [id number] [address] [place] [address] [place] Bilirubin [Mass/Vol] 0.7 mg/dL Normal 0.2-1.3 [facility] Comment on above: Order Comment: Speci men Type: BLOOD SPECIMEN Ordering Facility: [facility] Address: [address] [place] [address] Performed By: #### 2 4323-8, 2532-0 #### [facility] CLIA [id number] [address] [place] [address] [place] #### 47776-5, 2275-4 #### [facility] CLIA [id number] [address] [place] [address] [place] Calcium [Mass/Vol] 9.8 mg/dL Normal 8.5-10.2 [facility] Comment on above: Order Comment: Speci men Type: BLOOD SPECIMEN Ordering Facility: [facility] Address: [address] [place] [address] Performed By: #### 2 4323-8, 2532-0 #### [facility] CLIA [id number] [address] [place] [address] [place] #### 40472-4, 2275-4 #### [facility] CLIA [id number] [address] [place] [address] [place] Chloride [Moles/Vol] 101 mmol/L Normal 98-107 [facility] Comment on above: Order Comment: Speci men Type: BLOOD SPECIMEN Ordering Facility: [facility] Address: [address] [place] [address] Performed By: #### 2 4323-8, 2532-0 #### [facility] CLIA [id number] [address] [place] [address] [place] #### 98911-1, 2275-4 #### [facility] CLIA [id number] [address] [place] [address] [place] CO2 [Moles/Vol] 25 mmol/L Normal 22-30 [facility] Comment on above: Order Comment: Speci men Type: BLOOD SPECIMEN Ordering Facility: [facility] Address: [address] [place] [id number] Performed By: #### 2 4323-8, 2532-0 #### [facility] CLIA [id number] [address] [place] [address] [place] #### 72047-8, 2275-4 #### [facility] CLIA [id number] [address] [place] [address] [place] Creatinine [Mass/Vol] 1.03 mg/dL Normal 0.73-1.22 [facility] Comment on above: Order Comment: Specjeanette arreola Type: BLOOD SPECIMEN Ordering Facility: [facility] Address: [address] [place] [address] Performed By: #### 2 4323-8, 2531-0 #### [facility] CLIA [id number] [address] [place] [address] [place] #### 61115-2, 2275-08 #### [facility] CLIA [id number] [address] [place] [address] eGFRcr SerPlBld CKD-EPI 2020 72 mL/min/1.73m??? Normal >=60 [facility] Comment on above: Order Comment: Kristi arreola Type: BLOOD SPECIMEN Ordering Facility: [facility] Address: [address] [place] [address] Result Comment: Yulia mated Glomerular Filtration Rate [...] accurately reflect actual GFR. Performed By: #### 2 4323-8, 2532-0 #### [facility] CLIA [id number] [address] [place] [address] [place] #### 53559-0, 2275-4 #### [facility] CLIA [id number] [address] [place] [address] [place] Glucose [Mass/Vol] 95 mg/dL Normal 74-99 [facility] Comment on above: Order Comment: Kristi arreola Type: BLOOD SPECIMEN Ordering Facility: [facility] Address: [address] [place], [place] [id number] Result Comment: The [place] Diabetes Association (ADA) provides guidance for cutoff [...] Standards of Medical Care in Diabetes 2016, [place] [employer] Association. Diabetes Care. 2016.39(Suppl 1). Performed By: #### 2 4323-8, 2531-0 #### [facility] CLIA [id number] [address] [place] [address] [place] #### 73561-7, 2275-4 #### [facility] CLIA [id number] [address] [place] [address] [place] Potassium [Moles/Vol] 4.1 mmol/L Normal 3.7-5.1 [facility] Comment on above: Order Comment: Kristi arreola Type: BLOOD SPECIMEN Ordering Facility: [facility] Address: [address] [place] [address] Performed By: #### 2 4323-8, 2-0 #### [facility] CLIA [id number] [address] [place] [address] [place] #### 53831-2, 2275-4 #### [facility] CLIA [id number] [address] [place] [address] [place] Protein [Mass/Vol] 8.1 g/dL High 6.3-8.0 [facility] Comment on above: Order Comment: Speci men Type: BLOOD SPECIMEN Ordering Facility: [facility] Address: [address] [place] [address] Performed By: #### 2 4323-8, 2532-0 #### [facility] CLIA [id number] [address] [place] [address] [place] #### 93292-1, 2275-4 #### [facility] CLIA [id number] [address] [place] [address] [place] Sodium [Moles/Vol] 138 mmol/L Normal 136-144 [facility] Comment on above: Order Comment: Speci men Type: BLOOD SPECIMEN Ordering Facility: [facility] Address: [address] [place] [address] Performed By: #### 2 43238, 2531-0 #### [facility] CLIA [id number] [address] [place] [address] [place] #### 82090-2, 2275-08 #### [facility] CLIA [id number] [address] [place] [address] [place] Urea nitrogen [Mass/Vol] 17 mg/dL Normal 9-24 [facility] Comment on above: Order Comment: Speci men Type: BLOOD SPECIMEN Ordering Facility: [facility] Address: [address] [place] [address] Performed By: #### 2 4323-8, 2-0 #### [facility] CLIA [id number] [address] [place] [address] [place] #### 14249-2, 2275-08 #### [facility] CLIA [id number] [address] [place] [address] [place] Ferritin SerPl-mCncon 08-01- 2025 Ferritin [Mass/Vol] 21.8 ng/mL Low 30.3-565.7 [facility] Comment on above: Order Comment: Speci men Type: BLOOD SPECIMEN Ordering Facility: [facility] Address: [address] [place] [address] Performed By: #### 2 4323-8, 2532-0 #### [facility] CLIA [id number] [address] [place] [address] [place] #### 83936-6, 2276-4 #### [facility] CLIA [id number] [address] [place] [address] [place] IMMUNOFIXATION SCREEN, SERUM on 12-08-2024 INTERPRETATION (MPA) Atypical restricted bands are present in the IgG and lambda regions. Consistent with IgG lambda monoclonal gammopathy. Normal [facility] Comment on above: Order Comment: Speci men Type: BLOOD SPECIMEN Ordering Facility: [facility] Address: [address] [place] [address] Performed By: #### I FESC #### [facility] CLIA [id number] [address] [place] [address] [place] MPA RESULT M protein is present. Abnormal No M p rotein is identified. [facility] Comment on above: Order Comment: Speci men Type: BLOOD SPECIMEN Ordering Facility: [facility] Address: [address] [place] [address] Performed By: #### I FESC #### [facility] CLIA [id number] [address] [place] [address] [place] STAFF REVIEW (MPA) Reviewed by Dr. Cisco Goode MD Normal [facility] Comment on above: Order Comment: Speci men Type: BLOOD SPECIMEN Ordering Facility: [facility] Address: [address] [place] [address] Performed By: #### I FESC #### [facility] CLIA [id number] [address] [place] [address] [place] IMMUNOGLOBULINS,IGG,IGA,IGMo n 12-08-2024 IgA [Mass/Vol] 22 mg/dL Low 70-400 [facility] Comment on above: Order Comment: Speci men Type: BLOOD SPECIMEN Ordering Facility: [facility] Address: [address] [place] [address] Performed By: #### S ERIMM #### [facility] CLIA [id number] [address] [place] [address] [place] IgG [Mass/Vol] 2760 mg/dL High 700-1600 [facility] Comment on above: Order Comment: Speci men Type: BLOOD SPECIMEN Ordering Facility: [facility] Address: [address] [place] [address] Performed By: #### S ERIMM #### [facility] CLIA [id number] [address] [place] [address] [place] IgM [Mass/Vol] 42 mg/dL Normal 40-230 [facility] Comment on above: Order Comment: Speci men Type: BLOOD SPECIMEN Ordering Facility: [facility] Address: [address] [place] [address] Performed By: #### S ERIMM #### [facility] CLIA [id number] [address] [place] [address] [place] Iron and Iron binding capaci ty panelon 12-08-2024 Interpretation and review of laboratory results Abnormal [facility] Iron [Mass/Vol] 47 ug/dL 41 - 186 ug/dL [facility] Iron binding capacity [Mass/Vol] 374 ug/dL 232 - 386 ug/dL [facility] Iron/TIBC [Molar ratio] 12.6 % Low 15.0 - 57.0 % [facility] Iron [Mass/Vol] 47 ug/dL Normal 41-186 [facility] Comment on above: Order Comment: Speci men Type: BLOOD SPECIMEN Ordering Facility: [facility] Address: [address] [place] [address] Performed By: #### 2 4323-8, 2531-0 #### [facility] CLIA [id number] [address] [place] [address] [place] #### 55290-1, 2275-4 #### [facility] CLIA [id number] [address] [place] [address] [place] Iron binding capacity [Mass/Vol] 374 ug/dL Normal 232-386 [facility] Comment on above: Order Comment: Speci men Type: BLOOD SPECIMEN Ordering Facility: [facility] Address: [address] [place] [address] Performed By: #### 2 4328, 2531-0 #### [facility] CLIA [id number] [address] [place] [address] [place] #### 37301-7, 2275-08 #### [facility] CLIA [id number] [address] [place] [address] [place] Iron/TIBC [Molar ratio] 12.6 % Low 15.0-57.0 [facility] Comment on above: Order Comment: Speci men Type: BLOOD SPECIMEN Ordering Facility: [facility] Address: [address] [place] [address] Performed By: #### 2 [id number], 2531-0 #### [facility] CLIA [id number] [address] [place] [address] [place] #### 24999-9, 2275-08 #### [facility] CLIA [id number] [address] [place] [address] [place] KAPPA/VICTOR,FREE,SERon 2024 Immunoglobulin light chains.kappa.free (S) [Mass/Vol] 16.2 mg/L Normal 3.3-19.4 [facility] Comment on above: Order Comment: Speci men Type: BLOOD SPECIMEN Ordering Facility: [facility] Address: [address] [place] [address] Result Comment: Rare ly, increased serum free light chains levels may not be detected or accurately quantified due to prozone phenomenon or in high viscosity samples using this immunoturbidimetric assay. Correlation with other laboratory results and clinical findings is recommended. The Kaplan Free Light Chain was performed using the Binding Site Optilite immunoturbidimetric method. Result obtained with different assay methods or kits cannot be used interchangeably. Performed By: #### K LFRS #### [facility] CLIA [id number] [address] [place] [address] [place] Immunoglobulin light chains.kappa/Immunog lobulin light chains.lambda (S) [Mass ratio] 0.17 Low 0.26-1.65 [facility] Comment on above: Order Comment: Speci men Type: BLOOD SPECIMEN Ordering Facility: [facility] Address: [address] [place] [address] Performed By: #### K LFRS #### [facility] CLIA [id number] [address] [place] [address] [place] Immunoglobulin light chains.lambda.free [Mass/Vol] 97.2 mg/L High 5.7-26.3 [facility] Comment on above: Order Comment: Speci men Type: BLOOD SPECIMEN Ordering Facility: [facility] Address: [address] [place] [address] Result Comment: Rare ly, increased serum free [...] interchangeably. Performed By: #### K LFRS #### [facility] CLIA [id number] [address] [place] [address] [place] LDH SerPl-cCncon 12-08-2024 LDH [Catalytic activity/Vol] 137 U/L Normal 135-225 [facility] Comment on above: Order Comment: Speci men Type: BLOOD SPECIMEN Ordering Facility: [facility] Address: [address] [place] [address] Performed By: #### 2 4323-8, 2532-0 #### [facility] CLIA [id number] [address] [place] [address] [place] #### 45184-4, 2276-4 #### [facility] CLIA [id number] [address] [place] [address] [place] PROTEIN ELECTROPHORESIS SERU M (P)on 12-08-2024 Albumin [Mass/Vol] 3.70 g/dL Normal 3.43-5.41 [facility] Comment on above: Order Comment: Speci men Type: BLOOD SPECIMEN Ordering Facility: [facility] Address: [address] [place] [address] Performed By: #### L [id number] #### [facility] CLIA [id number] [address] [place] [address] [place] Alpha 1 globulin Elph [Mass/Vol] 0.27 g/dL Normal 0.18-0.43 [facility] Comment on above: Order Comment: Speci men Type: BLOOD SPECIMEN Ordering Facility: [facility] Address: [address] [place] [address] Performed By: #### L [id number] #### [facility] CLIA [id number] [address] [place] [address] [place] Alpha 2 globulin Elph [Mass/Vol] 0.62 g/dL Normal 0.42-0.98 [facility] Comment on above: Order Comment: Speci men Type: BLOOD SPECIMEN Ordering Facility: [facility] Address: [address] [place] [address] Performed By: #### L [id number] #### [facility] CLIA [id number] [address] [id number] [address] [place] Beta globulin Elph [Mass/Vol] 0.62 g/dL Normal 0.61-1.17 [facility] Comment on above: Order Comment: Speci men Type: BLOOD SPECIMEN Ordering Facility: [facility] Address: [address] [place] [address] Performed By: #### L [id number] #### [facility] CLIA [id number] [address] [place] [address] [place] Gamma globulin Elph [Mass/Vol] 2.49 g/dL High 0.53-1.51 [facility] Comment on above: Order Comment: Speci men Type: BLOOD SPECIMEN Ordering Facility: [facility] Address: [address] [place] [address] Performed By: #### L [id number] #### [facility] CLIA [id number] [address] [place] [address] [place] INTERPRETATION COMMENT FOR PROTEIN ELECTROPHORESIS See separate immunofixation report for characterization of monoclonal gammopathy. Normal [facility] Comment on above: Order Comment: Speci men Type: BLOOD SPECIMEN Ordering Facility: [facility] Address: [address] [place] [address] Performed By: #### L [id number] #### [facility] CLIA [id number] [address] [place] [address] [place] M-PROTEIN LOCATION Gamma Fraction 1 Normal [facility] Comment on above: Order Comment: Speci men Type: BLOOD SPECIMEN Ordering Facility: [facility] Address: [address] [place] [address] Performed By: #### L [id number] #### [facility] CLIA [id number] [address] [place] [address] [place] Protein Fractions [Interp] An M protein is identified on protein electrophoresis. Abnormal No definitive M protein is identified on protein electrophore sis. [facility] Comment on above: Order Comment: Speci men Type: BLOOD SPECIMEN Ordering Facility: [facility] Address: [address] [place] [address] Performed By: #### L [id number] #### [facility] CLIA [id number] [address] [place] [address] [place] Protein.monoclonal Elph [Mass/Vol] 2.09 g/dL High <=0.00 [facility] Comment on above: Order Comment: Speci men Type: BLOOD SPECIMEN Ordering Facility: [facility] Address: [address] [place] [address] Performed By: #### L [id number] #### [facility] CLIA [id number] [address] [place] [address] [place] SPE STAFF REVIEW Reviewed by Dr. Cisco Goode MD [facility] Comment on above: Order Comment: Speci men Type: BLOOD SPECIMEN Ordering Facility: [facility] Address: [address] [place] [address] Performed By: #### L [id number] #### [facility] CLIA [id number] [address] [place] [address] [place] Prot SerPl-mCncon 12-08-2024 Protein [Mass/Vol] 7.7 g/dL Normal 6.3-8.0 [facility] Comment on above: Order Comment: Speci men Type: BLOOD SPECIMEN Ordering Facility: [facility] Address: [address] [place] [address] Performed By: #### 2 4323-8, 2532-0 #### [facility] CLIA [id number] [address] [place] [address] [place] #### 85468-4, 2276-4 #### [facility] CLIA [id number] [address] [place] [address] [place] CNOVon 01-29-2024 CNOV Office Visit (UCWSTR ) Barbara BHAT ([id number]) 1940 M Date Time Provider Department 01/29/24 2:30 PM [facility] During your visit today, we recorded the [...] Use 1 Drop in eyes twice daily. Cunpx-2-TAN-EPA-Fish Oil 1,000 mg (120 mg-180 mg) cap [...] Known Allergies) Date Reviewed: 01/29/2024 Reviewed by: Besancon, Maeve, HAY SORTER - Fully Assessed Reason for Visit: Fatigue [...] 1 Drop in eyes twice daily. - Bfodp-9-GOG-EPA-Fish Oil 1,000 mg (120 mg-180 mg) cap [...] tablet T (more content not included)... Normal [facility] Biopsy/Inj or Needle Placeme nton 01-18-2024 Biopsy/Inj or Needle Placement [facility] Services [address] [place] [address] Biopsy/Inj or Needle Placement MR#: [id number] Acct: [id number] Name: PHILL BHAT Rep #: [id number] : 1940 M 83 From: Johnie mohr MD PCP: Dr. Prema Martini MD Status: [facility] Study: Biopsy/Inj or Needle Placement Date of Exam: 0 01/18/24 Exam# [id number] Ordering Dr: John Suresh MD [id number] PROCEDURE: CT GUIDED biopsy of the right [...] Prema Martini MD; Dr. John Suresh MD Payroll Specialist: Signed Normal [facility] Partial Thromboplast Timeon 01-18-2024 aPTT Coag (Bld) [Time] 24.4 s Normal 24.1-36.2 [facility] Comment on above: Performed By: #### L 100.1900, L300.3900, L300.4310 ####[facility] [address] [place], [address] Platelet Counton 01-18-2024 Platelets (Bld) [#/Vol] 227 10*3/uL Normal 150-450 [facility] Comment on above: Performed By: #### L 100.1900, L300.3900, L300.4310 #### [facility] [address] [place], [address] Prothrombin Time w/INRon INR Coag (PPP) [Relative time] 1.2 {INR} Normal [facility] Comment on above: Performed By: #### L 100.1900, L300.3900, L300.4310 #### [facility] [address] [place], [address] PT Coag (PPP) [Time] 14.8 s Normal 11.7-14.9 [facility] Comment on above: Performed By: #### L 100.1900, L300.3900, L300.4310 #### [facility] [address] [place], [address] Special Stain Group IIon Special Stain Group II Patient Age/Sex Location Account Attending Physician HOME,HOMER MAUDE Bates/M CT [id number] Dr. John Suresh MD Specimen: [id number] Received: 01/18/24 Status: IDALMIS Gann Num: [id number] Spec Type: ASP OUT Subm Dr: Dr. [...] block. Mr 01/18/2024 TC: Cannot code CPT: 29615,73363,[id number] Signed (signature on file) Dr. Ben Ruiz MD 01/19/[address] [facility] Comment on above: Performed By: #### P SSII ####[facility] [id number] [facility] [place], [address] CREATININE FINGERSTICKon Creatinine [Mass/Vol] 1.1 mg/dL Normal 0.70-1.30 [facility] Comment on above: Performed By: #### L 9100.0200 #### [facility] [address] [place], [address] EGFR WB > 60.0000 Normal >60 [facility] Comment on above: Performed By: #### L 9100.0200 #### [facility] [address] [facility] [place], [address] Soft Tissue Neck WITH Contra ston 01-12-2024 Soft Tissue Neck WITH Contrast [facility] Imaging Services [address] [facility] [place] [address] Soft Tissue Neck WITH Contrast MR#: [id number] Acct: [id number] Name: PHILL BHAT Rep #: [id number] : 1940 M 83 From: Estiven Alba MD PCP: Dr. Prema Martini MD Status: REG CL Study: Soft Tissue Neck WITH Contrast Date of Exam: 0 01/12/24 Exam# [id number] Ordering Dr: John Suresh MD [id number] STUDY: CT SOFT TISSUE NECK WITH CONTRAST [...] biopsy. Normal left parotid gland. Normal bilateral air cargo agent spaces. Normal bilateral parapharyngeal spaces. Normal bilateral [...] Prema Martini MD; Dr. John Suresh MD Payroll Specialist: Signed Normal [facility] Urgent Care Visit Reporton 0 01-11-2024 Urgent Care Visit Report [facility] [address], [address] [place] [id number] OFFICE VISIT Date of Service: 01/11/24 MR#: [id number] Acct: [id number] Name: PHILL BHAT Rep #: [id number] : 1940 Provider: VAL Garza Age/Sex: 83/M Location: [facility] Status: Signed Intake Vital Signs 12/30/23 16:20 [...] HAVING SX Chief Complaint: REQUESTED COVID TEST Maintenance Data Analyst Required: No Accompanied by: Is patient in [...] 20 mg PO DAILY Please send to [place] 05/25/23 01/11/24 Rx release [facility] address on file #90 [place] nitroglycerin 0.4 [...] week for covid.pt requested covid test today [facility] Medical History Wears glasses Alcohol use History of GI bleed Gastric reflux Glaucoma Former smoker Seasonal allergies History of stress test History of echocardiogram Cardiology follow-up encounter Dysphagia Diverticulitis Old inferior wall myocardial infarction PVD (peripheral vascular disease) Sepsis Essential hypertension Hyperlipidemia Atherosclerotic heart disease of [place] coronary artery without angina pectoris Carotid bruit [...] HPI Chief Complaint: REQUESTED COVID TEST Details: HOMER HOME, is a 83 M [...] recently dx???d w/ similar URI complaints. No hcuq-yzy-govzpmf taken to assist. No other associated symptoms and no other alleviating/aggravating factors. ROS Const Constitutional: No other (As above) Exam Const General: cooperative, healthy appearing and no acute distress (more content not included)... Normal [facility] Urgent Care Visit Reporton 0 12-30-2023 Urgent Care Visit Report [facility] [address] [place] [address] OFFICE VISIT Date of Service: 12/30/23 MR#: [id number] Acct: [id number] Name: PHILL BHAT Rep #: [id number] : 1940 Provider: VAL Erazo Age/Sex: 83/M Location: [facility] Status: Signed Intake Vital Signs 11/18/23 12:56 [...] Reasons: SORE THROAT Chief Complaint: sore throat Maintenance Data Analyst Required: No Is patient in pain?: Yes Allergies atorvastatin (From Lipitor) Adverse Reaction (Severe, Verified 12/30/23 16:21) Severe Myalgias simvastatin Adverse Reaction (Severe, Verified 12/30/23 16:21) Myalgias Have you fallen in the past year?: No Nurse's Note: today, denies MOYA, BA, cough, congestion, fever. concern for covid [facility] Medical History Wears glasses Alcohol use History of GI bleed Gastric reflux Glaucoma Former smoker Seasonal allergies History of stress test History of echocardiogram Cardiology follow-up encounter Dysphagia Diverticulitis Old inferior wall myocardial infarction PVD (peripheral vascular disease) Sepsis Essential hypertension Hyperlipidemia Atherosclerotic heart disease of [place] coronary artery without angina pectoris Carotid bruit [...] Exam Const General: cooperative and well developed HENTN Head: normal to inspection and atraumatic Ears: [...] Date ____ (more content not included)... Normal [facility] MR Brain WO and W contrast [...] or other cystic lesion. Recommend ENT consultation. Payroll Specialist: DONTE Transcribe Date/Time: Nov 18 2023 1:57P Dictated by : LANETTE CASON MD This examination was interpreted and the report reviewed and electronically signed by: LANETTE CASON MD on Nov 18 2023 2:15PM [facility] DIVISION OF RADIOLOGY * * *Final Report* * * DATE OF EXAM: Nov 18 2023 11:52AM [facility] 0295 - MRI BRAIN WO/W IVCON / [...] ocular lens replacements. DIVISION OF RADIOLOGY Provider, [facility] - 11/18/2023 * * *Final Report* * * DATE OF EXAM: Nov 18 2023 11:52AM [facility] 0295 - MRI BRAIN WO/W IVCON / [...] or other cystic lesion. Recommend ENT consultation. Payroll Specialist: PSCB Transcribe Date/Time: Nov 18 2023 1:57P Dictated by : LANETTE CASON MD This examination was interpreted and the report reviewed and electronically signed by: LANETTE CASON MD on Nov 18 2023 2:15PM EST [facility] Radiology Study observation (narrative) [facility] MR Brain WO and W contrast I VOrdered By: Ccrichie Provider on 11-18-2023 [facility] Absolute lymphocyte countOrd ered By: Dr. Martini on 10-08-2022 Lymphocytes Auto (Unsp spec) [#/Vol] 1.00 10*3/uL 0.83-4.51 [facility] Basophil percentageOrdered B y: Dr. Martini on 10-08-2022 Basophils/100 WBC (Bld) 1.0 % 0-1 [facility] Bilirubin [Mass/Vol] 0.40 mg/dL 0.20-1.00 [facility] Comment on above: For patients on eltr ombopag therapy, use of Dimension [place] TBIL is not recommended. Chloride [Moles/Vol] 105 mmol/L 98-107 [facility] Cholesterol [Mass/Vol] 98 mg/dL <200 [facility] Comment on above: <200 mg/dL Desirable 200-240 mg/dL Borderline >240 mg/dL High Risk Eosinophils/100 WBC (Bld) 11.1 % 0-5 [facility] Glucose [Mass/Vol] 103 mg/dL 74-106 [facility] Comment on above: Fasting Glucose resu lt from 100 to 125 mg/dL suggests IMPAIRED HOMEOSTASIS per A.D.A. criteria. Neutrophils (Bld) [#/Vol] 2.0 10*3/uL 2.0-7.7 [facility] Neutrophils/100 WBC (Bld) 51.1 % 47-70 [facility] Potassium [Moles/Vol] 3.9 mmol/L 3.5-5.1 [facility] Protein [Mass/Vol] 8.1 g/dL 6.4-8.2 [facility] Sodium [Moles/Vol] 139 mmol/L 136-145 [facility] Triglyceride [Mass/Vol] 148 mg/dL <199 [facility] Comment on above: The drugs N-Acetylcy steine and Metamizole may falsely depress this assay.Serum Triglycerides Reference Interval Normal <150 mg/dL Borderline high 150 - 199 mg/dL High 200 - 499 mg/dL Very High > or = 500 mg/dL WBC (Bld) [#/Vol] 3.9 10*3/uL 4.4-11.0 [facility] Blood erythrocytes count (nu mber/volume)Ordered By: Dr. Martini on 10-08-2022 RBC (Bld) [#/Vol] 4.03 10*6/uL 4.6-6.2 [facility] Blood hemoglobin measurement (mass/volume)Ordered By: Dr. Martini on 10-08-2022 Hemoglobin (Bld) [Mass/Vol] 11.8 g/dL 13.0-16.5 [facility] Blood lymphocytes/100 leukoc ytesOrdered By: Dr. Martini on 10-08-2022 Lymphocytes/100 WBC (Bld) 25.7 % 19-41 [facility] Blood monocytes/100 leukocyt esOrdered By: Dr. Martini on 10-08-2022 Monocytes/100 WBC (Bld) 11.1 % 0-10 [facility] Blood platelet mean volumeOr dered By: Dr. Martini on 10-08-2022 Platelet mean volume (Bld) [Entitic vol] 9.9 fL 6.2-12.0 [facility] Determination of erythrocyte mean corpuscular volume (MCV)Ordered By: Dr. Martini on 10-08-2022 MCV (RBC) [Entitic vol] 90.8 fL 80-94 [facility] Hematocrit Auto (Bld) [Volum e fraction]Ordered By: Dr. Martini on 10-08-2022 Hematocrit (Bld) [Volume fraction] 36.6 % 40-54 [facility] - Chemistry and C hemistry - challengeOrdered By: Dr. Martini on 10-08-2022 ALP [Catalytic activity/Vol] 73 U/L 45-117 [facility] ALT [Catalytic activity/Vol] 21 U/L 16-61 [facility] CO2 [Moles/Vol] 26.0 mmol/L 21.0-32.0 [facility] Free T4 [Mass/Vol] 0.97 ng/dL 0.76-1.46 [facility] Globulin (S) [Mass/Vol] 4.6 g/dL 2.2-4.2 [facility] Urea nitrogen/Creatinine [Mass ratio] 21.2 mg/mg 10-20 [facility] - Hematology and Cell countsOrdered By: Dr. Martini on 10-08-2022 Erythrocyte distribution width (RBC) [Entitic vol] 44.2 fL 35.1-43.9 [facility] Erythrocyte distribution width (RBC) [Ratio] 13.4 % 11.6-14.6 [facility] Immature granulocytes/100 WBC (Bld) 0.000 % 0.0-0.9 [facility] Comment on above: IG% - Immature Granu locytes (promyelocytes, myelocytes and metamyelocytes) > 1% indicates that a LEFT SHIFT is Present. MCH (RBC) [Entitic mass] 29.3 pg 27.0-32.0 [facility] Nucleated RBC/100 WBC (Bld) [Ratio] 0 % 0-5 [facility] MCHC Auto (RBC) [Mass/Vol]Or dered By: Dr. Martini on 10-08-2022 MCHC (RBC) [Mass/Vol] 32.2 g/dL 32-36 [facility] No Panel InformationOrdered By: Dr. Martini on 10-08-2022 Estimated GFR (MDRD) Amer 93 mL/min >60 [facility] Comment on above: GFR Calc Estimated GFR (MDRD) Non-Af Amer 77 mL/min >60 [facility] Comment on above: Non- GFR Calc Thyroid Stimulating Hormone (TSH) 2.79 uIU/mL 0.358-3.74 [facility] Platelets bldOrdered By: Dr. Martini on 10-08-2022 Platelets (Bld) [#/Vol] 255 10*3/uL 150-450 [facility] Serum or plasma albumin clare urement (mass/volume)Ordered By: Dr. Martini on 10-08-2022 Albumin [Mass/Vol] 3.5 g/dL 3.2-5.0 [facility] Serum or plasma albumin/glob ulin mass ratioOrdered By: Dr. Martini on 10-08-2022 Albumin/Globulin [Mass ratio] 0.8 {ratio} 0.9-2.4 [facility] Serum or plasma calcium clare urement (mass/volume)Ordered By: Dr. Martini on 10-08-2022 Calcium [Mass/Vol] 9.3 mg/dL 8.5-10.1 [facility] Serum or plasma cholesterol in HDL measurement (mass/volume)Ordered By: Dr. Martini on 10-08-2022 Cholesterol in HDL [Mass/Vol] 27 mg/dL >40 [facility] Comment on above: The drugs N-Acetylcy steine and Metamizole may falsely depress this assay. Reference Range HDL <40 mg/dL Low HDL Cholesterol HDL >or= 60 mg/dL High HDL Cholesterol Serum or plasma cholesterol in VLDL measurement (mass/volume)Ordered By: Dr. Martini on 10-08-2022 Cholesterol in VLDL [Mass/Vol] 30 mg/dL 5-40 [facility] Serum or plasma creatinine m easurement (mass/volume)Ordered By: Dr. Martini on 10-08-2022 Creatinine [Mass/Vol] 0.99 mg/dL 0.70-1.30 [facility] Comment on above: The validity of the calculated GFR & GFRAA in patients over 70 years has not been determined. Clinical correlation is essential. Serum or plasma low density lipoprotein (LDL) cholesterol measurement (mass/volume)Ordered By: Dr. Martini on 10-08-2022 Cholesterol in LDL [Mass/Vol] 41 mg/dL 0-130 [facility] Serum or plasma urea nitroge n measurement (mass/volume)Ordered By: Dr. Martini on 10-08-2022 Urea nitrogen [Mass/Vol] 21 mg/dL 7-18 [facility] Thin prep Papanicolaou smear with manual screeningOrdered By: Dr. Martini on 10-08-2022 Thin prep Papanicolaou smear with manual screening 26 U/L 15-37 [facility] Thin prep Papanicolaou smear with manual screening 8 5-15 [facility] Whole blood hemoglobin A1c/t otal hemoglobin ratio (mass fraction)Ordered By: Dr. Martini on 10-08-2022 HbA1c (Bld) [Mass fraction] 6.3 % 3.8-5.6 [facility] Comment on above: Normal < 5.7 % Predi abetic 5.7 - 6.4 % Diabetic >or= 6.5 % Please note range changes. CT WB SKULL TO KNEE WO IVCON on 11-26-2021 CT WB SKULL TO KNEE WO IVCON * * *Final Report* * * DATE OF EXAM: Nov 26 2021 11:29AM [facility] 2096 - CT WB SKULL TO KNEE [...] hiatal hernia. 4. Incidental findings as above. Payroll Specialist: [facility] Transcribe Date/Time: Nov 26 2021 1:28P Dictated by : KEATON AVILA MD This examination was interpreted and the report reviewed and electronically signed by: KEATON AVILA MD on Nov 26 2021 1:47PM EST [id number] [facility] CT WHOLE BODY SKULL TO KNEE WO IVCONon 11-26-2021 [facility] - Microbiology an d Antimicrobial susceptibilityon 11-19-2021 SARS-CoV-2 (COVID-19) RNA SILVESTRE+probe Ql (Unsp spec) Detected Not Detect [facility] Work Phone: Comment on above: Normal Reference Ran ge: Not DetectedMethod:(RT-PCR) real-time reverse transcriptase PCRLuminex ELIZABET Instrument*The Food and Drug Administration (FDA) has issued an Emergency Use Authorization (EAU) for the Finestrella SARS-CoV-2 Assay for the rapid detection of [...] percentageon 2021 Potassium [Moles/Vol] 3.7 mmol/L 3.5-5.1 [facility] Work Phone: Absolute lymphocyte counton 10-08-2021 Lymphocytes Auto (Unsp spec) [#/Vol] 1.05 10*3/uL 0.83-4.51 [facility] Work Phone: Basophil percentageon 2021 Basophil percentage 0 SEEN /hpf 0-5 [facility] Work Phone: Basophils/100 WBC (Bld) 0.8 % 0-1 [facility] Work Phone: [phone] Bilirubin [Mass/Vol] 0.50 mg/dL 0.20-1.00 [facility] Work Phone: Comment on above: For patients on eltr ombopag therapy, use of Dimension [place] TBIL is not recommended. Chloride [Moles/Vol] 102 mmol/L 98-107 [facility] Work Phone: Cholesterol [Mass/Vol] 114 mg/dL <200 [facility] Work Phone: Comment on above: <200 mg/dL Desirable 200-240 mg/dL Borderline >240 mg/dL High Risk Eosinophils/100 WBC (Bld) 4.0 % 0-5 [facility] Work Phone: Glucose [Mass/Vol] 96 mg/dL 74-106 [facility] Work Phone: Neutrophils (Bld) [#/Vol] 3.2 10*3/uL 2.0-7.7 [facility] Work Phone: Neutrophils/100 WBC (Bld) 62.5 % [address] [facility] Work Phone: Potassium [Moles/Vol] 3.3 mmol/L 3.5-5.1 [facility] Work Phone: Protein [Mass/Vol] 7.8 g/dL 6.4-8.2 [facility] Work Phone: Sodium [Moles/Vol] 138 mmol/L 136-145 [facility] Work Phone: Triglyceride [Mass/Vol] 172 mg/dL <199 [facility] Work Phone: Comment on above: The drugs N-Acetylcy steine and Metamizole may falsely depress this assay.Serum Triglycerides Reference Interval Normal <150 mg/dL Borderline high 150 - 199 mg/dL High 200 - 499 mg/dL Very High > or = 500 mg/dL WBC (Bld) [#/Vol] 5.1 10*3/uL 4.4-11.0 [facility] Work Phone: Bilirubin Test strip Ql (U)o n 10-08-2021 Bilirubin Ql (U) Negative Negative [facility] Work Phone: Blood erythrocytes count (nu mber/volume)on 10-08-2021 RBC (Bld) [#/Vol] 4.07 10*6/uL 4.6-6.2 [facility] Work Phone: Blood hemoglobin measurement (mass/volume)on 10-08-2021 Hemoglobin (Bld) [Mass/Vol] 12.1 g/dL 13.0-16.5 [facility] Work Phone: Blood lymphocytes/100 leukoc yteson 10-08-2021 Lymphocytes/100 WBC (Bld) 20.8 % 19-41 [facility] Work Phone: Blood monocytes/100 leukocyt eson 10-08-2021 Monocytes/100 WBC (Bld) 11.5 % 0-10 [facility] Work Phone: Blood platelet mean volumeon 10-08-2021 Platelet mean volume (Bld) [Entitic vol] 9.9 fL 6.2-12.0 [facility] Work Phone: Determination of erythrocyte mean corpuscular volume (MCV)on 10-08-2021 MCV (RBC) [Entitic vol] 91.2 fL 80-94 [facility] Work Phone: Hematocrit Auto (Bld) [Volum e fraction]on 10-08-2021 Hematocrit (Bld) [Volume fraction] 37.1 % 40-54 [facility] Work Phone: Iron measurement (mass/mass) on 10-08-2021 Iron (Unsp spec) [Mass/Mass] 196 ug/dL 65-175 [facility] Work Phone: Ketones Test strip Ql (U)on 10-08-2021 Ketones Ql (U) Negative Negative [facility] Work Phone: Laboratory - Chemistry and C hemistry - challengeon 10-08-2021 ALP [Catalytic activity/Vol] 75 U/L 45-117 [facility] Work Phone: ALT [Catalytic activity/Vol] 25 U/L 16-61 [facility] Work Phone: CO2 [Moles/Vol] 27.0 mmol/L 21.0-32.0 [facility] Work Phone: Cobalamin (Vitamin B12) [Mass/Vol] 318 pg/mL 211-911 [facility] Work Phone: Free T4 [Mass/Vol] 0.91 ng/dL 0.76-1.46 [facility] Work Phone: Globulin (S) [Mass/Vol] 4.5 g/dL 2.2-4.2 [facility] Work Phone: Urea nitrogen/Creatinine [Mass ratio] 20.0 mg/mg 10-20 [facility] Work Phone: Laboratory - Hematology and Cell countson 10-08-2021 Erythrocyte distribution width (RBC) [Entitic vol] 43.7 fL 35.1-43.9 [facility] Work Phone: Erythrocyte distribution width (RBC) [Ratio] 13.2 % 11.6-14.6 [facility] Work Phone: Immature granulocytes/100 WBC (Bld) 0.400 % 0.0-0.9 [facility] Work Phone: Comment on above: IG% - Immature Granu locytes (promyelocytes, myelocytes and metamyelocytes) > 1% indicates that a LEFT SHIFT is Present. MCH (RBC) [Entitic mass] 29.7 pg 27.0-32.0 [facility] Work Phone: Nucleated RBC/100 WBC (Bld) [Ratio] 0.4 % 0-5 [facility] Work Phone: MCHC Auto (RBC) [Mass/Vol]on 10-08-2021 MCHC (RBC) [Mass/Vol] 32.6 g/dL 32-36 [facility] Work Phone: Mucus LM Ql (Urine sed)on Mucus Ql (Urine sed) 0 [facility]EN [facility]: Nitrite Test strip Ql (U)on 10-08-2021 Nitrite Ql (U) Negative Negative [facility] Work Phone: No Panel Informationon 10-08 Thyroglobulin Antibody 100.7 IU/mL 0.0-0.9 [facility] Work Phone: Comment on above: Thyroglobulin Antibo dy measured by José Luis CoulterMethodology Estimated GFR (MDRD) Amer 78 mL/min >60 [facility] Work Phone: Comment on above: GFR Calc Estimated GFR (MDRD) Non-Af Amer 65 mL/min >60 [facility] Work Phone: Comment on above: Non- GFR Calc Thyroid Stimulating Hormone (TSH) 2.03 uIU/mL 0.358-3.74 [facility] Work Phone: Total Iron Binding Capacity 356 ug/dL 250-450 [facility] Work Phone: Platelets bldon 10-08-2021 Platelets (Bld) [#/Vol] 256 10*3/uL 150-450 [facility] Work Phone: Protein Test strip Ql (U)on 10-08-2021 Protein Ql (U) Negative Negative [facility] Work Phone: Serum or plasma albumin clare urement (mass/volume)on 10-08-2021 Albumin [Mass/Vol] 3.3 g/dL 3.2-5.0 [facility] Work Phone: Serum or plasma albumin/glob ulin mass ratioon 10-08-2021 Albumin/Globulin [Mass ratio] 0.7 {ratio} 0.9-2.4 [facility] Work Phone: Serum or plasma calcium clare urement (mass/volume)on 10-08-2021 Calcium [Mass/Vol] 9.0 mg/dL 8.5-10.1 [facility] Work Phone: Serum or plasma cholesterol in HDL measurement (mass/volume)on 10-08-2021 Cholesterol in HDL [Mass/Vol] 29 mg/dL >40 [facility] Work Phone: Comment on above: The drugs N-Acetylcy steine and Metamizole may falsely depress this assay. Reference Range HDL <40 mg/dL Low HDL Cholesterol HDL >or= 60 mg/dL High HDL Cholesterol Serum or plasma cholesterol in VLDL measurement (mass/volume)on 10-08-2021 Cholesterol in VLDL [Mass/Vol] 34 mg/dL 5-40 [facility] Work Phone: Serum or plasma creatinine m easurement (mass/volume)on 10-08-2021 Creatinine [Mass/Vol] 1.15 mg/dL 0.70-1.30 [facility] Work Phone: Comment on above: The validity of the calculated GFR & GFRAA in patients over 70 years has not been determined. Clinical correlation is essential. Serum or plasma ferritin astrid surement (mass/volume)on 10-08-2021 Ferritin [Mass/Vol] 36 ng/mL 26-388 [facility] Work Phone: Serum or plasma folate measu rement (mass/volume)on 10-08-2021 Folate [Mass/Vol] 17.60 ng/mL 3.1-55.4 [facility] Work Phone: Serum or plasma low density lipoprotein (LDL) cholesterol measurement (mass/volume)on 10-08-2021 Cholesterol in LDL [Mass/Vol] 51 mg/dL 0-130 [facility] Work Phone: Serum or plasma thyroperoxid ase antibody assay (units/volume)on 10-08-2021 TPO Ab Qn [IU]/mL 0-34 [facility] Work Phone: Comment on above: Performed at: [facility] [address] [id number] Director: Jay Bradley PhD, Phone: [phone] at: [facility] [employer] [id number] [place] [id number] Director: Garrison Reilly MD, Phone: [phone] Serum or plasma urea nitroge n measurement (mass/volume)on 10-08-2021 Urea nitrogen [Mass/Vol] 23 mg/dL 7-18 [facility] Work Phone: Squamous epithelial cells de tection in urine sediment by light microscopyon 10-08-2021 Epithelial cells.squamous LM Ql (Urine sed) 0 SEEN /hpf 0-5 [facility] Work Phone: Thin prep Papanicolaou smear with manual screeningon 10-08-2021 Thin prep Papanicolaou smear with manual screening 27 U/L 15-37 [facility] Work Phone: Thin prep Papanicolaou smear with manual screening 9 5-15 [facility] Work Phone: Thyroglobulin measurement by radioimmunoassay (EZ)on 10-08-2021 Thyroglobulin Ab ZE Qn (S) 11 ng/mL . [facility] Work Phone: Comment on above: This test was [employer] and its performance characteristicsdetermined by [employer]. It has not been cleared or approvedby [...] blood detectionon RBC Ql (U) Negative Negative [facility] Work Phone: RBC Ql (U) 0 SEEN /hpf 0-5 [facility] Work Phone: Urine clarityon 10-08-2021 Clarity (U) Sl. Cloudy Clear [facility] Work Phone: Urine color determinationon 10-08-2021 Color (U) Yellow Yellow [facility] Work Phone: Urine glucose detectionon Glucose Ql (U) Normal mg/dl Normal [facility] Work Phone: Urine leukocyte esterase det ection by dipstickon 10-08-2021 Leukocyte esterase Test strip Ql (U) Negative Negative [facility] Work Phone: Urine pHon 10-08-2021 pH (U) 5.0 [pH] 5.0 - 8.0 [facility] Work Phone: Urine sediment bacteria coun t by microscopy (number/high power field)on 10-08-2021 Bacteria LM.HPF (Urine sed) [#/Area] 0 /[HPF] None Seen [facility] Work Phone: Urine specific gravity measu rementon 10-08-2021 Specific gravity (U) [Rel density] 1.020 1.002-1.030 [facility] Work Phone: Urobilinogen Auto test strip Ql (U)on 10-08-2021 Urobilinogen Ql (U) Normal mg/dl Normal [facility] Work Phone: Whole blood hemoglobin A1c/t otal hemoglobin ratio (mass fraction)on 10-08-2021 HbA1c (Bld) [Mass fraction] 6.1 % 3.8-5.6 [facility] Work Phone: Comment on above: Normal < 5.7 % Predi abetic 5.7 - 6.4 % Diabetic >or= 6.5 % Please note range changes. Vital Signs Date Time Vital Sign Value Performing Clinician Facility 12-19-2024 14:090400 Body height 171.[address] Prema Martini MD Work Phone: [facility] 12-19-2024 14:09-0400 Body mass index (BMI) [Ratio] 30.4 kg/m2 Dr. Prema Martini MD Work Phone: [facility] 12-19-2024 14:09-0400 Body weight 89.[address] Prema Martini MD Work Phone: [facility] 12-19-2024 14:09-0400 Diastolic blood pressure 67 mm[Hg] Dr. Prema Martini MD Work Phone: [facility] 12-19-2024 14:09-0400 Heart rate 54 /min Dr. Prema Martini MD Work Phone: [facility] 12-19-2024 14:09-0400 Respiratory rate 16 /min Dr. Prema Martini MD Work Phone: [facility] 12-19-2024 14:09-0400 Systolic blood pressure 138 mm[Hg] Dr. Prema Martini MD Work Phone: [facility] 12-08-2024 14:17-0400 Body mass index (BMI) [Ratio] 30.54 kg/m2 Mak Masci DO Work Phone: [facility] 12-08-2024 14:17-0400 Body temperature 97.5 [degF] Mak Masci DO Work Phone: [facility] 12-08-2024 14:170400 Body weight 88.45 kg Mak Masci DO Work Phone: [facility] 12-08-2024 14:17-0400 Diastolic blood pressure 63 mm[Hg] Mak Masci DO Work Phone: [facility] 12-08-2024 14:17-0400 Heart rate 62 /min Mak Masci DO Work Phone: [facility] 12-08-2024 14:17-0400 SaO2% (BldA) [Mass fraction] 96 % Mak Masci DO Work Phone: [facility] 12-08-2024 14:17-0400 Systolic blood pressure 122 mm[Hg] Mak Masci DO Work Phone: [facility] 01-29-2024 14:27-0400 Body mass index (BMI) [Ratio] 31.15 kg/m2 John Ellis MD Work Phone: [facility] 01-29-2024 14:27-0400 Body temperature 97.59 [degF] John Ellis MD Work Phone: [facility] 01-29-2024 14:27-0400 Body weight 90.2 kg John Ellis MD Work Phone: [facility] 01-29-2024 14:27-0400 Diastolic blood pressure 80 mm[Hg] John Ellis MD Work Phone: [facility] 01-29-2024 14:27-0400 Heart rate 72 /min John Ellis MD Work Phone: [facility] 01-29-2024 14:27-0400 Respiratory rate 16 /min John Ellis MD Work Phone: [facility] 01-29-2024 14:27-0400 SaO2% (BldA) [Mass fraction] 97 % John Ellis MD Work Phone: [facility] 01-29-2024 14:27-0400 Systolic blood pressure 138 mm[Hg] John Ellis MD Work Phone: [facility] 11-24-2023 08:49-0400 Body mass index (BMI) [Ratio] 31.56 kg/m2 Mak Chetani DO Work Phone: [facility] 11-24-2023 08:49-0400 Body temperature 97.7 [degF] Mak Masci DO Work Phone: [facility] 11-24-2023 08:49-0400 Body weight 91.4 kg Mak Masci DO Work Phone: [facility] 11-24-2023 08:49-0400 Diastolic blood pressure 66 mm[Hg] Mak Masci DO Work Phone: [facility] 11-24-2023 08:49-0400 Heart rate 50 /min Mak Masci DO Work Phone: [facility] 11-24-2023 08:49-0400 SaO2% (BldA) [Mass fraction] 100 % Mak Masci DO Work Phone: [facility] 11-24-2023 08:49-0400 Systolic blood pressure 155 mm[Hg] Mak Masci DO Work Phone: [facility] 12-04-2022 09:15-0400 Body temperature 97.3 [degF] Dr. Prema Martini Work Phone: [facility] 12-04-2022 09:15-0400 Diastolic blood pressure 59 mm[Hg] Dr. Prema Martini Work Phone: [facility] 12-04-2022 09:15-0400 Heart rate 52 /min Dr. Prema Martini Work Phone: [facility] 12-04-2022 09:15-0400 Respiratory rate 16 /min Dr. Prema Martini Work Phone: [facility] 12-04-2022 09:15-0400 SaO2% (BldA) [Mass fraction] 97 % Dr. Prema Martini Work Phone: [facility] 12-04-2022 09:15-0400 Systolic blood pressure 129 mm[Hg] Dr. Prema Martini Work Phone: [facility] 12-04-2022 08:03-0400 Body height 170.[address] Prema Martini Work Phone: [facility] 12-04-2022 08:03-0400 Body mass index (BMI) [Ratio] 31.7 kg/m2 Dr. Prema Martini Work Phone: [facility] 12-04-2022 08:03-0400 Body weight [address] Prema Martini Work Phone: [facility] 11-13-2022 12:45-0400 Body height 170.[address] Prema Martini Work Phone: [facility] 11-13-2022 12:45-0400 Body mass index (BMI) [Ratio] 32.2 kg/m2 Dr. Prema Martini Work Phone: [facility] 11-13-2022 12:45-0400 Body weight 93.[address] Prema Martini Work Phone: [facility] 11-13-2022 12:45-0400 Diastolic blood pressure 51 mm[Hg] Dr. Prema Martini Work Phone: [facility] 11-13-2022 12:45-0400 Heart rate 76 /min Dr. Prema Martini Work Phone: [facility] 11-13-2022 12:45-0400 Respiratory rate 18 /min Dr. Prema Martini Work Phone: [facility] 11-13-2022 12:45-0400 Systolic blood pressure 113 mm[Hg] Dr. Prema Martini Work Phone: [facility] 11-12-2022 08:08-0400 Body mass index (BMI) [Ratio] 32.4 kg/m2 Dr. Prema Martini Work Phone: [facility] 11-12-2022 08:08-0400 Body weight 93.[address] Prema Martini Work Phone: [facility] 11-12-2022 08:08-0400 Diastolic blood pressure 67 mm[Hg] Dr. Prema Martini Work Phone: [facility] 11-12-2022 08:08-0400 Heart rate 56 /min Dr. Prema Martini Work Phone: [facility] 11-12-2022 08:08-0400 Respiratory rate 18 /min Dr. Prema Martini Work Phone: [facility] 11-12-2022 08:08-0400 SaO2% (BldA) [Mass fraction] 99 % Dr. Prema Martini Work Phone: [facility] 11-12-2022 08:08-0400 Systolic blood pressure 155 mm[Hg] Dr. Prema Martini Work Phone: [facility] 10-27-2022 11:09-0400 Body height 170.2 cm aMk Bentoni DO Work Phone: [facility] 10-27-2022 11:09-0400 Body temperature 97.81 [degF] Mak Bentoni DO Work Phone: [facility] 10-27-2022 11:09-0400 Body weight 93.21 kg Mak eBntoni DO Work Phone: [facility] 10-27-2022 11:09-0400 Diastolic blood pressure 63 mm[Hg] Mak Bentoni DO Work Phone: [facility] 10-27-2022 11:09-0400 Heart rate 58 /min Mak Chetani DO Work Phone: [facility] 10-27-2022 11:09-0400 Respiratory rate 18 /min Mak Chetani DO Work Phone: [facility] 10-27-2022 11:09-0400 SaO2% (BldA) [Mass fraction] 97 % Mak Cheatni DO Work Phone: [facility] 10-27-2022 11:09-0400 Systolic blood pressure 156 mm[Hg] Mak Chetani DO Work Phone: [facility] 01-10-2022 14:02-0400 Body temperature 97.59 [degF] Kimberlee Callow [employer] Work Phone: [facility] 01-10-2022 14:02-0400 Body weight 91.17 kg Kimberlee Callow [employer] Work Phone: [facility] 01-10-2022 14:02-0400 Diastolic blood pressure 58 mm[Hg] Kimberlee Callow [employer] Work Phone: [facility] 01-10-2022 14:02-0400 Heart rate 56 /min Kimberlee Callow [employer] Work Phone: [facility] 01-10-2022 14:02-0400 Respiratory rate 20 /min Kimberlee Callow [employer] Work Phone: [facility] 01-10-2022 14:02-0400 SaO2% (BldA) [Mass fraction] 97 % Kimberlee Callow [employer] Work Phone: [facility] 01-10-2022 14:02-0400 Systolic blood pressure 138 mm[Hg] Kimberlee Callow [employer] Work Phone: [facility] 10-07-2021 11:25-0400 Body height 170.[address] Prema Duffy Work Phone: [facility] Work Phone: 10-07-2021 11:25-0400 Body mass index (BMI) [Ratio] 31.6 kg/m2 Dr. Prema Duffy Work Phone: [facility] Work Phone: 10-07-2021 11:25-0400 Body weight 91.[address] Prema Duffy Work Phone: [facility] Work Phone: 10-07-2021 11:25-0400 Diastolic blood pressure 52 mm[Hg] Dr. Prema Duffy Work Phone: [facility] Work Phone: 10-07-2021 11:25-0400 Heart rate 60 /min Dr. Prema Duffy Work Phone: [facility] Work Phone: 10-07-2021 11:25-0400 Respiratory rate 16 /min Dr. Prema Duffy Work Phone: [facility] Work Phone: 10-07-2021 11:25-0400 Systolic blood pressure 111 mm[Hg] Dr. Prema Duffy Work Phone: [facility] Work Phone: 10-07-2021 11:25-0400 Body height 170.[address] Prema Duffy Work Phone: [facility] Work Phone: 10-07-2021 11:25-0400 Body mass index (BMI) [Ratio] 31.6 kg/m2 Dr. Prema Duffy Work Phone: [facility] Work Phone: 10-07-2021 11:25-0400 Body weight 91.[address] Prema Duffy Work Phone: [facility] Work Phone: 05-31-2022 11:25-0400 Diastolic blood pressure 52 mm[Hg] Dr. Prema Duffy Work Phone: [facility] Work Phone: 10-07-2021 11:25-0400 Heart rate 60 /min Dr. Prema Duffy Work Phone: [facility] Work Phone: 10-07-2021 11:25-0400 Respiratory rate 16 /min Dr. Prema Duffy Work Phone: [facility] Work Phone: 10-07-2021 11:25-0400 Systolic blood pressure 111 mm[Hg] Dr. Prema Duffy Work Phone: [facility] Work Phone: Encounters Encounter Date Encounter Type Care Provider Facility Start: 12-20-2024 ambulatory Prema Moffett y:[facility] Start: 12-19-2024 End: 12-19-2024 Patient encounter procedure Prema RAMÍREZ -[facility] Work Phone: Start: 12-19-2024 End: 12-19-[address] 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 Start: 01-29-2024 End: 01-29-2024 ambulatory SELF Facility:[facility] Start: 01-29-2024 End: 01-29-2024 Patient encounter procedure John Ellis MD Work Phone: [facility] Comment on above: Fatigue, unspecified type (Primary Dx); Feels feverish Start: 01-18-2024 End: [facility] Start: 01-11-2024 End: 01-12-2024 ambulatory John Suresh Facility:[facility] Start: 12-30-2023 End: 12-30-2023 ambulatory Prema Martini [facility] Start: 12-02-2023 Telephone encounter Mak hare DO [...] Work Phone: Hematology/Oncology Start: 11-18-2023 End: 11-18-2023 Subsequent hospital visit by physician [employer] [facility] (I-Stat/1.5t) Work Phone: Radiology Comment on above: Meningioma (HCC) [D3 2.9] Start: 12-04-2022 Non-patient / Non-visit Dr. Varsha Martini Work Phone: [facility] Start: 12-04-2022 End: 12-04-2022 Admission to same day surgery center Dr. Prema Martini Work Phone: [facility] Work Phone: Start: 12-04-2022 End: 12-04-[address] Prema Martini Work Phone: [facility] Work Phone: Start: 11-25-2022 Non-patient / Non-visit Dr. Varsha Martini Work Phone: [facility] Work Phone: Start: 11-23-2022 Non-patient / Non-visit Dr. Varsha Martini Work Phone: [facility] Start: 11-23-2022 End: 11-23-[address] Prema Martini Work Phone: [facility] Work Phone: Start: 11-23-2022 End: 11-23-[address] Prema Martini Work Phone: [facility] Work Phone: Start: 11-13-2022 End: 11-13-[address] Prema Martini Work Phone: [facility] Work Phone: Start: 11-12-2022 End: 11-12-[address] Prema Martini Work Phone: [facility] Work Phone: Start: 11-02-2022 End: 11-02-[address] [facility] Work Phone: Start: 11-02-2022 End: 11-02-[address] [facility], [facility] Work Phone: Start: 10-27-2022 Telephone encounter Mak hare DO Work Phone: Hematology/Oncology Comment on above: Appointment Start: 10-27-2022 End: 10-27-2022 ambulatory Mak Mendoza DO Work Phone: Hematology/Oncology Comment on above: MGUS (monoclonal korina mopathy of unknown significance) (Primary Dx); Anemia, unspecified type; Meningioma (HCC) Start: 10-27-2022 End: 10-27-2022 Patient encounter procedure Mak Mendoza DO Work Phone: [facility] Start: 10-08-2022 End: 10-08-[address] [facility] Work Phone: Start: 10-08-2022 End: 10-08-[address] [facility] Start: 06-03-2022 Telephone encounter Mak hare DO Work Phone: Hematology/Oncology Comment on above: Patient Update Start: 01-11-2022 Telephone encounter Caitlin gore [employer] Work Phone: [facility] Comment on above: Results Start: 01-10-2022 End: 01-10-2022 Patient encounter procedure Kimberlee Dunn [employer] Work Phone: [facility] Comment on above: Acute cough (Primary Dx) Start: 12-01-2021 Telephone encounter Alexus Zhang MD Work Phone: Hematology/Oncology Comment on above: Orders Start: 11-26-2021 End: 11-26-2021 Subsequent [facility] visit [facility] Work Phone: Radiology CT Scan Comment on above: Multiple myeloma not having achieved remission (HCC) [C90.00] Start: 11-19-2021 End: 11-19-[address] Prema Duffy Work Phone: [facility]Labor[facility], Specimen Start: 11-04-2021 End: 11-04-[address] Prema Duffy Work Phone: [facility] Start: 10-15-2021 End: 10-15-[address] Prema Duffy Work Phone: [facility] Start: 10-08-2021 End: 10-08-[address] [facility] Start: 10-07-2021 End: 10-07-[address] Prema Duffy Work Phone: [facility] Procedures Date Procedure Procedure Detail Performing Clinician Start: 11-18-2023 Mri brain brain stem w/o w/contrast material Mak Mendoza DO Work Phone: Start: 12-04-[address] Prema quesada Work Phone: Start: 11-02-2022 Radiography of esophagus Start: 11-26-2021 Unlisted computed tomography procedure Alexus Zhang MD Work Phone: Start: 02-08-2004 History of coronary artery bypass grafting H/O coronary artery bypass surgery Prema Le [employer] Comment on above: CABG x 5: JEWELL-LAD, SVG-D1, SVG-RPDA, Se quential SVG-OM2 and LPLB 02/2004 Plan of Treatment Date Care Activity Detail Author Start: 12-09-2027 Diabetes Screening Diabetes Screenin [facility] Start: 11-23-2026 Diabetes Screening Diabetes Screenin [facility] Start: 12-07-2025 End: 12-07-2025 ambulatory 12/07/2025 9:40 AM EDT Visit (SP) Office Hematology/Oncology [address] [place] [id number] Mak Mendoza DO [address] [place] [address] 1YR/LABS 11/30* Hematology/Oncology Comment on above: 1YR/LABS 11/30* Start: 11-30-2025 End: 11-30-2025 ambulatory 11/30/2025 7:00 AM EDT Results Only [facility] [address] [place] [place] [id number] CBC/CMP/Myeloma labs [facility] Comment on above: CBC/CMP/Myeloma labs Start: 10-20-2025 DIABETES SCREEN DIABETES SCREEN [facility] Start: 10-20-2025 Diabetes Screening Diabetes Screenin g [facility] Start: 01-08-2025 Influenza vaccination Influenza Vacc ine (#1) [facility] Start: 12-08-2024 End: 03-09-2025 Ferritin [Mass/volume] in Serum or Plasma [facility] Work Phone: Comment on above: Expected: 12/08/2024 , Expires: 03/09/2025 Start: 11-07-2024 DIABETES SCREEN DIABETES SCREEN [facility] Start: 05-10-2024 Advance Directive Discussion Advance Directive Discussion [facility] Start: 01-09-2024 Covid-19 Vaccine ( season) Covid-19 Vaccine ( season) [facility] Start: 01-09-2024 Influenza vaccination Influenza Vacc ine (#1) [facility] Start: 11-24-2023 End: 11-24-2023 [facility] on above: MYELOMA LABS* 1YR OV/MRI 11/17* Start: 05-10-2023 Advance Directive Discussion Advance Directive Discussion [facility] Start: 05-10-2023 Behavioral Health Screening Behavioral Health Screening [facility] Start: 01-08-2023 Covid-19 Vaccine ( season) Covid-19 Vaccine ( season) [facility] Start: 01-08-2023 Influenza vaccination [facility] Start: 12-04-2022 Patient discharge [facility] Start: 05-10-2022 ADVANCE DIRECTIVE DISCUSSION ADVANCE DIRECTIVE DISCUSSION [facility] Start: 05-10-2022 DEPRESSION ASSESSMENT DEPRESSION ASS ESSMENT [facility] Start: 01-10-2022 End: 01-24-2022 Influenza virus A and B RNA and SARS-CoV-2 (COVID-19) N gene panel - Respiratory specimen by SILVESTRE with probe detection COVID WITH FLUA+B, ROUTINE Microbiology Routine Acute cough Expected: 01/10/2022, Expires: 01/24/2022 [facility] Work Phone: Comment on above: Expected: 01/10/2022 , Expires: 01/24/2022 Start: 01-08-2022 Influenza vaccination INFLUENZA (#1) [facility] Start: 05-10-2021 ADVANCE DIRECTIVE DISCUSSION ADVANCE DIRECTIVE DISCUSSION [facility] Start: 01-05-2021 COVID-19 VACCINE (3 - Booster for Moderna series) COVID-19 VACCINE (3 - Booster for Moderna series) [facility] Start: 09-30-2020 COVID-19 VACCINE (3 - Booster for Moderna series) COVID-19 VACCINE (3 - Booster for Moderna series) [facility] Start: 01-26-2015 RSV Vaccine (1 - 1-d ose 75+ series) RSV Vaccine (1 - 1-dose 75+ series) [facility] Start: 03-23-2007 Shingrix Vaccine (2 of 3) Shingrix Vaccine (2 of 3) [facility] Start: 01-26-2005 PNEUMOCOCCAL: 65+ (1 - PCV) PNEUMOCOCCAL: 65+ (1 - PCV) [facility] Start: 01-08-2005 Medicare Annual Well ness Visit Medicare Annual Wellness Visit [facility] Start: 2000 RSV Vaccine (1 - 1-d ose 60+ series) RSV Vaccine (1 - 1-dose 60+ series) [facility] Start: 01-26-1990 SHINGRIX VACCINE (1 of 2) SHINGRIX VACCINE (1 of 2) [facility] Start: 01-26-1959 Urine microalbumin profile [facility] Start: 01-26-1958 Anxiety Screening Anxiety Screening [facility] Start: 01-26-1958 Depression Screening Depression Scre ening [facility] Comprehensive metabo lic 1999 panel - Serum or Plasma [facility] Lipid 1996 panel - S mora or Plasma [facility] End: 11-26-2023 Mri brain brain stem w/o w/contrast material MRI BRAIN WO/W IVCON Radiology Routine Meningioma (HCC) 1 Occurrences starting 10/27/2022 until 11/26/2023 [facility] Work Phone: Comment on above: 1 Occurrences starti ng 10/27/2022 until 11/26/2023 [facility] referral [facility] Immunizations Immunization Date Immunization Notes Care Provider Yumiko sanon 08-05-2020 COVID-19 vaccine, fu ll dose (MODERNA) Ct 2 Work Phone: [facility] Work Phone: 07-08-2020 COVID-19 vaccine, fu ll dose (MODERNA) Ct 2 Work Phone: [facility] Work Phone: 01-12-2017 influenza virus vacc ine, unspecified formulation Mak Chetanjeanette DO Work Phone: [facility] 01-08-[address] Prema Duffy Work Phone: [facility] 01-08-2017 pneumococcal polysaccharide vaccine, [address] Prema Duffy Work Phone: [facility] Payers Date Payer Category Payer Self-pay [id number] 2013 Private Health Insurance [facility] AARP SUPPLEMENT [id number] 2013-Present [phone] [address] [place] [address] Indemnity [id number] 2013 Private Health Insurance [id number] 2012 Unknown [id number] 2005 Medicare MEDICARE MEDICAR E A AND B [id number] 2005-Present [phone] [address] [address] [place] [address] Medicare [id number] 2005 Medicare [id number] 2005 Medicare [id number] Unknown [id number] Unknown [id number] Unknown [id number] Unknown [id number] Unknown [id number] Unknown [id number] Social History Date Type Detail Facility Start: 10-07-2021 End: 11-30-2022 Tobacco smoking status [facility] Unknown if ever smoked [facility] Start: 11-28-2017 Occasional [facility] Start: 11-28-2017 None [facility] Start: 11-28-2017 Spouse/ Significant Oth er [facility] Start: 11-30-2017 Non-smoker [facility] Start: 1940 Sex Assigned At Male [facility] Start: 11-07-2016 End: 01-29-2024 Tobacco smoking status NHIS Ex-smoker [facility] Start: 05-10-1955 End: 05-10-1967 History of tobacco use Current smoker [facility] Start: 05-10-1955 End: 05-10-1967 History of tobacco use Cigarette Smoker [facility] Start: 11-07-2016 End: 06-03-2022 Cigarettes smoked current (pack per day) - Reported 1 [facility] Start: 11-07-2016 End: 01-29-2024 Tobacco use and exposure Smokeless tobacco non-user [facility] Start: 11-14-2021 End: 12-08-2024 Alcohol intake Current drinker of alcohol (finding) [facility] Start: 10-22-2020 History SDOH Alcohol Comment occassionally [facility] Start: 1940 Sex Assigned At Not on file [facility] Start: 11-16-2021 End: 01-10-2022 Exposure to SARS-CoV-2 (event) Not sure [facility] Start: 06-03-2022 End: 01-26-2023 Tobacco use panel [facility] Start: 04-10-2012 National Score (1-100), lower number is lower risk 66 [facility] Goals Date Patient Goal Desired Activity /State Mental Status Date Assessment Result Facility 12-04-2022 [facility] function [facility] Notes 02-08-2004 to 12-20-2024 Telephone Encounter - Latoya Jade LPN - 12/20/2024 8:11 AM EDTTelephone Encounter - Latoya Jade LPN - 12/20/2024 8:11 AM EDTTelephone Encounter - Mak Mendoza DO - 12/12/2024 12:29 PM EDT Note Date & Type Note Facility 12-20-2024 Telephone encounter Note Fourth attempt to contact patient. Call goes straight to voicemail and the box is so full, unable to leave a message. I will mail a copy of this note to the patient. Maude- please see the message below. Latoya Jade LPN [facility] 12-20-2024 Miscellaneous Notes Fourth attempt to contact patient. Call goes straight to voicemail and the box is so full, unable to leave a message. I will mail a copy of this note to the patient. Maude- please see the message below. Latoya Jade LPN Third attempt to contact patient to review results. Unable to leave a message, MCKENNA full. Latoya Jade LPN Attempted to contact patient again; VM full, unable to leave another message. Latoya Jade LPN Message left for patient to contact office for results and medication instructions. A copy of the note below and all lab results was faxed to Dr. Martini. Latoya Jade LPN Can let him know lab work indicates he has iron deficiency. Myeloma labs are stable. Please fax all recent lab work and this note to Dr. Martini. Recommend he start OTC ferrous sulfate 325 mg once daily. He should talk with Dr. Martini about an EGD and a colonoscopy. Recommend rechecking CBC with iron studies in 3 months. Mak Mendoza DO documented in this encounter [facility] 12-18-2024 Telephone encounter Note Third attempt to contact patient to review results. Unable to leave a message, VM full. Latoya Jade LPN [facility] 12-13-2024 Telephone encounter Note Attempted to contact patient again; MCKENNA full, unable to leave another message. Latoya Jade LPN [facility] 12-12-2024 Telephone encounter Note Message left for patient to contact office for results and medication instructions. A copy of the note below and all lab results was faxed to Dr. Martini. Latoya Jade LPN [facility] 12-12-2024 Telephone encounter Note Can let him know lab work indicates he has iron deficiency. Myeloma labs are stable. Please fax all recent lab work and this note to Dr. Martini. Recommend he start OTC ferrous sulfate 325 mg once daily. He should talk with Dr. Martini about an EGD and a colonoscopy. Recommend rechecking CBC with iron studies in 3 months. Mak Mendoza DO [facility] Work Phone: 12-08-2024 History of Presen t illness Narrative [...] couple times a week. He stay in [place] for winter and spring and come back to [place] from September to January. His only other complaint was chronic left knee pain secondary to arthritis and previous meniscus tear. Laboratory study revealed a mild normocytic normochromic anemia, and an increase M spike of 2 g/dL on his serum protein electrophoresis. He has normal calcium and normal renal function. OV 2023: He did not have brain MRI done when in [place] last winter--I believe that was ordered by [...] which included preparing to see the patient, [id number] patient care, completing clinical documentation, performing a medically appropriate examination, counseling and educating the patient/family/caregiver, ordering medications, tests, or procedures, communicating with other HCPs (not separately reported), and communicating results to the patient/family/caregiver. Mak Mendoza DO documented in this encounter [facility] 12-08-2024 Note HNO ID: [id number] Author: MAK MENDOZA DO Service: ? Author [...] couple times a week. He stay in [place] for winter and spring and come back to [place] from September to January. His only other complaint was chronic left knee pain secondary to arthritis and previous meniscus tear. Laboratory study revealed a mild normocytic normochromic anemia, and an increase M spike of 2 g/dL on his serum protein electrophoresis. He has normal calcium and normal renal function. OV 2023: He did not have brain MRI done when in [place] last winter--I believe that was ordered by [...] which included preparing to see the patient, [id number] patient care, completing clinical documentation, performing a medically appropriate examination, counseling and educating the patient/family/caregiver, ordering medications, tests, or procedures, communicating with other HCPs (not separately reported), and communicating results to the patient/family/caregiver. Mak Mendoza, [facility] 01-29-2024 Note HNO ID: [id number] Author: JOHN ELLIS MD Service: ? Author [...] Use 1 Drop in eyes twice daily. Fksaz-3-NKB-EPA-Fish Oil 1,000 mg (120 mg-180 mg) cap [...] dizziness, palpitations, or lethargy. John Ellis MD [facility] 01-29-2024 History of Presen t illness Narrative [...] Use 1 Drop in eyes twice daily. Srzgf-8-NHH-EPA-Fish Oil 1,000 mg (120 mg-180 mg) cap [...] John Ellis MD documented in this encounter [facility] 12-03-2023 Telephone encounter Note Recall letter entered for August 08 [facility] Work Phone: 12-03-2023 Miscellaneous Notes Recall letter entered for August 08 Message left on identified voicemail labs are stable F/U in 1 year. Our PSS will reach out to him in several months to get scheduled. Brittany Metzger LPN Labs stable. CBC/CMP/Myeloma labs (no urine) then OV in about a year. Mak Mendoza DO documented in this encounter [facility] 12-03-2023 Telephone encounter Note Message left on identified voicemail labs are stable F/U in 1 year. Our PSS will reach out to him in several months to get scheduled. Brittany Metzger LPN [facility] 12-02-2023 Telephone encounter Note Labs stable. CBC/CMP/Myeloma labs (no urine) then OV in about a year. Mak Mendoza DO [facility] Work Phone: 11-29-2023 Telephone encounter Note Used [facility] Tree to schedule within [facility] and it refers the patient to call [facility] [place] to schedule. Faxed referral to [facility]. Fax confirmation scanned into Epic. Mitzy Landrum [facility] 11-29-2023 Miscellaneous Notes Used [facility] Tree to schedule within [facility] and it refers the patient to call [facility] [place] to schedule. Faxed referral to [facility]. Fax confirmation scanned into Epic. Mitzy Landrum He made it very clear to me he was not going outside a [place] to see neurology or neurosurgery so what ever appointment can be had we will have to do. Mak Mendoza DO Are you comfortable with pt waiting until September? Rosa Arroyo LPN First available consult for [facility] isn't until September 2024. Please advise as patient doesn't want to travel outside of [place]. Mitzy Landrum Check out comments: Consult neurology Dr. Esquivel or [facility] physician - DR. ESQUIVEL HAS NO OPENINGS FOR THE REST OF THE YEAR Consult ENT does not want Dr. Suresh SR - FAXED AND SCANNED INTO [facility] documented in this encounter [facility] 11-29-2023 Telephone encounter Note He made it very clear to me he was not going outside a [place] to see neurology or neurosurgery so what ever appointment can be had we will have to do. Mak Mendoza DO [facility] Work Phone: 11-29-2023 Telephone encounter Note Are you comfortable with pt waiting until September? Rosa Arroyo LPN [facility] 11-29-2023 Telephone encounter Note First available consult for [facility] isn't until September 2024. Please advise as patient doesn't want to travel outside of [place]. Mitzy Landrum [facility] 11-24-2023 Telephone encounter Note Check out comments: Consult neurology Dr. Esquivel or [facility] physician - DR. ESQUIVEL HAS NO OPENINGS FOR THE REST OF THE YEAR Consult ENT does not want Dr. Suresh SR - FAXED AND SCANNED INTO [facility] 11-24-2023 History of Presen t illness Narrative [...] couple times a week. He stay in [place] for winter and spring and come back to [place] from September to January. His only other complaint was chronic left knee pain secondary to arthritis and previous meniscus tear. Laboratory study revealed a mild normocytic normochromic anemia, and an increase M spike of 2 g/dL on his serum protein electrophoresis. He has normal calcium and normal renal function. Interim history: He did not have brain MRI done when in [place] last winter--I believe that was ordered by [...] to vein harvesting. SKIN: No jaundice. NEUROLOGIC: x ray electronics wireman II-XII are grossly intact. No focal motor [...] 4.00 k/uL 1.09 0.91 (L) 0.94 (L) Mcminn% % 7.4 11.3 6.5 Abs Mcminn <0.87 k/uL 0.35 0.44 0.39 Eosin% % [...] Staff Review Reviewed by Yesy Gonzalez MD ([id number]) Reviewed by Yesy Gonzalez MD Reviewed by Raoul Hidalgo MD, Ph.D ([id number]) Interpretation Comment for Protein Electrophoresis See separate [...] or other cystic lesion. Recommend ENT consultation. Payroll Specialist: DONTE Transcribe Date/Time: Nov 18 2023 1:57P Dictated by : LANETTE CASON MD This examination was interpreted and the report reviewed and electronically signed by: LANETTE CASON MD on Nov 18 2023 2:15PM EST Results-Findings * * *Final Report* * * DATE OF EXAM: Nov 18 2023 11:52AM [facility] 0295 - MRI BRAIN WO/W IVCON / [...] since that I would entail travel outside [place]. He is willing to see neurology here in town. I explained to him that the meningioma could be causing some of his STM problems given its location. Again however he declined neurosurgery referral. Plan: -Referral to neurology. Parotid gland cystic lesion. Assessment: -Asymptomatic and not appreciated on exam. -Recommended ENT referral. He is willing. Plan: -Referral to [place] [facility]. -We will have the images sent [...] which included preparing to see the patient, [id number] patient care, completing clinical documentation, obtaining and/or reviewing separately obtained history, performing a medically appropriate examination, counseling and educating the patient/family/caregiver, ordering medications, tests, or procedures, communicating with other HCPs (not separately reported), and communicating results to the patient/family/caregiver. Mak Mendoza DO documented in this encounter [facility] 11-18-2023 History of Presen t [...] PATIENT PRESENTS WITH AN IMPLANTABLE OR ATTACHED RADAR OPERATOR: No ALLERGIES: Reviewed and unchanged CONTRAST ALLERGY: NO. EXAM: MRI - CONTRAST TYPE: GROUP II PERIPHERAL IV DATA: Ambulatory: A peripheral IV was started in the Right antecubital site with a Angio cath: 22 gauge. RADIOLOGY DEPARTMENT: MR; Exam(s) Completed: Head: Routine Brain SIGNATURE: RT Fiordaliza(R) PATIENT NAME: Barbara Bhat DATE: November 18, 2023 TIME: 11:31 AM documented in this encounter [facility] 12-04-2022 History and physical note Note Date/Time December 04, 2022 7:44am [facility] Medical Records Department [address] [place] [id number] History & Physical Exam 12/04/2243 MR#: [id number] Acct: [id number] Name: PHILL BHAT Rep #:[id number] : 1940 82 From: Aamir Spencer MD PCP: Dr. Prema Martini MD Status:[facility] Location: [place] [address] History and Physical Date of Admission: 12/04/22 [...] mg PO QHS Please mail to patient's [place] Address #90 tabs 02/06/22 [Rx Confirmed 11/12/22] carvedilol 12.5 mg tablet 12.5 mg PO BID Please mail to patient's [place] address #180 tabs 02/06/22 [Rx Confirmed 11/12/22] omeprazole magnesium 20 mg tablet,delayed release 20 mg PO DAILY reflux #90 tabs02/06/22 [Rx Confirmed 11/12/22] hydrochlorothiazide 25 mg tablet 25 mg PO DAILY Please mail to [place] Address #90 tabs 03/17/22 [Rx Confirmed 11/12/22] rosuvastatin 20 mg tablet See Rx Instructions .Route .COMPLEX #90 tabs 05/20/22 [Rx Confirmed 11/12/22] losartan 50 mg tablet 50 mg PO DAILY #90 tabs 06/24/22 [Rx Confirmed 11/12/22] PFS Medical History Atherosclerotic heart disease of [place] coronary artery without angina pectoris Carotid bruit [...] He said about 5 years ago he [id number] gentleman is being referred by Dr Prema [...] fecal incontinence. Hospitalized when he was in [place] with right lower extremity cellulitis that caused [...] he had a total body scan at [facility] and he was told it was clear. [...] Martini MD; Dr. Aamir Spencer MD~ Signed [facility] Work Phone: [phone]) 882-439207-28-2023 Procedure [facility] 12-04-2022 Procedure [facility]07-25-2023 Miscellaneous Notes* Telephone Encounter - [...] in about a year. Patient presented [facility]. I went to schedule his brain mri and he told me that he is only here 4 months out of the year (september-jan). He said he has things planned for the time that he is here in [place] but wasn't sure when. I told the [...] schedule Brain Mri and labs and OV. Rojas [facility] History of Present illness Narrative* Mak Mendoza, DO - 10/27/2022 11:40 AM EDT DIAGNOSIS: [...] couple times a week. He stay in [place] for winter and spring and come back to [place] from September to January. His only other complaint was chronic left knee pain secondary to arthritis and previous meniscus tear. Laboratory study revealed a mild normocytic normochromic anemia, and an increase M spike of 2 g/dL on his serum protein electrophoresis. He has normal calcium and normal renal function. Interim history: He did not have brain MRI done in [place] this past winter. Having pain in metatarsals [...] to vein harvesting. SKIN: No jaundice. NEUROLOGIC: x ray electronics wireman II-XII are grossly intact. No focal motor [...] 4.00 k/uL 1.09 0.91 (L) 0.94 (L) Mcminn% % 7.4 11.3 6.5 Abs Mcminn <0.87 k/uL 0.35 0.44 0.39 Eosin% % [...] Staff Review Reviewed by Yesy Gonzalez MD ([id number]) Reviewed by Yesy Gonzalez MD Reviewed byRaoul Hidalgo MD, Ph.D ([id number]) Interpretation Comment for Protein Electrophoresis See separate [...] which included preparing to see the patient, [id number] patient care, completing clinical documentation, obtaining and/or reviewing separately obtained history, performing a medically appropriate examination, counseling and educating the pat ient/family/caregiver, communicating with other HCPs (not separately reported), and communicating results to the patient/family/caregiver. Mak Mendoza DO [facility] Miscellaneous Notes* Telephone Encounter - [...] stating that his practitioner, Dr. Sanchez, in [place] is requesting to speak with a physician in the Hem/onc department about the patinet's current condition. He was informed that Dr. Zhang has retired. He states that he will notify Dr. Sanchez of the fpc of Dr. Zhang and see if heis willing to speak with Dr. Mendoza instead. documented in this encounter[facility]09-[facility]22 Miscellaneous Notes* Telephone Encounter - Shannon Stanley LPN - 01/11/2022 9:45 AM EDT Left detailed message on identifiable voicemail. * Telephone Encounter - Caitlin Serrano APRN.CNP - 01/11/2022 8:20 AM EDT Please reach out to patient and discuss following COVID 19 negative. Please continue treatment plan discussed at time of discharge. Follow up with primary care provider. documented in this encounterK[facility]09-[facility] History of Present illness Narrative* [...] Use 1 Drop in eyes twice daily. Cosbn-9-WYN-EPA-Fish Oil 1,000 mg (120 mg-180 mg) cap [...] - COVID WITH FLUA+B, ROUTINE Kimberlee Dunn APRN.STONE RIGGER documented in this encounterKet[facility]07-25-2022 Miscellaneous Notes* Telephone Encounter - Rosa Arroyo LPN - 12/01/2021 4:15 PM EDT He will be in [place] and he will schedule that with his primary care physician in [place]. Alexus Zhang MD * Telephone Encounter - [...] orders for MRI Brain, thank you. Ramona Causey [facility]* Diagnosis Onset Date Resolution Status Essential hypertension chron ic Hyperlipidemia chronic H/O coronary artery bypass surgery February, resolved [facility] Work Phone: [phone] Evaluation note* Diagnosis Onset Date Resolution Status Hiatal hernia acute Murmur acute Essential hypertension chron ic Hyperlipidemia chronic H/O coronary artery bypass surgery February, resolved 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 Anemia, unspecified type Meningioma (HCC) Benign neoplasm of cerebral meninges [facility]* Diagnosis Meningioma (HCC) Benign neoplasm of cerebral meninges documented in this encounter [facility] note* Diagnosis 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 Monoclonal paraproteinemia Meningioma (HCC) Benign neoplasm of cerebral meninges Parotid nodule Other specified diseases of the salivary glands documented in this encounter [facility] note* Diagnosis Fatigue, unspecified type- Primary Feels feverish Fever, unspecified [facility]* Diagnosis 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 Monoclonal paraproteinemia Anemia, unspecified type documented in this encounter [facility] note* Diagnosis Onset Date Resolution Status Admit Date Essential hypertension chronic Au 2024 12:59pm Hyperlipidemia chronic December 12:59pm Murmur chronic December 19, 2 025 12:59pm H/O coronary artery bypass surgery February, resolved December 19 12:59pm [facility] Work Phone: Reason for referral (narrative)No reason for referral information availableS[facility] Work Phone: Chief Complaint and Reason for [...] surgery Augus t 2024 12:59pm Advance Directives No Advanced Directives Records Found Advance Directive Response Recorded Date/ Time Living Will Yes November 30, 2017 11:39am Power of Repairer Finished Metal Yes November 30 11:39am Advance Directive Response Recorded Date/ Time Living Will Yes November 30, 2022 4:36pm Power of Repairer Finished Metal No November 30 4:36pm Reason for Referral Specialty Diagnoses / Procedures Referred By Contac t Referred To Contact CT IMAGING Diagnoses Multiple myeloma not having achieved remission (HCC) Procedures CT WHOLE BODY SKULL TO KNEE WO IVCON UNLISTED COMPUTED TOMOGRAPHY PROCEDURE Alexus Zhang MD [address] [place] [address] Ct Imaging Referral ID Status Reason Start Date Expiration Date V isits Requested Visits Authorized [id number] Closed Auto-Generate d Referral 11/14/2021 12/14/2022 1 1 Specialty Diagnoses / Procedures Referred By Contac t Referred To Contact MR IMAGING Diagnoses Meningioma (HCC) Procedures MRI BRAIN WO/W IVCON MRI BRAIN BRAIN STEM W/O W/CONTRAST MATERIAL Mak Mendoza, DO [address] [place] [address] Mr Imaging Referral ID Status Reason Start Date Expiration Date Visits Requested Visits Authorized [id number] Pending Review Auto-Generat ed Referral 10/27/2022 11/26/2023 1 1 Specialty Diagnoses / Procedures [facility] Referred To Contact MR IMAGING Diagnoses Meningioma (HCC) Procedures MRI BRAIN WO/W IVCON MRI BRAIN BRAIN STEM W/O W/CONTRAST MATERIAL Mak Mendoza, DO [address] [place] [address] Mr Imaging [id number] Referral ID Status Reason Start Date Expiration Date V isits Requested Visits Authorized [id number] Closed Auto-Generate d Referral 10/27/2022 11/26/2023 1 1 Specialty Diagnoses / Procedures [facility] Referred To Contact Ent - Otolaryngology Diagnoses Parotid nodule Procedures CONSULT TO ENT Mak Mendoza, DO [address] [place] [address] [facility] [address] [place] [address] Referral ID Status Reason Start Date Expiration Date Visits Requested Visits Authorized [id number] Ref Not Required PCP Requested Referral 11/24/2023 11/23/2024 1 1 Specialty Diagnoses / Procedures Referred By Contac t Referred To Contact Neurology Diagnoses Meningioma (HCC) Procedures CONSULT TO NEUROLOGY Mak Mendoza DO [address] [place] [address] [facility] [address] [place] [address] Referral ID Status Reason Start Date Expiration Date Visits Requested Visits Authorized [id number] Ref Not Required PCP Requested Referral 11/24/2023 [...] or prosecute any alcohol or drug abuse patient.[facility] CenterIn the event this information is protected by the Federal Confidentiality of Alcohol and Drug Abuse Patient Records regulations: The Federal rules restrict any use of the information to criminally investigate or prosecute any alcohol or drug abuse patient.[facility] CenterIn the event this information is protected by the Federal Confidentiality of Alcohol and Drug Abuse Patient Records regulations: The Federal rules restrict any use of the information to criminally investigate or prosecute any alcohol or drug abuse patient.[facility] CenterIn the event this information is protected by the Federal Confidentiality of Alcohol and Drug Abuse Patient Records regulations: The Federal rules restrict any use of the information to criminally investigate or prosecute any alcohol or drug abuse patient.[facility] CenterIn the event this information is protected by the Federal Confidentiality of Alcohol and Drug Abuse Patient Records regulations: The Federal rules restrict any use of the information to criminally investigate or prosecute any alcohol or drug abuse patient.[facility] CenterIn the event this information is protected by the Federal Confidentiality of Alcohol and Drug Abuse Patient Records regulations: The Federal rules restrict any use of the information to criminally investigate or prosecute any alcohol or drug abuse patient.[facility] CenterIn the event this information is protected by the Federal Confidentiality of Alcohol and Drug Abuse Patient Records regulations: The Federal rules restrict any use of the information to criminally investigate or prosecute any alcohol or drug abuse patient.[facility] CenterIn the event this information is protected by the Federal Confidentiality of Alcohol and Drug Abuse Patient Records regulations: The Federal rules restrict any use of the information to criminally investigate or prosecute any alcohol or drug abuse patient.[facility] CenterIn the event this information is protected by the Federal Confidentiality of Alcohol and Drug Abuse Patient Records regulations: The Federal rules restrict any use of the information to criminally investigate or prosecute any alcohol or drug abuse patient.[facility] CenterIn the event this information is protected by the Federal Confidentiality of Alcohol and Drug Abuse Patient Records regulations: The Federal rules restrict any use of the information to criminally investigate or prosecute any alcohol or drug abuse patient.[facility] CenterIn the event this information is protected by the Federal Confidentiality of Alcohol and Drug Abuse Patient Records regulations: The Federal rules restrict any use of the information to criminally investigate or prosecute any alcohol or drug abuse patient.[facility] CenterIn the event this information is protected by the Federal Confidentiality of Alcohol and Drug Abuse Patient Records regulations: The Federal rules restrict any use of the information to criminally investigate or prosecute any alcohol or drug abuse patient.[facility] CenterIn the event this information is protected by the Federal Confidentiality of Alcohol and Drug Abuse Patient Records regulations: The Federal rules restrict any use of the information to criminally investigate or prosecute any alcohol or drug abuse patient.[facility] CenterIn the event this information is protected by the Federal Confidentiality of Alcohol and Drug Abuse Patient Records regulations: The Federal rules restrict any use of the information to criminally investigate or prosecute any alcohol or drug abuse patient.[facility] Reason for Visit (unrecogniz ed section and content) Specialty Diagnoses / Procedures Referred By Contac t Referred To Contact CT IMAGING Diagnoses Multiple myeloma not having achieved remission (HCC) Procedures CT WHOLE BODY SKULL TO KNEE WO IVCON UNLISTED COMPUTED TOMOGRAPHY PROCEDURE Alexus Zhang MD [address] [place] [address] Ct Imaging Referral ID Status Reason Start Date Expiration Date V isits Requested Visits Authorized [id number] Closed Auto-Generate d Referral 11/14/2021 12/14/2022 1 1 Reason Comments Orders Reason Comments Cough X 1 day Reason Comments Results Reason Comments Patient Update Reason Comments Established Patient Reason Comments Appointment Specialty Diagnoses / Procedures Referred By Contac t Referred To Contact MR IMAGING Diagnoses Meningioma (HCC) Procedures MRI BRAIN WO/W IVCON MRI BRAIN BRAIN STEM W/O W/CONTRAST MATERIAL Mak Mendoza DO [address] [place] [address] [place] [address] Referral ID Status Reason Start Date Expiration Date V isits Requested Visits Authorized [id number] Closed Auto-Generate d Referral 10/27/2022 11/26/2023 1 1 Reason Comments Established Patient Reason Comments AVS 11/24/23 Reason Comments Fatigue Fatigue and feels we ak-woke up with symptoms Reason Comments Established Patient Care Teams (unrecognized sec tion and content) Warp Dyeing Vat Tender Relationship Specialty Start Date End Date Prema Martini [address] [facility] [address] [place] [address] PCP - General Family Practice 11/14/21 Warp Dyeing Vat Tender Relationship Specialty Start Date End Date Prema Martini [address] [facility] [address] [place] [address] PCP - General Family Practice 11/14/21 Warp Dyeing Vat Tender Relationship Specialty Start Date End Date Prema Martini [address] [facility] [address] [place] [address] PCP - General Family Practice 11/14/21 Warp Dyeing Vat Tender Relationship Specialty Start Date End Date Prema Martini [address] [facility] [address] [place] [address] PCP - General Family Practice 11/14/21 Warp Dyeing Vat Tender Relationship Specialty Start Date End Date Lianet Prema Meyer [address] [facility] [address] [place] [address] PCP - General Family Medicine 11/14/21 Team Status: Active Member Role Status Dates Dr. Prema Genao MD Family Provider Active Dr. Prema Martini MD Primary Care Provider Active Team Status: Inactive Member Role Status Dates Dr. Prema Martini MD Primary Care Provider, Attend ing Provider Active Warp Dyeing Vat Tender Relationship Specialty Start Date End Date Prema Martini Edabner [address] [facility] [address] [place] [address] PCP - General Family Medicine 11/14/21 Joe Leyva [address] [place] [address] Cardiology 10/27/22 Team Status: Inactive Member Role [...] MD Primary Care Provider Active Laura Martinez SOUND EQUIPMENT MECHANIC, SOUND EQUIPMENT MECHANIC-C Attending Provider Active Team Status: Inactive Member [...] MD Attending Provider, Other Prov ider Active Warp Dyeing Vat Tender Relationship Specialty Start Date End Date Prema Martini MD [address] [facility] [address] [place] [address] PCP - General Family Medicine 11/14/21 Joe Leyva MD [address] [facility] [address] [place] [address] Cardiology 10/27/22 Warp Dyeing Vat Tender Relationship Specialty Start Date End Date Prema Martini MD [address] [facility] [address] [place] [address] PCP - General Family Medicine 11/14/21 Joe Leyva MD [address] [facility] [address] [place] [address] Cardiology 10/27/22 Warp Dyeing Vat Tender Relationship Specialty Start Date End Date Prema Martini MD [address] [facility] [address] [place] [address] PCP - General Family Medicine 11/14/21 Joe Leyva MD [address] [facility] [address] [place] [address] Cardiology 10/27/22 Warp Dyeing Vat Tender Relationship Specialty Start Date End Date Prema Martini MD [address] [facility] [address] [place] [address] PCP - General Family Medicine 11/14/21 Joe Leyva MD [address] [facility] [address] [place] [address] Cardiology 10/27/22 Warp Dyeing Vat Tender Relationship Specialty Start Date End Date Prema Martini MD [address] [facility] [address] [place] [address] PCP - General Family Medicine 11/14/21 Joe Leyva MD [address] [facility] [address] [place] [address] Cardiology 10/27/22 Warp Dyeing Vat Tender Relationship Specialty Start Date End Date Prema Martini MD [address] [facility] [address] [place] [address] PCP - General Family Medicine 11/14/21 Joe Leyva MD [address] [facility] [address] [place] [address] Cardiology 10/27/22 Team Status: Active Member Role/Relationship Status Dates Dr. Prema Genao MD Family Provider Active Dr. Prema Maritni MD Primary Care Provider Active Team Status: Inactive Member Role/Relationship Status Dates Dr. Prema Martini MD Primary Care Provider Active Start: December 19, 2024 End: December 19, 2024 Dr. Prema Martini MD Referring Provider Active Start: December 19, 2024 End: December 19, 2024 Prema Le SOUND EQUIPMENT MECHANIC, SOUND EQUIPMENT MECHANIC-C Attending Provider Active S tart: December 19, 2024 End: December 19, 2024 Warp Dyeing Vat Tender Relationship Specialty Start Date End Date Prema Martini MD [address] [place], [place] [address] PCP - General Family Medicine 11/14/21 Joe Leyva MD [address] [place], [place] [id number] Cardiology 10/27/22 (unrecognized sect ion and content) No Status Records FoundNo Status Records FoundNo Status Records Found INFORMATION SOURCE (unrecogn ized section and content) DATE CREATED AUTHOR 11/28/2021 [facility] nter DATE CREATED AUTHOR AUTHOR'S ORGANIZ ATION 12/21/2024 [facility] DATE CREATED AUTHOR AUTHOR'S ORGANIZ ATION 12/21/2024 [facility] FOR RECORDS PERTAINING TO PATIENTS WHO ARE [...] BE BASED ON THE PRIMARY CLINICAL RECORDS. [employer] provides no warranty or guarantee of the accuracy or completeness of information in this document.
[2024-12-26 10:12] LABS: Hematocrit 37.0 % (40-54); Hemoglobin 11.8 g/dL (13.0-16.5); Immature Granulocytes Count 0.010 X10^3/uL (0.0-0.0); Mean Corp Hgb Conc 31.9 g/dL (32-36); Mean Corpuscular Volume 87.7 fL (80-94); Mean Platelet Vol. 10.1 fl (6.2-12.0); NRBC Flagged by Analyzer 0 % (0-5); Platelet Count 285 K/mm3 (150-450); RBC Distribution Width CV 15.8 % (11.6-14.6); RBC Distribution Width SD 50.4 fl (35.1-43.9); Red Blood Count 4.22 M/mm3 (4.6-6.2); White Blood Count 5.0 K/mm3 (4.4-11.0)
[2024-12-26 11:03] LABS: AST(SGOT) 21 U/L (<=37); Alanine Aminotransfer ALT/SGPT 13 U/L (<=46); Albumin, Serum 4.1 g/dL (3.4-4.8); Alkaline Phosphatase 71 U/L (40-129); Anion Gap 12 (5-15); BUN 16 mg/dL (4-19); BUN/Creat Ratio 16.2 RATIO (10-20); Calcium,Total 10.1 mg/dL (7.6-11.0); Carbon Dioxide 25.8 mmol/L (21.0-32.0); Chloride 102 mmol/L (98-108); Cholesterol 118 mg/dL (<=200); Ferritin 36 ng/mL (37-417); Globulin 4.3 g/dL (2.2-4.2); Glucose 107 mg/dL (70-99); Low Density Lipoprotein Calc. 57 mg/dL; Potassium 4.1 mmol/L (3.3-5.1); Triglycerides 142 mg/dL; Very Low Density Lipoprotein 28 mg/dL (5-40); Vitamin B12 311 pg/mL (180-914); cholesterol:hdl ratio screen 3.60
[2024-12-26 11:23] LABS: Iron 52 ug/dL (65-175); Iron Binding Capacity,Total 366 ug/dL (250-450); Iron Binding Capacity,Unsat 314 ug/dL (228-428)
[2024-12-26 11:24] LABS: FOLATES,SERUM (FOLIC ACID) 13.90 ng/mL (4.60-34.80)
== END | disposition home or self-care (01) ==
LOC: MTLAB 07:46
PROVIDERS: PCP Family Medicine; Referring Provider Family Medicine; Visit Provider Family Medicine
DX: D64.9 Anemia, unspecified (principal); I25.10 Atherosclerotic heart disease of native coronary artery without angina pectoris; R79.89 Other specified abnormal findings of blood chemistry
CPT/HCPCS: 36415; 80053; 80061; 82607; 82728; 82746; 83036; 83540; 83550; 84432; 84439; 84443; 85025; 86376; 86800